=== PATIENT | female | born 1945 | race Caucasian/White ===

== ENCOUNTER → 2020-07-23 14:50 | Outpatient (BNVA) | payer MEDICARE, SELFPAY | PROVIDERS: PCP Nurse Practitioner Family; Referring Provider Nurse Practitioner Family; Visit Provider Internal Medicine Endocrinology, Diabetes & Metabolism | DX: N25.81 Secondary hyperparathyroidism of renal origin (principal); M85.80 Other specified disorders of bone density and structure, unspecified site; E78.5 Hyperlipidemia, unspecified; E55.9 Vitamin D deficiency, unspecified; Z79.899 Other long term (current) drug therapy | CPT/HCPCS: 99212; Q3014 ==

== ENCOUNTER → 2020-07-31 12:48 | Outpatient (BNVA) | payer MEDICARE, SELFPAY | PROVIDERS: PCP Nurse Practitioner Family; Referring Provider Nurse Practitioner Family; Visit Provider Dietitian, Registered | DX: Z76.89 Persons encountering health services in other specified circumstances (principal) ==

== ENCOUNTER → 2020-08-19 09:47 | Outpatient (BNVA) | payer MEDICARE, SELFPAY | PROVIDERS: PCP Nurse Practitioner Family; Visit Provider Internal Medicine Gastroenterology | DX: Z11.0 Encounter for screening for intestinal infectious diseases (principal) | CPT/HCPCS: 99211 ==

== ENCOUNTER 2020-08-19 10:47 | Outpatient (REF) | payer MEDICARE, SELFPAY ==
[2020-08-19 12:28] LABS: Alanine Aminotransferase 11 U/L (0-31); Albumin Level 4.2 g/dL (3.5-5.0); Alkaline Phosphatase 74 U/L (39-117); Anion Gap 14 (12-20); Aspartate Amino Transferase 27 U/L (5-31); Bilirubin Total 0.7 mg/dL (0.0-1.0); Blood Urea Nitrogen 21 mg/dL (9-16); Calcium 9.3 mg/dL (8.4-10.2); Carbon Dioxide 30 mmol/L (22-29); Chloride 99 mmol/L (96-108); Cholesterol 257 mg/dL; Estimated Glomerular Filt Rate 41; Glucose Fasting 90 mg/dL (60-99); HDL Cholesterol 47 mg/dL; LDL Cholesterol Calculated 182 mg/dl; Magnesium 2.1 mg/dL (1.6-2.6); Phosphorus 3.2 mg/dL (2.7-4.5); Potassium 3.7 mmol/l (3.3-5.1); Sodium 139 mmol/L (135-145); Total Protein 7.9 g/dL (6.5-8.0); Triglycerides 141 mg/dL
[2020-08-19 12:49] LABS: Vitamin D 25-OH Total 60.9 ng/mL (>30)
[2020-08-20 07:28] LABS: LDL Cholesterol Direct 179 mg/dL (<100)
[2020-08-21 12:12] LABS: Calcium (PTHI) 9.2 mg/dL (8.6-10.4); PTHI 114 pg/mL (14-64)
[2020-08-22 13:53] LABS: H Pylori Breath Test NOT DETECTED (NOT DETECTED)
[2020-08-23 00:22] LABS: VITAMIN D (1,25 OH) D3 42 pg/mL; Vit D (1,25-Dihydroxy) Total 42 pg/mL (18-72); Vitamin D (1,25 OH) D2 <8 pg/mL
[2020-08-23 15:13] LABS: Alkaline Phosphatase Bone 13.1 mcg/L (5.6-29.0)
== END 2020-08-19 10:48 | disposition home or self-care (01) ==
LOC: HO.LAB 10:47
PROVIDERS: PCP Nurse Practitioner Family; Visit Provider Internal Medicine Endocrinology, Diabetes & Metabolism
DX: E78.5 Hyperlipidemia, unspecified (principal)
CPT/HCPCS: 80053; 80061; 82306; 82652; 83013; 83721; 83735; 83970; 84075; 84100

== ENCOUNTER 2020-08-27 | Outpatient (REF) | payer MEDICARE, SELFPAY ==
[2020-08-28 14:56] LABS: Total Volume 24 Hour Urine 750 mL
[2020-08-28 15:05] LABS: Creatinine, 24Hr Urine 1.3 G/Day (1.0-2.0); Creatinine, mg/dL 170.94
[2020-08-29 17:08] LABS: Calcium, 24 Hr Urine 44 mg/24 h; Calcium/Creatinine Ratio 35 mg/g creat (30-275); Creatinine 24Hr Urine 1.24 g/24 h (0.50-2.15)
== END 2020-08-27 00:01 | disposition home or self-care (01) ==
LOC: HO.LNP
PROVIDERS: Visit Provider Internal Medicine Endocrinology, Diabetes & Metabolism
DX: N25.81 Secondary hyperparathyroidism of renal origin (principal)
CPT/HCPCS: 82340; 82570

== ENCOUNTER → 2020-09-30 11:57 | Outpatient (BNVA) | payer MEDICARE, SELFPAY | PROVIDERS: PCP Nurse Practitioner Family; Visit Provider Dietitian, Registered | DX: Z76.89 Persons encountering health services in other specified circumstances (principal) ==

== ENCOUNTER → 2020-11-11 12:23 | Outpatient (BNVA) | payer MEDICARE, SELFPAY | PROVIDERS: PCP Nurse Practitioner Family; Visit Provider Dietitian, Registered ==

== ENCOUNTER 2020-11-21 17:06 | Outpatient (REF) | payer MEDICARE, SELFPAY ==
--- NOTE | ~2020-11-21 | XR_ITS ---
EXAMINATION: XR SHOULDER, LEFT CLINICAL INFORMATION: Pain and stiffness COMPARISON: Previous x-ray July 2008 TECHNIQUE: AP external rotation, Grashey, scapular Y, and axillary views of the left shoulder. FINDINGS: Bone alignment is normal. No fracture or dislocation is seen. The glenohumeral joint is normal. There is arthritis at the acromioclavicular joint. Soft tissues are unremarkable. XR/XR shoulder LT min 2V IMPRESSION: Arthritis at the acromioclavicular joint.
== END 2020-11-21 17:07 | disposition home or self-care (01) ==
LOC: HO.XRAY 17:06
PROVIDERS: PCP Registered Nurse; Visit Provider Registered Nurse
DX: M25.512 Pain in left shoulder (principal); M25.612 Stiffness of left shoulder, not elsewhere classified; M79.622 Pain in left upper arm
CPT/HCPCS: 73030

== ENCOUNTER 2020-12-10 11:10 | Outpatient (REF) | payer MEDICARE, SELFPAY ==
--- NOTE | ~2020-12-10 | MM_ITS ---
EXAMINATION: MM SCREENING DIGITAL BREAST TOMOSYNTHESIS, BILATERAL CLINICAL INFORMATION: Screening. Asymptomatic. The lifetime risk of breast cancer based on the Tyrer-Cuzick Model is 2%. COMPARISON: Mammography: 03/16/2019, 03/04/2018, 02/23/2017; radiographs left shoulder 11/21/2020 TECHNIQUE: Digital breast tomosynthesis is performed in both the craniocaudal and mediolateral oblique views along with computer-aided detection (CAD). Synthesized 2D images are generated from the tomosynthesis. Additional right MLO view is provided. FINDINGS: The breasts are almost entirely fatty (ACR BI-RADS breast composition Category a). Background stromal markings are unremarkable. There is no developing density or interval mass or architectural abnormality. No abnormal calcifications. There are bilateral vascular calcifications again seen. The axilla and skin contours are unremarkable. Current study shows mildly prominent draining vein upper outer left breast when compared with prior studies. No abnormality soft tissues upper arm or axilla noted on recent radiographs left shoulder. Patient data sheet notes two doses COVID vaccine both from left side. MM/MM tomosynthesis screening BI IMPRESSION: 1. Breast parenchymal pattern similar to prior exams. 2. Solitary prominent draining vein upper outer left breast of doubtful significance. No axillary adenopathy. ASSESSMENT: BI-RADS 2: Benign RECOMMENDATION: Routine annual mammography screening. This patient's information was entered into a reminder system with a target due date for their next mammogram.
== END 2020-12-10 11:11 | disposition home or self-care (01) ==
LOC: HO.MAMMO 11:10
PROVIDERS: PCP Nurse Practitioner Family; Visit Provider Nurse Practitioner Family
DX: Z12.31 Encounter for screening mammogram for malignant neoplasm of breast (principal)
CPT/HCPCS: 77063; 77067

== ENCOUNTER 2021-01-20 13:54 | Outpatient (REF) | payer MEDICARE, SELFPAY ==
[2021-01-20 15:48] LABS: Alanine Aminotransferase 11 U/L (0-31); Albumin Level 4.1 g/dL (3.5-5.0); Alkaline Phosphatase 67 U/L (39-117); Anion Gap 11 (12-20); Aspartate Amino Transferase 24 U/L (5-31); Bilirubin Total 0.4 mg/dL (0.0-1.0); Blood Urea Nitrogen 26 mg/dL (9-16); Calcium 9.4 mg/dL (8.4-10.2); Carbon Dioxide 32 mmol/L (22-29); Chloride 102 mmol/L (96-108); Cholesterol 216 mg/dL; Estimated Glomerular Filt Rate 45; Glucose Fasting 99 mg/dL (60-99); HDL Cholesterol 43 mg/dL; LDL Cholesterol Calculated 131 mg/dl; Potassium 3.4 mmol/L (3.3-5.1); Sodium 142 mmol/L (135-145); Total Protein 7.6 g/dL (6.5-8.0); Triglycerides 212 mg/dL
[2021-01-20 16:10] LABS: Vitamin D 25-OH Total 53.9 ng/mL (>30)
[2021-01-21 08:02] LABS: LDL Cholesterol Direct 136 mg/dL (<100)
[2021-01-21 17:16] LABS: Calcium (PTHI) 9.6 mg/dL (8.6-10.4); PTHI 77 pg/mL (14-64)
[2021-01-23 11:12] LABS: Alkaline Phosphatase Bone 13.3 mcg/L (5.6-29.0)
== END 2021-01-20 13:55 | disposition home or self-care (01) ==
LOC: HO.LAB 13:54
PROVIDERS: PCP Registered Nurse; Visit Provider Internal Medicine Endocrinology, Diabetes & Metabolism
DX: N25.81 Secondary hyperparathyroidism of renal origin (principal); M85.80 Other specified disorders of bone density and structure, unspecified site; E78.5 Hyperlipidemia, unspecified; E55.9 Vitamin D deficiency, unspecified
CPT/HCPCS: 36415; 80053; 80061; 82306; 83721; 83970; 84075; 99212

== ENCOUNTER → 2021-06-05 12:36 | Outpatient (BNVA) | payer MEDICARE, SELFPAY | PROVIDERS: Visit Provider Internal Medicine | CPT/HCPCS: Q3014 ==

== ENCOUNTER 2021-06-09 08:49 | Outpatient (REF) | payer MEDICARE, SELFPAY ==
[2021-06-09 10:03] LABS: Alanine Aminotransferase 13 U/L (0-31); Albumin Level 4.1 g/dL (3.5-5.0); Alkaline Phosphatase 76 U/L (39-117); Anion Gap 10 (12-20); Aspartate Amino Transferase 24 U/L (5-31); Bilirubin Total 0.3 mg/dL (0.0-1.0); Blood Urea Nitrogen 21 mg/dL (9-16); Calcium 9.4 mg/dL (8.4-10.2); Carbon Dioxide 33 mmol/L (22-29); Chloride 101 mmol/L (96-108); Cholesterol 206 mg/dL; Estimated Glomerular Filt Rate 39; Glucose Random 92 mg/dL (60-115); HDL Cholesterol 39 mg/dL; LDL Cholesterol Calculated 131 mg/dl; Phosphorus 3.1 mg/dL (2.7-4.5); Potassium 3.9 mmol/L (3.3-5.1); Sodium 140 mmol/L (135-145); Total Protein 7.3 g/dL (6.5-8.0); Triglycerides 184 mg/dL
[2021-06-09 10:33] LABS: Free T4 (Free Thyroxine) 1.19 ng/dL (0.71-1.85); Thyroid Stimulating Hormone 1.15 uIU/mL (0.32-4.0); Vitamin D 25-OH Total 46.9 ng/mL (>30)
[2021-06-10 14:12] LABS: LDL Cholesterol Direct 129 mg/dL (<100)
[2021-06-11 13:01] LABS: PES - Abn Protein Band 1 0.6 g/dL (NONE DETECTED); Prot Elec - Alpha1 0.3 g/dL (0.2-0.3); Prot Elec - Alpha2 0.8 g/dL (0.5-0.9); Prot Elec - Beta 1 0.4 g/dL (0.4-0.6); Prot Elec - Beta 2 0.4 g/dL (0.2-0.5); Prot Elec - Gamma 1.5 g/dL (0.8-1.7); Prot Elec - Total Protein 7.4 g/dL (6.1-8.1)
[2021-06-12 11:52] LABS: Alkaline Phosphatase Bone 13.2 mcg/L (5.6-29.0)
[2021-06-16 12:36] LABS: Calcium (PTHI) 9.2 mg/dL (8.6-10.4); PTHI 117 pg/mL (14-64)
[2021-06-17 05:22] LABS: N-Telopeptide 26 (see note); NTXCreaRU 152 mg/dL (20-275)
== END 2021-06-09 08:50 | disposition home or self-care (01) ==
LOC: HO.LAB 08:49
PROVIDERS: Visit Provider Internal Medicine
DX: M85.80 Other specified disorders of bone density and structure, unspecified site (principal); E78.5 Hyperlipidemia, unspecified; E55.9 Vitamin D deficiency, unspecified
CPT/HCPCS: 36415; 80053; 80061; 82306; 82523; 83721; 83970; 84075; 84100; 84165; 84439; 84443

== ENCOUNTER 2021-06-11 12:56 | Outpatient (REF) | payer MEDICARE, SELFPAY ==
[2021-06-11 13:51] LABS: Creatinine, mg/dL 146.17
[2021-06-12 10:03] LABS: Creatinine, 24Hr Urine 1.2 G/Day (1.0-2.0); Total Volume 24 Hour Urine 850 mL
[2021-06-13 18:16] LABS: Calcium, 24 Hr Urine 16 mg/24 h; Calcium/Creatinine Ratio 14 mg/g creat (30-275); Creatinine 24Hr Urine 1.14 g/24 h (0.50-2.15)
== END 2021-06-11 12:57 | disposition home or self-care (01) ==
LOC: HO.LNP 12:56
PROVIDERS: Visit Provider Internal Medicine
DX: M85.80 Other specified disorders of bone density and structure, unspecified site (principal)
CPT/HCPCS: 82340; 82570

== ENCOUNTER → 2021-06-13 09:33 | Outpatient (BNVA) | payer MEDICARE, SELFPAY | PROVIDERS: Visit Provider Dietitian, Registered | DX: K90.0 Celiac disease (principal) | CPT/HCPCS: 97803 ==

== ENCOUNTER 2021-06-20 07:59 | Outpatient (REF) | payer MEDICARE, SELFPAY ==
[2021-06-20 08:16] LABS: MANUAL DIFF FLAG NO
[2021-06-20 08:30] LABS: Basophils Percent Auto 0.6 % (0-2); Eosinophils Absolute Auto 0.2 X10*3/uL (0.0-0.4); Hematocrit 35.7 % (37-47); Hemoglobin 11.4 g/dl (12.0-16.0); Imm Gran Abs Auto 0.01 X10*3/uL (0.00-0.03); Imm Gran Pct Auto 0.2 % (0.0-0.4); Lymphocytes Absolute Auto 1.7 X10*3/uL (1.2-4.9); Lymphocytes Percent Auto 32.6 % (20-40); Mean Corpuscular HGB Conc 31.9 g/dl (31.0-35.0); Mean Corpuscular Hemoglobin 29.5 pg (27.0-33.0); Mean Corpuscular Volume 92.5 fL (80-98); Mean Platelet Volume 11.3 fL (9.4-12.3); Monocytes Absolute Auto 0.4 X10*3/uL (0.1-1.2); Neutrophils Absolute Auto 2.9 X10*3/uL (2.0-8.3); Neutrophils Percent Auto 54.6 % (45-73); Platelet Count 197 X10*3/uL (160-400); Red Blood Count 3.86 X10*6/uL (4.20-5.50); Red Cell Distribution Width 12.4 % (11.0-16.0); White Blood Count 5.2 X10*3/uL (4.8-10.8)
[2021-06-20 08:32] LABS: Appearance Urine HAZY; Color Urine YELLOW; Glucose Urine UA NEG (NEG); Leukocyte Esterase Urine 2+ (NEG); Nitrite Urine NEG (NEG); PH 6.5 (5.0-8.0); Specific Gravity - Urine <= 1.005 (1.005-1.025); Urine Blood TRACE (NEG); Urine Ketones NEG (NEG); Urine Protein TRACE MG/DL (NEG-TRACE)
[2021-06-20 08:45] LABS: Squamous Epithelial Cell Urine 3+ /LPF
[2021-06-20 08:46] LABS: Bacteria Urine 1+ /LPF
[2021-06-20 08:55] LABS: Total Protein Urine Random 13 mg/dL (<12)
[2021-06-20 08:59] LABS: Anion Gap 8 (12-20); Blood Urea Nitrogen 14 mg/dL (9-16); Carbon Dioxide 35 mmol/L (22-29); Chloride 102 mmol/L (96-108); Estimated Glomerular Filt Rate 45; Iron 75 mcg/dL (30-160); Percent Iron Saturation 27 % (15-50); Potassium 4.2 mmol/L (3.3-5.1); Sodium 141 mmol/L (135-145); Total Iron Binding Capacity 277 mcg/dL (228-428); Unsaturated Iron Binding 202 ug/dL
[2021-06-23 13:27] LABS: Calcium (PTHI) 9.6 mg/dL (8.6-10.4); PTHI 80 pg/mL (14-64)
== END 2021-06-20 08:00 | disposition home or self-care (01) ==
LOC: HO.LAB 07:59
PROVIDERS: Visit Provider Internal Medicine Nephrology
DX: N28.1 Cyst of kidney, acquired (principal)
CPT/HCPCS: 36415; 80051; 81001; 82565; 83540; 83970; 84156; 84520; 85025

== ENCOUNTER → 2021-06-27 09:17 | Outpatient (BNV) | payer MEDICARE, SELFPAY | PROVIDERS: Referring Provider Internal Medicine; Visit Provider Internal Medicine Medical Oncology | DX: D47.2 Monoclonal gammopathy (principal) | CPT/HCPCS: 99203; 99212; 99213 ==

== ENCOUNTER → 2021-10-16 12:08 | Outpatient (BNVA) | payer MEDICARE, SELFPAY | PROVIDERS: Visit Provider Internal Medicine | DX: Z13.89 Encounter for screening for other disorder (principal) | CPT/HCPCS: Q3014 ==

== ENCOUNTER 2021-11-17 09:06 | Outpatient (REF) | payer MEDICARE, SELFPAY ==
[2021-11-17 10:58] LABS: Alanine Aminotransferase 10 U/L (0-31); Albumin Level 4.3 g/dL (3.5-5.0); Alkaline Phosphatase 91 U/L (39-117); Anion Gap 13 (12-20); Aspartate Amino Transferase 26 U/L (5-31); Bilirubin Total 0.5 mg/dL (0.0-1.0); Blood Urea Nitrogen 28 mg/dL (9-16); Carbon Dioxide 29 mmol/L (22-29); Chloride 103 mmol/L (96-108); Estimated Glomerular Filt Rate 29; Glucose Random 92 mg/dL (60-115); Phosphorus 3.5 mg/dL (2.7-4.5); Potassium 4.5 mmol/L (3.3-5.1); Sodium 140 mmol/L (135-145); Total Protein 7.9 g/dL (6.5-8.0)
[2021-11-17 11:02] LABS: Vitamin D 25-OH Total 52.8 ng/mL (>30)
[2021-11-18 13:57] LABS: Calcium (PTHI) 9.5 mg/dL (8.6-10.4); PTHI 95 pg/mL (14-64)
== END 2021-11-17 09:07 | disposition home or self-care (01) ==
LOC: HO.LAB 09:06
PROVIDERS: Visit Provider Internal Medicine
DX: M85.80 Other specified disorders of bone density and structure, unspecified site (principal); E55.9 Vitamin D deficiency, unspecified
CPT/HCPCS: 36415; 80053; 82306; 83970; 84100

== ENCOUNTER 2021-11-19 09:54 | Outpatient (REF) | payer MEDICARE, MEDICAID, SELFPAY ==
[2021-11-19 11:20] LABS: Anion Gap 10 (12-20); Blood Urea Nitrogen 21 mg/dL (9-16); Calcium 9.5 mg/dL (8.4-10.2); Carbon Dioxide 31 mmol/L (22-29); Chloride 101 mmol/L (96-108); Estimated Glomerular Filt Rate 41; Glucose Random 68 mg/dL (60-115); Sodium 138 mmol/L (135-145)
[2021-11-19 11:35] LABS: Creatinine, mg/dL 35.65
[2021-11-19 13:50] LABS: Creatinine, 24Hr Urine 0.8 G/Day (1.0-2.0); Total Volume 24 Hour Urine 2350 mL
[2021-11-21 18:07] LABS: Calcium, 24 Hr Urine 12 mg/24 h; Calcium/Creatinine Ratio 13 mg/g creat (30-275); Creatinine 24Hr Urine 0.89 g/24 h (0.50-2.15)
== END 2021-11-19 09:55 | disposition home or self-care (01) ==
LOC: HO.LAB 09:54
PROVIDERS: Visit Provider Internal Medicine
DX: M85.80 Other specified disorders of bone density and structure, unspecified site (principal)
CPT/HCPCS: 36415; 80048; 82340; 82570

== ENCOUNTER 2022-01-02 12:06 | Outpatient (REF) | payer MEDICARE, MEDICAID, SELFPAY ==
[2022-01-02 12:23] LABS: MANUAL DIFF FLAG NO
[2022-01-02 13:10] LABS: Basophils Percent Auto 0.3 % (0-2); Eosinophils Absolute Auto 0.2 X10*3/uL (0.0-0.4); Eosinophils Percent Auto 2.6 % (0-4); Hematocrit 32.6 % (37.0-47.0); Hemoglobin 10.1 g/dl (12.0-16.0); Imm Gran Abs Auto 0.02 X10*3/uL (0.00-0.03); Imm Gran Pct Auto 0.3 % (0.0-0.4); Lymphocytes Absolute Auto 1.6 X10*3/uL (1.2-4.9); Lymphocytes Percent Auto 27.6 % (20-40); Mean Corpuscular Hemoglobin 28.6 pg (27.0-33.0); Mean Corpuscular Volume 92.4 fL (80.0-98.0); Mean Platelet Volume 12.2 fL (9.4-12.3); Monocytes Absolute Auto 0.4 X10*3/uL (0.1-1.2); Monocytes Percent Auto 7.7 % (2-11); Neutrophils Absolute Auto 3.5 x10*3/uL (2.0-8.3); Neutrophils Percent Auto 61.5 % (45-73); Platelet Count 192 X10*3/uL (160-400); Red Blood Count 3.53 X10*6/uL (4.20-5.50); White Blood Count 5.7 X10*3/uL (4.8-10.8)
[2022-01-02 13:17] LABS: Appearance Urine HAZY; Color Urine YELLOW; Glucose Urine UA NEG (NEG); Leukocyte Esterase Urine TRACE (NEG); Nitrite Urine NEG (NEG); PH 7.5 (5.0-8.0); Specific Gravity - Urine 1.015 (1.005-1.025); Urine Blood TRACE (NEG); Urine Ketones 5 MG/DL (NEG); Urine Protein NEG (NEG-TRACE)
[2022-01-02 13:33] LABS: Creatinine Urine 284.95 mg/dL; Total Protein Urine Random 28 mg/dL (<12)
[2022-01-02 13:39] LABS: Bacteria Urine TRACE /LPF; Squamous Epithelial Cell Urine 4+ /LPF; WBC Urine 0-2 /HPF (0-4)
[2022-01-02 13:55] LABS: Anion Gap 16 (12-20); Blood Urea Nitrogen 17 mg/dL (9-16); Calcium 9.7 mg/dL (8.4-10.2); Carbon Dioxide 27 mmol/L (22-29); Chloride 99 mmol/L (96-108); Estimated Glomerular Filt Rate 45; Iron 52 mcg/dL (30-160); Sodium 138 mmol/L (135-145)
[2022-01-02 13:59] LABS: Vitamin D 25-OH Total 53.1 ng/mL (>30)
[2022-01-02 14:06] LABS: Percent Iron Saturation 19 % (15-50); Total Iron Binding Capacity 278 mcg/dL (228-428); Unsaturated Iron Binding 226 ug/dL
[2022-01-05 13:57] LABS: Calcium (PTHI) 9.6 mg/dL (8.6-10.4); PTHI 72 pg/mL (16-77)
== END 2022-01-02 12:07 | disposition home or self-care (01) ==
LOC: HO.LAB 12:06
PROVIDERS: PCP Registered Nurse Community Health; Visit Provider Internal Medicine Nephrology
DX: N18.32 Chronic kidney disease, stage 3b (principal)
CPT/HCPCS: 36415; 80051; 81001; 82306; 82310; 82565; 83540; 83970; 84156; 84520; 85025

== ENCOUNTER 2022-01-19 10:24 | Outpatient (REF) | payer OTHER, SELFPAY ==
--- NOTE | ~2022-01-19 | MM_ITS ---
EXAMINATION: MM SCREENING DIGITAL BREAST TOMOSYNTHESIS, BILATERAL CLINICAL INFORMATION: Screening. Asymptomatic. The lifetime risk of breast cancer based on the Tyrer-Cuzick Model is 2%. COMPARISON: Mammography: 12/10/2020, 03/16/2019, 03/04/2018 TECHNIQUE: Digital breast tomosynthesis is performed in both the craniocaudal and mediolateral oblique views along with computer-aided detection (CAD). Synthesized 2D images are generated from the tomosynthesis. FINDINGS: There are scattered areas of fibroglandular density (ACR BI-RADS breast composition Category b). Breast tissue composition borders on predominantly fatty. Background stromal markings are stable. There is no interval mass or architectural abnormality. Prominent draining vein noted prior exam upper outer quadrant left breast is not demonstrated on current study. There are scattered bilateral vascular calcifications again seen. Skin contours are smooth. MM/MM tomosynthesis screening BI IMPRESSION: No mammographic evidence of malignancy. ASSESSMENT: BI-RADS 1: Negative RECOMMENDATION: Routine annual mammography screening. This patient's information was entered into a reminder system with a target due date for their next mammogram.
== END 2022-01-19 10:25 | disposition home or self-care (01) ==
LOC: HO.MAMMO 10:24
PROVIDERS: Visit Provider Registered Nurse Community Health
DX: Z12.31 Encounter for screening mammogram for malignant neoplasm of breast (principal)
CPT/HCPCS: 77063; 77067

== ENCOUNTER 2022-03-20 08:13 | Outpatient (REF) | payer OTHER, SELFPAY ==
[2022-03-20 09:14] LABS: Cholesterol 219 mg/dL; HDL Cholesterol 45 mg/dL; LDL Cholesterol Calculated 150 mg/dl; Triglycerides 123 mg/dL
== END 2022-03-20 08:14 | disposition home or self-care (01) ==
LOC: HO.LAB 08:13
PROVIDERS: PCP Registered Nurse Community Health; Visit Provider Registered Nurse Community Health
DX: E78.5 Hyperlipidemia, unspecified (principal)
CPT/HCPCS: 36415; 80061

== ENCOUNTER 2022-05-04 13:10 | Outpatient (REF) | payer OTHER, SELFPAY ==
--- NOTE | ~2022-05-04 | US_ITS ---
EXAMINATION: US RETROPERITONEAL LIMITED (RENAL ONLY) CLINICAL INFORMATION: Renal cyst. COMPARISON: US retroperitoneal limited (renal only) 03/07/2020 and 05/23/2019. MR abdomen without contrast 10/27/2019. CT abdomen and pelvis with contrast 07/30/2019. TECHNIQUE: Real-time imaging of the kidneys. FINDINGS: RIGHT KIDNEY: 10.6 x 3.8 x 5.0 cm (SAG x AP x TRV). The kidney is normal in size, contour, and echogenicity. Renal cortical thickness is normal. No renal calculi or hydronephrosis. There is an anechoic cyst in the lower pole measuring 1.3 x 0.8 x 1.3 cm. There are prominent pyramids visualized. LEFT KIDNEY: 12.5 x 4.0 x 4.0 cm (SAG x AP x TRV). The kidney is normal in size, contour, and echogenicity. Renal cortical thickness is normal. No renal calculi or hydronephrosis. There is an anechoic cyst in the lower pole measuring 5.0 x 4.8 x 5.7 cm. The previously visualized mid pole cyst is not visualized at this time. US/US renal BI IMPRESSION: There are bilateral renal cysts. No echogenic stones or hydronephrosis seen.
== END 2022-05-04 13:11 | disposition home or self-care (01) ==
LOC: HO.US 13:10
PROVIDERS: Visit Provider Internal Medicine Nephrology
DX: N28.1 Cyst of kidney, acquired (principal)
CPT/HCPCS: 76775

== ENCOUNTER 2022-05-12 14:08 | Outpatient (REF) | payer OTHER, SELFPAY ==
--- NOTE | ~2022-05-12 | MM_ITS ---
EXAMINATION: BONE DENSITOMETRY CLINICAL INDICATION: Other specified disorders of bone density and structure. COMPARISON: Previous BD dated 03/25/2020 and baseline BD dated 01/24/2007, spine and left hip. This is the patient's baseline examination for the left forearm radius 33%. TECHNIQUE: Using a [employer] DXA System (software version: 13.1) manufactured by [employer] dual-energy x-ray absorptiometry was performed of the lumbar spine, left hip, and left forearm radius 33%. The images are of good technical quality. Summary results are attached. FINDINGS: AP SPINE L1-L4: Current: BMD 1.130 g/cm2, Z-score 0.7, T-score -0.4, normal, 1.2% decrease from previous, 7.1% increase from baseline (<5% change is not significant). Prior: BMD 1.144 g/cm2. Baseline: BMD 1.055 g/cm2. LEFT FEMUR, NECK: Current: BMD 0.883 g/cm2, Z-score 0.5, T-score -1.1, osteopenia. Prior: BMD 0.789 g/cm2. Baseline: BMD 0.935 g/cm2. LEFT FEMUR, TOTAL: Current: BMD 1.004 g/cm2, Z-score 1.4, T-score 0.0, normal, 5.6% increase from previous, 7.2% decrease from baseline (<5% change is not significant). Prior: BMD 0.951 g/cm2. Baseline: BMD 1.082 g/cm2. LEFT FOREARM RADIUS 33%: BMD 0.804 g/cm2, Z-score 1.6, T-score -0.8, normal. IDENTIFIED RISK FACTORS: Menopause, thiazide, hyperparathyroidism. HISTORY OF FRACTURE: None listed. MEDICATIONS: Calcium supplements or multivitamin, vitamin D. MM/XR DEXA appendicular skeleton IMPRESSION: 1. DIAGNOSIS: Osteopenia based on the lowest T-score value of -1.1 in the femoral neck applying World Health Organization criteria. 2. 10-YEAR FRACTURE RISK PREDICTION, FRAX: Major osteoporotic fracture (clinical spine, forearm, hip or shoulder) 5.9%. Hip fracture 1.0%. 3. Treatment Recommendations: NOF guidelines recommend consideration for treatment in postmenopausal women and men age 50 and older presenting with the following: -A hip or vertebral (clinical or morphometric) fracture. -T-score less than or equal to -2.5 at the femoral neck or spine after appropriate evaluation to exclude secondary causes. -Low bone mass at the hip or spine and a 10-year fracture probability by FRAX of greater than or equal to 3% for hip fracture or greater than or equal to 20% for major osteoporotic fracture based on the [place] adapted WHO algorithm. 4. Other Recommendations: All treatment decisions require clinical judgment and consideration of individual patient factors, including patient preferences, comorbidities, previous drug use, risk factors not captured in the FRAX model (e.g. frailty, falls, vitamin D deficiency, increased bone turnover, interval significant decline in bone density) and possible under or overestimation of fracture risk by FRAX. Additional medical evaluation for secondary cause of low bone mineral density may be appropriate. FUTURE SCAN RECOMMENDATION: People with diagnosed cases of osteoporosis or at high risk for fracture should have regular bone mineral density tests. For patients eligible for Medicare, routine testing is allowed once every 2 years. The testing frequency can be increased to one year for patients who have rapidly progressing disease, those who are receiving or discontinuing medical therapy to restore bone mass, or have additional risk factors.
== END 2022-05-12 14:09 | disposition home or self-care (01) ==
LOC: HO.MAMMO 14:08
PROVIDERS: Visit Provider Internal Medicine Endocrinology, Diabetes & Metabolism
DX: Z13.820 Encounter for screening for osteoporosis (principal); Z78.0 Asymptomatic menopausal state; M85.80 Other specified disorders of bone density and structure, unspecified site
CPT/HCPCS: 77081

== ENCOUNTER → 2022-06-10 11:17 | Outpatient (BNVA) | payer OTHER, SELFPAY | PROVIDERS: PCP Registered Nurse Community Health; Visit Provider Internal Medicine Endocrinology, Diabetes & Metabolism | DX: N25.81 Secondary hyperparathyroidism of renal origin (principal); M85.80 Other specified disorders of bone density and structure, unspecified site | CPT/HCPCS: 99212 ==

== ENCOUNTER 2022-06-25 08:13 | Outpatient (REF) | payer OTHER, SELFPAY ==
[2022-06-25 08:36] LABS: MANUAL DIFF FLAG NO
[2022-06-25 09:30] LABS: Basophils Absolute Auto 0.1 X10*3/uL (0.0-0.2); Eosinophils Absolute Auto 0.2 X10*3/uL (0.0-0.4); Eosinophils Percent Auto 3.4 % (0-4); Hematocrit 36.7 % (37.0-47.0); Hemoglobin 11.6 g/dl (12.0-16.0); Imm Gran Abs Auto 0.01 X10*3/uL (0.00-0.03); Imm Gran Pct Auto 0.2 % (0.0-0.4); Mean Corpuscular HGB Conc 31.6 g/dl (31.0-35.0); Mean Corpuscular Hemoglobin 28.8 pg (27.0-33.0); Mean Corpuscular Volume 91.1 fL (80.0-98.0); Mean Platelet Volume 12.2 fL (9.4-12.3); Monocytes Absolute Auto 0.5 X10*3/uL (0.1-1.2); Monocytes Percent Auto 8.2 % (2-11); Neutrophils Absolute Auto 3.2 x10*3/uL (2.0-8.3); Neutrophils Percent Auto 53.2 % (45-73); Platelet Count 227 X10*3/uL (160-400); Red Blood Count 4.03 X10*6/uL (4.20-5.50); Red Cell Distribution Width 12.7 % (11.0-16.0)
[2022-06-25 10:19] LABS: Anion Gap 16 (12-20); Blood Urea Nitrogen 20 mg/dL (9-16); Calcium 9.4 mg/dL (8.4-10.2); Carbon Dioxide 29 mmol/L (22-29); Chloride 100 mmol/L (96-108); Estimated Glomerular Filt Rate 44; Iron 87 mcg/dL (30-160); Percent Iron Saturation 26 % (15-50); Potassium 4.2 mmol/L (3.3-5.1); Sodium 141 mmol/L (135-145); Total Iron Binding Capacity 329 mcg/dL (228-428); Unsaturated Iron Binding 242 ug/dL
[2022-06-25 10:29] LABS: Alanine Aminotransferase 8 U/L (0-31); Albumin Level 4.3 g/dL (3.5-5.0); Alkaline Phosphatase 90 U/L (39-117); Anion Gap 16 (12-20); Aspartate Amino Transferase 22 U/L (5-31); Bilirubin Total 0.4 mg/dL (0.0-1.0); Blood Urea Nitrogen 20 mg/dL (9-16); Calcium 9.4 mg/dL (8.4-10.2); Carbon Dioxide 29 mmol/L (22-29); Chloride 100 mmol/L (96-108); Estimated Glomerular Filt Rate 43; Glucose Random 89 mg/dL (60-115); Potassium 4.3 mmol/L (3.3-5.1); Sodium 141 mmol/L (135-145); Total Protein 7.8 g/dL (6.5-8.0)
[2022-06-25 10:45] LABS: Creatinine Urine 171.24 mg/dL; Total Protein Urine Random 17 mg/dL (<12)
[2022-06-25 10:47] LABS: Vitamin D 25-OH Total 54.2 ng/mL (>30)
[2022-06-26 13:22] LABS: Calcium (PTHI) 9.3 mg/dL (8.6-10.4); PTHI 121 pg/mL (16-77)
[2022-06-29 13:47] LABS: IgA 197 mg/dL (70-320); IgG 1732 mg/dL (600-1540); IgM 83 mg/dL (50-300)
== END 2022-06-25 08:14 | disposition home or self-care (01) ==
LOC: HO.LAB 08:13
PROVIDERS: Internal Medicine Medical Oncology; PCP Registered Nurse Community Health; Visit Provider Internal Medicine Nephrology
DX: D47.2 Monoclonal gammopathy (principal); N28.1 Cyst of kidney, acquired; I10 Essential (primary) hypertension
CPT/HCPCS: 36415; 80051; 80053; 82306; 82310; 82565; 82784; 83540; 83970; 84156; 84520; 85025; 86334

== ENCOUNTER 2023-01-25 10:00 | Outpatient (REF) | payer OTHER, SELFPAY ==
--- NOTE | ~2023-01-25 | MM_ITS ---
EXAMINATION: MM SCREENING DIGITAL BREAST TOMOSYNTHESIS, BILATERAL CLINICAL INFORMATION: Screening. Asymptomatic. The lifetime risk of breast cancer based on the Tyrer-Cuzick Model is 2%. COMPARISON: Mammography: 01/19/2022, 12/10/2020, 04/08/2019 TECHNIQUE: Digital breast tomosynthesis is performed in both the craniocaudal and mediolateral oblique views along with computer-aided detection (CAD). Synthesized 2D images are generated from the tomosynthesis. FINDINGS: There are scattered areas of fibroglandular density (ACR BI-RADS breast composition Category b). There are no significant masses, abnormal calcifications, or other abnormalities. Breast tissue composition borders on predominantly fatty. There is no developing density or architectural abnormality or significant changes from prior studies. The axilla are unremarkable. MM/MM tomosynthesis screening BI IMPRESSION: No mammographic evidence of malignancy. ASSESSMENT: BI-RADS 1: Negative RECOMMENDATION: Routine annual mammography screening. This patient's information was entered into a reminder system with a target due date for their next mammogram.
== END 2023-01-25 10:01 | disposition home or self-care (01) ==
LOC: HO.MAMMO 10:00
PROVIDERS: PCP Registered Nurse; Visit Provider Registered Nurse Community Health
DX: Z12.31 Encounter for screening mammogram for malignant neoplasm of breast (principal)
CPT/HCPCS: 77063; 77067

== ENCOUNTER 2023-10-01 09:54 | Outpatient (REF) | payer OTHER, SELFPAY ==
[2023-10-01 10:13] LABS: MANUAL DIFF FLAG NO
[2023-10-01 10:37] LABS: Basophils Absolute Auto 0.1 X10*3/uL (0.0-0.2); Basophils Percent Auto 0.8 % (0-2); Eosinophils Absolute Auto 0.2 X10*3/uL (0.0-0.4); Eosinophils Percent Auto 3.7 % (0-4); Hematocrit 35.3 % (37.0-47.0); Hemoglobin 11.4 g/dl (12.0-16.0); Imm Gran Abs Auto 0.02 X10*3/uL (0.00-0.03); Imm Gran Pct Auto 0.3 % (0.0-0.4); Lymphocytes Absolute Auto 2.1 X10*3/uL (1.2-4.9); Lymphocytes Percent Auto 33.1 % (20-40); Mean Corpuscular HGB Conc 32.3 g/dl (31.0-35.0); Mean Corpuscular Hemoglobin 29.8 pg (27.0-33.0); Mean Corpuscular Volume 92.4 fL (80.0-98.0); Mean Platelet Volume 12.3 fL (9.4-12.3); Monocytes Absolute Auto 0.6 X10*3/uL (0.1-1.2); Monocytes Percent Auto 9.7 % (2-11); Neutrophils Absolute Auto 3.2 x10*3/uL (2.0-8.3); Neutrophils Percent Auto 52.4 % (45-73); Platelet Count 225 X10*3/uL (160-400); Red Blood Count 3.82 X10*6/uL (4.20-5.50); Red Cell Distribution Width 12.2 % (11.0-16.0); White Blood Count 6.2 X10*3/uL (4.8-10.8)
[2023-10-01 11:07] LABS: Anion Gap 12 (12-20); Blood Urea Nitrogen 24 mg/dL (9-16); Calcium 9.5 mg/dL (8.4-10.2); Carbon Dioxide 31 mmol/L (22-29); Chloride 103 mmol/L (96-108); Cholesterol 182 mg/dL (<200); Estimated Glomerular Filt Rate 51; HDL Cholesterol 36 mg/dL (>40); Iron 67 mcg/dL (30-160); LDL Cholesterol Calculated 111 mg/dL (<100); Percent Iron Saturation 26 % (15-50); Potassium 3.6 mmol/L (3.3-5.1); Sodium 142 mmol/L (135-145); Total Iron Binding Capacity 253 mcg/dL (228-428); Triglycerides 177 mg/dL (<150); Unsaturated Iron Binding 186 ug/dL
[2023-10-01 11:23] LABS: Appearance Urine Cloudy; Color Urine Yellow; Glucose Urine UA Negative (Negative); Leukocyte Esterase Urine Small (1+) (Negative); Nitrite Urine Negative (Negative); Specific Gravity - Urine 1.025 (1.005-1.025); UMIC TRIGGER UA YES; Urine Blood Negative (Negative); Urine Ketones Trace mg/dL (Negative); Urine Protein Negative (Neg-Trace)
[2023-10-01 11:30] LABS: Bacteria Urine None Seen (None Seen); Hyaline Casts Urine 0-2 /LPF (0-2); Squamous Epithelial Cell Urine >20 /HPF (0-2); WBC Urine 0-5 /HPF (0-5)
[2023-10-01 11:31] LABS: RBC Urine 0-2 /HPF (0-2)
[2023-10-01 12:40] LABS: Creatinine Urine 266.37 mg/dL; Protein/Creatinine Ratio, Ur 0.06 (<0.2); Total Protein Urine Random 15 mg/dL (<12)
== END 2023-10-01 09:55 | disposition home or self-care (01) ==
LOC: HO.LAB 09:54
PROVIDERS: PCP Student in an Organized Health Care Education/Training Program; Visit Provider Physician Assistant
DX: I12.9 Hypertensive chronic kidney disease with stage 1 through stage 4 chronic kidney disease, or unspecified chronic kidney disease (principal); N18.32 Chronic kidney disease, stage 3b; N28.1 Cyst of kidney, acquired
CPT/HCPCS: 36415; 80051; 80061; 81001; 82306; 82310; 82565; 82570; 83540; 84156; 84520; 85025

== ENCOUNTER 2024-02-22 10:29 | Outpatient (REF) | payer OTHER, SELFPAY | END 2024-02-22 10:30 | disposition home or self-care (01) | LOC: HO.MAMMO 10:29 | PROVIDERS: PCP Student in an Organized Health Care Education/Training Program; Visit Provider Student in an Organized Health Care Education/Training Program | DX: Z12.31 Encounter for screening mammogram for malignant neoplasm of breast (principal) | CPT/HCPCS: 77063; 77067 ==

== ENCOUNTER → 2024-02-22 11:00 | Outpatient (BNV) | payer OTHER, SELFPAY | PROVIDERS: PCP Student in an Organized Health Care Education/Training Program; Visit Provider Radiology Diagnostic Radiology | DX: Z12.31 Encounter for screening mammogram for malignant neoplasm of breast (principal) | CPT/HCPCS: 77063; 77067 ==

== ENCOUNTER 2024-05-11 09:31 | Outpatient (REF) | payer OTHER, SELFPAY ==
[2024-05-11 12:18] LABS: Estimated Average Glucose 105 mg/dL; Hematocrit 33.7 % (37.0-47.0); Hemoglobin 10.6 g/dl (12.0-16.0); Hemoglobin A1c % 5.3 % (<6.0); Mean Corpuscular HGB Conc 31.5 g/dl (31.0-35.0); Mean Corpuscular Hemoglobin 29.4 pg (27.0-33.0); Mean Corpuscular Volume 93.6 fL (80.0-98.0); Mean Platelet Volume 11.9 fL (9.4-12.3); Platelet Count 208 X10*3/uL (160-400); Red Cell Distribution Width 12.9 % (11.0-16.0); White Blood Count 4.5 X10*3/uL (4.8-10.8)
[2024-05-11 12:39] LABS: Alanine Aminotransferase 10 U/L (0-31); Alkaline Phosphatase 68 U/L (39-117); Anion Gap 10 (12-20); Aspartate Amino Transferase 27 U/L (5-31); Bilirubin Total 0.3 mg/dL (0.0-1.0); Blood Urea Nitrogen 20 mg/dL (9-16); Calcium 9.4 mg/dL (8.4-10.2); Carbon Dioxide 30 mmol/L (22-29); Chloride 105 mmol/L (96-108); Cholesterol 211 mg/dL (<200); Estimated Glomerular Filt Rate 45; Glucose Random 86 mg/dL (60-115); HDL Cholesterol 38 mg/dL (>40); LDL Cholesterol Calculated 141 mg/dL (<100); Potassium 3.4 mmol/L (3.3-5.1); Sodium 142 mmol/L (135-145); Total Protein 7.7 g/dL (6.5-8.0); Triglycerides 163 mg/dL (<150)
[2024-05-11 12:48] LABS: Vitamin D 25-OH Total 48.5 ng/mL (>30)
[2024-05-11 12:54] LABS: Syphilis Screen Nonreactive (Nonreactive)
[2024-05-11 12:55] LABS: HBS Num1 > 1000.00 mIU/mL (0-7.99); HBc Num1 3.31 S/CO (0.00-0.79); HBsAGNum1 0.23 S/CO (0.00-0.99); HIV AB/AG Nonreactive (Nonreactive); HIV Num 1 0.05 S/CO (0.00-0.99); Hepatitis B Surface Antigen Negative (Negative); ~HepC Num1 0.23 S/CO (0.00-0.79); ~Hepatitis B Surface Antibody REACTIVE (Nonreactive); ~Hepatitis C Antibody Nonreactive (Nonreactive)
[2024-05-11 13:01] LABS: Folate 6.9 ng/mL (> or = 4.0); Vitamin B12 1611 pg/mL (200-900)
[2024-05-11 14:38] LABS: HBc Num2 3.17 S/CO; HBc Num3 3.21 S/CO; Hepatitis B Core Antibody Reactive (Nonreactive)
[2024-05-11 16:21] LABS: Iron 69 mcg/dL (30-160); Percent Iron Saturation 29 % (15-50); Total Iron Binding Capacity 242 mcg/dL (228-428); Unsaturated Iron Binding 173 ug/dL
[2024-05-11 16:34] LABS: Ferritin 103 ng/mL (10-250)
== END 2024-05-11 09:32 | disposition home or self-care (01) ==
LOC: HO.HHCL 09:31
PROVIDERS: Visit Provider Student in an Organized Health Care Education/Training Program
DX: Z00.00 Encounter for general adult medical examination without abnormal findings (principal); D64.9 Anemia, unspecified; Z13.1 Encounter for screening for diabetes mellitus
CPT/HCPCS: 36415; 80053; 80061; 82306; 82607; 82728; 82746; 83036; 83540; 84443; 85027; 86704; 86706; 86780; 86803; 87340; 87389

== ENCOUNTER 2024-05-18 12:45 | Outpatient (REF) | payer OTHER, SELFPAY ==
--- NOTE | ~2024-05-18 | MM_ITS ---
EXAMINATION: BONE DENSITOMETRY CLINICAL INDICATION: Postmenopausal. Bony pain. COMPARISON: Previous BD dated 05/12/2022 and baseline BD dated 01/24/2007. TECHNIQUE: Using a [employer] DXA System (software version: 13.1) manufactured by [employer], dual-energy x-ray absorptiometry was performed of the lumbar spine and left hip. The images are of good technical quality. Summary results are attached. FINDINGS: LEFT FEMUR, NECK: Current: BMD 0.787 g/cm2, Z-score -0.1, T-score -1.8, osteopenia. Prior: BMD 0.883 g/cm2. Baseline: BMD 0.935 g/cm2. LEFT FEMUR, TOTAL: Current: BMD 0.945 g/cm2, Z-score 1.0, T-score -0.5, normal, 5.9% decrease from previous, 12.7% decrease from baseline (<5% change is not significant). Prior: BMD 1.004 g/cm2. Baseline: BMD 1.082 g/cm2. AP SPINE L1-L4: Current: BMD 1.149 g/cm2, Z-score 0.9, T-score -0.3, normal, 1.7% increase from previous, 8.9% increase from baseline (<5% change is not significant). Prior: BMD 1.130 g/cm2. Baseline: BMD 1.055 g/cm2. IDENTIFIED RISK FACTORS: Menopause. HISTORY OF FRACTURE: None listed. MEDICATIONS: Calcium, vitamin D. MM/XR DEXA axial skeleton IMPRESSION: 1. DIAGNOSIS: Osteopenia based on the lowest T-score value of -1.8 in the femoral neck applying World Health Organization criteria. 2. 10-YEAR FRACTURE RISK PREDICTION, FRAX: Major osteoporotic fracture (clinical spine, forearm, hip or shoulder) 7.9%. Hip fracture 2.0%. 3. Treatment Recommendations: NOF guidelines recommend consideration for treatment in postmenopausal women and men age 50 and older presenting with the following: -A hip or vertebral (clinical or morphometric) fracture. -T-score less than or equal to -2.5 at the femoral neck or spine after appropriate evaluation to exclude secondary causes. -Low bone mass at the hip or spine and a 10-year fracture probability by FRAX of greater than or equal to 3% for hip fracture or greater than or equal to 20% for major osteoporotic fracture based on the [place] adapted WHO algorithm. 4. Other Recommendations: All treatment decisions require clinical judgment and consideration of individual patient factors, including patient preferences, comorbidities, previous drug use, risk factors not captured in the FRAX model (e.g. frailty, falls, vitamin D deficiency, increased bone turnover, interval significant decline in bone density) and possible under or overestimation of fracture risk by FRAX. Additional medical evaluation for secondary cause of low bone mineral density may be appropriate. FUTURE SCAN RECOMMENDATION: People with diagnosed cases of osteoporosis or at high risk for fracture should have regular bone mineral density tests. For patients eligible for Medicare, routine testing is allowed once every 2 years. The testing frequency can be increased to one year for patients who have rapidly progressing disease, those who are receiving or discontinuing medical therapy to restore bone mass, or have additional risk factors. Electronically signed by: Ovidio Harris MD 05/23/2024 11:14 AM EDT
== END 2024-05-18 12:46 | disposition home or self-care (01) ==
LOC: HO.MAMMO 12:45
PROVIDERS: PCP Student in an Organized Health Care Education/Training Program; Visit Provider Student in an Organized Health Care Education/Training Program
DX: Z13.820 Encounter for screening for osteoporosis (principal); Z78.0 Asymptomatic menopausal state
CPT/HCPCS: 77080

== ENCOUNTER 2024-06-12 10:50 | Outpatient (REF) | payer OTHER, SELFPAY ==
--- NOTE | ~2024-06-12 | XR_ITS ---
EXAMINATION: XR HIP, LEFT CLINICAL INFORMATION: Left hip pain for 2 days, trochanteric bursitis COMPARISON: X-ray pelvis and bilateral hips on 08/23/2012 TECHNIQUE: Two views of the left hip. FINDINGS: BONES: Bony structures are intact. There is no focal bone destruction or periosteal reaction seen. JOINTS: Alignment of hip joint is normal. SOFT TISSUE: Soft tissue is normal. No radiopaque foreign body or abnormal air collection is seen. XR/XR hip LT min 2V IMPRESSION: Unchanged Normal x-ray of left hip. No fracture or dislocation or signs of avascular necrosis are seen. Electronically signed by: Luis Jaffe MD 06/12/2024 01:59 PM EDT
== END 2024-06-12 10:51 | disposition home or self-care (01) ==
LOC: HO.HHCX 10:50
PROVIDERS: Visit Provider Internal Medicine
DX: M70.62 Trochanteric bursitis, left hip (principal)
CPT/HCPCS: 73502

== ENCOUNTER 2024-06-12 11:19 | Outpatient (REF) | payer OTHER, SELFPAY ==
[2024-06-12 13:27] LABS: MANUAL DIFF FLAG NO
[2024-06-12 13:40] LABS: Basophils Absolute Auto 0.1 X10*3/uL (0.0-0.2); Basophils Percent Auto 0.8 % (0-2); Eosinophils Absolute Auto 0.2 X10*3/uL (0.0-0.4); Eosinophils Percent Auto 3.7 % (0-4); Hematocrit 34.6 % (37.0-47.0); Hemoglobin 11.3 g/dl (12.0-16.0); Imm Gran Abs Auto 0.01 X10*3/uL (0.00-0.03); Imm Gran Pct Auto 0.2 % (0.0-0.4); Lymphocytes Absolute Auto 1.9 X10*3/uL (1.2-4.9); Lymphocytes Percent Auto 30.4 % (20-40); Mean Corpuscular HGB Conc 32.7 g/dl (31.0-35.0); Mean Corpuscular Hemoglobin 30.5 pg (27.0-33.0); Mean Corpuscular Volume 93.3 fL (80.0-98.0); Mean Platelet Volume 12.4 fL (9.4-12.3); Monocytes Absolute Auto 0.7 X10*3/uL (0.1-1.2); Monocytes Percent Auto 11.5 % (2-11); Neutrophils Absolute Auto 3.3 x10*3/uL (2.0-8.3); Neutrophils Percent Auto 53.4 % (45-73); Platelet Count 200 X10*3/uL (160-400); Red Blood Count 3.71 X10*6/uL (4.20-5.50); Red Cell Distribution Width 12.8 % (11.0-16.0); White Blood Count 6.3 X10*3/uL (4.8-10.8)
[2024-06-12 13:48] LABS: Alanine Aminotransferase 11 U/L (0-31); Alkaline Phosphatase 72 U/L (39-117); Anion Gap 12 (12-20); Aspartate Amino Transferase 26 U/L (5-31); Bilirubin Total 0.5 mg/dL (0.0-1.0); Blood Urea Nitrogen 23 mg/dL (9-16); Calcium 9.5 mg/dL (8.4-10.2); Carbon Dioxide 30 mmol/L (22-29); Chloride 102 mmol/L (96-108); Estimated Glomerular Filt Rate 41; Glucose Random 83 mg/dL (60-115); Potassium 3.7 mmol/L (3.3-5.1); Sodium 140 mmol/L (135-145)
[2024-06-12 14:26] LABS: Erythrocyte Sedimentation Rate 88 MM/HR (0-20)
== END 2024-06-12 11:20 | disposition home or self-care (01) ==
LOC: HO.HHCL 11:19
PROVIDERS: Referring Provider Internal Medicine; Visit Provider Student in an Organized Health Care Education/Training Program
DX: M70.62 Trochanteric bursitis, left hip (principal); K76.0 Fatty (change of) liver, not elsewhere classified
CPT/HCPCS: 36415; 73502; 80053; 85025; 85652

== ENCOUNTER 2024-07-19 18:03 | Outpatient (REF) | payer OTHER, SELFPAY ==
[2024-07-19 18:19] LABS: Appearance Urine Cloudy; Color Urine Yellow; Glucose Urine UA Negative (Negative); Leukocyte Esterase Urine Moderate (2+) (Negative); Nitrite Urine Negative (Negative); PH 5.5 (5.0-9.0); Specific Gravity - Urine 1.025 (1.005-1.025); UMIC TRIGGER UA YES; Urine Blood Small (1+) (Negative); Urine Ketones Trace mg/dL (Negative); Urine Protein Trace mg/dL (Neg-Trace)
[2024-07-19 19:43] LABS: Bacteria Urine 1+ (None Seen); Hyaline Casts Urine 0-2 /LPF (0-2); RBC Urine 0-2 /HPF (0-2); Squamous Epithelial Cell Urine >20 /HPF (0-2)
== END 2024-07-19 18:04 | disposition home or self-care (01) ==
LOC: HO.HHCLNP 18:03
PROVIDERS: Visit Provider Student in an Organized Health Care Education/Training Program
DX: R31.29 Other microscopic hematuria (principal)
CPT/HCPCS: 81001

== ENCOUNTER 2024-07-27 08:59 | Outpatient (REF) | payer OTHER, SELFPAY ==
[2024-07-27 11:23] LABS: MANUAL DIFF FLAG NO
[2024-07-27 11:33] LABS: Basophils Absolute Auto 0.1 X10*3/uL (0.0-0.2); Eosinophils Absolute Auto 0.2 X10*3/uL (0.0-0.4); Eosinophils Percent Auto 4.7 % (0-4); Hematocrit 34.2 % (37.0-47.0); Imm Gran Abs Auto 0.01 X10*3/uL (0.00-0.03); Imm Gran Pct Auto 0.2 % (0.0-0.4); Lymphocytes Absolute Auto 1.6 X10*3/uL (1.2-4.9); Mean Corpuscular HGB Conc 32.2 g/dl (31.0-35.0); Mean Corpuscular Hemoglobin 29.6 pg (27.0-33.0); Mean Corpuscular Volume 92.2 fL (80.0-98.0); Mean Platelet Volume 12.7 fL (9.4-12.3); Monocytes Absolute Auto 0.4 X10*3/uL (0.1-1.2); Monocytes Percent Auto 8.6 % (2-11); Neutrophils Absolute Auto 2.7 x10*3/uL (2.0-8.3); Neutrophils Percent Auto 53.5 % (45-73); Platelet Count 196 X10*3/uL (160-400); Red Blood Count 3.71 X10*6/uL (4.20-5.50); Red Cell Distribution Width 12.1 % (11.0-16.0); White Blood Count 5.1 X10*3/uL (4.8-10.8)
[2024-07-27 11:48] LABS: Rheumatoid Factor 73.5 IU/mL (<15.0)
[2024-07-27 11:49] LABS: Alanine Aminotransferase 14 U/L (0-31); Albumin Level 3.9 g/dL (3.5-5.0); Alkaline Phosphatase 79 U/L (39-117); Anion Gap 14 (12-20); Aspartate Amino Transferase 37 U/L (5-31); Bilirubin Total 0.4 mg/dL (0.0-1.0); Blood Urea Nitrogen 22 mg/dL (9-16); Calcium 9.6 mg/dL (8.4-10.2); Carbon Dioxide 29 mmol/L (22-29); Chloride 104 mmol/L (96-108); Cholesterol 187 mg/dL (<200); Estimated Glomerular Filt Rate 49; Glucose Random 88 mg/dL (60-115); HDL Cholesterol 37 mg/dL (>40); LDL Cholesterol Calculated 118 mg/dL (<100); Potassium 4.4 mmol/L (3.3-5.1); Sodium 143 mmol/L (135-145); Total Protein 7.7 g/dL (6.5-8.0); Triglycerides 161 mg/dL (<150); Uric Acid 7.6 mg/dL (2.4-5.7)
[2024-07-27 12:08] LABS: Erythrocyte Sedimentation Rate 82 MM/HR (0-20)
[2024-07-27 17:20] LABS: CT PCR NOT DETECTED (Not Detect.); NG PCR NOT DETECTED (Not Detect.)
[2024-08-03 11:34] LABS: Anti Nuclear Antibody Screen POSITIVE (NEGATIVE); Anti Nuclear Antibody Titer > OR = 1:1280 titer
== END 2024-07-27 09:00 | disposition home or self-care (01) ==
LOC: HO.HHCL 08:59
PROVIDERS: Student in an Organized Health Care Education/Training Program; Visit Provider Internal Medicine
DX: Z00.00 Encounter for general adult medical examination without abnormal findings (principal); M70.62 Trochanteric bursitis, left hip; E78.5 Hyperlipidemia, unspecified
CPT/HCPCS: 36415; 80053; 80061; 84550; 85025; 85652; 86038; 86039; 86140; 86431; 87491; 87591

== ENCOUNTER 2025-03-01 09:50 | Outpatient (REF) | payer OTHER, SELFPAY ==
--- OUTSIDE RECORDS SUMMARY | 2025-03-01 10:57 | XMS_ITS ---
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 Name Role Phone [place] Unavailable [phone] Reason for Referral Not Available Allergies, adverse reactions, alerts Allergen Type Reaction Severity Status Onset Date Aspirin Allergy to substance (disorder) Stomach upset Unkn own Active N/A Ibuprofen Allergy to substance (disorder) Stomach upset Unkn own Active N/A Lisinopril Allergy to substance (disorder) cough Unknown Active N/A Tramadol Allergy to substance (disorder) palpitations Unkno wn Active N/A History of medication use Medication Class Instructions Start Date End Date calcium citrate 315 mg calcium-vitamin D3 6.25 mcg (250 unit) tablet TAKE 2 TABLETS BY MOUTH TWICE DAILY 2021-10-16 No Data Available Esomeprazole Magnesium 40 mg Cap delayed rel TAKE 1 CAPSULE BY MOUTH EVERY DAY NEEDED 2021-02-27 No Data Available Fluticasone Propionate 50 MCG/ACT Suspension USE 2 SPRAYS IN EACH NOSTRIL EVERY MORNING NEEDED 2021-07-14 No Data Available hydroCHLOROthiazide 25 mg Tab TAKE 1 TAB LET BY MOUTH EVERY DAY 2022-01-01 No Data Available Loratadine 10 mg Tab TAKE 1 TABLET BY MO UTH EVERY DAY NEEDED 2021-04-21 No Data Available LORazepam 0.5 mg Tab TAKE 1 TABLET BY MO UTH ONCE DAILY NEEDED 2021-11-18 No Data Available Mirtazapine 30 mg Tab TAKE 1 TABLET BY M OUTH AT BEDTIME 2021-11-18 No Data Available Vitamin D3 25 mcg (1,000 uni t) capsule TAKE 1 CAPSULE BY MOUTH ONCE DAILY 2022-02-06 No Data Available Benzonatate 100 mg Cap TAKE 1 CAPSULE BY MOUTH THREE TIMES DAILY NEEDED FOR COUGH 2022-03-10 2022-07-15 Cetirizine 10 mg Tab TAKE 1 TABLET BY MO UTH EVERY DAY 2022-03-10 No Data Available Atorvastatin Calcium 20 mg Tab take 1 ta blet orally once daily 2022-07-15 2024-12-27 Ezetimibe 10 mg Tab TAKE 1 TABLET BY ANA TH EVERY MORNING 2022-10-13 No Data Available Benzonatate 100 mg Cap TAKE 1 CAPSULE BY MOUTH EVERY 8 HOURS 2023-05-13 No Data Available B-12 1000 MCG Tab TAKE 1 TABLET BY ANA TH DAILY 2022-10-08 No Data Available Voltaren 1 % Gel 2 grams topically to affected area 4 times per day prn 2023-07-08 No Data Available Tylenol Extra Strength 500 m g Tab take 2 tablets by mouth every 8 hours for pain 2024-04-07 No Data Available Pravastatin Sodium 10 mg Tab TAKE 1 TABL ET BY MOUTH EVERY DAY 2024-07-19 No Data Available cyanocobalamin (vit B-12) 50 0 mcg tablet TAKE 1 TABLET BY MOUTH ONCE DAILY 2024-11-22 No Data Available Problem List Problem Status Onset Date Resolved Date Synopsis Celiac disease Active 2023-07-08 N/A knows to a void gluten foodsat risk of malnutrition d/t dietary restrictions. Refer to R.D. if needed MGUS (monoclonal gammopathy of unknown significance) Active 2023-07-08 N/A continu e to f/u with PCP and HEME/ONC monitor for s/s of MM, s/s of amyloidosis, and lymphoma Chronic kidney disease, stage 3b Active 2022-07-15 N/A r/t HTNContinue HCTZFollow with PCPavoid nephrotoxic medications Other problems related to medical facilities and other health care Active 2024-04-07 N/A HYPERTENSIO N CONTINGENCY PLANMember to call for the following symptoms: BP >180/100 / Chest pain / Headache/ HR >100 Planned intervention: Assess for signs of end organ damage (headache, vision changes, chest pain)/ Used Car Lot Attendant on proper BP monitoring technique and reassess/ Increase current medication dose:/ Add amlodipine 5mg daily/ Encourage low sodium diet/ Discuss breathing exercises/ Encourage medication adherence Morbid obesity Active 2023-07-08 N/A BMI 36.52 with co-morbidities HL, HTN, CKDAdvised to eat a healthy diet include emphasizing fruits, vegetables, whole grains, poultry, fish and nuts and limiting sugary foods and beverages. Eating this way may help increase fiber, which is also beneficial. A diet high in fiber can help lower cholesterol levels by as much as 10 percent. DASH diet. Increase exercise to 30-45 min q day. Decrease sugary drinks, stop soda intake. Limit ETOH intake. If you smoke, quit smoking Primary osteoarthritis involving multiple joints Active 2023-07-08 N/A pain w orse bilateral kneesambulates with cane MDD (major depressive disorder), recurrent episode, mild Active 2023-07-08 N/A mirtazapuneets mir ood support system at home with her daughterhas lots of grandchildren that visit hersshania burden during ; as her son during therapist, psychiatrist Hyperparathyroidism Active 2023-07-08 N/A follo wed by PCPmonitor for s/s Kidney stones, Excessive urination, Stomach (abdominal) pain, Tiring easily or weakness.Bone and joint pain.Frequent complaints of illness with no clear cause. Essential hypertension Active 2023-07-08 N/A hy drochlorothiazide Recommend DASH diet. Increase exercise to 30-45 min q day. Eat a healthy diet: try to eat whole foods, green leafy vegetables and whole grains. Decrease fast foods and processed foods. Decrease sugary drinks, stop soda intake. Limit ETOH intake. If you smoke, quit smoking. Decrease caffeine intake. Decrease stress by: meditating, deep breathing, laughing, going for walks. Monitor BP at home: keep a BP journal. AnxietySedative, hypnotic, or anxiolytic use, unspecified, uncomplicated Active 2022-07-15 N/A Loraz epam daily for greater than 5 yearsAbrupt cessation would cause withdrawal symptoms Encounters Encounters Type Facility Date of Service Diagnosis/Co mplaint Pain Assessment - NO pain present (1126F) [facility] ([place] Pain Assessment - NO pain present (1126F) [facility] [place] Pain Assessment - NO pain present (1126F) [facility] [place] Pain Assessment - NO pain present (1126F) [facility] [place] Pain Assessment - NO pain present (1126F) [facility] [place] Pain Assessment - NO pain present (1126F) [facility] [place] Pain Assessment - NO pain present (1126F) [facility] [place] Anxiety disorder, unspecifiedChronic kidney disease, stage 3b Pain Assessment - NO pain present (1126F) [facility] [place] Pain Assessment - NO pain present (1126F) [facility] [place] Estab. patient 30-39min; chronic exacerbation, 2 stable chronic or 1 acute illness add add modifier 95 for video, (do not use for phone, instead use [id number]) [facility] [place] Hypertensive chronic kidney disease w stg 1-4/unsp chr kdnyChronic kidney disease, stage 3bAnxiety disorder, unspecifiedSedative, hypnotic or anxiolytic dependence, uncomplicatedGastro-esophageal reflux disease without esophagitisHyperparathyroidism, unspecifiedMajor depressive disorder, recurrent, mildMonoclonal gammopathyCeliac diseasePolyosteoarthritis, unspecifiedUnsteadiness on feetMorbid (severe) obesity due to excess caloriesBody mass index (bmi) 36.0-36.9, adult Estab. patient 30-39min; chronic exacerbation, 2 stable chronic or 1 acute illness add add modifier 95 for video, (do not use for phone, instead use [id number]) [facility] [place] Estab. patient 30-39min; chronic exacerbation, 2 stable chronic or 1 acute illness add add modifier 95 for video, (do not use for phone, instead use [id number]) [facility] [place] Estab. patient 30-39min; chronic exacerbation, 2 stable chronic or 1 acute illness add add modifier 95 for video, (do not use for phone, instead use 58248-29) [facility] ([place] Estab. patient 30-39min; chronic exacerbation, 2 stable chronic or 1 acute illness add add modifier 95 for video, (do not use for phone, instead use [id number]) [facility] ([place] 07[place] Estab. patient 30-39min; chronic exacerbation, 2 stable chronic or 1 acute illness add add modifier 95 for video, (do not use for phone, instead use 65647-69) [facility] [place] Estab. patient 30-39min; chronic exacerbation, 2 stable chronic or 1 acute illness add add modifier 95 for video, (do not use for phone, instead use [id number]) [facility] ([place] Estab. patient 30-39min; chronic exacerbation, 2 stable chronic or 1 acute illness add add modifier 95 for video, (do not use for phone, instead use [id number]) [facility] ([place] Estab. patient 30-39min; chronic exacerbation, 2 stable chronic or 1 acute illness add add modifier 95 for video, (do not use for phone, instead use 11558-33) [facility] [place]23 Unlisted special service; to be used for medical record reviews and reporting CPTII codes (1111F, etc) [facility] ([place] 02/[place]/2024 Other specified health statu s Unlisted special service; to be used for medical record reviews and reporting CPTII codes (1111F, etc) [facility] ([place] Unlisted special service; to be used for medical record reviews and reporting CPTII codes (1111F, etc) [facility] ([place] Estab. patient 30-39min; chronic exacerbation, 2 stable chronic or 1 acute illness add add modifier 95 for video, (do not use for phone, instead use [id number]) [facility] [place] Anxiety disorder, unspecifiedSedative, hypnotic, or anxiolytic use, unspecified, uncomplicatedHypertensive chronic kidney disease w stg 1-4/unsp chr kdnyChronic kidney disease, stage 3bOther problems related to medical facilities and other health careHyperparathyroidism, unspecifiedMajor depressive disorder, recurrent, mildMonoclonal gammopathyCeliac diseasePrimary generalized (osteo)arthritisMorbid (severe) obesity due to excess calories Estab. patient 30-39min; chronic exacerbation, 2 stable chronic or 1 acute illness add add modifier 95 for video, (do not use for phone, instead use 16200-82) [facility] [place] Estab. patient 30-39min; chronic exacerbation, 2 stable chronic or 1 acute illness add add modifier 95 for video, (do not use for phone, instead use [id number]) [facility] [place] Estab. patient 30-39min; chronic exacerbation, 2 stable chronic or 1 acute illness add add modifier 95 for video, (do not use for phone, instead use 64539-38) [facility] [place] Estab. patient 30-39min; chronic exacerbation, 2 stable chronic or 1 acute illness add add modifier 95 for video, (do not use for phone, instead use 34135-80) [facility] [place] Estab. patient 30-39min; chronic exacerbation, 2 stable chronic or 1 acute illness add add modifier 95 for video, (do not use for phone, instead use 75308-22) [facility] [place] Estab. patient 30-39min; chronic exacerbation, 2 stable chronic or 1 acute illness add add modifier 95 for video, (do not use for phone, instead use 16256-42) [facility] [place] Estab. patient 30-39min; chronic exacerbation, 2 stable chronic or 1 acute illness add add modifier 95 for video, (do not use for phone, instead use 36200-50) [facility] ([place] 04[place] Estab. patient 20-29min; 1 stable chronic or 2 minor; add add modifier 95 for video, modifier 93 for phone [facility] [place]/2024 Anxiety disorder, unspecifiedSedative, hypnotic, or anxiolytic use, unspecified, uncomplicatedChronic kidney disease, stage 3bHypertensive chronic kidney disease w stg 1-4/unsp chr kdnyHyperparathyroidism, unspecifiedMajor depressive disorder, recurrent, mildMonoclonal gammopathyCeliac diseaseUnsteadiness on feetPrimary generalized (osteo)arthritisMorbid (severe) obesity due to excess caloriesBody mass index (bmi) 36.0-36.9, adultOther problems related to medical facilities and other health care Estab. patient 20-29min; 1 stable chronic or 2 minor; add add modifier 95 for video, modifier 93 for phone [facility] [place] Estab. patient 20-29min; 1 stable chronic or 2 minor; add add modifier 95 for video, modifier 93 for phone [facility] [place]/27/[place] Estab. patient 20-29min; 1 stable chronic or 2 minor; add add modifier 95 for video, modifier 93 for phone [facility] [place] Estab. patient 20-29min; 1 stable chronic or 2 minor; add add modifier 95 for video, modifier 93 for phone [facility] [place]/27/20[place] Estab. patient 20-29min; 1 stable chronic or 2 minor; add add modifier 95 for video, modifier 93 for phone [facility] [place]/27/20[place] Estab. patient 20-29min; 1 stable chronic or 2 minor; add add modifier 95 for video, modifier 93 for phone [facility] [place] Estab. patient 20-29min; 1 stable chronic or 2 minor; add add modifier 95 for video, modifier 93 for phone [facility] [place]/20[place] Estab. patient 20-29min; 1 stable chronic or 2 minor; add add modifier 95 for video, modifier 93 for phone [facility] [place]/2024 Vital Signs Date of Collection Vitals 2022-07-15 11:41:25 Height - 162.56 cmWe ight - 85.73 kgBody Mass Index (BMI) - 32.44 kg/m2BP Diastolic - 70.0 mm[Hg]BP Systolic - 120.0 mm[Hg] 2023-07-08 11:26:52 Height - 152.4 cmWei ght - 85.28 kgBody Mass Index (BMI) - 36.72 kg/m2BP Diastolic - 75.0 mm[Hg]BP Systolic - 123.0 mm[Hg]Pain Scale - 3.0 {score} 2024-04-07 08:44:27 Height - 152.4 cmWei ght - 85.28 kgBody Mass Index (BMI) - 36.72 kg/m2 2024-12-27 08:57:40 Weight - 84.82 kgBod y Mass Index (BMI) - 36.52 kg/m2BP Diastolic - 86.0 mm[Hg]BP Systolic - 125.0 mm[Hg] Social History Social History Social History Observation Description Effec tive Time Current Smoking Status Never smoker 2025-02-18 2 Sex Female History of Procedures Procedures Service Procedure code Service date Servicing provider Phone# Pain Assessment - NO pain present (1126F) 1126F 2022-07-15 No Data Available No Data A vailable Medication List Documented (1159F) 1159F 2022-07-15 No Data Available No Data Chio ilable Medication Review by prescribing provider or pharmacist documented (1160F) 1160F 2022-07-15 No Data Available No Data Chio ilable Functional Status Assessed (1170F) 1170F 2022-07-15 No Data Available No Data Avail able Advance Care Directive Advance care planning discussion documented in the medical record (1158F) 1158F 2022-07-15 No Data Available No Data Availa ble BMI obtained (3008F) 3008F 2022-07-15 No Data Availab le No Data Available New patient,40-59min; chronic exacerbation, 2 stable chronic or 1 acute illness add add modifier 95 for video (do not use for phone, instead use [id number]) 88029 2022-07-15 No Data Available No Data Availa ble SBP < 130 (3074F) 3074F 2022-07-15 No Data Available No Data Available DBP <80 (3078F) 3078F 2022-07-15 No Data Available No Data Available Estab. patient 30-39min; chronic exacerbation, 2 stable chronic or 1 acute illness add add modifier 95 for video, (do not use for phone, instead use [id number]) 11720 2023-07-08 No Data Available No Data Availa ble Medication List Documented (1159F) 1159F 2023-07-08 No Data Available No Data Chio ilable Medication Review by prescribing provider or pharmacist documented (1160F) 1160F 2023-07-08 No Data Available No Data Chio ilable Functional Status Assessed (1170F) 1170F 2023-07-08 No Data Available No Data Avail able Pain Assessment - Pain Documented on a Pain Scale (1125F) 1125F 2023-07-08 No Data Available No Data Chio ilable BMI obtained (3008F) 3008F 2023-07-08 No Data Availab le No Data Available DBP <80 (3078F) 3078F 2023-07-08 No Data Available No Data Available SBP < 130 (3074F) 3074F 2023-07-08 No Data Available No Data Available Advance care planning discussed and documented ? advance care plan or surrogate decision-maker was documented in the medical record. (1123F) 1123F 2023-07-08 No Data Available No Data Availa ble Unlisted special service; to be used for medical record reviews and reporting CPTII codes (1111F, etc) 27136 2024-02-11 No Data Available No Data Availa ble SBP < 130 (3074F) 3074F 2024-02-11 No Data Available No Data Available DBP <80 (3078F) 3078F 2024-02-11 No Data Available No Data Available Estab. patient 30-39min; chronic exacerbation, 2 stable chronic or 1 acute illness add add modifier 95 for video, (do not use for phone, instead use [id number]) 48600 2024-04-07 No Data Available No Data Availa ble Medication List Documented (1159F) 1159F 2024-04-07 No Data Available No Data Chio ilable Medication Review by prescribing provider or pharmacist documented (1160F) 1160F 2024-04-07 No Data Available No Data Chio ilable Functional Status Assessed (1170F) 1170F 2024-04-07 No Data Available No Data Avail able BMI obtained (3008F) 3008F 2024-04-07 No Data Availab le No Data Available Advance Care Directive Advance care planning discussion documented in the medical record (1158F) 1158F 2024-04-07 No Data Available No Data Availa ble Advance care planning discussed and documented ? advance care plan or surrogate decision-maker was documented in the medical record. (1123F) 1123F 2024-04-07 No Data Available No Data Availa ble Pain Assessment - Pain Documented on a Pain Scale (1125F) 1125F 2024-04-07 No Data Available No Data Chio ilable Estab. patient 20-29min; 1 stable chronic or 2 minor; add add modifier 95 for video, modifier 93 for phone 34620 2024-12-27 No Data Available No Data Availa ble Medication List Documented (1159F) 1159F 2024-12-27 No Data Available No Data Chio ilable Medication Review by prescribing provider or pharmacist documented (1160F) 1160F 2024-12-27 No Data Available No Data Chio ilable Functional Status Assessed (1170F) 1170F 2024-12-27 No Data Available No Data Avail able Advance Care Directive Advance care planning discussion documented in the medical record (1158F) 1158F 2024-12-27 No Data Available No Data Availa ble Advance care planning discussed and documented ? advance care plan or surrogate decision-maker was documented in the medical record. (1123F) 1123F 2024-12-27 No Data Available No Data Availa ble Pain Assessment - NO pain present (1126F) 1126F 2024-12-27 No Data Available No Data A vailable SBP < 130 (3074F) 3074F 2024-12-27 No Data Available No Data Available DBP 80-89 (3079F) 3079F 2024-12-27 No Data Available No Data Available Functional Status Functional Category Effective Dates Ambulates with cane. 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-07-08 Cognition Status: Oriented to Person, Pl roni and Time 2023-07-08 ADL: Bathing Needs Assistanc e , Dressing Needs Assistance , Eating Independent , Ambulation Needs Assistance , Transferring Needs Assistance and Toileting Independent 2023-07-08 IADL: needs assistance with all IADLs ex cept finances 2023-07-08 Falls in last 6 Months: no 2023-07-08 Social Supports - # of Inter actions with Friends/Family in a typical week: daily with daughter and son-in-law 2023-07-08 Mental Status Status Date Alert and oriented x3 2022-07-15 Assessments Date of Service Assessments 2022-07-15 11:41:25 AnxietyChronic kidne y disease, stage 3b 2023-07-08 11:26:52 AnxietyChronic kidne y disease, stage 3bGERD (gastroesophageal reflux disease)Essential hypertensionHyperparathyroidismMDD (major depressive disorder), recurrent episode, mildMGUS (monoclonal gammopathy of unknown significance)Celiac diseasePrimary osteoarthritis involving multiple jointsMorbid obesity 2024-04-07 08:44:27 AnxietySedative, hyp notic, or anxiolytic use, unspecified, uncomplicatedChronic kidney disease, stage 3bEssential hypertensionHyperparathyroidismMDD (major depressive disorder), recurrent episode, mildMGUS (monoclonal gammopathy of unknown significance)Celiac diseasePrimary osteoarthritis involving multiple jointsMorbid obesityOther problems related to medical facilities and other health care 2024-12-27 08:57:40 AnxietySedative, hyp notic, or anxiolytic use, unspecified, uncomplicatedChronic kidney disease, stage 3bEssential hypertensionHyperparathyroidismMDD (major depressive disorder), recurrent episode, mildMGUS (monoclonal gammopathy of unknown significance)Celiac diseasePrimary osteoarthritis involving multiple jointsMorbid obesityOther problems related to medical facilities and other health care Plan of Care Date of Service Plans 2022-07-15 11:41:25 Pain Assessment - NO pain documented (1126F)Medication Review by prescribing provider or pharmacist documented (1160F)Medication List Documented (1159F)Functional Status Assessed (1170F)Advance Care Directive Advance care planning discussion documented in the medical record (1158F)BMI obtained (3008F)SBP < 130 (3074F)DBP <80 (3078F)Televideo new patient,40-59min; chronic exacerbation, 2 stable chronic or 1 acute illness add modifier 95Continue to see PCP. [facility] or disease education needs that may arise.Lorazepam daily for greater than 5 yearsAbrupt cessation would cause withdrawal symptomsr/t HTNContinue HCTZFollow with PCP 2023-07-08 11:26:52 Medication Review by prescribing provider or pharmacist documented (1160F)Medication List Documented (1159F)Functional Status Assessed (1170F)Advance Care Directive Advance care planning discussion documented in the medical record (1158F)BMI obtained (3008F)SBP < 130 (3074F)DBP <80 (3078F)Televideo 30-39min; chronic exacerbation, 2 stable chronic or 1 acute illness add modifier 95Advance care planning discussed and documented ? advance care plan or surrogate decision-maker was documented in the medical record. (1123F)Continue to see PCP. Follow-up with [facility] as needed for any acute or disease education needs that may arise.Lorazepam daily for greater than 5 yearsAbrupt cessation would cause withdrawal symptomsr/t HTNContinue HCTZFollow with PCPavoid nephrotoxic medicationshydrochlorothiazide Recommend DASH diet. Increase exercise to 30-45 min q day. Eat a healthy diet: try to eat whole foods, green leafy vegetables and whole grains. Decrease fast foods and processed foods. Decrease sugary drinks, stop soda intake. Limit ETOH intake. If you smoke, quit smoking. Decrease caffeine intake. Decrease stress by: meditating, deep breathing, laughing, going for walks. Monitor BP at home: keep a BP journal. Record you BP's in the AM and after dinner; bring your log in next visit.followed by PCPmonitor for s/s Kidney stones, Excessive urination, Stomach (abdominal) pain, Tiring easily or weakness.Bone and joint pain.Frequent complaints of illness with no clear cause.juan good support system at home with her daughterhas lots of grandchildren that visit hersad burden during holiday; as her son during ntinue to f/u with PCP and HEME/ONC monitor for s/s of MM, s/s of amyloidosis, and lymphomaknows to avoid gluten foodsat risk of malnutrition d/t dietary restrictions. Refer to R.D. if neededpain worse bilateral kneesambulates with caneBMI 36.72 with co-morbidities HL, HTN, CKDAdvised to eat a healthy diet include emphasizing fruits, vegetables, whole grains, poultry, fish and nuts and limiting sugary foods and beverages. Eating this way may help increase fiber, which is also beneficial. A diet high in fiber can help lower cholesterol levels by as much as 10 percent. DASH diet. Increase exercise to 30-45 min q day. Decrease sugary drinks, stop soda intake. Limit ETOH intake. If you smoke, quit smoking 2024-02-11 09:09:07 Unlisted special ser vice; to be used for medical record reviews and reporting CPTII codes (1111F, etc)SBP < 130 (3074F)DBP <80 (3078F) 2024-04-07 08:44:27 Medication Review by prescribing provider or pharmacist documented (1160F)Medication List Documented (1159F)Functional Status Assessed (1170F)Advance Care Directive Advance care planning discussion documented in the medical record (1158F)BMI obtained (3008F)Televideo 30-39min; chronic exacerbation, 2 stable chronic or 1 acute illness add modifier 95Pain Assessment - Pain Documented (1125F)Advance care planning discussed and documented ? advance care plan or surrogate decision-maker was documented in the medical record. (1123F)Continue to see PCP. Follow-up with [facility] as needed for any acute or disease education needs that may arise.Lorazepam daily for greater than 5 yearsAbrupt cessation would cause withdrawal symptoms04/07/24 : Continue current treatment plan as directed. Has a f/u with PCP on 05/17/24.r/t HTNContinue HCTZFollow with PCPavoid nephrotoxic medicationshydrochlorothiazide Recommend DASH diet. Increase exercise to 30-45 min q day. Eat a healthy diet: try to eat whole foods, green leafy vegetables and whole grains. Decrease fast foods and processed foods. Decrease sugary drinks, stop soda intake. Limit ETOH intake. If you smoke, quit smoking. Decrease caffeine intake. Decrease stress by: meditating, deep breathing, laughing, going for walks. Monitor BP at home: keep a BP journal. Record you BP's in the AM and after dinner; bring your log in next visit.04/07/24 : Continue current treatment plan as directed. Has a f/u with PCP on 05/17/24.followed by PCPmonitor for s/s Kidney stones, Excessive urination, Stomach (abdominal) pain, Tiring easily or weakness.Bone and joint pain.Frequent complaints of illness with no clear cause.04/07/24 : Continue current treatment plan as directed. Has a f/u with PCP on 05/17/24.mirruthzasomhas good support system at home with her daughterhas lots of grandchildren that visit hersad burden during holiday; as her son during xmas04/07/24 : PHQ4- 5, denies S.I/H.I. Continue current treatment plan as directed. Has a f/u with PCP on 05/17/24.continue to f/u with PCP and HEME/ONC monitor for s/s of MM, s/s of amyloidosis, and lymphomaknows to avoid gluten foodsat risk of malnutrition d/t dietary restrictions. Refer to R.D. if neededpain worse bilateral kneesambulates with cane04/07/24 : On Tylenol PRN. Continue current treatment plan as directed. Has a f/u with PCP on 05/17/24.BMI 36.72 with co-morbidities HL, HTN, CKDAdvised to eat a healthy diet include emphasizing fruits, vegetables, whole grains, poultry, fish and nuts and limiting sugary foods and beverages. Eating this way may help increase fiber, which is also beneficial. A diet high in fiber can help lower cholesterol levels by as much as 10 percent. DASH diet. Increase exercise to 30-45 min q day. Decrease sugary drinks, stop soda intake. Limit ETOH intake. If you smoke, quit smoking04/07/24: BMI- 33.30. Encouraged healthy lifestyleHYPERTENSION CONTINGENCY PLANMember to call for the following symptoms: BP >180/100 / Chest pain / Headache/ HR >100 Planned intervention: Assess for signs of end organ damage (headache, vision changes, chest pain)/ Used Car Lot Attendant on proper BP monitoring technique and reassess/ Increase current medication dose:/ Add amlodipine 5mg daily/ Encourage low sodium diet/ Discuss breathing exercises/ Encourage medication adherence 2024-12-27 08:57:40 Functional Status As sessed (1170F)Advance Care Directive Advance care planning discussion documented in the medical record (1158F)Advance care planning discussed and documented ? advance care plan or surrogate decision-maker was documented in the medical record. (1123F)SBP < 130 (3074F)DBP 80-89 (3079F)Estab. patient 20-29min; 1 stable chronic or 2 minor; add add modifier 95 for video, modifier 93 for phoneMedication List Documented (1159F)Medication Review by prescribing provider or pharmacist documented (1160F)Pain Assessment - NO pain present (1126F)Continue to see PCP. Follow-up with [facility] as needed for any acute or disease education needs that may arise.Lorazepam daily for greater than 5 yearsAbrupt cessation would cause withdrawal symptomsr/t HTNContinue HCTZFollow with PCPavoid nephrotoxic medicationshydrochlorothiazide Recommend DASH diet. Increase exercise to 30-45 min q day. Eat a healthy diet: try to eat whole foods, green leafy vegetables and whole grains. Decrease fast foods and processed foods. Decrease sugary drinks, stop soda intake. Limit ETOH intake. If you smoke, quit smoking. Decrease caffeine intake. Decrease stress by: meditating, deep breathing, laughing, going for walks. Monitor BP at home: keep a BP journal.followed by PCPmonitor for s/s Kidney stones, Excessive urination, Stomach (abdominal) pain, Tiring easily or weakness.Bone and joint pain.Frequent complaints of illness with no clear cause.juan good support system at home with her daughterhas lots of grandchildren that visit hersad burden during ; as her son during ees therapist, psychiatristcontinue to f/u with PCP and HEME/ONC monitor for s/s of MM, s/s of amyloidosis, and lymphomaknows to avoid gluten foodsat risk of malnutrition d/t dietary restrictions. Refer to R.D. if neededpain worse bilateral kneesambulates with caneBMI 36.52 with co-morbidities HL, HTN, CKDAdvised to eat a healthy diet include emphasizing fruits, vegetables, whole grains, poultry, fish and nuts and limiting sugary foods and beverages. Eating this way may help increase fiber, which is also beneficial. A diet high in fiber can help lower cholesterol levels by as much as 10 percent. DASH diet. Increase exercise to 30-45 min q day. Decrease sugary drinks, stop soda intake. Limit ETOH intake. If you smoke, quit smokingHYPERTENSION CONTINGENCY PLANMember to call for the following symptoms: BP >180/100 / Chest pain / Headache/ HR >100 Planned intervention: Assess for signs of end organ damage (headache, vision changes, chest pain)/ Used Car Lot Attendant on proper BP monitoring technique and reassess/ Increase current medication dose:/ Add amlodipine 5mg daily/ Encourage low sodium diet/ Discuss breathing exercises/ Encourage medication adherence Goals Date Goal 2022-07-15 Remember to monitor your blood pressure regularly. 2022-07-15 Call me if you feel sick or ill, notice changes in behavior, or have any concerns 2022-07-15 Keep it up working o n diet. 2024-04-07 Continue taking medi cations as directed and keep all follow up appointments with established PCP and Specialist. Health Concerns Date Concern 2024-12-27 Visit completed lashell hester audio/video.Patient/Guardian agreed to visit via telehealth. Today, patient has chief complaint of: follow up care and comprehensive review.Reviewed Allergies, Medications, Active Medical conditions, past medical/surgical history, Social history. 2024-12-27 Most recent hospital stay(s) or ER visit(s) and precipitating factors: Denies 2024-12-27 Open HEDIS Measure mariano amaral: Reviewed 2024-12-27 Advance Care Plan Co nversationDate of Conversation: 01/12/2025Life Limiting Diagnosis: Diagnosis:Currently on Hospice SELECT:Code Status: YES CPR: Attempt ResuscitationGoals of Care: Curative: Attempt to sustain life by all medically effective meansNutrition goals: No decision made about nutrition today; not discussedDo you have a Durable Power of Flame Brazing Machine Operator for Healthcare, or Healthcare Proxy Or Guardianship? SELECTIf so, Who? Vic Gastelum you have a written Advance Directive? Has Advance DirectiveOther details of discussion:Today's plan: Advised patient to discuss wishes with [id number] : AD or surrogate was documented in the medical record.
== END 2025-03-01 09:51 | disposition home or self-care (01) ==
LOC: HO.MAMMO 09:50
PROVIDERS: PCP Student in an Organized Health Care Education/Training Program; Visit Provider Student in an Organized Health Care Education/Training Program
DX: Z12.31 Encounter for screening mammogram for malignant neoplasm of breast (principal)
CPT/HCPCS: 77063; 77067

== ENCOUNTER → 2025-03-01 10:30 | Outpatient (BNV) | payer OTHER, SELFPAY | PROVIDERS: PCP Student in an Organized Health Care Education/Training Program; Visit Provider Internal Medicine | DX: Z12.31 Encounter for screening mammogram for malignant neoplasm of breast (principal) | CPT/HCPCS: 77063; 77067 ==

== ENCOUNTER 2025-06-01 10:48 | Outpatient (REF) | payer OTHER, SELFPAY ==
--- NOTE | ~2025-06-01 | XR_ITS ---
EXAMINATION: XR CHEST CLINICAL INFORMATION: dry chronic cough COMPARISON: October 26, 2017 TECHNIQUE: PA and lateral views FINDINGS: No hyperinflation. No consolidation pleural effusion or pneumothorax. Cardiomediastinal silhouette size demonstrate a prominent thoracic aortic arch. Multilevel spondylosis with slight preservation of the intervertebral disc height at multiple contiguous levels of the thoracic spine. XR/XR chest 2V IMPRESSION: No acute airspace disease. Prominent thoracic aorta. Recommend CT angiogram aorta chest. Multilevel spondylosis suggesting DISH. Electronically signed by: Eligio Alcocer MD 06/01/2025 01:01 PM EDT
--- NOTE | ~2025-06-01 | XR_ITS ---
EXAMINATION: XR ANKLE, RIGHT CLINICAL INFORMATION: chronic right ankle pain COMPARISON: X-ray dated December 11, 2011 is not available on PACS. TECHNIQUE: AP, lateral, and mortise views of the right ankle. FINDINGS: Soft tissue swelling/edema pattern, bimalleolar. No subcutaneous emphysema. No acute cortical disruption or malalignment. Degenerative changes in the ankle and right foot. 5 mm plantar calcaneus spur. XR/XR ankle RT min 3V IMPRESSION: Bimalleolar edema pattern. No acute fracture or dislocation. Degenerative changes. Plantar calcaneal spur. Electronically signed by: Eligio Alcocer MD 06/01/2025 01:04 PM EDT
--- OUTSIDE RECORDS SUMMARY | 2025-06-01 09:45 | XMS_ITS | Encounter Summary ---
Author Organization [employer] Address [address] [facility] [address] [place] [address] Care Team Providers Care Revenue Integrity Analyst Name Role Phone Carmen Gong MD Primary Care Pro vider Encounter Details Date Type Department Care Team ([facility] st Contact Info) Description 06/01/2025 9:45 AM EDT Office Visit [facility] [address] [place] [address] Carmen Gong MD [address] [place] [address] Ankle pain, unspecified chronicity, unspecified laterality (Primary Dx); Chronic kidney disease, stage 3b (CMS/HCC) Social History Tobacco Use Types Packs/Day Years Used Date Smoking Tobacco: Never Passive Smoke Exposure: Never Smokeless Tobacco: Never Tobacco Cessation:Counseling Given: Not Answered Alcohol Use Standard Drinks/Week Comments Never 0 (1 standard drink = 0.6 oz pur e alcohol) Depression Answer Date Recorded Patient Health Questionnaire-9 Score 6 06/01/2025 Patient Health Questionnaire-9 Score 6 06/01/2025 Last PHQ-9: Questionnaire Data Not on file 0 06/01/2025 Housing Stability Answer Date Recorded What is your housing situation today? I have fernandobrain villanueva 05/17/[address] you li ve. Do you have problems with any of the following? None of the above 05/17/2024 Food Insecurity Answer Date Recorded Within the past 12 months, y ou worried that your food would run out before you got money to buy more: Never True 05/17/2024 Within the past 12 months,th e food you bought just didn't last and you didn't have enough money to get more: Never True Transportation Answer Date Recorded In the past 12 months, has l ack of transportation kept you from medical appts, meetings, work or from getting things needed for daily living? No 05/17/2024 Utilities Answer Date Recorded In the past 12 months, has t he electric, gas, oil or water company threatened to shut off services in your home? No 05/17/2024 Depression Answer Date Recorded Patient Health Questionnaire-2 Score 2 06/01/2025 Internet Access Answer Date Recorded Internet Access Q1 Yes 03/19/2025 Internet Access Q2 Not on file 03/19/2025 Comments No Sex and Gender Information Value Date Recorded Sex Assigned at Female 07/20/2022 10:17 AM EDT Legal Sex Female 10:17 AM EDT Gender Identity Female 07/20/2022 10:17 AM EDT Sexual Orientation Straight 03/02/2024 1: 43 PM EDT documented as of this encounter Last Filed Vital Signs Vital Sign Reading Time Taken Comments Blood Pressure 134/58 06/01/2025 9:31 AM EDT Pulse 75 06/01/2025 9:31 AM EDT Temperature 36.1 C (96.9 F) 06/01/2025 9:31 AM EDT Respiratory Rate 20 06/01/2025 9:31 AM EDT Oxygen Saturation 99% 06/01/2025 9:31 AM EDT Inhaled Oxygen Concentration - - Weight 83 kg (183 lb) 06/01/2025 9:31 AM EDT Height 152.4 cm (5') 06/01/2025 9:31 AM EDT Body Mass Index 35.74 06/01/2025 9:31 AM EDT documented in this encounter Functional Status * Over the past 2 weeks, how often have you been bothered by any of the following problems? Question Answer Date of Assessment Author Patient Health Questionnaire -2 Score 2 06/01/2025 9:40 AM EDT Temi Becker MA * Little interest or pleasure in doing things Answer Date of Assessment Author Several days 06/01/2025 9:40 AM EDT Claire Becker MA * Feeling down, depressed, or hopeless Answer Date of Assessment Author Several days 06/01/2025 9:40 AM EDT Claire Becker MA * Trouble falling or staying asleep, or sleeping too much Answer Date of Assessment Author More than half the days 06/01/2025 9:40 AM Temi Mckeon MA * Feeling tired or having little energy Answer Date of Assessment Author Not at all 06/01/2025 9:40 AM Claire Shen MA * Poor appetite or overeating Answer Date of Assessment Author More than half the days 06/01/2025 9:40 AM Temi Mckeon MA * Feeling bad about yourself - or that you are a failure or have let yourself or your family down Answer Date of Assessment Author Not at all 06/01/2025 9:40 AM Claire Shen MA * Trouble concentrating on things, such as reading the newspaper or watching television Answer Date of Assessment Author Not at all 06/01/2025 9:40 AM Claire Shen MA * Moving or speaking so slowly that other people could have noticed? Or the opposite - being so fidgety or restless that you have been moving around a lot more than usual. Answer Date of Assessment Author Not at all 06/01/2025 9:40 AM Claire Shen MA * Thoughts that you would be better off or hurting yourself in some way Answer Date of Assessment Author Not at all 06/01/2025 9:40 AM Claire Shen MA * Patient Health Questionnaire-9 Score Answer Date of Assessment Author 6 06/01/2025 9:40 AM Claire Shen MA * How difficult have these problems made it for you to do your work, take care of things at home, or get along with other people? Answer Date of Assessment Author Somewhat difficult 06/01/2025 9:40 AM Temi Shen MA * Over the last 2 weeks, how often have you been bothered by any of the following problems? Question Answer Date of Assessment Author Feeling nervous, anxious, or on edge 1 06/01/2025 9:40 AM Temi Shen MA Not being able to stop or co ntrol worrying 1 06/01/2025 9:40 AM EDT Temi Becker MA Worrying too much about diff erent things 0 06/01/2025 9:40 AM EDT Temi Becker MA Trouble relaxing 1 06/01/2025 9:40 AM EDT Temi Heart MA Being so restless that it is hard to sit still 0 06/01/2025 9:40 AM EDT Temi Becker MA Becoming easily annoyed or irritable 0 06/01/2025 9:40 AM EDT Temi Becker MA Feeling afraid as if somethi ng awful might happen 0 06/01/2025 9:40 AM EDT Temi Becker MA MARKO-7 Total Score 3 06/01/2025 9:40 AM EDT Temi Becker MA documented as of this encounter Plan of Treatment Scheduled Orders Name Type Priority Associated Diagnoses Orde r Schedule XR Ankle 3+ Views Right Imaging Routine Ankle pain, unspecified chronicity, unspecified laterality Expected: 06/01/2025, Expires: 06/01/2026 documented as of this encounter Visit Diagnoses Diagnosis Ankle pain, unspecified chronicity, unspecified laterality- Primary Chronic kidney disease, stage 3b (CMS/HCC) documented in this encounter Additional Health Concerns Assessment Noted Time PHQ-9 Depression Total Score: 6 06/01/20 25 9:40 AM EDT documented as of this encounter Care Teams Revenue Integrity Analyst Relationship Specialty Start Date End Date Carmen Gong MD [address] [place] [phone] PCP - General Internal Medicine 05/10/23 documented as of this encounter
--- OUTSIDE RECORDS SUMMARY | 2025-06-01 12:22 | XMS_ITS | Encounter Summary ---
Author Organization [facility], Address [address] [place] [address] Phone Care Team Providers Care Hat Brim Curler Name Role Phone Carmen Smith Primary Care Provid er Encounter Details Date Type Department Care Team (Late st Contact Info) Description 05/28/2025 Office Communication [facility], [address] [place] [address] Nelly Casas [place] [address] [place] [address] Social History Tobacco Use Types Packs/Day Years Used Date Smoking Tobacco: Former Cigarettes Smokeless Tobacco: Never Alcohol Use Standard Drinks/Week Comments Not Currently 0 (1 standard drink = 0.6 oz pure alcohol) Alcoholic Drinks/day: Occasional social drink Comments Unknown Sex and Gender Information Value Date Recorded Sex Assigned at Not on file Legal Sex Female 4:30 PM EST Gender Identity Not on file Sexual Orientation Not on file documented as of this encounter Miscellaneous Notes * Telephone Encounter - Anayeli Eller - 05/28/2025 3:25 PM EDT Patient booked for 06/07 at 4:30 pm. * Telephone Encounter - Nelly Casas MA - 05/28/2025 1:07 PM EDT She needs a renal us here in the office documented in this encounter Plan of Treatment Upcoming Encounters Date Type Department Care Team (Late st Contact Info) Description 06/07/2025 4:30 PM EDT Imaging Encounter [facility] [address] [place] [address] Albino Schmidt MD [address] [place] [address] [place] [address] 09/11/2025 10:30 AM EST Office Visit [facility] [address] [place] [address] Kamran Escobar MD [address] [place] [address] [place] [address] documented as of this encounter Visit Diagnoses Not on filedocumented in this encounter Care Teams Hat Brim Curler Relationship Specialty Start Date End Date Carmen Smith [address] [place] [phone] PCP - General 05/22/25 documented as of this encounter
--- OUTSIDE RECORDS SUMMARY | 2025-06-01 12:22 | XMS_ITS ---
Author Name Jeni Esquivel NP Address [address] [place] [address] Phone [phone] Organization [facility] Care Team Providers Care Bin Tripper Operator Name Role Phone Jeni Esquivel Unavailable [phone] Reason for Referral Not Available Allergies, adverse [...] mg Tab TAKE 1 TABLET BY M OUT AT BEDTIME 2021-11-18 No Data Available Vitamin [...] organ damage (headache, vision changes, chest pain)/ Wine Pasteurizer on proper BP monitoring technique and reassess/ [...] Pain Assessment - NO pain present (1126F) [facility] [place] Pain Assessment - NO pain present (1126F) [facility] [place] Pain Assessment - NO pain present (1126F) [facility] [place] Pain Assessment - NO pain present (1126F) [facility] [place] Pain Assessment - NO pain present (1126F) [facility] [place] Pain Assessment - NO pain present (1126F) [facility] Pain Assessment - NO pain present (1126F) [facility] Anxiety disorder, unspecifiedChronic kidney disease, stage 3b Pain Assessment - NO pain present (1126F) [facility] Pain Assessment - NO pain present (1126F) [facility] Estab. patient 30-39min; chronic exacerbation, 2 stable chronic or 1 acute illness add add modifier 95 for video, (do not use for phone, instead use 22139-35) [facility] Hypertensive chronic kidney disease w stg [...] (do not use for phone, instead use 78617-88) [facility] Estab. patient 30-39min; chronic exacerbation, 2 stable chronic or 1 acute illness add add modifier 95 for video, (do not use for phone, instead use 82162-45) [facility] Estab. patient 30-39min; chronic exacerbation, 2 stable chronic or 1 acute illness add add modifier 95 for video, (do not use for phone, instead use 80257-71) [facility] Estab. patient 30-39min; chronic exacerbation, 2 stable chronic or 1 acute illness add add modifier 95 for video, (do not use for phone, instead use 05816-53) [facility] Estab. patient 30-39min; chronic exacerbation, 2 stable chronic or 1 acute illness add add modifier 95 for video, (do not use for phone, instead use 71406-10) [facility] [place] Estab. patient 30-39min; chronic exacerbation, 2 stable chronic or 1 acute illness add add modifier 95 for video, (do not use for phone, instead use 13502-00) [facility] [place] Estab. patient 30-39min; chronic exacerbation, 2 stable chronic or 1 acute illness add add modifier 95 for video, (do not use for phone, instead use 95622-21) [facility] [place] Estab. patient 30-39min; chronic exacerbation, 2 stable chronic or 1 acute illness add add modifier 95 for video, (do not use for phone, instead use 46037-42) [facility] [place] Unlisted special service; to be used for medical record reviews and reporting CPTII codes (1111F, etc) [facility] [place] 02/[place]/2024 Other specified health statu s Unlisted special service; to be used for medical record reviews and reporting CPTII codes (1111F, etc) [facility] [place] Unlisted special service; to be used for medical record reviews and reporting CPTII codes (1111F, etc) [facility] [place] 02[place] Estab. patient 30-39min; chronic exacerbation, 2 stable chronic or 1 acute illness add add modifier 95 for video, (do not use for phone, instead use 25908-25) [facility] [place] Anxiety disorder, unspecifiedSedative, hypnotic, or anxiolytic [...] (do not use for phone, instead use 30055-43) [facility] Estab. patient 30-39min; chronic exacerbation, 2 stable chronic or 1 acute illness add add modifier 95 for video, (do not use for phone, instead use 77569-77) [facility] Estab. patient 30-39min; chronic exacerbation, 2 stable chronic or 1 acute illness add add modifier 95 for video, (do not use for phone, instead use 38895-27) [facility] [place] Estab. patient 30-39min; chronic exacerbation, 2 stable chronic or 1 acute illness add add modifier 95 for video, (do not use for phone, instead use 02468-57) [facility] Estab. patient 30-39min; chronic exacerbation, 2 stable chronic or 1 acute illness add add modifier 95 for video, (do not use for phone, instead use 91010-30) [facility] Estab. patient 30-39min; chronic exacerbation, 2 stable chronic or 1 acute illness add add modifier 95 for video, (do not use for phone, instead use 80633-47) [facility] Estab. patient 30-39min; chronic exacerbation, 2 stable chronic or 1 acute illness add add modifier 95 for video, (do not use for phone, instead use 96899-62) [facility] Estab. patient 20-29min; 1 stable chronic or 2 minor; add add modifier 95 for video, modifier 93 for phone [facility] [place] 12[place]/2024 Anxiety disorder, unspecifiedSedative, hypnotic, or anxiolytic [...] 95 for video, modifier 93 for phone [facility] [place] Estab. patient 20-29min; 1 stable chronic or 2 minor; add add modifier 95 for video, modifier 93 for phone [facility], [place] 12/27/[place] Estab. patient 20-29min; 1 stable chronic or 2 minor; add add modifier 95 for video, modifier 93 for phone [facility] [place] Estab. patient 20-29min; 1 stable chronic or 2 minor; add add modifier 95 for video, modifier 93 for phone [facility] [place] Estab. patient 20-29min; 1 stable chronic or 2 minor; add add modifier 95 for video, modifier 93 for phone [facility] [place] 12/27/20[place] Estab. patient 20-29min; 1 stable chronic or 2 minor; add add modifier 95 for video, modifier 93 for phone [facility] [place] Estab. patient 20-29min; 1 stable chronic or 2 minor; add add modifier 95 for video, modifier 93 for phone [facility] [place] 12/[place] Estab. patient 20-29min; 1 stable chronic or 2 minor; add add modifier 95 for video, modifier 93 for phone [facility] [place] 12/[place]/2024 Vital Signs Date of Collection Vitals [...] tive Time Current Smoking Status Never smoker 2025-05-21 2 Sex Female History of Procedures Procedures [...] (do not use for phone, instead use 29939-10) 64698 2022-07-15 No Data Available No Data Availa ble SBP < 130 (3074F) 3074F 2022-07-15 No Data Available No Data Available DBP <80 (3078F) 3078F 2022-07-15 No Data Available No Data Available Estab. patient 30-39min; chronic exacerbation, 2 stable chronic or 1 acute illness add add modifier 95 for video, (do not use for phone, instead use 57517-24) 12897 2023-07-08 No Data Available No Data Availa [...] Available Advance care planning discussed and documented advance care plan or surrogate decision-maker was documented in the medical record. (1123F) 1123F 2023-07-08 No Data Available No Data Availa ble Unlisted special service; to be used for medical record reviews and reporting CPTII codes (1111F, etc) 45258 2024-02-11 No Data Available No Data Availa ble SBP < 130 (3074F) 3074F 2024-02-11 No Data Available No Data Available DBP <80 (3078F) 3078F 2024-02-11 No Data Available No Data Available Estab. patient 30-39min; chronic exacerbation, 2 stable chronic or 1 acute illness add add modifier 95 for video, (do not use for phone, instead use 52845-02) 64512 2024-04-07 No Data Available No Data Availa [...] ble Advance care planning discussed and documented advance care plan or surrogate decision-maker was documented in the medical record. (1123F) 1123F 2024-04-07 No Data Available No Data Availa ble Pain Assessment - Pain Documented on a Pain Scale (1125F) 1125F 2024-04-07 No Data Available No Data Chio ilable Estab. patient 20-29min; 1 stable chronic or 2 minor; add add modifier 95 for video, modifier 93 for phone 74351 2024-12-27 No Data Available No Data Availa [...] ble Advance care planning discussed and documented advance care plan or surrogate decision-maker was [...] Category Effective Dates Ambulates with cane. 2023-07-08 NEEDLE MAKER coming in daily 2023-07-08 Cognition Status: Oriented [...] modifier 95Continue to see [facility]CP. [facility] [...] modifier 95Advance care planning discussed and documented advance care plan or surrogate decision-maker was [...] burden during ; as her son during inue to f/u with PCP and HEME/ONC monitor [...] Documented (1125F)Advance care planning discussed and documented advance care plan or surrogate decision-maker was [...] directed. Has a f/u with PCP on 05/17/24.juan good support system at home with her [...] organ damage (headache, vision changes, chest pain)/ Wine Pasteurizer on proper BP monitoring technique and reassess/ Increase current medication dose:/ Add amlodipine 5mg daily/ Encourage low sodium diet/ Discuss breathing exercises/ Encourage medication adherence 2024-12-27 08:57:40 Functional Status As sessed (1170F)Advance Care Directive Advance care planning discussion documented in the medical record (1158F)Advance care planning discussed and documented advance care plan or surrogate decision-maker was [...] during ; as her son during therapist, psychiatristcontinue to f/u with PCP and [...] organ damage (headache, vision changes, chest pain)/ Wine Pasteurizer on proper BP monitoring technique and reassess/ [...] precipitating factors: Denies 2024-12-27 Open HEDIS Measure r munir: Reviewed 2024-12-27 Advance Care Plan Co nversationDate of Conversation: 01/12/2025Life Limiting Diagnosis: Diagnosis:Currently on Hospice SELECT:Code Status: YES CPR: Attempt ResuscitationGoals of Care: Curative: Attempt to sustain life by all medically effective meansNutrition goals: No decision made about nutrition today; not discussedDo you have a Durable Power of Fare Register Repairer for Healthcare, or Healthcare Proxy Or Guardianship? SELECTIf so, Who? Vic Gastelum you have a written Advance Directive? Has Advance DirectiveOther details of discussion:Today's plan: Advised patient to discuss wishes with [id number] : AD or surrogate was documented in the medical record.
--- OUTSIDE RECORDS SUMMARY | 2025-06-01 12:23 | XMS_ITS | Encounter Summary ---
Author Organization [employer] Address [address] [facility] [address] [place] [address] Care Team Providers Care Suspect Artist Supervisor Name Role Phone Carmen Gong MD Primary Care Pro vider Encounter Details Date Type Department Care Team (Latest Contact Info) Description 06/01/2025 Travel Social History Tobacco Use Types Packs/Day Years Used Date Smoking Tobacco: Never Passive Smoke Exposure: Never Smokeless Tobacco: Never Alcohol Use Standard Drinks/Week Comments Never 0 [...] PM EDT documented as of this encounter Functional Status * Over the [...] than half the days 06/01/2025 9:40 AM EDT Temi Heart MA * Feeling tired or having little energy Answer Date of Assessment Author Not at all 06/01/2025 9:40 AM EDT Claire Becker MA * Poor appetite or overeating Answer Date of Assessment Author More than half the days 06/01/2025 9:40 AM EDT Temi Heart MA * Feeling bad about yourself - or that you are a failure or have let yourself or your family down Answer Date of Assessment Author Not at all 06/01/2025 9:40 AM Claire Shen MA * Trouble concentrating on things, such as reading the newspaper or watching television Answer Date of Assessment Author Not at all 06/01/2025 9:40 AM EDT Claire Becker MA * Moving or speaking so slowly [...] co ntrol worrying 1 06/01/2025 9:40 AM Temi Shen MA Worrying too much about diff erent things 0 06/01/2025 9:40 AM Temi Shen MA Trouble relaxing 1 06/01/2025 9:40 AM Temi Mckeon MA Being so restless that it is hard to sit still 0 06/01/2025 9:40 AM Temi Shen MA Becoming easily annoyed or irritable 0 06/01/2025 9:40 AM Temi Shen MA Feeling afraid as if somethi ng awful might happen 0 06/01/2025 9:40 AM Temi Shen MA MARKO-7 Total Score 3 06/01/2025 9:40 AM Temi Shen MA documented as of this encounter Plan of Treatment Not on file documented as of this encounter Visit Diagnoses Not on filedocumented in this encounter Additional Health Concerns Assessment Noted Time PHQ-9 Depression Total Score: 6 06/01/20 25 9:40 AM EDT documented as of this encounter Care Teams Suspect Artist Supervisor Relationship Specialty Start Date End Date Carmen Gong MD [address] [place] [id number] PCP - General Internal Medicine 05/10/23 documented as of this encounter
--- OUTSIDE RECORDS SUMMARY | 2025-06-01 12:23 | XMS_ITS | Encounter Summary ---
Author Organization [facility], Address [address] [place] [address] Phone Care Team Providers Care Horse Breeder Name Role Phone Carmen Smith Primary Care Provid er Encounter Details Date Type Department Care Team (Late Contact Info) Description 07/11/2024 Documentation Only [facility] [address] [place] [address] Emmanuelle Melendez [address] [place] [address] Social History Tobacco Use Types [...] on file documented as of this encounter Plan of Treatment Upcoming Encounters Date Type Department Care Team (Late Contact Info) Description 06/07/2025 4:30 PM EDT Imaging Encounter [facility] [address] [place] [address] Albino Schmidt MD [address] [place] [address] 09/11/2025 10:30 AM EST Office Visit [facility] [address] [place] [address] Kamran Escobar MD [address] [place] [address] documented as of this encounter Visit Diagnoses Not on filedocumented in this encounter Care Teams Horse Breeder Relationship Specialty Start Date End Date Carmen Smith [address] [place] [address] [phone] PCP - General 05/22/25 documented as of this encounter
--- OUTSIDE RECORDS SUMMARY | 2025-06-01 12:23 | XMS_ITS | Encounter Summary ---
Author Organization [facility] [place], Address [address] [place] [address] Phone Care Team Providers Care Box Chipper Name Role Phone Carmen Smith Primary Care Provid er Encounter Details Date Type Department Care Team (Late Contact Info) Description 06/24/2022 Documentation Only [facility] [address] [place] [address] Rl Swenson PA [address] [place] [address] [place] [address] Social History Tobacco Use Types Packs/Day Years [...] Upcoming Encounters Date Type Department Care Team ([facility] Contact Info) Description 06/07/2025 4:30 PM EDT Imaging Encounter [facility] [address] [place] [address] Albino Schmidt MD [address] [place] [address] [place] [address] 09/11/2025 10:30 AM EST Office Visit [facility] [address] [place] [address] Kamran Escobar MD [address] [place] [address] documented as of this encounter Visit Diagnoses Not on filedocumented in this encounter Care Teams Box Chipper Relationship Specialty Start Date End Date Carmen Smith [address] [place] [address] [phone] PCP - General 05/22/25 documented as of this encounter
--- OUTSIDE RECORDS SUMMARY | 2025-06-01 12:23 | XMS_ITS | Encounter Summary ---
Author Organization [facility] [place], Address [address] [place] [address] Phone Care Team Providers Care Lifestyle Director Name Role Phone Carmen Smith Primary Care Provid er Encounter Details Date Type Department Care Team (Late Contact Info) Description 10/06/2023 Documentation Only [facility] [address] Lenore LOPEZ [address] [place] [phone] Issa Mishra MD [address] [place] [address] [place] [address] Social History Tobacco Use Types Packs/Day Years [...] Encounter [facility] [address] [place] [address] Albino Schmidt MD [address] [place] [address] [place] [address] 09/11/2025 10:30 AM EST Office Visit [facility] [address] [place] [address] Kamran Escobar MD [address] [place] [address] documented as of this encounter Visit Diagnoses Not on filedocumented in this encounter Care Teams Lifestyle Director Relationship Specialty Start Date End Date Carmen Smith [address] [place] [address] [phone] PCP - General 05/22/25 documented as of this encounter
--- OUTSIDE RECORDS SUMMARY | 2025-06-01 12:23 | XMS_ITS | Encounter Summary ---
Author Organization [employer] Address [address] [facility] 7t [place] [address] Care Team Providers Care Medical Logistics Specialist Name Role Phone [place], [facility] Primary Care Provider [phone] Carmen Gong MD Primary Care Pro vider Reason for Visit * Reason Onset Date Comments Appointment Request 12/03/2022 Encounter Details Date Type Department Care Team ([facility] st Contact Info) Description 12/03/2022 Telephone [facility] MEDICINE [address] [place], [place] [phone] [facility], [facility] [address] [place] [address] Appointment Request Social History Tobacco Use Types Packs/Day Years Used Date Smoking Tobacco: Never Smokeless Tobacco: Never Depression Answer Date Recorded Patient Health Questionnaire-9 Score 0 10/13/2022 Depression Answer Date Recorded Patient Health Questionnaire-2 Score 0 10/13/2022 Comments Unknown Sex and Gender Information Value Date Recorded Sex Assigned at Female 07/20/2022 10:17 AM EDT Legal Sex Female 10:17 AM EDT Gender Identity Female 07/20/2022 10:17 AM EDT Sexual Orientation Straight 03/02/2024 1: 43 PM EDT documented as of this encounter Miscellaneous Notes * Telephone Encounter - Cecilia Nunez - 12/23/2022 9:09 AM EDT Tc from pt requesting a appt with PCP for TP, pt states has been waiting for a year to be seen. Pt is irate. Please contact at [phone] [place] * Telephone Encounter - Lino Carpio - 12/03/2022 1:07 PM EDT Tc from pt requesting a TP appt with her new provider. Pt is currently in a recall. Fabric Stretcher tried booking but no slots were available please contact pt at [phone] [place]itan Speaker documented in this encounter Plan of Treatment Not on file documented as of this encounter Visit Diagnoses Not on filedocumented in this encounter Additional Health Concerns Assessment Noted Time PHQ-9 Depression Total Score: 0 10/13/19 11:31 AM EST documented as of this encounter Care Teams Medical Logistics Specialist Relationship Specialty Start Date End Date Emely Mclean FNP [address] [place] [address] PCP - General Family Medicine 05/19/22 05/09/23 Carmen Gong MD [address] [place] [address] PCP - General Internal Medicine 05/10/23 documented as of this encounter
--- OUTSIDE RECORDS SUMMARY | 2025-06-01 12:23 | XMS_ITS | Encounter Summary ---
Author Organization [facility] [place], Address [address] [place] [address] Phone Care Team Providers Care Jalousie Installer Name Role Phone Carmen Smith Primary Care Provid er Encounter Details Date Type Department Care Team (Late Contact Info) Description 01/02/2022 Documentation Only [facility] [address] [place] [address] Issa Mishra MD [address] [place] [address] Social History Tobacco Use Types [...] Encounter [facility] [address] [place] [address] Albino Schmidt MD [address] [place] [address] [place] [address] 09/11/2025 10:30 AM EST Office Visit [facility] [address] [place] [phone] Kamran Escobar MD [address] [place] [address] documented as of this encounter Visit Diagnoses Not on filedocumented in this encounter Care Teams Jalousie Installer Relationship Specialty Start Date End Date Carmen Smith [address] [place] [address] [phone] PCP - General 05/22/25 documented as of this encounter
--- OUTSIDE RECORDS SUMMARY | 2025-06-01 12:23 | XMS_ITS | Encounter Summary ---
Author Organization [employer] Address [address] [facility] [address]t [place] [address] Care Team Providers Care Boilerhouse Mechanic Name Role Phone Carmen Gong MD Primary Care Pro vider Reason for Visit * Reason Comments Med Refill Encounter Details Date Type Department Care Team ([facility] st Contact Info) Description 05/10/2024 Refill [facility] [address] [place] [address] Ziggy Carson MD [address] [place] [address] Social History Tobacco Use Types Packs/Day Years Used Date Smoking Tobacco: Never Passive Smoke Exposure: Never Smokeless Tobacco: Never Alcohol Use Standard Drinks/Week Comments Never 0 (1 standard drink = 0.6 oz pur e alcohol) Depression Answer Date Recorded Patient Health Questionnaire-9 Score 0 10/13/2022 Housing Stability Answer Date Recorded What is your housing situation today? I have fernandobrain villanueva 07/07/[address] you li ve. Do you have problems with any of the following? None of the above 07/07/2023 Food Insecurity Answer Date Recorded Within the past 12 months, y ou worried that your food would run out before you got money to buy more: Never True 07/07/2023 Within the past 12 months,th e food you bought just didn't last and you didn't have enough money to get more: Never True Transportation Answer Date Recorded In the past 12 months, has l ack of transportation kept you from medical appts, meetings, work or from getting things needed for daily living? No 07/07/2023 Utilities Answer Date Recorded In the past 12 months, has t he electric, gas, oil or water company threatened to shut off services in your home? No 07/07/2023 Depression Answer Date Recorded Patient Health Questionnaire-2 Score 0 10/13/2022 Comments Unknown Sex and Gender Information Value Date Recorded Sex Assigned at Female 07/20/2022 10:17 AM EDT Legal Sex Female 10:17 AM EDT Gender Identity Female 07/20/2022 10:17 AM EDT Sexual Orientation Straight 03/02/2024 1: 43 PM EDT documented as of this encounter Plan of Treatment Not on file documented as of this encounter Visit Diagnoses Not on filedocumented in this encounter Additional Health Concerns Assessment Noted Time PHQ-9 Depression Total Score: 0 10/13/19 11:31 AM EST documented as of this encounter Care Teams Boilerhouse Mechanic Relationship Specialty Start Date End Date Carmen Gong MD [address] [place] [id number] PCP - General Internal Medicine 05/10/23 documented as of this encounter
--- OUTSIDE RECORDS SUMMARY | 2025-06-01 12:23 | XMS_ITS | Encounter Summary ---
Author Organization [facility] [place], Address [address] [place] [address] Phone Care Team Providers Care Glost Tile Shader Name Role Phone Carmen Smith Primary Care Provid er Encounter Details Date Type Department Care Team (Late Contact Info) Description 10/01/2023 Documentation Only [facility] [place] [address] Rl Swenson PA [address] [place] [address] Social History Tobacco Use Types [...] Encounter [facility] [address] [place] [address] Albino Schmidt MD [address] [place] [phone] 09/11/2025 10:30 AM EST Office Visit [facility] [address] [place] [address] Kamran Escobar MD [address] [place] [address] documented as of this encounter Visit Diagnoses Not on filedocumented in this encounter Care Teams Glost Tile Shader Relationship Specialty Start Date End Date Carmen Smith [address] [place] [address] [phone] PCP - General 05/22/25 documented as of this encounter
--- OUTSIDE RECORDS SUMMARY | 2025-06-01 12:23 | XMS_ITS | Clinical Summary ---
Author Organization [email or web address] Address [address] [facility] [address] [place] [address] Care Team Providers Care Carbon Lamp Cleaner Name Role Phone Carmen Gong MD Primary Care Pro vider Allergies Active Allergy Reactions Criticality Noted Date Comments Aspirin 01/26/2017 Ibuprofen 07/06/2013 Lisinopril 12/06/2012 Other reaction(s): Cough Nsaids 10/13/2022 Oxycodone-Acetaminophen 10/13/2022 Tramadol 12/06/2012 Medications hydrocortisone 2.5 % cream Apply topically every 12 (twelve) hours. Active sennosides (Senokot) 8.6 MG tablet Take 1 tablet by mouth. 019 Active simethicone (Mylicon,Gas-X) 125 MG capsule Take 1 capsule by mouth in the morning and 1 capsule at noon and 1 capsule in the evening and 1 capsule before bedtime. Active LORazepam (Ativan) 0.5 MG tablet Take 0.5 mg by mouth if needed each day. Active mirtazapine (Remeron) 30 MG tablet Take 30 mg by mouth at bedtime. Active lidocaine (Xylocaine) 5 % ointment Apply topically if needed in the morning, at noon, and at bedtime for mild pain or moderate pain. 30 g Active sodium chloride ([place] Nasal [place]) 0.65 % nasal spray Administer 1 spray into each nostril if needed for congestion. 30 mL 1 024 2024 Active pravastatin (Pravachol) 10 MG tablet Take 1 tablet (10 mg) by mouth Once per day. 30 tablet 2 024 2024 Active cetirizine (ZyrTEC) 5 MG tablet Take 1 tablet (5 mg) by mouth if needed each day for allergies. 90 tablet 3 025 Active cyanocobalamin (Vitamin B-12) 500 MCG tabletIndications :Steatosis of liver TAKE 1 TABLET BY MOUTH EVERY DAY 90 tablet 1 025 Active esomeprazole (NexIUM) [address] capsuleIndication s:Gastroesophagea l reflux disease, unspecified whether esophagitis present TAKE 1 CAPSULE BY MOUTH BEFORE BREAKFAST 90 capsule 025 Active ezetimibe (Zetia) 10 MG tabletIndications :Mixed hyperlipidemia TAKE 1 TABLET BY MOUTH EVERY DAY IN THE MORNING 90 tablet 025 Active cholecalciferol (D3-1000) 25 MCG (1000 UT) capsuleIndication s:Steatosis of liver TAKE 1 CAPSULE BY MOUTH EVERY DAY AT BEDTIME 90 capsule 025 Active Calcium Citrate-Vitamin D 315-5 MG-MCG tablet Take 2 tablets by mouth 2 times daily. 360 tablet 025 Active hydroCHLOROthiazi de (HYDRODiuril) 25 MG tablet Take 1 tablet (25 mg) by mouth Once per day. 90 tablet 025 Active Diclofenac Sodium 1 % gel Apply 1 Application topically if needed each day (ankle pain). 50 g 025 Active hydroCHLOROthiazi de (HYDRODiuril) 25 MG tablet Take 25 mg by mouth Once per day. 2024 Discontinued(R eorder (will not trigger notification to Pharmacy)) Active Problems Problem Noted Date Diagnosed Date Chronic kidney disease, stage 3b 06/01/2025 Dry cough 03/19/2025 Abnormal EKG 03/19/2025 Left hip pain 07/19/2024 Microscopic hematuria 06/12/2024 Assessment & Plan (06/12/2024 10:26 AM EDT): Ro renal stone (on the setting of acute exacerbation of LBP) Anxiety 05/17/2024 Leg cramps 03/02/2024 Hand pain 03/02/2024 GERD (gastroesophageal reflux disease) Health care maintenance 03/02/2024 MGUS (monoclonal gammopathy of unknown significa nce) 01/22/2023 Celiac disease 01/22/2023 Secondary hyperparathyroidism 08/22/2022 Stage 3a chronic kidney disease 08/22/2022 Steatosis of liver 11/19/2017 Kidney stone 10/25/2017 Essential hypertension 08/30/2015 Hyperlipidemia 08/30/2015 Obesity, morbid 08/30/2015 Osteopenia 08/30/2015 Resolved Problems Problem Noted Date Diagnosed Date Resolved Date Influenza 09/18/2023 03/02/2024 Assessment & Plan (09/18/2023 2:25 PM EST): Pt w respiratory symptoms, no alarming symptoms VS wnl 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 [address] [place] [address] Carmen Gong MD Ankle pain, unspecified chronicity, unspecified laterality (Primary Dx); Chronic kidney disease, stage 3b (CMS/HCC) 06/01/2025 Travel 05/18/[address] [facility] [address] [place] [address] Carmen Gong MD No Show 05/18/[address] [facility] [address] [place] [address] Carmen Gong MD Appointment Request 05/17/[address] [facility] [address] [place] [address] Carmen Gong MD chartprep 03/19/2025 1:00 PM EDT Office Visit [facility] [address] [place] [address] Carmen Gong MD Dry cough (Primary Dx); Obesity, morbid (CMS/HCC); Stage 3a chronic kidney disease (CMS/HCC); Dietary counseling; Exercise counseling; Abnormal EKG; Healthcare maintenance; Hematuria, unspecified type 03/19/2025 Travel 03/16/[address] [facility] [address] [place], [place] [phone] Carmen Gong MD chart prep 03/12/[address] [facility] [address] [place], [place] [phone] Carmen Gong MD Pre-visit Planning ([facility]OH unable to reach [facility]) 03/12/[address] [facility] [address] [place], [place] [phone] Carmen Hardy MD Essential hypertension 03/01/[address] [facility] [address] [place] [address] [phone] Carmen Gong MD from Last 3 Months Immunizations Immunization Administration Dates Next Due Influenza High-dose Quadriva lent Preservative Free 09/07/2023,08/24/2022,06/25/2021,06/17 Influenza injectable quadriv alent IIV4 with preservative 06/27/2019,06/17/2015 Influenza injectable quadriv alent preservative free 07/21/2017,09/28/2016 Influenza, High Dose Seasona l, Preservative Free 07/19/2024,07/21/2018 Influenza, IIV3, injectable 06/15/2014 Influenza, Split (incl. tong fied surface antigen) 07/06/2013,10/11/2012 Moderna Covid-19 Vaccine 12+ 10/16/2021,11/30/19 21,11/01/2020 Pfizer Covid-19 Vaccine 12+ 03/02/2024 Pneumococcal Conjugate PCV 13 08/30/2015 Pneumococcal Conjugate PCV 20 03/02/2024 Pneumococcal Polysaccharide PPSV23 05/15/2016, RSV Adjuvant 03/09/2024 RSV Bivalent 03/09/2024 TD (adult), 2 Lf tetanus tox oid, preservative free, adsorbed 08/10/2005 Tdap 05/17/2024,12/07/2012 Zoster, Recombinant 09/05/2019,06/27/2019 Zoster, live 09/05/2019,06/27/2019,08/30/2015 Family History Medical History Relation Name Comments Breast cancer Daughter maternal aunt uterine ca Other Relation Name Status Comments Daughter Other Sister Social History Tobacco Use Types Packs/Day Years [...] Orientation Straight 03/02/2024 1: 43 PM EDT Last Filed Vital Signs Vital Sign Reading [...] Mass Index 35.74 06/01/2025 9:31 AM EDT Plan of Treatment Health Maintenance Due Date Last Done Comments Hepatitis A Vaccines (1 of 2 - Risk 2-dose series) 01/19/1964 Hepatitis B Vaccines (1 of 3 - Risk 3-dose series) 2005 COVID-19 Vaccine ( season) 2025 03/02/2024, 10/16/2021, 11/29/2020, Additional history exists Influenza Vaccine (#1) 2025 , 09/07/2023, 08/24/2022, Additional history exists Alcohol/Substance Use Screening 03/19/2026 03/19/2025 SDOH Screening 03/19/2026 03/19/2025 Depression Screening 06/01/2026 06/01/2025, 06/01/20 25 Tobacco Screening 06/01/2026 06/01/2025 Lipid Panel 07/27/2029 07/27/2024, 04/21, 03/20/2022, Additional history exists DTaP/Tdap/Td Vaccines (3 - Td or Tdap) 05/17/2034 05/17/2024, 12/07/2012, 08/10/2005 Zoster Vaccines Completed 09/05/2019, 08/20, 06/27/2019, Additional history exists Pneumococcal Vaccine: 50+ Years Completed 03/02/2024, 05/15/2016, 08/30/2015, Additional history exists RSV Patients and Patients Aged 60 years or older Completed 03/09/2024, 03/09/2024 HIB Vaccines Aged Out No longer eligi ble based on patient's age to complete this topic HPV Vaccines Aged Out No longer eligi ble based on patient's age to complete this topic IPV Vaccines Aged Out No longer eligi ble based on patient's age to complete this topic Meningococcal B Vaccine Aged Out No l onger eligible based on patient's age to complete this topic Meningococcal Vaccine Aged Out No jared dunae eligible based on patient's age to complete this topic RSV under 20 months Aged Out No longe r eligible based on patient's age to complete this topic Rotavirus Vaccines Aged Out No longer eligible based on patient's age to complete this topic Procedures Procedure Name Priority Date/Time Associated Diagnosis Comments ECG 12-LEAD Routine 04/24/2025 8:16 PM EDT Abnormal EKG BI MAMMOGRAM SCREENING TOMOSYNTHESIS BILATERAL Routine 03/01/2025 9:55 AM EDT LIPID PANEL, STANDARD Routine 07/27/2024 9:06 AM EST Hyperlipidemia, unspecified hyperlipidemia type from Last 3 Months or Most Recently Relevant to Health Maintenance Results * ECG 12 lead (04/24/2025 8:16 PM EDT) Narrative Carmen Gong MD - 04/24/2025 8:16 PM EDT -EKG today for baseline 02/2025 HR 63, QTc 475, NSR ,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 [address] Mammography Report Signed Patient: Niesha Mead MR#: [id number] : 1945 Acct:[id number] Age/Sex: 80 / F ADM Date: 03/01/25 Loc: HO.MAMMO Attending Dr: Carmen Cadena MD Ordering Physician: Carmen Gong MD sults: 1Negative Date of Service: 03/01/25 Follow Up: 1 Year From Orig inal Mammogram Procedure(s): MM tomosynthesis screening BI Accession Number(s): [id number] cc: Carmen Gong MD EXAMINATION: MM SCREENING DIGITAL BREAST TOMOSYNTHESIS, BILATERAL CLINICAL INFORMATION: Screening. Asymptomatic. COMPARISON: Mammography: Comparison is made with available priors TECHNIQUE: Digital breast mammography with tomosynthesis is performed in both the craniocaudal and mediolateral oblique views along with computer-aided detection (CAD). FINDINGS: There are scattered areas of fibroglandular density (ACR BI-RADS breast composition Category b). There are no significant masses, abnormal calcifications, or other abnormalities. MM/MM tomosynthesis screening BI IMPRESSION: No mammographic evidence of malignancy. ASSESSMENT: BI-RADS BI-RADS 1 - Negative RECOMMENDATION: Routine annual mammography screening. 1 year F/U This examination should not preclude the clinical evaluation of a suspicious palpable abnormality. This patient's information was entered into a reminder system with a target due date for their next mammogram. Electronically signed by: Allegra Richard DO 03/09/2025 05:40 PM EDT Dictated By: Allegra Richard DO Signed By: <Electronically signed by Allegra Richard DO in OV> 03/09/25 1740 DD/ 0955 TD/TT: 03/01/25 1005 Green Marketing Analyst: Procedure Note Donotuseinterpreter, Image - 03/09/2025 [facility] [address] [place], [place] [phone] Mammography Report Signed Patient: Niesha MeadMR#: [id number] : 5Acct:[id number] Age/Sex: 80 / FADM Date: 03/01/25 Loc: MAMMO Attending Dr: Carmen Cadena MD Ordering Physician: Carmen Gong sults: 1Negative Date of Service: 03/01/25Follow Up: 1 Year From Orig inal Mammogram Procedure(s): MM tomosynthesis screening BI Accession Number(s): [id number] cc: Carmen Gong MD EXAMINATION: MM SCREENING DIGITAL BREAST TOMOSYNTHESIS, BILATERAL CLINICAL INFORMATION: Screening. Asymptomatic. COMPARISON: Mammography: Comparison is made with available priors TECHNIQUE: Digital breast mammography with tomosynthesis is performed in both the craniocaudal and mediolateral oblique views along with computer-aided detection (CAD). FINDINGS: There are scattered areas of fibroglandular density (ACR BI-RADS breast composition Category b). There are no significant masses, abnormal calcifications, or other abnormalities. MM/MM tomosynthesis screening BI IMPRESSION: No mammographic evidence of malignancy. ASSESSMENT: BI-RADS BI-RADS 1 - Negative RECOMMENDATION: Routine annual mammography screening. 1 year F/U This examination should not preclude the clinical evaluation of a suspicious palpable abnormality. This patient's information was entered into a reminder system with a target due date for their next mammogram. Electronically signed by: Allegra Richard DO 03/09/2025 05:40 PM EDT RP Dictated By: Allegra Richard DO Signed By: <Electronically signed by Allegra Richard DO in OV> 03/09/25 1740 DD/ 0955 TD/TT: 03/01/25 1005 Green Marketing Analyst: Carmen Cadena MD IMG BI PROCEDURES Final Result * (ABNORMAL) Lipid Panel, Standard (07/27/2024 9:06 AM EST) Triglycerides 161(H) <150 mg/dL [facility] Comment:Desirable Triglyceri de: less than 150 mg/dLBorderline High Triglyceride 150-199 mg/dLHigh Triglyceride: 200-499 mg/dLVery High Triglyceride: greater than or equal to 5OO mg/dL Cholesterol 187 <200 mg/dL [facility] Comment:Desirable Cholestero l: less than 200 mg/dLBorderline High Cholesterol: 200-239 mg/dLHigh Cholesterol: greater than 239 mg/dL LDL Cholesterol Calculated 118(H) <100 mg/dL [facility] Comment:Desirable LDL: less than 100 mg/dLNear Optimal/Above Optimal LDL: 110- 129 mg/dLBorderline High LDL: 130-159 mg/dLHigh LDL: 160-189 mg/dLVery High LDL: greater than or equal to 190 mg/dL HDL Cholesterol 37(L) >40 mg/dL [facility] Comment:Desirable HDL: great er than 40 mg/dL Note: This HDL assay may give artificially low results in patients with liver disease. Blood Venous blood specimen / Unknown 07/27/2024 9:06 AM EST 07/27/2024 11:30 AM EST Carmen Cadena MD LAB BLOOD ORDERAB LES Final Result Performing Organization Address City/State/[facility] Co de Phone Number [facility] [address] [place] [address] [phone] from Last 3 Months or Most Recently Relevant to Health Maintenance Insurance DUAL COMPLETE Care Teams Carbon Lamp Cleaner Relationship Specialty Start Date End Date Carmen Gong MD [address] [place] [phone] PCP - General Internal Medicine 05/10/23
--- OUTSIDE RECORDS SUMMARY | 2025-06-01 12:23 | XMS_ITS | Encounter Summary ---
Author Organization [facility] Address [address] [place] [address] Phone Care Team Providers Care Pediatrics Hospitalist Name Role Phone Carmen Smith Primary Care Provid er Encounter Details Date Type Department Care Team ([facility] Contact Info) Description 08/09/2023 Orders Only [facility] [address] [place] [address] Rl Swenson PA [address] [place] [address] [place] [address] Stage 3b chronic kidney disease (HCC); Hypertensive disorder; Acquired renal cystic disease Social History Tobacco Use Types Packs/Day Years [...] [facility] [address] [place] [address] Albino Schmidt MD [address] [place] [address] [place] [address] 09/11/2025 10:30 AM EST Office Visit [facility] [address] [phone] Kamran Escobar MD [address] [facility] [place] [address] documented as of this encounter Visit Diagnoses Diagnosis Stage 3b chronic kidney disease (HCC) Hypertensive disorder Acquired renal cystic disease documented in this encounter Care Teams Pediatrics Hospitalist Relationship Specialty Start Date End Date Carmen Smith [address] [place] [phone] PCP - General 05/22/25 documented as of this encounter
--- OUTSIDE RECORDS SUMMARY | 2025-06-01 12:23 | XMS_ITS | Encounter Summary ---
Author Organization [facility] [place], Address [address] [place] [address] Phone Care Team Providers Care Finishing Operator Name Role Phone Carmen Smith Primary Care Provid er Encounter Details Date Type Department Care Team (Late Contact Info) Description 08/07/2020 Orders Only [facility] [place] [address] [place] [address] Cricket Mcghee MD Renal stone; Acquired renal cystic disease Social History Tobacco Use Types Packs/Day Years Used Date Smoking Tobacco: Every Day Alcohol Use Standard Drinks/Week Comments Yes 0 (1 standard drink = 0.6 oz pure alcohol) Alcoholic Drinks/day: Occasional social drink Comments Unknown Sex and Gender Information Value Date Recorded Sex Assigned at Not on file Legal Sex Female 4:30 PM EST Gender Identity Not on file Sexual Orientation Not on file documented as of this encounter Plan of Treatment Upcoming Encounters Date Type Department Care Team ([facility] Contact Info) Description 06/07/2025 4:30 PM EDT Imaging Encounter [facility] [address] [place] [address] Albino Schmidt MD [address] [facility] [address] [place] [address] 09/11/2025 10:30 AM EST Office Visit [facility] [address] [place] [address] Kamran Escobar MD [address] [facility] [address] [place] [address] documented as of this encounter Visit Diagnoses Diagnosis Renal stone Acquired renal cystic disease documented in this encounter Care Teams Finishing Operator Relationship Specialty Start Date End Date Carmen Smith [address] [place] [phone] PCP - General 05/22/25 documented as of this encounter
--- OUTSIDE RECORDS SUMMARY | 2025-06-01 12:23 | XMS_ITS | Encounter Summary ---
Author Organization [facility] [place], Address [address] [place] [address] Phone Care Team Providers Care Psychic Reader Name Role Phone Carmen Smith Primary Care Provid er Encounter Details Date Type Department Care Team (Late Contact Info) Description 06/29/2022 Documentation Only [facility] [address] [place] [address] Rl Swenson PA [address] [place] [address] [place] [address] Social History Tobacco Use Types [...] Upcoming Encounters Date Type Department Care Team ([facility] Contact Info) Description 06/07/2025 4:30 PM EDT Imaging Encounter [facility] [address] [place] [address] Albino Schmidt MD [address] [place] [address] [place] [address] 09/11/2025 10:30 AM EST Office Visit [facility] [address] [place] [address] Kamran Escobar MD [address] [place] [address] documented as of this encounter Visit Diagnoses Not on filedocumented in this encounter Care Teams Psychic Reader Relationship Specialty Start Date End Date Carmen Smith [address] [place] [address] [phone] PCP - General 05/22/25 documented as of this encounter
--- OUTSIDE RECORDS SUMMARY | 2025-06-01 12:23 | XMS_ITS | Encounter Summary ---
Author Organization [facility] [place], Address [address] [place] [address] Phone Care Team Providers Care Pricing Consultant Name Role Phone Carmen Smith Primary Care Provid er Encounter Details Date Type Department Care Team (Late Contact Info) Description 07/11/2024 Documentation Only [facility] [address] [place] [address] Emmanuelle Melendez [address] [place] [address] Social History Tobacco Use Types [...] Encounter [facility] [address] [place] [address] Albino Schmidt MD [address] [place] [place] [address] 09/11/2025 10:30 AM EST Office Visit [facility] [address] [place] [address] Kamran Escobar MD [address] [place] [place] [address] documented as of this encounter Visit Diagnoses Not on filedocumented in this encounter Care Teams Pricing Consultant Relationship Specialty Start Date End Date Carmen Smith [address] [place] [address] [phone] PCP - General 05/22/25 documented as of this encounter
--- OUTSIDE RECORDS SUMMARY | 2025-06-01 12:23 | XMS_ITS | Encounter Summary ---
Author Organization [facility] [place], Address [address] [place] [address] Phone Care Team Providers Care Field Party Manager Name Role Phone Carmen Smith Primary Care Provid er Encounter Details Date Type Department Care Team (Late Contact Info) Description 06/26/2022 Documentation Only [facility] [address] [place] [address] Rl Swenson PA [address] [place] [address] [place] [address] Social History Tobacco Use Types [...] Upcoming Encounters Date Type Department Care Team ([facility] Contact Info) Description 06/07/2025 4:30 PM EDT Imaging Encounter [facility] [address] [place] [address] Albino Schmidt MD [address] [place] [address] [place] [address] 09/11/2025 10:30 AM EST Office Visit [facility] [address] [place] [address] Kamran Escobar MD [address] [place] [address] documented as of this encounter Visit Diagnoses Not on filedocumented in this encounter Care Teams Field Party Manager Relationship Specialty Start Date End Date Carmen Smith [address] [place] [address] [phone] PCP - General 05/22/25 documented as of this encounter
--- OUTSIDE RECORDS SUMMARY | 2025-06-01 12:23 | XMS_ITS | Encounter Summary ---
Author Organization [facility], Address [address] [place] [address] Phone Care Team Providers Care Engineer Technician Name Role Phone Carmen Smith Primary Care Provid er Encounter Details Date Type Department Care Team (Late Contact Info) Description 07/11/2024 Documentation Only [facility] [place] [address] Lenore LOPEZ [address] [place] [address] Emmanuelle Melendez [address] [place] [address] Social History Tobacco Use Types [...] Encounter [facility] [address] [place] [address] Albino Schmidt MD [address] [place] [address] 09/11/2025 10:30 AM EST Office Visit [facility] [address] [place] [address] Kamran Escobar MD [address] [place] [address] documented as of this encounter Visit Diagnoses Not on filedocumented in this encounter Care Teams Engineer Technician Relationship Specialty Start Date End Date Carmen Smith [address] [place] [address] [phone] PCP - General 05/22/25 documented as of this encounter
--- OUTSIDE RECORDS SUMMARY | 2025-06-01 12:23 | XMS_ITS | Encounter Summary ---
Author Organization [employer] Address [address] [facility] 7t [place] [address] Care Team Providers Care Talent Consultant Name Role Phone Carmen Gong MD Primary Care Pro vider Reason for Visit * Reason Comments Med Refill Encounter Details Date Type Department Care Team ([facility] st Contact Info) Description 06/14/[address] [facility] [address] [place] [address] Carmen Gong MD [address] [place] [address] Social History Tobacco Use Types Packs/Day Years Used Date Smoking Tobacco: Never Passive Smoke Exposure: Never Smokeless Tobacco: Never Alcohol Use Standard Drinks/Week Comments Never 0 (1 standard drink = 0.6 oz pur e alcohol) Depression Answer Date Recorded Patient Health Questionnaire-9 Score 0 05/17/2024 Patient Health Questionnaire-9 Score 0 05/17/2024 Last PHQ-9: Questionnaire Data Not on file 0 05/17/2024 Housing Stability Answer Date Recorded What is [...] Date Recorded Patient Health Questionnaire-2 Score 0 05/17/2024 Comments No Sex and Gender Information Value [...] Noted Time PHQ-9 Depression Total Score: 0 05/17/20 24 2:09 PM EDT documented as of this encounter Care Teams Talent Consultant Relationship Specialty Start Date End Date Carmen Gong MD [address] [place] [phone] PCP - General Internal Medicine 05/10/23 documented as of this encounter
--- OUTSIDE RECORDS SUMMARY | 2025-06-01 12:23 | XMS_ITS | Clinical Summary ---
Author Organization [facility], Address [address] [place] [address] Phone Care Team Providers Care Technology Strategist Name Role Phone aCrmen Smithela Primary Care Provid er Allergies Active Allergy Reactions Criticality Noted Date Comments Aspirin Other (see comments) 01/30/2021 Ibuprofen Other (see comments) 01/30/2021 Lisinopril Other (see comments) 01/30/2021 Nsaids 01/04/2023 Oxycodone-Acetaminophen 01/04/2023 Tramadol Other (see comments) 01/30/2021 Medications cyclobenzaprine (FLEXERIL) 5 MG tablet Take 1 tablet by mouth Active hydroCHLOROthia zide (HYDRODIURIL) 25 MG tablet Take 1 tablet by mouth 1 (one) time each day Active loratadine (CLARITIN) 10 MG tablet Take 1 tablet by mouth Active atorvastatin (LIPITOR) 20 MG tablet Take 20 mg by mouth 1 (one) time each day Active calcium carbonate-vitam in D (OSCAL-500) 500-200 MG-UNIT per tablet Take 1 tablet by mouth 1 (one) time each day Active esomeprazole (NexIUM) [address] capsule Take 40 mg by mouth 1 (one) time each day before breakfast Do not open capsule. Active senna (SENOKOT) 8.6 MG tablet Take 1 tablet by mouth 1 (one) time each day Active acetaminophen (TYLENOL) 325 MG tablet Take by mouth every 6 (six) hours if needed for mild pain Active cyanocobalamin (VITAMIN B-12) 1000 MCG tablet Take 1,000 mcg by mouth 1 (one) time each day Active Cholecalciferol (Vitamin D3) 25 MCG (1000 UT) capsule Take by mouth Active ezetimibe (ZETIA) 10 MG tablet Take 10 mg by mouth 3 Active mirtazapine (REMERON) 30 MG tablet Take 30 mg by mouth at bed time 3 Active Active Problems Problem Noted Date Diagnosed Date Stage 3a chronic kidney disease 01/05/2022 Renal stone 02/01/2020 Hypertensive disorder 02/01/2020 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 Resolved Problems Problem Noted Date Diagnosed Date Resolved Date Stage 3b chronic kidney disease 06/29/2022 05/22/2025 Hyperlipidemia 02/01/2020 06/22/2021 Encounters Date Type Department Care Team Description 05/28/2025 Office Communication [facility] [address] [place] [address] Nelly Casas [place] 05/25/2025 Orders Only [facility] [address] [place] [address] Nelly Casas [place] Acquired renal cystic disease (Primary Dx); Stage 3b chronic kidney disease (HCC); Hypertensive disorder 05/22/2025 1:30 PM EDT Office Visit [facility] [address] [place] [address] Kamran Escobar MD Stage 3a chronic kidney disease (HCC) (Primary Dx) from Last 3 Months Immunizations Immunization Administration Dates Next Due Influenza Split 07/06/2013,10/11/2012 Influenza Split High Dose Pr eservative Free IM 07/21/2018 Influenza, Quadrivalent, Preservative Free 07/21,09/28/2016 Influenza, Quadrivalent, With Preservative 06/27,06/17/2015 Influenza, Unspecified 09/07/2023 Moderna SARS-COV-2 10/16/2021,11/29/2020, 021 Pneumococcal Conjugate 13-Valent 08/30/2015 Pneumococcal Conjugate Pcv 20 03/02/2024 Pneumococcal Polysaccharide 05/15/2016, 9 RSV RECOMBINANT 03/09/2024 SARS-CoV-2, Unspecified 03/02/2024 Td 08/10/2005 Tdap 05/17/2024,12/07/2012 Zoster 09/05/2019,06/27/2019,08/30/2015 Family History Medical History Relation Comments Gout Father 2 Heart disease Father 2 Hypertension Father 2 Gout Mother 2 Heart disease Mother 2 Hypertension Mother 2 Relation Status Comments Father 1 Unknown Father 2 Mother 1 Unknown Mother 2 Social History Tobacco Use Types Packs/Day Years [...] on file Sexual Orientation Not on file Last Filed Vital Signs Vital Sign Reading Time Taken Comments Blood Pressure 118/52 07/12/2024 1:35 PM EDT Pulse - - Temperature - - Respiratory Rate - - Oxygen Saturation - - Inhaled Oxygen Concentration - - Weight 84.6 kg (186 lb 6.4 oz) 07/12/2024 1:35 P M EDT Height 162.6 cm (5' 4 ) 07/12/2024 1:35 PM EDT Body Mass Index 32 07/12/2024 1:35 PM EDT Plan of Treatment Upcoming Encounters Date Type Department Care Team (Late st Contact Info) Description 06/07/2025 4:30 PM EDT Imaging Encounter [facility] [address] [place] [phone] Albino Schmidt MD [address] [address] [place] [phone] 09/11/2025 10:30 AM EST Office Visit [facility] [address] [place] [phone] Kamran Escobar MD [address] [place] [phone] Health Maintenance Due Date Last Done Comments Hepatitis B Vaccine (1 of 3 - Risk 3-dose series) 2005 Influenza Vaccine (#1) 2025 , 09/07/2023, 06/27/2019, Additional history exists Pneumococcal Vaccine: 50+ Years Completed 03/02/2024, 05/15/2016, 08/30/2015, Additional history exists Pneumococcal Vaccine: Peds ( 0 to 5 Years) and At-Risk Patients (6 to 49 Years) Discontinued 03/02/2024, 05/15/2016, 08/30/2015, Additional history exists [place] [address] ([id number]) Medicaid [place] Care Teams Technology Strategist Relationship Specialty Start Date End Date Carmen Smith [address] [place] [address] [phone] PCP - General 05/22/25
--- OUTSIDE RECORDS SUMMARY | 2025-06-01 12:23 | XMS_ITS | Encounter Summary ---
Author Organization [facility] Address [address] [place] [address] Phone Care Team Providers Care Knifer Up Name Role Phone Carmen Smith Primary Care Provid er Encounter Details Date Type Department Care Team ([facility] Contact Info) Description 06/19/2024 Orders Only [facility] [address] [place] [address] Rl Swenson PA [address] [place] [address] [place] [address] Stage 3b chronic kidney disease [...] Encounter [facility] [address] [place] [address] Albino Schmidt MD [address] [place] [address] [place] [address] 09/11/2025 10:30 AM EST Office Visit [facility] [address] [place] [phone] Kamran Escobar MD [address] [facility] [place] [address] documented as of this encounter Visit Diagnoses Diagnosis Stage 3b chronic kidney disease (HCC) Hypertensive disorder Acquired renal cystic disease documented in this encounter Care Teams Knifer Up Relationship Specialty Start Date End Date Carmen Smith [address] [place] [phone] PCP - General 05/22/25 documented as of this encounter
== END 2025-06-01 10:49 | disposition home or self-care (01) ==
LOC: HO.HHCX 10:48
PROVIDERS: Visit Provider Student in an Organized Health Care Education/Training Program
DX: R05.8 Other specified cough (principal); M25.571 Pain in right ankle and joints of right foot
CPT/HCPCS: 71046; 73610

== ENCOUNTER → 2025-06-01 10:49 | Outpatient (BNV) | payer OTHER, SELFPAY | PROVIDERS: Visit Provider Radiology Diagnostic Radiology | DX: R05.3 Chronic cough (principal); M25.571 Pain in right ankle and joints of right foot | CPT/HCPCS: 71046; 73610 ==

== ENCOUNTER 2025-06-04 08:23 | Outpatient (REF) | payer OTHER, SELFPAY ==
--- OUTSIDE RECORDS SUMMARY | 2025-06-01 09:45 | XMS_ITS | Encounter Summary ---
Author Organization [employer] Address [address] [place] [address] Care Team Providers Care Switch Operators Supervisor Name Role Phone Carmen Gong MD Primary Care Pro vider Encounter Details Date Type Department Care Team (Late st Contact Info) Description 06/01/2025 9:45 AM EDT Office Visit [facility] [address] [place], [place] [phone] Carmen Gong MD [address] [place] [address] Ankle pain, unspecified chronicity, unspecified laterality (Primary Dx); Chronic kidney disease, stage 3b (CMS/HCC); Essential hypertension; Obesity, morbid (CMS/HCC); Stage 3a chronic kidney disease (CMS/HCC); Health care maintenance Social History Tobacco Use Types Packs/Day Years [...] is your housing situation today? I have fernando villanueva 05/17/[address] you [...] Assessment Author Several days 06/01/2025 9:40 AM Claire Shen MA * Trouble falling or staying asleep, or sleeping too much Answer Date of Assessment Author More than half the days 06/01/2025 9:40 AM CARIDADT Temi Heart MA * Feeling tired or having little energy Answer Date of Assessment Author Not at all 06/01/2025 9:40 AM Claire Shen MA * Poor appetite or overeating Answer Date of Assessment Author More than half the days 06/01/2025 9:40 AM CARIDADT Temi Heart MA * Feeling bad about yourself - [...] or on edge 1 06/01/2025 9:40 AM EDT Temi Becker MA Not being able to stop or [...] Becker MA documented as of this encounter Progress Notes * Carmen Cadena MD - 06/01/2025 9:45 AM EDT Subjective Patient ID: Niesha Mead is a 80 y.o. female who presents for Annual exam HPI FULL CODE Pt reports already completed and brought health care proxy form Walks w a cane ,has VNA e 3 mo and PCAx1 80 y o F with PMX of Obesity ,MGUS,HTN,HLD, CKD,nephrolithiasis ,obesity ,Celiac dx,smooth muscle ab +,Rheumatoid Arthritis ,GERD.Anxiety,Osteopenia Comes for annual exam apt Pt has not scheduled yet apt w Area Development Consultant for new dxed RA now w GI ,also pd to get done CXR andPFT-- gave info today of all apts Denies new complaints ------- Assessment and Plan: Health care maintenance -Annual exam done 05/2025 -Menopause 50 y of age -pap smear : normal per pt -not able to get records ---stopped screening -MM 02/2025 BI-RADS 1: Negative -can stop screening if pt desires -colonoscopy 4 y ago normal per pt -not able to get records --- FOBT 04/2024 Neg repeat in 1 y vs todo then cologuard ---referred already to GI,will f next apt , if not see will offer further screening but pt is already 80 y of age so may stop as well -DEXA scan 04/2024 Osteopenia based on the lowest T-score value of -1.8 in the femoral neck . Major osteoporotic fracture (clinical spine, forearm, hip or shoulder) 7.9%. Hip fracture 2.0% -vaccines s/p Covid 19 x3-including last booster 02/2024 , Tdap 04/2024 , Shingrix vaccine x2 . P20 02/2024 ,RSV vaccine 02/2024 ,Hep core ab +,Ag neg, ab immune , Flu vaccine 06/2024-advised for COVID 19 and Flu vaccine in 05/2025 ---- -04/2024 vit B 12 1.611--decrease to 500 mg daily from 1000 mg daily at last apt - check level orderalready -annual labs ordered already--pd to get labs done Obesity BMI 35<--- 36 -Advised pt to improve diet and exercise,discussed healthy life style -discussed orthodontist referral -refuse MGUS Anemia -06/2024 Hb 11 -05/2024 Hb 11.3<--10.6 -04/2024 folic acid 6.9 ,vit D wnl, Iron and ferritin wnl -04/2024 FOBT Neg No melenas nor BPR ,no hematuria no vaginal bleeding -f w gerentological physiotherapist seen last 01/2024 And to f in 1 y--# for pt to schedule f up. Possible associated w RA -Hem onc 04/2025 to continue to monitor her blood count and SIEP over time. If this continues to escalate or if she has any secondary complications related to myeloma, I will proceed with a bone marrow exam for further evaluation. F in 6 mo HLD -06/2024 LDL 118, total ch 187, HDL 37, trig 161 -04/2024 Trig 163, total ch 211, LDL 141, HDL 38 -ASCVD not able to Calc for age thinks atorvastatin caused elevated LFTS in the past per pt -on zetia -continue pravastatin 10 mg daily -will check chem and fasting lipids ordered already if > 100 will increase statin dose at next apt HTN -BP controlled Not on Gustavo inh for allergy hx -reported cough -wire bender hand 06/2024 Hypertensive retinopathy to f in 1 y -EKG for baseline 02/2025 HR 63, QTc 475, NSR ,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 ,RBBB -on HDCTZ 25 mg daily CKD -05/2024 Cr 1.25, GFR 41 -nephology -has f up apt 06/07/2025 GERD Celiac dx -on chronic esomeprazole 40 mg daily -denies f w GI for hx of celiac dx and chronic GERD -referred to GI to resume care-alma was not seen -has # ---gave info for GI today Hand pain /Rheumatoid Arthritis -06/2025 ANGELITA 1:1280,ESR 82, CRP 1.20, RF 73.5,Uric acid 7.6 Reports sometimes pain in DIP of both hands but denies swelling erythema nor increase skin temp -advised tylenol prn -hand exercises discussed -pt not gone to lead dental assistant --gave printed labs results from 07/2024 and last referral info of lead dental assistant -encouraged pt to call for apt -repeat uric acid level no obvious gout flare up -refrred for right ankle XR -diclofenac -wants to hold on court administrator for now Left Leg cramps Pt reports having episodes of left leg cramps ,denies cold extremities Has mod size varicose veins w trace bl pitting edema Improved w compression stockings Anxiety -Follows with psychiatrist -On remeron and lorazepam px by psychiatrist Osteopenia -DEXA scan 04/2024 Osteopenia based on the lowest T-score value of -1.8 in the femoral neck . Major osteoporotic fracture (clinical spine, forearm, hip or shoulder) 7.9%. Hip fracture 2.0% -continue taking ca/vit D 2 tab VID and to keep activity as daily walks and healthy life style -will repeat DEXA scan in 2 y in 04/2026 Left hip pain States ongoing pain in left hip pain but significantly improved since taking tylenol ,denies erythema ,swelling in hip, no trauma Hip exam is normal on exam , pain is located over superior iliac crest in left side w no deformity 05/2024 ESR 88 -Left hip XR 05/2024 Unchanged Normal x-ray of left hip. No fracture or dislocation or signs of avascular necrosis are seen. -refuse orthopedic referral for now ,takes tylenol twice a day that helps -referred to PT that helped w symptoms Chronic Dry cough Dry cough -gets help w benzonate Denies CP,SOB nor wheezing,denies asthma hx ,states smoked tobacco only for short period of time -PFT referred already -gave info today -CXR already -pd -gave info today -if neg workup will consider TTE at next apt -continue benzonatate PRN Microscopic Hematuria -06/2025 UA ,LE mod , RBC 6-10 ,epic cells >20 ,states smoked tobacco only for short period of time Denies any symptoms -repeat UA if conform blood will refer to urologist at next apt Abnormal EKG -EKG today for baseline 02/2025 HR 63, QTc 475, NSR ,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 ,RBBB Denies hx of AK, used to take ASA but stopped for GI pain w it ,states hx of gastric ulcer, no previous EKG to compare Asymptomatic -referred to school bus attendant --states has apt 06/13/2025 -hold on ASA w hx of gastric ulcer and pain w ASA -pt is symptomatic but discussed in length about alarms signs and symptoms Review of Systems Constitutional: Negative. Negative for chills, fatigue and fever. HENT: Negative. Eyes: Negative. Respiratory: Negative. Cardiovascular: Negative. Gastrointestinal: Negative. Genitourinary: Negative. Musculoskeletal: Negative. Chronic right ankle pain Neurological: Negative. Hematological: Negative. Psychiatric/Behavioral: Negative. Objective BP 134/58 (BP Location: Left arm, Patient Position: Sitting, BP Cuff Size: Large adult) Pulse 75 Temp 96.9 ??F (36.1 ??C) (Temporal) Resp 20 Ht 5' (1.524 m) Wt 183 lb (83 kg) SpO2 99% BMI 35.74 kg/m?? Physical Exam Vitals reviewed. Constitutional: Appearance: Normal appearance. She is obese. HENT: Head: Normocephalic and atraumatic. Right Ear: Tympanic membrane and ear canal normal. Left Ear: Tympanic membrane and ear canal normal. Mouth/Throat: Mouth: Mucous membranes are moist. Pharynx: Oropharynx is clear. Eyes: Extraocular Movements: Extraocular movements intact. Pupils: Pupils are equal, round, and reactive to light. Cardiovascular: Rate and Rhythm: Normal rate and regular rhythm. Heart sounds: Normal heart sounds. No murmur heard. Pulmonary: Effort: Pulmonary effort is normal. Breath sounds: Normal breath sounds. Abdominal: General: Abdomen is flat. Bowel sounds are normal. Palpations: Abdomen is soft. Musculoskeletal: General: Normal range of motion. Cervical back: Normal range of motion and neck supple. Comments: There is discomfort w movement of right ankle , no erythema no increase skin temp,mild swelling Skin: General: Skin is warm. Neurological: General: No focal deficit present. Mental Status: She is alert and oriented to person, place, and time. Mental status is at baseline. Psychiatric: Mood and Affect: Mood normal. Behavior: Behavior normal. Assessment/Plan Problem List Items Addressed This Visit Essential hypertension Relevant Medications hydroCHLOROthiazide (HYDRODiuril) 25 MG tablet Obesity, morbid (CMS/HCC) Stage 3a chronic kidney disease (CMS/HCC) Relevant Medications hydroCHLOROthiazide (HYDRODiuril) 25 MG tablet Health care maintenance Chronic kidney disease, stage 3b (CMS/HCC) Relevant Medications hydroCHLOROthiazide (HYDRODiuril) 25 MG tablet Other Visit Diagnoses Ankle pain, unspecified chronicity, unspecified laterality - Primary Relevant Medications Diclofenac Sodium 1 % gel Other Relevant Orders XR Ankle 3+ Views Right (Completed) documented in this encounter Plan of Treatment Not on file documented as of this encounter Procedures Procedure Name Priority Date/Time Associated Diagnosis Comments XR ANKLE 3+ VIEWS RIGHT Routine 06/01/2025 11:14 AM EDT Ankle pain, unspecified chronicity, unspecified laterality documented in this encounter Results * XR Ankle 3+ Views Right (06/01/2025 11:14 AM EDT) Anatomical Region Laterality Modality Lower Extremities, Ankle Right Radiogr aphic Imaging 06/01/2025 11:1 4 AM EDT Narrative 06/01/2025 1:07 PM EDT [address] [address] XRay Report Signed Patient: Niesha Mead MR#: [id number] : 1945 Acct:[id number] Age/Sex: 80 / F ADM Date: 06/01/25 [facility]: Carmen Cadena MD Ordering Physician: Carmen Gong MD Date of Service: 06/01/25 Procedure(s): XR ankle RT min 3V Accession Number(s): [id number] cc: Carmen Gong MD Reason for Exam: chronic right ankle pain EXAMINATION: XR ANKLE, RIGHT CLINICAL INFORMATION: chronic right ankle pain COMPARISON: X-ray dated December 11, 2011 is not available on PACS. TECHNIQUE: AP, lateral, and mortise views of the right ankle. FINDINGS: Soft tissue swelling/edema pattern, bimalleolar. No subcutaneous emphysema. No acute cortical disruption or malalignment. Degenerative changes in the ankle and right foot. 5 mm plantar calcaneus spur. XR/XR ankle RT min 3V IMPRESSION: Bimalleolar edema pattern. No acute fracture or dislocation. Degenerative changes. Plantar calcaneal spur. Electronically signed by: Eligio Alcocer MD 06/01/2025 01:04 PM EDT RP Dictated By: Eligio Khan MD Signed By: <Electronically signed by Eligio Donaldson MD in [place]> 06/01/25 1304 DD/ 1114 TD/TT: 06/01/25 1255 Sheet Ironworker: Procedure Note Donotuseinterpreter, Image - 06/01/[address] [address] XRay Report Signed Patient: Niesha MeadMR#: [id number] : 5Acct:[id number] Age/Sex: 80 / FADM Date: 06/01/25 Loc: HO.CX Attending Dr: Carmen Cadena MD Ordering Physician: Carmen Gong MD Date of Service: 06/01/25 Procedure(s): XR ankle RT min 3V Accession Number(s): [id number] cc: Carmen Gong MD Reason for Exam: chronic right ankle pain EXAMINATION: XR ANKLE, RIGHT CLINICAL INFORMATION: chronic right ankle pain COMPARISON: X-ray dated December 11, 2011 is not available on PACS. TECHNIQUE: AP, lateral, and mortise views of the right ankle. FINDINGS: Soft tissue swelling/edema pattern, bimalleolar. No subcutaneous emphysema. No acute cortical disruption or malalignment. Degenerative changes in the ankle and right foot. 5 mm plantar calcaneus spur. XR/XR ankle RT min 3V IMPRESSION: Bimalleolar edema pattern. No acute fracture or dislocation. Degenerative changes. Plantar calcaneal spur. Electronically signed by: Eligio Alcocer MD 06/01/2025 01:04 PM EDT RP Dictated By: Eligio Khan MD Signed By: <Electronically signed by Eligio Donaldson MDin OV> 06/01/25 1304 DD/ 1114 TD/TT: 06/01/25 1255 Sheet Ironworker: Carmen Cadena MD IMG XR PROCEDURES Final Result documented in this encounter Visit Diagnoses Diagnosis Ankle pain, unspecified chronicity, unspecified laterality- Primary Chronic kidney disease, stage 3b (CMS/HCC) Essential hypertension Unspecified essential hypertension Obesity, morbid (CMS/HCC) Morbid obesity Stage 3a chronic kidney disease (CMS/HCC) Health care maintenance documented in this encounter Additional Health Concerns Assessment Noted Time PHQ-9 Depression Total Score: 6 06/01/20 25 9:40 AM EDT documented as of this encounter Care Teams Switch Operators Supervisor Relationship Specialty Start Date End Date Carmen Gong MD [address] [place] [id number] PCP - General Internal Medicine 05/10/23 documented as of this encounter
--- OUTSIDE RECORDS SUMMARY | 2025-06-04 09:27 | XMS_ITS | Encounter Summary ---
Author Organization [employer] Address [address] [facility] 7t [place] [address] Care Team Providers Care Retail Sales Consultant Name Role Phone Carmen Gong MD [...] documented as of this encounter Care Teams Retail Sales Consultant Relationship Specialty Start Date End Date Carmen Gong MD [address] [place] [phone] PCP - General Internal Medicine 05/10/23 documented as of this encounter
--- OUTSIDE RECORDS SUMMARY | 2025-06-04 09:27 | XMS_ITS | Encounter Summary ---
Author Organization [employer] Address [address] [facility] 7t [place] [address] Care Team Providers Care Junior Mechanical Engineer Name Role Phone Carmen Gong MD Primary Care Pro vider Reason for Visit * Reason Comments Med Refill Encounter Details Date Type Department Care Team ([facility] st Contact Info) Description 06/14/2024 Refill [facility] & PEDS [address] [place] [address] Carmen Gong MD [address] [place] [address] Social History Tobacco Use Types Packs/Day Years [...] documented as of this encounter Care Teams Junior Mechanical Engineer Relationship Specialty Start Date End Date Carmen Gong MD [address] [place] [phone] PCP - General Internal Medicine 05/10/23 documented as of this encounter
--- OUTSIDE RECORDS SUMMARY | 2025-06-04 09:27 | XMS_ITS | Encounter Summary ---
Author Organization [facility] [place], Address [address] [place] [address] Phone Care Team Providers Care Delivery Truck Driver Heavy Name Role Phone Carmen Smith Primary Care Provid er Encounter Details Date Type Department Care Team (Late Contact Info) Description 01/02/2022 Documentation Only [facility] [address] [place] [address] Issa Mishra MD [address] [place] [address] Social History Tobacco Use Types [...] Encounter [facility] [address] [place] [place] [address] Albino Schmidt MD [address] [place] [address] [place] [address] 09/11/2025 10:30 AM EST Office Visit [facility] [address] [place] [place] [phone] Kamran Escobar MD [address] [place] [address] documented as of this encounter Visit Diagnoses Not on filedocumented in this encounter Care Teams Delivery Truck Driver Heavy Relationship Specialty Start Date End Date Carmen Smith [address] [place] [address] [phone] PCP - General 05/22/25 documented as of this encounter
--- OUTSIDE RECORDS SUMMARY | 2025-06-04 09:27 | XMS_ITS | Encounter Summary ---
Author Organization [facility] [place], Address [address] [place] [address] Phone Care Team Providers Care Marker Machine Attendant Name Role Phone Carmen Smith Primary Care Provid er Encounter Details Date Type Department Care Team (Late Contact Info) Description 06/29/2022 Documentation Only [facility] [address] [place] [address] Rl Swenson PA [address] [place] [address] [place] [address] Social History Tobacco Use Types [...] Upcoming Encounters Date Type Department Care Team ([facility] Contact Info) Description 06/07/2025 4:30 PM EDT Imaging Encounter [facility] [address] [place] [address] Albino Schmidt MD [address] [place] [address] [place] [address] 09/11/2025 10:30 AM EST Office Visit [facility] [address] [place] [address] Kamran Escobar MD [address] [place] [address] documented as of this encounter Visit Diagnoses Not on filedocumented in this encounter Care Teams Marker Machine Attendant Relationship Specialty Start Date End Date Carmen Smith [address] [place] [address] [phone] PCP - General 05/22/25 documented as of this encounter
--- OUTSIDE RECORDS SUMMARY | 2025-06-04 09:27 | XMS_ITS ---
Author Name Jeni Esquivel NP Address [address] [place] [address] Phone [phone] Organization [facility] Care Team Providers Care Blueprint Reader Name Role Phone Jeni Esquivel Unavailable [phone] Reason for Referral Not Available Allergies, adverse [...] organ damage (headache, vision changes, chest pain)/ Hot Patcher on proper BP monitoring technique and reassess/ [...] Pain Assessment - NO pain present (1126F) [facility] [place]20[place] Pain Assessment - NO pain present (1126F) [facility] [place] Pain Assessment - NO pain present (1126F) [facility] [place] Pain Assessment - NO pain present (1126F) [facility] [place] Pain Assessment - NO pain present (1126F) [facility] [place]20[place] Pain Assessment - NO pain present (1126F) [facility] [place] Pain Assessment - NO pain present (1126F) [facility] [place] Anxiety disorder, unspecifiedChronic kidney disease, stage 3b Pain Assessment - NO pain present (1126F) [facility] [place] Pain Assessment - NO pain present (1126F) [facility] [place] Estab. patient 30-39min; chronic exacerbation, 2 stable chronic or 1 acute illness add add modifier 95 for video, (do not use for phone, instead use 55870-43) [facility] [place] 07/08/2023 Hypertensive chronic kidney disease w stg [...] (do not use for phone, instead use 75110-00) [facility] [place] 07[place]20[place] Estab. patient 30-39min; chronic exacerbation, 2 stable chronic or 1 acute illness add add modifier 95 for video, (do not use for phone, instead use 34505-90) [facility] [place] 07[place]08/2023 Estab. patient 30-39min; chronic exacerbation, 2 stable chronic or 1 acute illness add add modifier 95 for video, (do not use for phone, instead use 81530-49) [facility] [place] 07/08/2023 Estab. patient 30-39min; chronic exacerbation, 2 stable chronic or 1 acute illness add add modifier 95 for video, (do not use for phone, instead use 08422-98) [facility] [place] 07/[place]/2023 Estab. patient 30-39min; chronic exacerbation, 2 stable chronic or 1 acute illness add add modifier 95 for video, (do not use for phone, instead use 62733-64) [facility] [place] 07/[place]23 Estab. patient 30-39min; chronic exacerbation, 2 stable chronic or 1 acute illness add add modifier 95 for video, (do not use for phone, instead use 04710-62) [facility] [place]2023 Estab. patient 30-39min; chronic exacerbation, 2 stable chronic or 1 acute illness add add modifier 95 for video, (do not use for phone, instead use 80107-87) [facility] [place] 07/08/2023 Estab. patient 30-39min; chronic exacerbation, 2 stable chronic or 1 acute illness add add modifier 95 for video, (do not use for phone, instead use 38715-48) [facility] [place] 07/[place]/2023 Unlisted special service; to be used for medical record reviews and reporting CPTII codes (1111F, etc) [facility] [place] 02/11/2024 Other specified health statu s Unlisted special service; to be used for medical record reviews and reporting CPTII codes (1111F, etc) [facility] [place] 02/11/2024 Unlisted special service; to be used for medical record reviews and reporting CPTII codes (1111F, etc) [facility] [place] 02/11/2024 Estab. patient 30-39min; chronic exacerbation, 2 stable chronic or 1 acute illness add add modifier 95 for video, (do not use for phone, instead use 09595-36) [facility] [place] 04/07/2024 Anxiety disorder, unspecifiedSedative, hypnotic, or anxiolytic [...] (do not use for phone, instead use 34656-32) [facility] [place] 04/07/20[place] Estab. patient 30-39min; chronic exacerbation, 2 stable chronic or 1 acute illness add add modifier 95 for video, (do not use for phone, instead use 11401-66) [facility] [place] 04/07/20[place] Estab. patient 30-39min; chronic exacerbation, 2 stable chronic or 1 acute illness add add modifier 95 for video, (do not use for phone, instead use 11960-67) [facility] [place] 04/07/2024 Estab. patient 30-39min; chronic exacerbation, 2 stable chronic or 1 acute illness add add modifier 95 for video, (do not use for phone, instead use 00127-70) [facility] [place] 04/07/2024 Estab. patient 30-39min; chronic exacerbation, 2 stable chronic or 1 acute illness add add modifier 95 for video, (do not use for phone, instead use 06627-34) [facility] [place] 04/07/20[place] Estab. patient 30-39min; chronic exacerbation, 2 stable chronic or 1 acute illness add add modifier 95 for video, (do not use for phone, instead use 58130-83) [facility] [place] 04/07/20[place] Estab. patient 30-39min; chronic exacerbation, 2 stable chronic or 1 acute illness add add modifier 95 for video, (do not use for phone, instead use 16086-01) [facility] [place] 04/07/20[place] Estab. patient 20-29min; 1 stable chronic or 2 minor; add add modifier 95 for video, modifier 93 for phone [facility] [place] 12/27/2024 Anxiety disorder, unspecifiedSedative, hypnotic, or anxiolytic [...] 95 for video, modifier 93 for phone [facility] [place] 12/27/20[place] Estab. patient 20-29min; 1 stable chronic or 2 minor; add add modifier 95 for video, modifier 93 for phone [facility] [place] 12/27/2024 Estab. patient 20-29min; 1 stable chronic or 2 minor; add add modifier 95 for video, modifier 93 for phone [facility] [place] 12/27/2024 Estab. patient 20-29min; 1 stable chronic or 2 minor; add add modifier 95 for video, modifier 93 for phone [facility] [place] 12/27/2024 Estab. patient 20-29min; 1 stable chronic or 2 minor; add add modifier 95 for video, modifier 93 for phone [facility] [place] 12/27/2024 Estab. patient 20-29min; 1 stable chronic or 2 minor; add add modifier 95 for video, modifier 93 for phone [facility] [place] 12/27/2024 Estab. patient 20-29min; 1 stable chronic or 2 minor; add add modifier 95 for video, modifier 93 for phone [facility] [place] 12/27/2024 Estab. patient 20-29min; 1 stable chronic or 2 minor; add add modifier 95 for video, modifier 93 for phone [facility] [place] 12/27/2024 Vital Signs Date of Collection Vitals [...] Time Current Smoking Status Never smoker 2025-05-21 5 Sex Female History of Procedures Procedures Service [...] (do not use for phone, instead use 31053-54) 99649 2022-07-15 No Data Available No Data Availa ble SBP < 130 (3074F) 3074F 2022-07-15 No Data Available No Data Available DBP <80 (3078F) 3078F 2022-07-15 No Data Available No Data Available Estab. patient 30-39min; chronic exacerbation, 2 stable chronic or 1 acute illness add add modifier 95 for video, (do not use for phone, instead use 22402-46) 25682 2023-07-08 No Data Available No Data Availa [...] reviews and reporting CPTII codes (1111F, etc) 41927 2024-02-11 No Data Available No Data Availa ble SBP < 130 (3074F) 3074F 2024-02-11 No Data Available No Data Available DBP <80 (3078F) 3078F 2024-02-11 No Data Available No Data Available Estab. patient 30-39min; chronic exacerbation, 2 stable chronic or 1 acute illness add add modifier 95 for video, (do not use for phone, instead use 91189-44) 82978 2024-04-07 No Data Available No Data Availa [...] 95 for video, modifier 93 for phone 34330 2024-12-27 No Data Available No Data Availa [...] Category Effective Dates Ambulates with cane. 2023-07-08 ICE CREAM DIPPER coming in daily 2023-07-08 Cognition Status: Oriented [...] modifier 95Continue to see PCP. [facility] [...] organ damage (headache, vision changes, chest pain)/ Hot Patcher on proper BP monitoring technique and reassess/ [...] organ damage (headache, vision changes, chest pain)/ Hot Patcher on proper BP monitoring technique and reassess/ [...] discussedDo you have a Durable Power of Certified Athletic Trainer for Healthcare, or Healthcare Proxy Or Guardianship? SELECTIf so, Who? Vic Gastelum you have a written Advance Directive? Has Advance DirectiveOther details of discussion:Today's plan: Advised patient to discuss wishes with [id number] : AD or surrogate was documented in the medical record.
--- OUTSIDE RECORDS SUMMARY | 2025-06-04 09:27 | XMS_ITS | Encounter Summary ---
Author Organization [employer] Address [address] [facility] 7t [place] [address] Care Team Providers Care Digital Media Buyer Name Role Phone Carmen Gong MD Primary Care Pro vider Encounter Details Date Type Department Care Team ([facility] st Contact Info) Description 06/01/2025 Results Follow-Up [facility] MEDICINE [address] [place] [address] Carmen Gong MD [address] [place] [address] XR Chest 2 Views Social History Tobacco Use Types Packs/Day Years [...] Assessment Author Several days 06/01/2025 9:40 AM CARIDADT Claire Becker MA * Trouble falling or [...] AM EDT Claire Becker MA * Trouble concentrating on things, such [...] MA Trouble relaxing 1 06/01/2025 9:40 AM CARIDADT Temi Heart MA Being so restless that [...] Becker MA documented as of this encounter Miscellaneous Notes * Result Encounter Note - Carmen Cadena MD - 06/01/2025 1:34 PM EDT -CXR 06/01/25 No acute airspace disease. Prominent thoracic aorta. Recommend CT angiogram aorta chest. Multilevel spondylosis suggesting DISH. -right ankle XR 06/01/25 Bimalleolar edema pattern. No acute fracture or dislocation. Degenerative changes. Plantar calcaneal spur. ----- I called pt and informed results -referred pt for CTA chest ,pt has CKD but GFR > 40 ,pd to repeat labs ordered already ,will need results prior image to monitor chem ,denies contrast allergies documented in this encounter Plan of Treatment Not on file documented as of this encounter Visit Diagnoses Not on filedocumented in this encounter Additional Health Concerns Assessment Noted Time PHQ-9 Depression Total Score: 6 06/01/20 25 9:40 AM EDT documented as of this encounter Care Teams Digital Media Buyer Relationship Specialty Start Date End Date Carmen Gong MD [address] [place] [phone] PCP - General Internal Medicine 05/10/23 documented as of this encounter
--- OUTSIDE RECORDS SUMMARY | 2025-06-04 09:27 | XMS_ITS | Encounter Summary ---
Author Organization [employer] Address [address] [facility] 7t [place] [address] Care Team Providers Care Bread Wrapper Name Role Phone [place], [facility] Primary Care Provider [phone] Carmen Gong MD Primary Care Pro vider Reason for Visit * Reason Onset Date Comments Appointment Request 12/03/2022 Encounter Details Date Type Department Care Team ([facility] st Contact Info) Description 12/03/2022 Telephone [facility] MEDICINE [address] [place], [place] [phone] [facility], [facility] [address] [place] [address] Appointment Request Social History Tobacco Use Types [...] seen. Pt is irate. Please contact at [phone] Turkmen * Telephone Encounter - Lino Carpio - 12/03/2022 1:07 PM EDT Tc from pt requesting a TP appt with her new provider. Pt is currently in a recall. Oxygen System Tester tried booking but no slots were available please contact pt at [phone] Turkmen Speaker documented in this encounter Plan of Treatment Not on file documented as of this encounter Visit Diagnoses Not on filedocumented in this encounter Additional Health Concerns Assessment Noted Time PHQ-9 Depression Total Score: 0 10/13/19 11:31 AM EST documented as of this encounter Care Teams Bread Wrapper Relationship Specialty Start Date End Date Emely Mclean FNP 230 [place] [address] PCP - General Family Medicine 05/19/22 05/09/23 Carmen Gong MD [address] [place] [address] PCP - General Internal Medicine 05/10/23 documented as of this encounter
--- OUTSIDE RECORDS SUMMARY | 2025-06-04 09:27 | XMS_ITS | Encounter Summary ---
Author Organization [employer] Address [address] [facility] 7t [place] [address] Care Team Providers Care Supervisor Gelatin Plant Name Role Phone Carmen Gong MD Primary Care Pro vider Reason for Visit * Reason Comments Med Refill Encounter Details Date Type Department Care Team ([facility] st Contact Info) Description 06/03/2025 Refill [facility] MEDICINE 230 [place], [place] [phone] Gricelda Lubin MD [address] [place], [place] [phone] Steatosis of liver Social History Tobacco Use Types Packs/Day Years [...] as of this encounter Visit Diagnoses Diagnosis Steatosis of liver Other chronic nonalcoholic liver disease documented in this encounter Additional Health Concerns Assessment Noted Time PHQ-9 Depression Total Score: 6 06/01/20 25 9:40 AM EDT documented as of this encounter Care Teams Supervisor Gelatin Plant Relationship Specialty Start Date End Date Carmen Gong MD [address] [place] [phone] PCP - General Internal Medicine 05/10/23 documented as of this encounter
--- OUTSIDE RECORDS SUMMARY | 2025-06-04 09:27 | XMS_ITS | Encounter Summary ---
Author Organization [facility] [place], Address [address] [place] [address] Phone Care Team Providers Care Sanitation Superintendent Name Role Phone Carmen Smith Primary Care Provid er Encounter Details Date Type Department Care Team (Late Contact Info) Description 06/24/2022 Documentation Only [facility] [address] [place] [address] Rl Swenson PA [address] [place] [address] [place] [address] Social History Tobacco Use Types [...] Upcoming Encounters Date Type Department Care Team ([facility] Contact Info) Description 06/07/2025 4:30 PM EDT Imaging Encounter [facility] [address] [place] [address] Albino Schmidt MD [address] [place] [address] [place] [address] 09/11/2025 10:30 AM EST Office Visit [facility] [address] [place] [address] Kamran Escobar MD [address] [place] [address] documented as of this encounter Visit Diagnoses Not on filedocumented in this encounter Care Teams Sanitation Superintendent Relationship Specialty Start Date End Date Carmen Smith [address] [place] [address] [phone] PCP - General 05/22/25 documented as of this encounter
--- OUTSIDE RECORDS SUMMARY | 2025-06-04 09:27 | XMS_ITS | Encounter Summary ---
Author Organization [facility] [place], Address [address] [place] [address] Phone Care Team Providers Care Rn Clinical Quality Name Role Phone Carmen Smith Primary Care Provid er Encounter Details Date Type Department Care Team (Late Contact Info) Description 08/07/2020 Orders Only [facility] [place] [address] [place] [address] Cricket Mcghee MD Renal stone; [...] Upcoming Encounters Date Type Department Care Team ([facility] Contact Info) Description 06/07/2025 4:30 PM EDT Imaging Encounter [facility] [address] [place] [address] Albino Schmidt MD [address] [facility] [place] [address] 09/11/2025 10:30 AM EST Office Visit [facility] [address] [facility] [place] [address] Kamran Escobar MD [address] [facility] [place] [address] documented as of this encounter Visit Diagnoses Diagnosis Renal stone Acquired renal cystic disease documented in this encounter Care Teams Rn Clinical Quality Relationship Specialty Start Date End Date Carmen Smith [address] [place] [phone] PCP - General 05/22/25 documented as of this encounter
--- OUTSIDE RECORDS SUMMARY | 2025-06-04 09:27 | XMS_ITS | Encounter Summary ---
Author Organization [facility] [place], Address [address] [place] [address] Phone Care Team Providers Care Radial Drill Press Operator For Plastic Name Role Phone Carmen Smith Primary Care Provid er Encounter Details Date Type Department Care Team (Late Contact Info) Description 06/26/2022 Documentation Only [facility] [address] [place] [address] Rl Swenson PA [address] [place] [address] [place] [address] Social History Tobacco Use Types [...] Encounter [facility] [address] [place] [address] Albino Schmidt MD [address] [place] [address] [place] [address] 09/11/2025 10:30 AM EST Office Visit [facility] [address] [place] [address] Kamran Escobar MD [address] [place] [address] documented as of this encounter Visit Diagnoses Not on filedocumented in this encounter Care Teams Radial Drill Press Operator For Plastic Relationship Specialty Start Date End Date Carmen Smith [address] [place] [address] [phone] PCP - General 05/22/25 documented as of this encounter
--- OUTSIDE RECORDS SUMMARY | 2025-06-04 09:28 | XMS_ITS | Encounter Summary ---
Author Organization [facility] [place], Address [address] [place] [address] Phone Care Team Providers Care Assistant Infant Toddler Teacher Name Role Phone Carmen Smith Primary Care Provid er Encounter Details Date Type Department Care Team (Late Contact Info) Description 07/11/2024 Documentation Only [facility] Ольга LOPEZ [address] [place] [address] Emmanuelle Melendez [address] [place] [address] Social History Tobacco Use Types [...] [facility] [address] [place] [address] Albino Schmidt MD [address] [facility] [place] [address] 09/11/2025 10:30 AM EST Office Visit [facility] [address] [place] [address] Kamran Escobar MD [address] [place] [address] documented as of this encounter Visit Diagnoses Not on filedocumented in this encounter Care Teams Assistant Infant Toddler Teacher Relationship Specialty Start Date End Date Carmen Smith [address] [place] [address] [phone] PCP - General 05/22/25 documented as of this encounter
--- OUTSIDE RECORDS SUMMARY | 2025-06-04 09:28 | XMS_ITS | Encounter Summary ---
Author Organization [employer] Address [address] [facility] 7 [place] [address] Care Team Providers Care Wind Turbine Performance Engineer Name Role Phone Carmen Gong MD Primary Care Pro vider Reason for Referral * Imaging (Routine) - Pending Review Specialty Diagnoses / Procedures Referred By Lori portillo Referred To Contact Radiology Diagnoses Enlarged thoracic aorta (CMS/HCC) Procedures CT ANGIOGRAM CHEST W CONTRAST Carmen Gong MD [address] [place] [address] Phone: tel: fax: [address] Phone: tel: fax: Referral ID Status Reason Start Date Expiration Date V isits Requested Visits Authorized [id number] Pending Review 06/01/2025 06/01/2026 1 1 Encounter Details Date Type Department Care Team (Late st Contact Info) Description 06/01/2025 Orders Only [facility] MEDICINE [address] [place], [place] [phone] Carmen Gong MD [address] [place], [place] [phone] Enlarged thoracic aorta (CMS/HCC) (Primary Dx) Social History Tobacco Use Types Packs/Day Years [...] Type Priority Associated Diagnoses Orde r Schedule CT ANGIOGRAM CHEST W CONTRAST Imaging Routine Enlarged thoracic aorta (CMS/HCC) Expected: 06/01/2025, Expires: 06/01/2026 documented as of this encounter Visit Diagnoses Diagnosis 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
--- OUTSIDE RECORDS SUMMARY | 2025-06-04 09:28 | XMS_ITS | Encounter Summary ---
Author Organization [facility] Address [address] [place] [address] Phone Care Team Providers Care Etl Tester Name Role Phone Carmen Smith Primary Care Provid er Encounter Details Date Type Department Care Team ([facility] Contact Info) Description 06/19/2024 Orders Only [facility] [address] [place] [address] Rl Swenson PA [address] [place] [address] [place] [address] Stage 3b chronic kidney disease [...] [facility] [address] [place] [address] Albino Schmidt MD [address] [place] [address] [place] [address] 09/11/2025 10:30 AM EST Office Visit [facility] [address] [facility] [place] [phone] Kamran Escobar MD [address] [facility] [place] [address] documented as of this encounter Visit Diagnoses Diagnosis Stage 3b chronic kidney disease (HCC) Hypertensive disorder Acquired renal cystic disease documented in this encounter Care Teams Etl Tester Relationship Specialty Start Date End Date Carmen Smith [address] [place] [phone] PCP - General 05/22/25 documented as of this encounter
--- OUTSIDE RECORDS SUMMARY | 2025-06-04 09:28 | XMS_ITS | Encounter Summary ---
Author Organization [employer] Address [address] [facility] 7t [place] [address] Care Team Providers Care Engraver Lettering Name Role Phone Carmen Gong MD Primary Care Pro vider Reason for Visit * Reason Comments Med Refill Encounter Details Date Type Department Care Team ([facility] st Contact Info) Description 05/10/2024 Refill [facility] [address] [place] [address] Ziggy Carson MD [address] [place] [address] Social History Tobacco Use Types Packs/Day Years [...] documented as of this encounter Care Teams Engraver Lettering Relationship Specialty Start Date End Date Carmen Gong MD [address] [place] [phone] PCP - General Internal Medicine 05/10/23 documented as of this encounter
--- OUTSIDE RECORDS SUMMARY | 2025-06-04 09:28 | XMS_ITS | Encounter Summary ---
Author Organization [facility] [place], Address [address] [place] [address] Phone Care Team Providers Care Performance Test Consultant Name Role Phone Carmen Smith Primary Care Provid er Encounter Details Date Type Department Care Team (Late Contact Info) Description 07/11/2024 Documentation Only [facility] Ольга LOPEZ [address] [place] [address] Emmanuelle Melendez [address] [place] [address] Social History Tobacco Use Types [...] Encounter [facility] [address] [place] [address] Albino Schmidt MD [address] [facility] [place] [address] 09/11/2025 10:30 AM EST Office Visit [facility] [address] [facility] [place] [address] Kamran Escobar MD [address] [place] [address] documented as of this encounter Visit Diagnoses Not on filedocumented in this encounter Care Teams Performance Test Consultant Relationship Specialty Start Date End Date Carmen Smith [address] [place] [address] [phone] PCP - General 05/22/25 documented as of this encounter
--- OUTSIDE RECORDS SUMMARY | 2025-06-04 09:28 | XMS_ITS | Clinical Summary ---
Author Organization [facility] [place], Address [address] [place] [address] Phone Care Team Providers Care Computer Programmer Name Role Phone Surinder Rodriguez Hallie Primary Care Provid er Allergies Active Allergy [...] Communication [facility] [address] [place] [address] Nelly Casas MA 05/25/2025 Orders Only [facility] [address] [place] [address] Nelly Casas MA Acquired renal cystic disease (Primary Dx); Stage 3b chronic kidney disease (HCC); Hypertensive disorder 05/22/2025 1:30 PM EDT Office Visit [facility] [address] [place] [address] Kamran Escobar MD Stage 3a chronic kidney [...] [facility] [address] [place] [phone] Albino Schmidt MD [address] [facility] [place] [phone] 09/11/2025 10:30 AM EST Office Visit [facility] [address] [facility] [place] [phone] Kamran Escobar MD [address] [facility] [place] [phone] Health Maintenance Due Date Last Done Comments Hepatitis B Vaccine (1 of 3 - Risk 3-dose series) 2005 Influenza Vaccine (#1) 2025 , 09/07/2023, 06/27/2019, Additional history exists Pneumococcal Vaccine: 50+ Years Completed 03/02/2024, 05/15/2016, 08/30/2015, Additional history exists Pneumococcal Vaccine: Peds ( 0 to 5 Years) and At-Risk Patients (6 to 49 Years) Discontinued 03/02/2024, 05/15/2016, 08/30/2015, Additional history exists [place] [address] [place] [address] ([id number]) Medicaid [place] Care Teams Computer Programmer Relationship Specialty Start Date End Date Carmen Smith [address] [place] [address] [phone] PCP - General 05/22/25
--- OUTSIDE RECORDS SUMMARY | 2025-06-04 09:28 | XMS_ITS | Encounter Summary ---
Author Organization [facility] Address [address] [place] [address] Phone Care Team Providers Care Logistics And Planning Manager Name Role Phone Carmen Smith Primary Care Provid er Encounter Details Date Type Department Care Team ([facility] Contact Info) Description 08/09/2023 Orders Only [facility] [address] [place] [address] Rl Swenson PA [address] [place] [address] [place] [address] Stage 3b chronic kidney disease [...] Encounter [facility] [address] [place] [address] Albino Schmidt MD [address] [place] [address] [place] [address] 09/11/2025 10:30 AM EST Office Visit [facility] [address] [place] [phone] Kamran Escobar MD [address] [facility] [place] [address] documented as of this encounter Visit Diagnoses Diagnosis Stage 3b chronic kidney disease (HCC) Hypertensive disorder Acquired renal cystic disease documented in this encounter Care Teams Logistics And Planning Manager Relationship Specialty Start Date End Date Carmen Smith [address] [place] [phone] PCP - General 05/22/25 documented as of this encounter
--- OUTSIDE RECORDS SUMMARY | 2025-06-04 09:28 | XMS_ITS | Clinical Summary ---
Author Organization [employer] Address [address] [facility] 7[address] [place] [address] Care Team Providers Care Nuclear Plant Equipment Operator Name Role Phone Carmen Gong MD Primary [...] moderate pain. 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 last 12/2022 Cr 1.3 GFR 44 -supportive tx advised -Tamiflu 30 mg BID by last GFR -alarm signs and symptoms advised Mixed anxiety depressive disorder 09/17/2023 023 03/02/2024 Epigastric pain 07/30/2017 03/02/2024 Allergic rhinitis 08/30/2015 03/02/2024 Indigestion 08/30/2015 03/02/2024 Primary osteoarthritis invol ving multiple joints 08/30/2015 03/02/2024 Encounters Date Type Department Care Team Description 06/03/2025 Refill [facility] [address] [place] [address] Gricelda Lubin MD Steatosis of liver 06/01/2025 9:45 AM EDT Office Visit [facility] [address] [place] [address] Carmen Gong MD Ankle pain, unspecified chronicity, unspecified laterality (Primary Dx); Chronic kidney disease, stage 3b (CMS/HCC); Essential hypertension; Obesity, morbid (CMS/HCC); Stage 3a chronic kidney disease (CMS/HCC); Health care maintenance 06/01/2025 Orders Only [facility] [address] [place], [place] [phone] Carmen Gong MD Enlarged thoracic aorta (CMS/HCC) (Primary Dx) 06/01/2025 Orders Only [facility] [address] [place] [address] Carmen Gong MD Enlarged thoracic aorta (CMS/HCC) (Primary Dx) 06/01/2025 Results Follow-Up [address] [address] Carmen Gong MD XR Chest 2 Views 06/01/2025 Travel 05/18/[address] [address] Carmen Gong MD No Show 05/18/[address] [phone] Carmen Gong MD Appointment Request 05/17/[address] [address] Carmen Gong MD chartprep 03/19/2025 1:00 PM EDT Office Visit [address] [address] Carmen Gong MD Dry cough (Primary Dx); Obesity, morbid (CMS/HCC); Stage 3a chronic kidney disease (CMS/HCC); Dietary counseling; Exercise counseling; Abnormal EKG; Healthcare maintenance; Hematuria, unspecified type 03/19/2025 Travel 03/16/[address] [address] Carmen Gnog MD chart prep 03/12/2025 Patient Outreach [facility] [address] [place], [place] [phone] Carmen Gong MD Pre-visit Planning ([facility] unable to reach M) 03/12/[address] [address] Carmen Hardy MD Essential hypertension from Last 3 Months Immunizations Immunization Administration Dates Next Due Influenza High-dose Quadriva lent Preservative Free 09/07/2023,08/24/2022,06/25/2021,06/17 Influenza injectable quadriv alent IIV4 with preservative 06/27/2019,06/17/2015 Influenza injectable quadriv alent preservative free 07/21/2017,09/28/2016 Influenza, High Dose Seasona l, Preservative Free 07/19/2024,07/21/2018 Influenza, IIV3, injectable 06/15/2014 Influenza, Split (incl. tong fied surface antigen) 07/06/2013,10/11/2012 Moderna Covid-19 Vaccine 12+ 10/16/2021,11/30/19,11/01/2020 Pfizer Covid-19 Vaccine 12+ 03/02/2024 Pneumococcal Conjugate [...] topic Meningococcal Vaccine Aged Out No jared duane eligible based on patient's age to complete this topic RSV under 20 months Aged Out No longe r eligible based on patient's age to complete this topic Rotavirus Vaccines Aged Out No longer eligible based on patient's age to complete this topic Procedures Procedure Name Priority Date/Time Associated Diagnosis Comments XR CHEST 2 VIEWS Routine 06/01/2025 12:5 0 PM EDT Dry cough XR ANKLE 3+ VIEWS RIGHT Routine 06/01/2025 11:14 AM EDT Ankle pain, unspecified chronicity, unspecified laterality ECG 12-LEAD Routine 04/24/2025 8:16 PM EDT Abnormal EKG LIPID PANEL, STANDARD Routine 07/27/2024 9:06 AM EST Hyperlipidemia, unspecified hyperlipidemia type from Last 3 Months or Most Recently Relevant to Health Maintenance Results * XR Chest 2 Views (06/01/2025 12:50 PM EDT) Anatomical Region Laterality Modality Chest Radiographic Jessy ging 06/01/2025 12:5 0 PM EDT Narrative 06/01/2025 1:04 PM EDT [address] [address] XRay Report Signed Patient: Niesha Mead MR#: [id number] : 1945 Acct:[id number] Age/Sex: 80 / F ADM Date: 06/01/25 Loc: HO.CX Attending Dr: Carmen Cadena MD Ordering Physician: Carmen Gong MD Date of Service: 06/01/25 Procedure(s): XR chest 2V Accession Number(s): [id number] cc: Carmen Gong MD Reason for Exam: dry chronic cough EXAMINATION: XR CHEST CLINICAL INFORMATION: dry chronic cough COMPARISON: October 26, 2017 TECHNIQUE: PA and lateral views FINDINGS: No hyperinflation. No consolidation pleural effusion or pneumothorax. Cardiomediastinal silhouette size demonstrate a prominent thoracic aortic arch. Multilevel spondylosis with slight preservation of the intervertebral disc height at multiple contiguous levels of the thoracic spine. XR/XR chest 2V IMPRESSION: No acute airspace disease. Prominent thoracic aorta. Recommend CT angiogram aorta chest. Multilevel spondylosis suggesting DISH. Electronically signed by: Eligio Alcocer MD 06/01/2025 01:01 PM EDT Dictated By: Eligio Khan MD Signed By: <Electronically signed by Eligio Donaldson MD in OV> 06/01/25 1301 DD/ 1250 TD/TT: 06/01/25 1255 Flight Operations Specialist: Procedure Note Donotuseinterpreter, Image - 06/01/[address] [address] XRay Report Signed Patient: Niesha MeadMR#: [id number] : 5Acct:[id number] Age/Sex: 80 / FADM Date: 06/01/25 Loc: VANESSA.CX Attending Dr: Carmen Cadena MD Ordering Physician: Carmen Gong MD Date of Service: 06/01/25 Procedure(s): XR chest 2V Accession Number(s): [id number] cc: Carmen Gong MD Reason for Exam: dry chronic cough EXAMINATION: XR CHEST CLINICAL INFORMATION: dry chronic cough COMPARISON: October 26, 2017 TECHNIQUE: PA and lateral views FINDINGS: No hyperinflation. No consolidation pleural effusion or pneumothorax. Cardiomediastinal silhouette size demonstrate a prominent thoracic aortic arch. Multilevel spondylosis with slight preservation of the intervertebral disc height at multiple contiguous levels of the thoracic spine. XR/XR chest 2V IMPRESSION: No acute airspace disease. Prominent thoracic aorta. Recommend CT angiogram aorta chest. Multilevel spondylosis suggesting DISH. Electronically signed by: Eligio Alcocer MD 06/01/2025 01:01 PM EDT Dictated By: Eligio Khan MD Signed By: <Electronically signed by Eligio Donaldson MDin OV> 06/01/25 1301 DD/ 1250 TD/TT: 06/01/25 1255 Flight Operations Specialist: Carmen Cadena MD IMG XR PROCEDURES Final Result * XR Ankle 3+ Views Right (06/01/2025 11:14 AM EDT) Anatomical Region Laterality Modality Lower Extremities, Ankle Right Radiogr aphic Imaging 06/01/2025 11:1 4 AM EDT Narrative 06/01/2025 1:07 PM EDT [address] [address] XRay Report Signed Patient: Niesha Mead MR#: [id number] : 1945 Acct:[id number] Age/Sex: 80 / F ADM Date: 06/01/25 Loc: HO.HHCX Attending Dr: Carmen Cadena MD Ordering Physician: Carmen Gong MD Date of Service: 06/01/25 Procedure(s): XR ankle RT min 3V Accession Number(s): [id number] cc: Carmen Gong MD Reason for Exam: [...] Eligio Alcocer MD 06/01/2025 01:04 PM EDT Dictated By: Eligio Khan MD Signed By: <Electronically signed by Eligio Dnoaldson MD in OV> 06/01/25 1304 DD/ 1114 TD/TT: 06/01/25 1255 Flight Operations Specialist: Procedure Note Donotuseinterpreter, Image - 06/01/2025 [place] [address] XRay Report Signed Patient: Niesha MeadMR#: [id number] : 5Acct:[id number] Age/Sex: 80 / FADM Date: 06/01/25 Loc: .HHCX Attending Dr: Carmen Cadena MD Ordering Physician: Carmen Gong MD Date of Service: 06/01/25 Procedure(s): XR ankle RT min 3V Accession Number(s): [id number] cc: Carmen Gong MD Reason for Exam: [...] 06/01/25 1304 DD/ 1114 TD/TT: 06/01/25 1255 Flight Operations Specialist: us Carmen Cadena MD IMG XR PROCEDURES Final Result * ECG 12 lead (04/24/2025 8:16 PM EDT) Narrative Carmen Gong MD - 04/24/2025 8:16 PM EDT -EKG today for baseline 02/2025 HR 63, QTc 475, NSR ,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 ,RBBB us Carmen Cadena MD ECG ORDERABLES F inal Result * (ABNORMAL) Lipid Panel, Standard (07/27/2024 9:06 AM EST) Triglycerides 161(H) <150 mg/dL [facility] Comment:Desirable Triglyceri de: less than 150 mg/dLBorderline High Triglyceride 150-199 mg/dLHigh Triglyceride: 200-499 mg/dLVery High Triglyceride: greater than or equal to 5OO mg/dL Cholesterol 187 <200 mg/dL [facility] Comment:Desirable Cholestero l: less than 200 mg/dLBorderline High Cholesterol: 200-239 mg/dLHigh Cholesterol: greater than 239 mg/dL LDL Cholesterol Calculated 118(H) <100 mg/dL [facility] Comment:Desirable LDL: less than 100 mg/dLNear Optimal/Above Optimal LDL: 110- 129 mg/dLBorderline High LDL: 130-159 mg/dLHigh LDL: 160-189 mg/dLVery High LDL: greater than or equal to 190 mg/dL HDL Cholesterol 37(L) >40 mg/dL [facility] Comment:Desirable HDL: great er than 40 mg/dL Note: This HDL assay may give artificially low results in patients with liver disease. Blood Venous blood specimen / Unknown 07/27/2024 9:06 AM EST 07/27/2024 11:30 AM EST Carmen Cadena MD LAB BLOOD ORDERAB LES Final Result Performing Organization Address City/State/[facility] Co de Phone Number [facility] [address] [place] [address] [phone] from Last 3 Months or Most Recently Relevant to Health Maintenance Insurance DUAL COMPLETE Care Teams Nuclear Plant Equipment Operator Relationship Specialty Start Date End Date Carmen Gong MD [address] [place] [address] PCP - General Internal Medicine 05/10/23
--- OUTSIDE RECORDS SUMMARY | 2025-06-04 09:28 | XMS_ITS | Encounter Summary ---
Author Organization [employer] Address [address] [facility] 7t [place] [address] Care Team Providers Care Events Administrative Assistant Name Role Phone Carmen Gong MD Primary Care Pro vider Encounter Details Date Type Department Care Team ([facility] st Contact Info) Description 06/01/2025 Orders Only [facility] [address] [place] [address] Carmen Gong MD [address] [place] [address] Enlarged thoracic aorta (CMS/HCC) (Primary Dx) Social [...] Author Not at all 06/01/2025 9:40 AM CARIDADT Claire Becker MA * Trouble concentrating on [...] Time PHQ-9 Depression Total Score: 6 06/01/20 9:40 AM EDT documented as of this encounter Care Teams Events Administrative Assistant Relationship Specialty Start Date End Date Carmen Gong MD [address] [place] [phone] PCP - General Internal Medicine 05/10/23 documented as of this encounter
--- OUTSIDE RECORDS SUMMARY | 2025-06-04 09:28 | XMS_ITS | Encounter Summary ---
Author Organization [facility], Address [address] [place] [address] Phone Care Team Providers Care Hydropulper Operator Name Role Phone Carmen Smith Primary Care Provid er Encounter Details Date Type Department Care Team (Late Contact Info) Description 10/01/2023 Documentation Only [facility] [place] [phone] Rl Swenson PA [address] [place] [address] Social History Tobacco Use Types [...] Encounter [facility] [address] [place] [address] Albino Schmidt MD [address] [place] [phone] 09/11/2025 10:30 AM EST Office Visit [facility] [address] [place] [address] Kamran Escobar MD [address] [place] [address] documented as of this encounter Visit Diagnoses Not on filedocumented in this encounter Care Teams Hydropulper Operator Relationship Specialty Start Date End Date Carmen Smith [address] [place] [phone] PCP - General 05/22/25 documented as of this encounter
--- OUTSIDE RECORDS SUMMARY | 2025-06-04 09:28 | XMS_ITS | Encounter Summary ---
Author Organization [facility], Address [address] [place] [address] Phone Care Team Providers Care Kst Operator Name Role Phone Carmen Smith Primary Care Provid er Encounter Details Date Type Department Care Team (Late Contact Info) Description 07/11/2024 Documentation Only [facility] [address] [place] [address] Emmanuelle Melendez [address] [place] [address] Social History Tobacco Use [...] Encounter [facility] [address] [place] [address] Albino Schmidt MD [address] [address] [place] [address] 09/11/2025 10:30 AM EST Office Visit [facility] [address] [place] [address] Kamran Escobar MD [address] [place] [address] documented as of this encounter Visit Diagnoses Not on filedocumented in this encounter Care Teams Kst Operator Relationship Specialty Start Date End Date Carmen Smith [address] [place] [phone] PCP - General 05/22/25 documented as of this encounter
--- OUTSIDE RECORDS SUMMARY | 2025-06-04 09:28 | XMS_ITS | Encounter Summary ---
Author Organization [facility], Address [address] [place] [address] Phone Care Team Providers Care Rn Rehabilitation Name Role Phone Carmen Smith Primary Care Provid er Encounter Details Date Type Department Care Team (Late Contact Info) Description 10/06/2023 Documentation Only [facility] [address] Lenore LOPEZ [address] [place] [phone] Issa Mishra MD [address] [place] [address] [place] [address] Social History Tobacco Use Types [...] Encounter [facility] [address] [place] [address] Albino Schmidt MD [address] [place] [address] [place] [address] 09/11/2025 10:30 AM EST Office Visit [facility] [address] [address] Kamran Escobar MD [address] [facility] [place] [address] documented as of this encounter Visit Diagnoses Not on filedocumented in this encounter Care Teams Rn Rehabilitation Relationship Specialty Start Date End Date Carmen Smith [address] [place] [address] [phone] PCP - General 05/22/25 documented as of this encounter
[2025-06-04 11:18] LABS: Hematocrit 33.1 % (37.0-47.0); Hemoglobin 10.7 g/dl (12.0-16.0); Mean Corpuscular HGB Conc 32.3 g/dl (31.0-35.0); Mean Corpuscular Hemoglobin 29.4 pg (27.0-33.0); Mean Corpuscular Volume 90.9 fL (80.0-98.0); NRBC Abs Auto 0.000 X10*3/uL (0.0-0.012); NRBC Pct Auto 0.0 /100WBC (0.0-0.2); Platelet Count 194 X10*3/uL (160-400); Red Blood Count 3.64 X10*6/uL (4.20-5.50); White Blood Count 5.0 X10*3/uL (4.8-10.8)
[2025-06-04 11:36] LABS: Appearance Urine Clear; Glucose Urine UA Negative (Negative); PH 7.0 (5.0-9.0); Specific Gravity - Urine 1.020 (1.005-1.025); UMIC TRIGGER UA YES
[2025-06-04 11:43] LABS: Hemoglobin A1C 114.3064 umol/L; Total Hemoglobin (HGBA1C) 3141.4906 umol/L
[2025-06-04 12:01] LABS: Alanine Aminotransferase 16 U/L (0-31); Albumin Level 4.2 g/dL (3.5-5.0); Alkaline Phosphatase 75 U/L (39-117); Anion Gap 10 (12-20); Aspartate Amino Transferase 34 U/L (5-31); Blood Urea Nitrogen 21 mg/dL (9-16); Calcium 9.4 mg/dL (8.4-10.2); Carbon Dioxide 31 mmol/L (22-29); Chloride 103 mmol/L (96-108); Cholesterol 227 mg/dL (<200); Estimated Glomerular Filt Rate 40; HDL Cholesterol 39 mg/dL (>40); Potassium 3.8 mmol/L (3.3-5.1); Sodium 140 mmol/L (135-145); Total Protein 7.6 g/dL (6.5-8.0); Triglycerides 173 mg/dL (<150); Uric Acid 8.2 mg/dL (2.4-5.7)
[2025-06-04 12:15] LABS: Microalbum/Creatinine Ratio Ur 5.5 ug/mg cr (<30)
[2025-06-04 12:40] LABS: Folate 16.1 ng/mL (> or = 4.0); Vitamin B12 1876 pg/mL (200-900)
== END 2025-06-04 08:24 | disposition home or self-care (01) ==
LOC: HO.HHCL 08:23
PROVIDERS: PCP Student in an Organized Health Care Education/Training Program; Visit Provider Student in an Organized Health Care Education/Training Program
DX: Z00.00 Encounter for general adult medical examination without abnormal findings (principal); R74.01 Elevation of levels of liver transaminase levels; E78.5 Hyperlipidemia, unspecified; R31.9 Hematuria, unspecified; Z13.1 Encounter for screening for diabetes mellitus
CPT/HCPCS: 36415; 80053; 80061; 81001; 82043; 82306; 82570; 82607; 82746; 83036; 84443; 84550; 85027

== ENCOUNTER 2025-06-13 13:16 | Outpatient (AMB) | payer OTHER, SELFPAY ==
--- NOTE | 2025-06-13 13:31 | A.OFFVIS_ITS ---
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 EKG Finish Rolls Operator Services: Finish Rolls Operator Offered & Declined Allergies aspirin (Aspirin) Allergy (Severe, Verified 05/15/25 10:35) STOMACH IRRITATION, ulcer NSAIDS (Non-Steroidal Anti-Inflamma (NSAIDS (NON-STEROIDAL ANTI-INFLAMMA) Allergy (Severe, Verified 05/15/25 10:35) STOMACH ULCER oxycodone (From PERCOCET) Allergy (Intermediate, Verified 05/15/25 10:35) PALPITATIONS ibuprofen Allergy (Unknown, Verified 05/15/25 10:35) Unknown lisinopril Allergy (Unknown, Verified 05/15/25 10:35) Unknown tramadol Allergy (Unknown, Verified 05/15/25 10:35) Unknown Motrin Allergy (Unknown, Uncoded 05/15/25 10:35) Unknown Medication List - Last Reconciled 06/13/25 by Rafal Carter MD alprazolam (Xanax) 0.5 mg PO BEDTIME PRN cholecalciferol (vitamin D3) 25 mcg PO DAILY 90 days clonazepam 0.5 mg PO DAILY cyanocobalamin (vitamin B-12) 1,000 mcg PO DAILY esomeprazole magnesium 40 mg PO DAILY PRN ezetimibe (Zetia) 10 mg PO DAILY 90 days fluticasone propionate 50 mcg/actuation 2 sprays intranasal QAM PRN hydrochlorothiazide 25 mg PO DAILY loratadine 10 mg PO DAILY lorazepam 0.5 mg PO DAILY PRN mirtazapine 30 mg PO DAILY simethicone 125 mg PO Q6H PRN HPI Comments Details: The patient is an 80-year-old female presenting with an abnormal electrocardiogram. She denies any history of chest pain, chest pressure, or myocardial infarction. She reports no difficulty in performing daily activities such as walking or climbing stairs, although she is unsure if she experiences fatigue. The patient has no history of hypertension and reports that her previous medical evaluations were normal. The current visit was prompted by an abnormal finding on an electrocardiogram, which led to the recommendation for further cardiac evaluation. [facility] Medical History (Updated 06/13/25 @ 13:52 by Rafal Carter MD) Osteopenia Abnormal SPEP Vitamin D deficiency Dyslipidemia Osteopenia Secondary hyperparathyroidism Surgical History H/O right knee surgery Hx of section Hx of cholecystectomy Family History Father No problems noted. Mother CVD (cardiovascular disease) CVA (cerebral vascular accident) Social History Household Members: Children Housing: Apartment Are you a primary daycare teacher to a significant other at home: No Do you presently have visiting nurse or other home services: No Alcohol intake: never Patient Tobacco Use Status: Never used Tobacco service: No Current occupational status: retired Review of Systems Const Denies weakness ENT Denies dizziness Card Denies chest pain, Denies chest pain with activity, Denies syncope, Denies rapid heart rate, Denies pedal edema, Denies edema, Denies leg edema, Denies lightheadedness, Denies palpitations, Denies dyspnea, Denies dyspnea on exertion and Denies orthopnea Resp Denies cough, Denies dyspnea and Denies dyspnea on exertion GI Denies hematochezia and Denies change in stool character Musc Denies abnormal gait, Denies muscle cramps, Denies muscle weakness, Denies numbness, Denies radiating pain into limb and Denies tingling Neuro Denies abnormal gait, Denies dizziness, Denies syncope, Denies numbness, Denies tingling and Denies weakness Endo Denies palpitations Physical Exam Vital Signs: Last Vital Signs Pulse 59 06/13/25 13:32 BP 130/68 06/13/25 13:32 BMI result Body Mass Index 33.5 Const General: comfortable and no acute distress Orientation/consciousness: patient oriented x3 HEENT Other: Unremarkable Head: Yes normal to inspection Neck Neck: Yes normal visual inspection Chest Chest palpation & inspection: normal inspection of the chest Resp Auscultation: clear to auscultation bilaterally Cardio Palpation: normal PMI Heart sounds: S1 normal heart sound present, S2 normal heart sound present, no gallops, no murmurs and no rubs GI Palpation (GI): Soft to palpation Back/Spine/Pelvis Other: unremarkable Skin General skin exam: no rashes or lesions noted Neuro General: patient oriented x3 Extrem General: Yes normal to inspection Psych Mental Status: mental status grossly normal Office Procedures EKG Details: EKG with underlying sinus bradycardia at 59/Min; left anterior fascicular block; right bundle-branch block-bifascicular [place] [address]-[id number], Complete Assessment & Plan Assessment & Plan (1) Bifascicular block: Code(s): I45.2 - Bifascicular block Category: Medical Plan Based on the abnormal EKG above, we will screen her for coronary disease and cardiomyopathy. To obtain echocardiogram and stress test. Based on the findings, we will plan further care. Discussion Notes I discussed with the patient the abnormal findings on her electrocardiogram and the need for further evaluation to rule out cardiac blockages. We agreed on performing a heart ultrasound and a stress test. I reassured her that while the findings are not normal, they are not immediately serious, and we will proceed with caution. Patient was informed and verbally consented to the use of an ambient scribe for clinic note documentation during this visit. Orders: Orders CA echo transthoracic complete Today I45.2 - Bifascicular block CA stress test Today I45.2 - Bifascicular block, R07.2 - Precordial pain NM cardiolite stress test Today I45.2 - Bifascicular block, R07.2 - Precordial pain Patient Instructions: - Follow up for scheduled heart ultrasound and stress test. - Report any new symptoms such as chest pain or shortness of breath immediately. - Maintain regular physical activity as tolerated. Coding Level of Care Code New Pt Level 4 (89069) Complex EM visit Add On G2211 Diagnoses Bifascicular block I45.2 CPT Codes EKG - CPT: 45090-[id number], Complete ([id number])
[2025-06-13 13:32] VITALS: BP 130/68; PULSE 59; BMI 33.5
--- OUTSIDE RECORDS SUMMARY | 2025-06-13 15:39 | XMS_ITS ---
Author Name Jeni Esquivel NP Address [address] [place] [address] Phone [phone] Organization [facility] Care Team Providers Care Workforce Advisor Name Role Phone Jeni Esquivel Unavailable [phone] Reason for Referral Not Available Allergies, adverse [...] organ damage (headache, vision changes, chest pain)/ Code Official on proper BP monitoring technique and reassess/ [...] Pain Assessment - NO pain present (1126F) [facility] [place] Pain Assessment - NO pain present (1126F) [facility] [place] Pain Assessment - NO pain present (1126F) [facility] [place] Pain Assessment - NO pain present (1126F) [facility] [place] Pain Assessment - NO pain present (1126F) [facility] [place] Pain Assessment - NO pain present (1126F) [facility] [place] Pain Assessment - NO pain present (1126F) [facility] [place] Anxiety disorder, unspecifiedChronic kidney disease, stage 3b Pain Assessment - NO pain present (1126F) [facility] [place] Pain Assessment - NO pain present (1126F) [facility] [place] Estab. patient 30-39min; chronic exacerbation, 2 stable chronic or 1 acute illness add add modifier 95 for video, (do not use for phone, instead use 32038-78) [facility] [place] Hypertensive chronic kidney disease [...] (do not use for phone, instead use 45300-15) [facility] [place] Estab. patient 30-39min; chronic exacerbation, 2 stable chronic or 1 acute illness add add modifier 95 for video, (do not use for phone, instead use 71671-34) [facility] [place] Estab. patient 30-39min; chronic exacerbation, 2 stable chronic or 1 acute illness add add modifier 95 for video, (do not use for phone, instead use 90979-83) [facility] [place] Estab. patient 30-39min; chronic exacerbation, 2 stable chronic or 1 acute illness add add modifier 95 for video, (do not use for phone, instead use 63822-96) [facility] [place] Estab. patient 30-39min; chronic exacerbation, 2 stable chronic or 1 acute illness add add modifier 95 for video, (do not use for phone, instead use 62066-32) [facility] [place] Estab. patient 30-39min; chronic exacerbation, 2 stable chronic or 1 acute illness add add modifier 95 for video, (do not use for phone, instead use 73424-92) [facility] [place] Estab. patient 30-39min; chronic exacerbation, 2 stable chronic or 1 acute illness add add modifier 95 for video, (do not use for phone, instead use 96393-11) [facility] [place] Estab. patient 30-39min; chronic exacerbation, 2 stable chronic or 1 acute illness add add modifier 95 for video, (do not use for phone, instead use 05936-61) [facility] [place] Unlisted special service; to be used for medical record reviews and reporting CPTII codes (1111F, etc) [facility] [place]/2024 Other specified health statu s Unlisted special service; to be used for medical record reviews and reporting CPTII codes (1111F, etc) [facility] [place] Unlisted special service; to be used for medical record reviews and reporting CPTII codes (1111F, etc) [facility] [place] Estab. patient 30-39min; chronic exacerbation, 2 stable chronic or 1 acute illness add add modifier 95 for video, (do not use for phone, instead use 72312-37) [facility] [place] Anxiety disorder, unspecifiedSedative, hypnotic, [...] (do not use for phone, instead use 21790-38) [facility] [place] Estab. patient 30-39min; chronic exacerbation, 2 stable chronic or 1 acute illness add add modifier 95 for video, (do not use for phone, instead use 92667-32) [facility] [place] Estab. patient 30-39min; chronic exacerbation, 2 stable chronic or 1 acute illness add add modifier 95 for video, (do not use for phone, instead use 57428-63) [facility] [place] Estab. patient 30-39min; chronic exacerbation, 2 stable chronic or 1 acute illness add add modifier 95 for video, (do not use for phone, instead use 37848-55) [facility] [place] Estab. patient 30-39min; chronic exacerbation, 2 stable chronic or 1 acute illness add add modifier 95 for video, (do not use for phone, instead use 55273-80) [facility] [place] Estab. patient 30-39min; chronic exacerbation, 2 stable chronic or 1 acute illness add add modifier 95 for video, (do not use for phone, instead use 46086-43) [facility] [place] Estab. patient 30-39min; chronic exacerbation, 2 stable chronic or 1 acute illness add add modifier 95 for video, (do not use for phone, instead use 92941-82) [facility] [place] Estab. patient 20-29min; 1 stable chronic or 2 minor; add add modifier 95 for video, modifier 93 for phone [facility] [place] Anxiety disorder, unspecifiedSedative, hypnotic, [...] 95 for video, modifier 93 for phone [facility] [place] Estab. patient 20-29min; 1 stable chronic or 2 minor; add add modifier 95 for video, modifier 93 for phone [facility] [place] Estab. patient 20-29min; 1 stable chronic or 2 minor; add add modifier 95 for video, modifier 93 for phone [facility] [place] Estab. patient 20-29min; 1 stable chronic or 2 minor; add add modifier 95 for video, modifier 93 for phone [facility] [place] Estab. patient 20-29min; 1 stable chronic or 2 minor; add add modifier 95 for video, modifier 93 for phone [facility] [place] Estab. patient 20-29min; 1 stable chronic or 2 minor; add add modifier 95 for video, modifier 93 for phone [facility] [place] Estab. patient 20-29min; 1 stable chronic or 2 minor; add add modifier 95 for video, modifier 93 for phone [facility] [place] Estab. patient 20-29min; 1 stable chronic or 2 minor; add add modifier 95 for video, modifier 93 for phone [facility] [place] 12/[place]/2024 Vital Signs Date of [...] tive Time Current Smoking Status Never smoker 2025-05-22 4 Sex Female History of Procedures Procedures Service [...] (do not use for phone, instead use 24253-66) 92748 2022-07-15 No Data Available No Data Availa ble SBP < 130 (3074F) 3074F 2022-07-15 No Data Available No Data Available DBP <80 (3078F) 3078F 2022-07-15 No Data Available No Data Available Estab. patient 30-39min; chronic exacerbation, 2 stable chronic or 1 acute illness add add modifier 95 for video, (do not use for phone, instead use 92312-88) 70282 2023-07-08 No Data Available No Data Availa ble Medication List Documented (1159F) 1159F 2023-07-08 No Data Available No Data Chio ilable Medication Review by prescribing provider or pharmacist documented (1160F) 1160F 2023-07-08 No Data Available No Data Choi ilable Functional Status Assessed (1170F) 1170F 2023-07-08 [...] reviews and reporting CPTII codes (1111F, etc) 12652 2024-02-11 No Data Available No Data Availa ble SBP < 130 (3074F) 3074F 2024-02-11 No Data Available No Data Available DBP <80 (3078F) 3078F 2024-02-11 No Data Available No Data Available Estab. patient 30-39min; chronic exacerbation, 2 stable chronic or 1 acute illness add add modifier 95 for video, (do not use for phone, instead use 42631-63) 89649 2024-04-07 No Data Available No Data Availa [...] 95 for video, modifier 93 for phone 15549 2024-12-27 No Data Available No Data Availa [...] Category Effective Dates Ambulates with cane. 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 [facility] or disease [...] organ damage (headache, vision changes, chest pain)/ Code Official on proper BP monitoring technique and reassess/ [...] organ damage (headache, vision changes, chest pain)/ Code Official on proper BP monitoring technique and reassess/ [...] discussedDo you have a Durable Power of Atg Architect for Healthcare, or Healthcare Proxy Or Guardianship? SELECTIf so, Who? Vic Gastelum you have a written Advance Directive? Has Advance DirectiveOther details of discussion:Today's plan: Advised patient to discuss wishes with [id number] : AD or surrogate was documented in the medical record.
--- OUTSIDE RECORDS SUMMARY | 2025-06-13 15:39 | XMS_ITS | Encounter Summary ---
Author Organization [employer] Address [address] [facility] [place] [address] Care Team Providers Care Hand Twister Name Role Phone Carmen Gong MD Primary Care Pro vider Davis Simms Unavailable Reason for Visit * Reason Comments Med Refill Encounter Details Date Type Department Care Team ([facility] st Contact Info) Description 06/03/2025 Refill [facility] [address] [place], [place] [phone] Gricelda Lubin MD [address] [place], [place] [phone] Steatosis of liver Social History Tobacco Use [...] encounter Miscellaneous Notes * Telephone Encounter - Carmen Cadena MD - 06/04/2025 1:34 PM EDT New frequency sent documented in this encounter Plan of Treatment Not on file documented as of this encounter Visit Diagnoses Diagnosis Steatosis of liver Other chronic nonalcoholic liver disease documented in this encounter Additional Health Concerns Assessment Noted Time PHQ-9 Depression Total Score: 6 06/01/20 25 9:40 AM EDT documented as of this encounter Care Teams Hand Twister Relationship Specialty Start Date End Date Carmen Gong MD [address] [place] [address] PCP - General Internal Medicine 05/10/23 Davis Simms [facility] [place], [place] [address] 06/05/25 documented as of this encounter
--- OUTSIDE RECORDS SUMMARY | 2025-06-13 15:40 | XMS_ITS | Encounter Summary ---
Author Organization [facility], Address [address] [facility] [address] [place] [address] Phone Care Team Providers Care Correctional Program Specialist Name Role Phone Carmen Smith Primary Care Provid er Encounter Details Date Type Department Care Team ([facility] Contact Info) Description 06/26/2022 Documentation Only [facility] [address] [place] [address] Rl Swenson PA [address] [place] [address] Social History Tobacco Use Types [...] Department Care Team (Late Contact Info) Description 09/11/2025 10:30 AM EST Office Visit [facility] [address] [place] [address] Kamran Escobar MD [address] [place] [address] documented as of this encounter Visit Diagnoses Not on filedocumented in this encounter Care Teams Correctional Program Specialist Relationship Specialty Start Date End Date Carmen Smith [address] [place] [id number] PCP - General 05/22/25 documented as of this encounter
--- OUTSIDE RECORDS SUMMARY | 2025-06-13 15:40 | XMS_ITS | Encounter Summary ---
Author Organization [employer] Address [address] [facility] [address] [place] [address] Care Team Providers Care Decontaminator Name Role Phone Carmen Gong MD Primary Care Pro vider Davis Simms Unavailable Encounter Details Date Type Department Care Team (Late st Contact Info) Description 06/01/2025 Results Follow-Up [facility] MED[facility]INE [address] [place] [address] Carmen Gong MD [address] [place] [address] XR Chest 2 Views Social History Tobacco [...] 9:40 AM CARIDADT Claire Becker [place] * Feeling down, depressed, [...] 9:40 AM CARIDADT Claire Becker [place] * Poor appetite or [...] documented as of this encounter Care Teams Decontaminator Relationship Specialty Start Date End Date Carmen Gong MD [address] [place] [address] PCP - General Internal Medicine 05/10/23 Davis Simms [facility] [place], [place] [address] 06/05/25 documented as of this encounter
--- OUTSIDE RECORDS SUMMARY | 2025-06-13 15:40 | XMS_ITS | Encounter Summary ---
Author Organization [facility], Address [address] [facility] [address] [place] [address] Phone Care Team Providers Care Surgical Corsetier Name Role Phone Carmen Smith Primary Care Provid er Encounter Details Date Type Department Care Team ([facility] Contact Info) Description 07/11/2024 Documentation Only [facility] [address] Lenore LOPEZ [address] [place] [phone] Emmanuelle Melendez [address] [place] [address] Social History Tobacco Use Types [...] Visit [facility] [address] [place] [address] Kamran Escobar MD [address] [place] [address] documented as of this encounter Visit Diagnoses Not on filedocumented in this encounter Care Teams Surgical Corsetier Relationship Specialty Start Date End Date Carmen Smith [address] [place] [id number] PCP - General 05/22/25 documented as of this encounter
--- OUTSIDE RECORDS SUMMARY | 2025-06-13 15:40 | XMS_ITS | Clinical Summary ---
Author Organization [employer] Address [address] [facility] 7t [place] [address] Care Team Providers Care Scorer Helper Name Role Phone Carmen Gong MD Primary Care Pro vider Davis Simms Unavailable Allergies Active Allergy Reactions Criticality Noted Date Comments Aspirin 01/26/2017 Ibuprofen 07/06/2013 Lisinopril 12/06/2012 Other reaction(s): Cough Nsaids 10/13/2022 Oxycodone-Acetaminophen 10/13/2022 Tramadol 12/06/2012 Medications hydrocortisone 2.5 % cream Apply topically every 12 (twelve) hours. Active sennosides (Senokot) 8.6 MG tablet Take 1 tablet by mouth. Active simethicone (Mylicon,Gas-X) 125 MG capsule Take [...] moderate pain. 30 g Active sodium chloride ([place] Nasal [place]) 0.65 % nasal spray Administer 1 spray into each nostril if needed for congestion. 30 mL 1 024 2024 Active cetirizine (ZyrTEC) 5 MG tablet Take 1 tablet (5 mg) by mouth if needed each day for allergies. 90 tablet 3 025 Active esomeprazole (NexIUM) [address] [...] day (ankle pain). 50 g 025 Active cyanocobalamin (Vitamin B-12) 500 MCG tabletIndications :Steatosis of liver Take 1 tablet (500 mcg) by mouth 3 (three) times a week. 40 tablet 1 025 2025 Active pravastatin (Pravachol) 20 MG tablet Take 1 tablet (20 mg) by mouth Once per day. 30 tablet 2 025 2025 Active pravastatin (Pravachol) 10 MG tablet Take 1 tablet (10 mg) by mouth Once per day. 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 strip feeder and last 12/2022 Cr 1.3 GFR 44 -supportive tx advised -Tamiflu 30 mg BID by last GFR -alarm signs and symptoms advised Mixed anxiety depressive disorder 09/17/202309/17/ 023 03/02/2024 Epigastric pain 07/30/2017 03/02/2024 Allergic rhinitis 08/30/2015 03/02/2024 Indigestion 08/30/2015 03/02/2024 Primary osteoarthritis invol ving multiple joints 08/30/2015 03/02/2024 Encounters Date Type Department Care Team Description 06/04/2025 Orders Only [facility] [address] [place] [address] Carmen Gong MD Steatosis of liver 06/04/2025 Results Follow-Up [facility] [address] [place] [address] Carmen Gong MD Lipid Panel, Standard 06/03/2025 Refill [facility] [address] [facility] [place] [address] Gricelda Lubin MD Steatosis of liver 06/01/2025 9:45 AM EDT Office Visit [facility] [address] [place] [address] Carmen Gong MD Ankle pain, unspecified chronicity, unspecified laterality (Primary Dx); Chronic kidney disease, stage 3b (CMS/HCC); Essential hypertension; Obesity, morbid (CMS/HCC); Stage 3a chronic kidney disease (CMS/HCC); Health care maintenance 06/01/2025 Orders Only [facility] [address] [place] [address] Carmen Gong MD Enlarged thoracic aorta (CMS/HCC) (Primary Dx) 06/01/2025 Orders Only [facility] [address] [place] [address] Carmen Gong MD Enlarged thoracic aorta (CMS/HCC) (Primary Dx) 06/01/2025 Results Follow-Up [facility] [address] [facility] [place] [address] Carmen Gong MD XR Chest 2 Views 06/01/2025 Travel 05/18/2025 Telephone [facility] [place] [address] Carmen Gong MD No Show 05/18/2025 [address] [place] [address] Carmen Gong MD Appointment Request 05/17/2025 Telephone [facility] [facility] [place] [address] Carmen Gong MD chartprep 03/19/2025 1:00 PM EDT Office Visit [facility] [place] [address] Carmen Gong MD Dry cough (Primary Dx); Obesity, morbid (CMS/HCC); Stage 3a chronic kidney disease (CMS/HCC); Dietary counseling; Exercise counseling; Abnormal EKG; Healthcare maintenance; Hematuria, unspecified type 03/19/2025 Travel 03/16/[address] [address] Carmen Gong MD chart prep from Last 3 Months Immunizations Immunization Administration [...] 03/19/2026 03/19/2025 Depression Screening 06/01/2026 06/01/2025, 06/01/20 Tobacco Screening 06/01/2026 06/01/2025 Lipid Panel 06/04/2030 06/04/2025, 03/2024, 05/11/2024, Additional history exists DTaP/Tdap/Td Vaccines (3 - [...] Procedure Name Priority Date/Time Associated Diagnosis Comments URINALYSIS, COMPLETE Routine 06/04/2025 9:03 AM EDT Hematuria, unspecified type URIC ACID Routine 06/04/2025 9:03 AM EDT Healthcare maintenance VITAMIN D,25-OH,TOTAL,IA Routine 06/04/2025 9:03 AM EDT Healthcare maintenance VITAMIN B12/FOLATE, SERUM PANEL Routine 06/04/2025 9:03 AM EDT Healthcare maintenance TSH W/REFLEX TO FT4 Routine 06/04/2025 9 :03 AM EDT Healthcare maintenance HEMOGLOBIN A1C Routine 06/04/2025 9:03 AM EDT Healthcare maintenance COMPREHENSIVE METABOLIC PANEL Routine 06/04/2025 9:03 AM EDT Healthcare maintenance CBC Routine 06/04/2025 9:03 AM EDT Healthcare maintenance ALBUMIN, RANDOM URINE W/CREATININE Routine 06/04/2025 9:03 AM EDT Healthcare maintenance LIPID PANEL, STANDARD Routine 06/04/2025 9:03 AM EDT Transaminitis Hyperlipidemia, unspecified hyperlipidemia type XR CHEST 2 VIEWS Routine 06/01/2025 12:5 0 PM EDT Dry cough XR ANKLE 3+ VIEWS RIGHT Routine 06/01/2025 11:14 AM EDT Ankle pain, unspecified chronicity, unspecified laterality ECG 12-LEAD Routine 04/24/2025 8:16 PM EDT Abnormal EKG from Last 3 Months Results * Vitamin D, 25-Hydroxy, Total, Immunoassay (06/04/2025 9:03 AM EDT) [facility] Signature Vitamin D 25-OH Total 49.3 >30 ng/mL [facility] Comment: Health Based Reference Values*< 20 ng/mL Rinnlnybz06-94 ng/mL Insufficient> 30 ng/mL Sufficient*Laura CALLES. N Engl J Med. 2007;357:266-280There is no well-established upper level of normal vitamin Dlevels. Some laboratories use 50 ng/mL as an upper limit ofnormal. However, toxicity is patient-dependent and may occurat any level. Careful correlation with the patient'spresentation is necessary and, if there is concern forvitamin D toxicity, treatment should be consideredirrespective of the serum level.Care must be taken in interpreting Vitamin D results fromdifferent laboratories and methodologies. Published datademonstrated that results from patients undergoinghemodialysis may show a negative bias when tested withvarious automated 25-OH vitamin D assays when compared toLC-MS/MS.When testing samples from patients whose predominant form ofVitamin D is Vitamin D2, such as patients receiving VitaminD2 supplementation, results that are subtherapeutic shouldbe confirmed with another method such as LC-MS/MS. Blood Venous blood specimen / Unknown 06/04/2025 9:03 AM EDT 06/04/2025 11:11 AM EDT us Carmen Cadena MD LAB BLOOD ORDERAB LES Final Result [facility] [address] [place] [phone] * (ABNORMAL) Vitamin B12 (Cobalamin) and Folate Panel, Serum (06/04/2025 9:03 AM EDT) [facility] Vitamin B12 1,876(H) 200 - 900 pg/mL [facility] Comment:NORMAL 200-900 PG/ML INDETERMINATE 160-199 PG/ML DEFICIENT < 160 PG/ML Folate 16.1 > or = 4.0 ng/mL [facility] Comment:Reference Values:> o r = 4.0 ng/mL< 4.0 ng/mL suggests folate deficiency Methotrexate, aminopterin and folinic acid(leucovorin) are chemotherapeutic agents whose molecularstructures are similar to folate; therefore, the Architectfolate assay cannot be used for patients using these drugs. Blood 06/04/2025 9:03 AM EDT 06/04/2025 11:04 AM EDT us Carmen Cadena MD LAB BLOOD ORDERAB LES Final Result Performing Organization Address [facility]/ZIP Co de Phone Number [facility] [address] [place] [phone] * TSH with Reflex to Free T4 (06/04/2025 9:03 AM EDT) TSH reflex Free T4 1.27 0.32 - 4.0 uIU/mL [facility] Blood 06/04/2025 9:03 AM EDT 06/04/2025 11:11 AM EDT us Carmen Cadena MD LAB BLOOD ORDERAB LES Final Result Performing Organization Address [facility] Co de Phone Number [facility] [address] [place] [phone] * Albumin, Random Urine W/Creatinine (06/04/2025 9:03 AM EDT) Creatinine, Urine 254.22 mg/dL [facility] Microalbumin Urine 14.0 mg/L [facility] Microalbum Creatinine Ratio Ur 5.5 <30 ug/mg cr [facility] Comment:Albumin/Creatinine R atio Reference Ranges: Normal: < 30 ug/mg creatinine Microalbuminuria: 30 - 300 ug/mg creatinineClinical Albuminuria: > 300 ug/mg creatinine Urine (Urine, Random) 06/04/2025 9:03 AM EDT 06/04/2025 11:20 AM EDT us Carmen Cadena MD LAB URINE ORDERAB LES Final Result Performing Organization Address [facility] Co de Phone Number [facility] [address] [place] [phone] * (ABNORMAL) Urinalysis Complete (06/04/2025 9:03 AM EDT) Color Urine Yellow [facility] Appearance Urine Clear [facility] PH 7.0 5.0 - 9.0 [facility] Glucose Urine UA Negative Negative mg/dL [facility] Urine Blood Negative Negative [facility] Specific [place] - Urine 1.020 1.005 - 1.025 [facility] Urine Protein Trace Neg-Trace mg/dL [facility] Urine Ketones Trace Negative mg/dL [facility] Nitrite Urine Negative Negative [facility] Leukocyte Esterase Urine Large (3+)(A) Negative [facility] RBC Urine 0-2 0 - 2 /HPF [facility] Urine WBC 0-5 0 - 5 /HPF [facility] Urine Squamous Epithelial Cell 6-10 0 - 2 /HPF [facility] Urine Bacteria Trace None Seen [facility] Hyaline Casts, Urine 0-2 0 - 2 /LPF [facility] Urine (Urine, Random) 06/04/2025 9:03 AM EDT 06/04/2025 11:20 AM EDT us Carmen Cadena MD LAB URINE ORDERAB LES Final Result [facility] [address] [place] [phone] * (ABNORMAL) CBC (06/04/2025 9:03 AM EDT) White Blood Count 5.0 4.8 - 10.8 X10*3/uL [facility] Red Blood Count 3.64(L) 4.20 - 5.50 X10*6/uL [facility] Hemoglobin 10.7(L) 12.0 - 16.0 g/dl [facility] Hematocrit 33.1(L) 37.0 - 47.0 % [facility] Mean Corpuscular Volume 90.9 80.0 - 98.0 fL [facility] Mean Corpuscular Hemoglobin 29.4 27.0 - 33.0 pg [facility] Mean Corpuscular HGB Conc 32.3 31.0 - 35.0 g/dl [facility] Red Cell Distribution Width 13.2 11.0 - 16.0 % [facility] Platelet Count 194 160 - 400 X10*3/uL [facility] Mean Platelet Volume 12.2 9.4 - 12.3 fL [facility] NRBC Pct Auto 0.0 0.0 - 0.2 /100WBC [facility] NRBC Abs Auto 0.000 0.0 - 0.012 X10*3/uL [facility] Blood Venous blood specimen / Unknown 06/04/2025 9:03 AM EDT 06/04/2025 11:11 AM EDT us Carmen Cadena MD LAB BLOOD ORDERAB LES Final Result Performing Organization Address City/[facility]/ZIP Co de Phone Number [facility] [address] [place] [phone] * (ABNORMAL) Uric acid (06/04/2025 9:03 AM EDT) Uric Acid 8.2(H) 2.4 - 5.7 mg/dL [facility] Blood Venous blood specimen / Unknown 06/04/2025 9:03 AM EDT 06/04/2025 11:11 AM EDT us Carmen Cadena MD LAB BLOOD ORDERAB LES Final Result Performing Organization Address City/[facility]/ZIP Co de Phone Number [facility] [address] [place] [phone] * Hemoglobin A1c (06/04/2025 9:03 AM EDT) Hemoglobin A1c 5.5 <6.0 % [facility] Comment:Hemoglobin A1C Refer ence Range Adults: 4.8 - 6.0 % Non diabetic: < 6.0 % Goal: < 7.0 %Additional Action Suggested: > 8.0 %Note: Hemoglobin A1c results are invalid for patients with abnormal amounts of HbF. Blood transfusions may impact the HbA1c concentration in the patient sample. Estimated Average Glucose 111 mg/dL [facility] Comment:eAG = Estimated ave rage glucose which is %A1C expressed asaverage glucose, using the formula of the M0T-SciyoraFamnnlp Glucose study (ADAG), Diabetes Care, Vol.31,#8,Apr. 2007 Blood Venous blood specimen / Unknown 06/04/2025 9:03 AM EDT 06/04/2025 11:11 AM EDT us Carmen Cadena MD LAB BLOOD ORDERAB LES Final Result [facility] [address], [place] [phone] * (ABNORMAL) Lipid Panel, Standard (06/04/2025 9:03 AM EDT) Triglycerides 173(H) <150 mg/dL [facility] Comment:Desirable Triglyceri de: less than 150 mg/dLBorderline High Triglyceride 150-199 mg/dLHigh Triglyceride: 200-499 mg/dLVery High Triglyceride: greater than or equal to 5OO mg/dL Cholesterol 227(H) <200 mg/dL [facility] Comment:Desirable Cholestero l: less than 200 mg/dLBorderline High Cholesterol: 200-239 mg/dLHigh Cholesterol: greater than 239 mg/dL LDL Cholesterol Calculated 154(H) <100 mg/dL [facility] Comment:Desirable LDL: less than 100 mg/dLNear Optimal/Above Optimal LDL: 110- 129 mg/dLBorderline High LDL: 130-159 mg/dLHigh LDL: 160-189 mg/dLVery High LDL: greater than or equal to 190 mg/dL HDL Cholesterol 39(L) >40 mg/dL [facility] Comment:Desirable HDL: great er than 40 mg/dL Note: This HDL assay may give artificially low results in patients with liver disease. Blood Venous blood specimen / Unknown 06/04/2025 9:03 AM EDT 06/04/2025 11:11 AM EDT us Carmen Cadena MD LAB BLOOD ORDERAB LES Final Result [facility] [address] [place], [place] [phone] * (ABNORMAL) Comprehensive Metabolic Panel (06/04/2025 9:03 AM EDT) Sodium 140 135 - 145 mmol/L [facility] Potassium 3.8 3.3 - 5.1 mmol/L [facility] Chloride 103 96 - 108 mmol/L [facility] Carbon Dioxide 31(H) 22 - 29 mmol/L [facility] Anion Gap 10(L) 12 - 20 [facility] Urea Nitrogen (BUN) 21(H) 9 - 16 mg/dL [facility] Creatinine, Serum 1.29 0.5 - 1.4 mg/dL [facility] Estimated Glomerular Filt Rate 40 [facility] Comment:Chronic Kidney Disea se: Estimated GFR < 60 mL/min/1.36w2Pmzyzd Kidney Disease: Estimated GFR < 15 mL/min/1.73m2 Glucose 86 60 - 115 mg/dL [facility] Calcium 9.4 8.4 - 10.2 mg/dL [facility] Bilirubin, Total 0.4 0.0 - 1.0 mg/dL [facility] Aspartate Amino Transferase 34(H) 5 - 31 U/L [facility] Alanine Aminotransferase 16 0 - 31 U/L [facility] Total Protein 7.6 6.5 - 8.0 g/dL [facility] Albumin Level 4.2 3.5 - 5.0 g/dL [facility] Alkaline Phosphatase 75 39 - 117 U/L [facility] Blood Venous blood specimen / Unknown 06/04/2025 9:03 AM EDT 06/04/2025 11:11 AM EDT us Carmen Cadena MD LAB BLOOD ORDERAB LES Final Result [facility] [address] [place] [phone] * XR Chest 2 Views (06/01/2025 12:50 PM EDT) Anatomical Region Laterality Modality Chest Radiographic Jessy ging 06/01/2025 12:5 0 PM EDT Narrative 06/01/2025 1:04 PM EDT [address] [address] XRay Report Signed Patient: Niesha Mead MR#: [id number] : 1945 Acct:[id number] Age/Sex: 80 / F ADM Date: 06/01/25 [facility] Dr: Carmen Cadena MD Ordering Physician: Carmen Gong MD Date of Service: 06/01/25 Procedure(s): XR chest 2V Accession Number(s): [id number] cc: Carmen Gong MD Reason for Exam: [...] 06/01/25 1301 DD/ 1250 TD/TT: 06/01/25 1255 Management Psychologist: Procedure Note Donotuseinterpreter, Image - 06/01/[address] [address] XRay Report Signed Patient: Niesha MeadMR#: [id number] : 5Acct:[id number] Age/Sex: 80 / FADM Date: 06/01/25 Loc: [facility] Attending Dr: Carmen Cadena MD Ordering Physician: Carmen Gong MD Date of Service: 06/01/25 Procedure(s): XR chest 2V Accession Number(s): [id number] cc: Carmen Gong MD Reason for Exam: [...] 06/01/25 1301 DD/ 1250 TD/TT: 06/01/25 1255 Management Psychologist: us Carmen Cadena MD IMG XR PROCEDURES Final Result * XR Ankle 3+ Views Right (06/01/2025 11:14 AM EDT) Anatomical Region Laterality Modality Lower Extremities, Ankle Right Radiogr aphic Imaging 06/01/2025 11:1 4 AM EDT Narrative 06/01/2025 1:07 PM EDT [address] [address] XRay Report Signed Patient: Niesha Mead MR#: [id number] : 1945 Acct:[id number] Age/Sex: 80 / F ADM Date: 06/01/25 Loc: [facility] Attending Dr: Carmen Cadena MD Ordering Physician: Carmen Gong MD Date of Service: 06/01/25 Procedure(s): XR ankle RT min 3V Accession Number(s): [id number] cc: Carmen Gong MD Reason for Exam: [...] 06/01/25 1304 DD/ 1114 TD/TT: 06/01/25 1255 Management Psychologist: Procedure Note Donotuseinterpreter, Image - 06/01/[address] [address] XRay Report Signed Patient: Niesha MeadMR#: [id number] : 5Acct:[id number] Age/Sex: 80 / FADM Date: 06/01/25 [facility]: Carmen Cadena MD Ordering Physician: Carmen Gong MD Date of Service: 06/01/25 Procedure(s): XR ankle RT min 3V Accession Number(s): [id number] cc: Carmen Gong MD Reason for Exam: [...] 06/01/25 1304 DD/ 1114 TD/TT: 06/01/25 1255 Management Psychologist: us Carmen Cadena MD IMG XR PROCEDURES Final Result * ECG 12 lead (04/24/2025 8:16 PM EDT) Narrative Carmen Gong MD - 04/24/2025 8:16 PM EDT -EKG today for baseline 02/2025 HR 63, QTc 475, NSR ,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
--- OUTSIDE RECORDS SUMMARY | 2025-06-13 15:40 | XMS_ITS | Clinical Summary ---
Author Organization [facility], Address [address] [place] [address] Phone Care Team Providers Care Soda Drier Feeder Name Role Phone Carmen Smithela Primary Care Provid er Allergies Active [...] Encounters Date Type Department Care Team Description 06/07/2025 4:30 PM EDT Imaging Encounter [facility] [address] [place] [address] Albino Schmidt MD Renal stone (Primary Dx) 05/28/2025 Office Communication [facility] [address] [place] [address] Nelly Casas [place] 05/25/2025 Orders Only [facility] [address] [place] [place] [address] Nelly Casas [place] Acquired renal cystic disease (Primary Dx); Stage 3b chronic kidney disease (HCC); Hypertensive disorder 05/22/2025 1:30 PM EDT Office Visit [facility] [address] [place] [address] Kamran Escobar MD Stage 3a chronic kidney [...] Care Team (Late st Contact Info) Description 09/11/2025 10:30 AM EST Office Visit [facility], [address] [place] [address] Kamran Escobar MD [address] [facility] [place] [address] Health Maintenance Due Date Last Done Comments Hepatitis B Vaccine (1 of 3 - Risk 3-dose series) 2005 Influenza Vaccine (#1) 2025 , 09/07/2023, 06/27/2019, Additional history exists Pneumococcal Vaccine: 50+ Years Completed 03/02/2024, 05/15/2016, 08/30/2015, Additional history exists Pneumococcal Vaccine: Peds ( 0 to 5 Years) and At-Risk Patients (6 to 49 Years) Discontinued 03/02/2024, 05/15/2016, 08/30/2015, Additional history exists Insurance [facility] ([id number]) Medicaid [place] Care Teams Soda Drier Feeder Relationship Specialty Start Date End Date Carmen Smith [address] [place] [phone] PCP - General 05/22/25
--- OUTSIDE RECORDS SUMMARY | 2025-06-13 15:40 | XMS_ITS | Encounter Summary ---
Author Organization [employer] Address [address] [facility] 7t [place] [address] Care Team Providers Care Linux Unix Administrator Name Role Phone Carmen Gong MD Primary Care Pro vider Davis Simms Unavailable Reason for Visit * Reason Comments Med Refill Encounter Details Date Type Department Care Team ([facility] Contact Info) Description 05/10/2024 Refill [facility] [address] [place] [address] Ziggy Carson MD [address] [place] [address] Social History Tobacco Use Types Packs/Day Years Used Date Smoking Tobacco: Never Passive Smoke Exposure: Never Smokeless Tobacco: Never Alcohol Use Standard Drinks/Week Comments Never 0 (1 standard drink = 0.6 oz pur e alcohol) Depression Answer Date Recorded Patient Health Questionnaire-9 Score 0 10/13/2022 Housing Stability Answer Date Recorded What is your housing situation today? I have fernando villanueva 07/07/[address] you [...] documented as of this encounter Care Teams Linux Unix Administrator Relationship Specialty Start Date End Date Carmen Gong MD [address] [place] [address] PCP - General Internal Medicine 05/10/23 Davis Simms [facility] [place], [place] [address] 06/05/25 documented as of this encounter
--- OUTSIDE RECORDS SUMMARY | 2025-06-13 15:40 | XMS_ITS | Encounter Summary ---
Author Organization [facility], Address [address] [facility] [address] [place] [address] Phone Care Team Providers Care Chemical Dependency Therapist Name Role Phone Carmen Smith Primary Care Provid er Encounter Details Date Type Department Care Team ([facility] Contact Info) Description 06/19/2024 Orders Only [facility] [address] [place] [address] Rl Swenson PA [address] [place] [place] [address] [place] [address] Stage 3b chronic kidney disease [...] Visit [facility] [address] [place] [address] Kamran Escobar MD [address] [place] [address] [place] [address] documented as of this encounter Visit Diagnoses Diagnosis Stage 3b chronic kidney disease (HCC) Hypertensive disorder Acquired renal cystic disease documented in this encounter Care Teams Chemical Dependency Therapist Relationship Specialty Start Date End Date Carmen Smith [address] [place] [phone] PCP - General 05/22/25 documented as of this encounter
--- OUTSIDE RECORDS SUMMARY | 2025-06-13 15:40 | XMS_ITS | Encounter Summary ---
Author Organization [facility] [place], Address [address] [facility] [address] [place] [address] Phone Care Team Providers Care Property And Equipment Clerk Name Role Phone Carmen Smith Primary Care Provid er Encounter Details Date Type Department Care Team ([facility] Contact Info) Description 07/11/2024 Documentation Only [facility] [place] [address] Lenore LOPEZ [address] [place] [phone] Emmanuelle Melendez [address] [place] [address] Social History Tobacco Use Types [...] Visit [facility] [address] [facility] [place] [address] Kamran Escobar MD [address] [facility] [place] [address] documented as of this encounter Visit Diagnoses Not on filedocumented in this encounter Care Teams Property And Equipment Clerk Relationship Specialty Start Date End Date Carmen Smith [address] [place] [phone] PCP - General 05/22/25 documented as of this encounter
--- OUTSIDE RECORDS SUMMARY | 2025-06-13 15:40 | XMS_ITS | Encounter Summary ---
Author Organization [employer] Address [address] [facility] 7t [place] [address] Care Team Providers Care Retail Marketing Executive Name Role Phone Carmen Gong MD Primary Care Pro vider Davis Simms Unavailable Reason for Visit * Reason Comments Med Refill Encounter Details Date Type Department Care Team ([facility] st Contact Info) Description 06/14/2024 Refill [facility] [address] [place] [address] Carmen Gong MD [address] [place] [address] Social History Tobacco Use Types Packs/Day Years [...] your housing situation today? I have fernando sing 05/17/[address] you li [...] as of this encounter Care Teams Retail Marketing Executive Relationship Specialty Start Date End Date Carmen Gong MD [address] [place] [address] PCP - General Internal Medicine 05/10/23 Davis Simms [address] [place] [address] 06/05/25 documented as of this encounter
--- OUTSIDE RECORDS SUMMARY | 2025-06-13 15:40 | XMS_ITS | Encounter Summary ---
Author Organization [facility] [place], Address [address] [place] [address] Phone Care Team Providers Care Medical Technologist Generalist Name Role Phone Carmen Smith Primary Care Provid er Encounter Details Date Type Department Care Team ([facility] Contact Info) Description 10/06/2023 Documentation Only [facility] [address] Lenore LOPEZ [address] [place] [phone] Issa Mishra MD [address] [facility] [place] [address] Social History Tobacco Use Types [...] Visit [facility] [address] [facility] [place] [address] Kamran Escobar MD [address] [place] [address] [place] [address] documented as of this encounter Visit Diagnoses Not on filedocumented in this encounter Care Teams Medical Technologist Generalist Relationship Specialty Start Date End Date Carmen Smith [address] [place] [address] PCP - General 05/22/25 documented as of this encounter
--- OUTSIDE RECORDS SUMMARY | 2025-06-13 15:40 | XMS_ITS | Encounter Summary ---
Author Organization [facility] [place], Address [address] [place] [address] Phone Care Team Providers Care Shoe Designer Name Role Phone Carmen Smith Primary Care Provid er Encounter Details Date Type Department Care Team (Late Contact Info) Description 10/01/2023 Documentation Only [facility] [place] [address] Lenore LOPEZ [address] [place] [address] Rl Swenson PA [address] [facility] [place] [place] [address] Social History Tobacco Use Types [...] [facility] [address] [facility] [place] [address] Kamran Escobar MD [address] [facility] [place] [address] documented as of this encounter Visit Diagnoses Not on filedocumented in this encounter Care Teams Shoe Designer Relationship Specialty Start Date End Date Carmen Smith [address] [place] [address] PCP - General 05/22/25 documented as of this encounter
--- OUTSIDE RECORDS SUMMARY | 2025-06-13 15:40 | XMS_ITS | Encounter Summary ---
Author Organization [facility] Address [address] [facility] [address] [place] [address] Phone Care Team Providers Care Bisque Finisher Name Role Phone Carmen Smith Primary Care Provid er Encounter Details Date Type Department Care Team ([facility] Contact Info) Description 01/02/2022 Documentation Only [facility] [address] [place] [address] Issa Mishra MD [address] [facility] [place] [address] Social History Tobacco Use Types [...] Visit [facility] [address] [place] [address] Kamran Escobar MD [address] [facility] [place] [address] documented as of this encounter Visit Diagnoses Not on filedocumented in this encounter Care Teams Bisque Finisher Relationship Specialty Start Date End Date Carmen Smith [address] [place] [address] PCP - General 05/22/25 documented as of this encounter
--- OUTSIDE RECORDS SUMMARY | 2025-06-13 15:40 | XMS_ITS | Encounter Summary ---
Author Organization [employer] Address [address] [facility] 7t [place] [address] Care Team Providers Care Summer Internship Name Role Phone [place] [facility] Primary Care Provider [phone] Carmen Gong MD Primary Care Pro vider Davis Simms Unavailable Reason for Visit * Reason Onset Date Comments Appointment Request 12/03/2022 Encounter Details Date Type Department Care Team (Late st Contact Info) Description 12/03/2022 Telephone [facility] [address] [place], [place] [phone] [place], [facility] [address] [place], [place] [phone] Appointment Request Social History Tobacco Use Types [...] Miscellaneous Notes * Telephone Encounter - Cecilia Enrique - 12/23/2022 9:09 AM EDT Tc from pt requesting a appt with PCP for TP, pt states has been waiting for a year to be seen. Pt is irate. Please contact at [phone] Hebrew * Telephone Encounter - Lino Carpio - 12/03/2022 1:07 PM EDT Tc from pt requesting a TP appt with her new provider. Pt is currently in a recall. Press Brake Operator tried booking but no slots were available please contact pt at [phone] Hebrew Speaker documented in this encounter Plan of Treatment Not on file documented as of this encounter Visit Diagnoses Not on filedocumented in this encounter Additional Health Concerns Assessment Noted Time PHQ-9 Depression Total Score: 0 10/13/19 11:31 AM EST documented as of this encounter Care Teams Summer Internship Relationship Specialty Start Date End Date Emely Mclean FNP [address] [place] [address] PCP - General Family Medicine 05/19/22 05/09/23 Carmen Gong MD [address] [place] [address] PCP - General Internal Medicine 05/10/23 Davis Simms [address] [place] [address] 06/05/25 documented as of this encounter
--- OUTSIDE RECORDS SUMMARY | 2025-06-13 15:40 | XMS_ITS | Encounter Summary ---
Author Organization [facility] [place], Address PO [facility] [address] [place] [address] Phone Care Team Providers Care Chemical Weigher Name Role Phone Carmen Smith Primary Care Provid er Encounter Details Date Type Department Care Team ([facility] Contact Info) Description 06/29/2022 Documentation Only [facility] [address] [facility] [place] [address] Rl Swenson PA [address] [facility] [place] [address] Social History Tobacco Use Types [...] Visit [facility] [address] [facility] [address] [place] [address] Kamran Escobar MD [address] [facility] [place] [address] documented as of this encounter Visit Diagnoses Not on filedocumented in this encounter Care Teams Chemical Weigher Relationship Specialty Start Date End Date Carmen Smith [address] [place] [address] PCP - General 05/22/25 documented as of this encounter
--- OUTSIDE RECORDS SUMMARY | 2025-06-13 15:40 | XMS_ITS | Encounter Summary ---
Author Organization [facility] [place], Address PO [facility] [address] [place] [address] Phone Care Team Providers Care Director Systems Name Role Phone Carmen Smith Primary Care Provid er Encounter Details Date Type Department Care Team ([facility] Contact Info) Description 08/09/2023 Orders Only [facility] [address] [place] [address] Rl Swenson PA [address] [place] [address] [place] [address] Stage 3b chronic kidney disease [...] Visit [facility] [address] [place] [address] Kamran Escobar MD [address] [place] [address] [place] [address] documented as of this encounter Visit Diagnoses Diagnosis Stage 3b chronic kidney disease (HCC) Hypertensive disorder Acquired renal cystic disease documented in this encounter Care Teams Director Systems Relationship Specialty Start Date End Date Carmen Smith [address] [place] [address] PCP - General 05/22/25 documented as of this encounter
--- OUTSIDE RECORDS SUMMARY | 2025-06-13 15:40 | XMS_ITS | Encounter Summary ---
Author Organization [facility] [place], Address PO [facility] [address] [place] [address] Phone Care Team Providers Care Animal Control Officer Name Role Phone Carmen Smith Primary Care Provid er Encounter Details Date Type Department Care Team ([facility] Contact Info) Description 06/24/2022 Documentation Only [facility] [address] [facility] [place] [address] Rl Swenson PA [address] [facility] [place] [address] Social History Tobacco Use Types [...] Visit [facility] [address] [facility] [place] [address] Kamran Escobar MD [address] [facility] [place] [address] documented as of this encounter Visit Diagnoses Not on filedocumented in this encounter Care Teams Animal Control Officer Relationship Specialty Start Date End Date Carmen Smith [address] [place] [address] PCP - General 05/22/25 documented as of this encounter
--- OUTSIDE RECORDS SUMMARY | 2025-06-13 15:40 | XMS_ITS | Encounter Summary ---
Author Organization [facility] [place], Address PO [facility] [address] [place] [address] Phone Care Team Providers Care Credit Card Clerk Name Role Phone Carmen Smith Primary Care Provid er Encounter Details Date Type Department Care Team ([facility] Contact Info) Description 07/11/2024 Documentation Only [facility] [address] Lenore LOPEZ [address] [place] [phone] Emmanuelle Melendez [address] [place] [address] Social History Tobacco Use Types [...] Visit [facility] [address] [facility] [place] [address] Kamran Escobar MD [address] [facility] [place] [address] documented as of this encounter Visit Diagnoses Not on filedocumented in this encounter Care Teams Credit Card Clerk Relationship Specialty Start Date End Date Carmen Smith [address] [place] [address] PCP - General 05/22/25 documented as of this encounter
--- OUTSIDE RECORDS SUMMARY | 2025-06-13 15:40 | XMS_ITS | Encounter Summary ---
Author Organization [facility] [place], Address PO [facility] [address] [place] [address] Phone Care Team Providers Care Project Archivist Name Role Phone Carmen Smith Primary Care Provid er Encounter Details Date Type Department Care Team ([facility] Contact Info) Description 08/07/2020 Orders Only [facility] [place] [address] [place] [phone] Cricket Mcghee MD Renal stone; Acquired renal [...] Upcoming Encounters Date Type Department Care Team ([facility] Contact Info) Description 09/11/2025 10:30 AM EST Office Visit [facility] [place], [address] [facility] [phone] Kamran Escobar MD [address] [facility] [place] [address] documented as of this encounter Visit Diagnoses Diagnosis Renal stone Acquired renal cystic disease documented in this encounter Care Teams Project Archivist Relationship Specialty Start Date End Date Carmen Smith [address] [place] [phone] PCP - General 05/22/25 documented as of this encounter
== END 2025-06-13 13:52 | disposition home or self-care (01) ==
LOC: HO.HCS 13:17
PROVIDERS: PCP Student in an Organized Health Care Education/Training Program; Visit Provider Internal Medicine
DX: I45.2 Bifascicular block (principal)
CPT/HCPCS: 93010; 99204; G2211

== ENCOUNTER → 2025-06-13 13:16 | Outpatient (BNVA) | payer OTHER, SELFPAY | PROVIDERS: PCP Student in an Organized Health Care Education/Training Program; Visit Provider Internal Medicine | DX: I45.2 Bifascicular block (principal) | CPT/HCPCS: 93005; 99202 ==

== ENCOUNTER 2025-06-15 11:31 | Outpatient (REF) | payer OTHER, SELFPAY ==
--- NOTE | ~2025-06-15 | XR_ITS ---
EXAMINATION: XR HIP, LEFT CLINICAL INFORMATION: L hip pain COMPARISON: None available. TECHNIQUE: Two views of the left hip. FINDINGS: No fracture. Alignment is anatomic. Hip joint space is maintained. Soft tissues are unremarkable. XR/XR hip LT min 2V IMPRESSION: Normal left hip. Electronically signed by: Mj Fajardo MD 06/15/2025 12:04 PM EDT
--- OUTSIDE RECORDS SUMMARY | 2025-06-15 11:00 | XMS_ITS | Encounter Summary ---
Author Organization [employer] Address [address] [facility] 7t [place] [address] Care Team Providers Care Spray Painting Machine Operator Name Role Phone Carmen Gong MD Primary Care Pro vider Davis Simms Unavailable Reason for Visit * Reason Comments Hip Pain Encounter Details Date Type Department Care Team ([facility] st Contact Info) Description 06/15/2025 11:00 AM EDT Office Visit [facility] [address] [address] Acute hip pain, left (Primary Dx) Social History Tobacco Use Types [...] Sign Reading Time Taken Comments Blood Pressure 133/71 06/15/2025 10:46 AM EDT Pulse 61 06/15/2025 10:46 AM EDT Temperature 36.4 C (97.6 F) 06/15/2025 10:46 AM EDT Respiratory Rate 18 06/15/2025 10:46 AM EDT Oxygen Saturation 97% 06/15/2025 10:46 AM EDT Inhaled Oxygen Concentration - - Weight 83.3 kg (183 lb 9.6 oz) 06/15/2025 10:46 AM EDT Height - - Body Mass Index 35.86 06/01/2025 9:31 AM EDT documented in this encounter Plan of Treatment Not on file documented as of this encounter Procedures Procedure Name Priority Date/Time Associated Diagnosis Comments XR HIP 2 OR 3 VIEWS LEFT Routine 06/15/2025 11:50 AM EDT Acute hip pain, left documented in this encounter Results * XR Hip 2 or 3 Views Left (06/15/2025 11:50 AM EDT) Anatomical Region Laterality Modality Lower Extremities, Hip Left Radiograp hic Imaging 06/15/2025 11:5 0 AM EDT Narrative 06/15/2025 12:15 PM EDT [address] [address] XRay Report Signed Patient: Niesha Mead MR#: [id number] : 1945 Acct:[id number] Age/Sex: 80 / F ADM Date: 06/15/25 Loc: HO.HHCX Attending Dr: Alejandrina Bolanos DO Ordering Physician: Alejandrina Bolanos DO Date of Service: 06/15/25 Procedure(s): XR hip LT min 2V Accession Number(s): [id number] cc: Alejandrina Bolanos DO Reason for Exam: L hip pain EXAMINATION: XR HIP, LEFT CLINICAL INFORMATION: L hip pain COMPARISON: None available. TECHNIQUE: Two views of the left hip. FINDINGS: No fracture. Alignment is anatomic. Hip joint space is maintained. Soft tissues are unremarkable. XR/XR hip LT min 2V IMPRESSION: Normal left hip. Electronically signed by: Mj Fajardo MD 06/15/2025 12:04 PM EDT Dictated By: Mj Fajardo MD Signed By: <Electronically signed by Mj Fajardo MD in OV> 06/15/25 1204 DD/ 1150 TD/TT: 06/15/25 1152 Agency Operator: Procedure Note Donotuseinterpreter, Image - 06/15/[address] [address] XRay Report Signed Patient: Neisha MeadMR#: [id number] : 5Acct:[id number] Age/Sex: 80 / FADM Date: 06/15/25 Loc: HO.HHCX Attending Dr: Alejandrina Bolanos DO Ordering Physician: Alejandrina Bolanos DO Date of Service: 06/15/25 Procedure(s): XR hip LT min 2V Accession Number(s): [id number] cc: Alejandrina Bolanos DO Reason for Exam: L hip pain EXAMINATION: XR HIP, LEFT CLINICAL INFORMATION: L hip pain COMPARISON: None available. TECHNIQUE: Two views of the left hip. FINDINGS: No fracture. Alignment is anatomic. Hip joint space is maintained. Soft tissues are unremarkable. XR/XR hip LT min 2V IMPRESSION: Normal left hip. Electronically signed by: Mj Fajardo MD 06/15/2025 12:04 PM EDT RP Dictated By: Mj Fajardo MD Signed By: <Electronically signed by Mj Fajardo MD in OV> 06/15/25 1204 DD/ 1150 TD/TT: 06/15/25 1152 Agency Operator: Alejandrina Bolanos DO IMG XR PROCEDURES Final Resu lt documented in this encounter Visit Diagnoses Diagnosis Acute hip pain, left- Primary documented in this encounter Additional Health Concerns Assessment Noted Time PHQ-9 Depression Total Score: 6 06/01/20 25 9:40 AM EDT documented as of this encounter Care Teams Spray Painting Machine Operator Relationship Specialty Start Date End Date Carmen Gong MD [address] [place] [address] PCP - General Internal Medicine 05/10/23 Davis Simms [address] [place], [place] [address] 06/05/25 documented as of this encounter
--- OUTSIDE RECORDS SUMMARY | 2025-06-15 13:26 | XMS_ITS ---
Author Name Jeni Esquivel NP Address [address] [place] [address] Phone [phone] Organization [facility] Care Team Providers Care Structural Drafter Name Role Phone Jeni Esquivel Unavailable [phone] Reason for Referral Not Available Allergies, adverse [...] organ damage (headache, vision changes, chest pain)/ Salesperson [employer]ish[employer] on proper BP monitoring technique and reassess/ [...] Pain Assessment - NO pain present (1126F) [facility] [place] Pain Assessment - NO pain present (1126F) [facility] [place] Pain Assessment - NO pain present (1126F) [facility] [place] Pain Assessment - NO pain present (1126F) [facility] [place] Pain Assessment - NO pain present (1126F) [facility] [place] Pain Assessment - NO pain present (1126F) [facility] [place] Pain Assessment - NO pain present (1126F) [facility] [place] Anxiety disorder, unspecifiedChronic kidney disease, stage 3b Pain Assessment - NO pain present (1126F) [facility] [place] Pain Assessment - NO pain present (1126F) [facility] [place] Estab. patient 30-39min; chronic exacerbation, 2 stable chronic or 1 acute illness add add modifier 95 for video, (do not use for phone, instead use 05881-45) [facility] [place] Hypertensive chronic kidney disease w stg [...] (do not use for phone, instead use 58657-95) [facility] [place] Estab. patient 30-39min; chronic exacerbation, 2 stable chronic or 1 acute illness add add modifier 95 for video, (do not use for phone, instead use 29907-21) [facility] [place] Estab. patient 30-39min; chronic exacerbation, 2 stable chronic or 1 acute illness add add modifier 95 for video, (do not use for phone, instead use 53132-83) [facility] [place] Estab. patient 30-39min; chronic exacerbation, 2 stable chronic or 1 acute illness add add modifier 95 for video, (do not use for phone, instead use 83657-16) [facility] [place] Estab. patient 30-39min; chronic exacerbation, 2 stable chronic or 1 acute illness add add modifier 95 for video, (do not use for phone, instead use 45729-42) [facility] [place] Estab. patient 30-39min; chronic exacerbation, 2 stable chronic or 1 acute illness add add modifier 95 for video, (do not use for phone, instead use 71063-43) [facility] [place] Estab. patient 30-39min; chronic exacerbation, 2 stable chronic or 1 acute illness add add modifier 95 for video, (do not use for phone, instead use 65631-15) [facility] [place] Estab. patient 30-39min; chronic exacerbation, 2 stable chronic or 1 acute illness add add modifier 95 for video, (do not use for phone, instead use 31058-83) [facility] [place] Unlisted special service; to be used for medical record reviews and reporting CPTII codes (1111F, etc) [facility] [place]/2024 Other specified health statu s Unlisted special service; to be used for medical record reviews and reporting CPTII codes (1111F, etc) [facility] [place] Unlisted special service; to be used for medical record reviews and reporting CPTII codes (1111F, etc) [facility] [place] Estab. patient 30-39min; chronic exacerbation, 2 stable chronic or 1 acute illness add add modifier 95 for video, (do not use for phone, instead use 51815-08) [facility] [place] Anxiety disorder, unspecifiedSedative, hypnotic, or anxiolytic [...] (do not use for phone, instead use 69557-12) [facility] [place] Estab. patient 30-39min; chronic exacerbation, 2 stable chronic or 1 acute illness add add modifier 95 for video, (do not use for phone, instead use 96447-79) [facility] [place] Estab. patient 30-39min; chronic exacerbation, 2 stable chronic or 1 acute illness add add modifier 95 for video, (do not use for phone, instead use 58357-86) [facility] [place] Estab. patient 30-39min; chronic exacerbation, 2 stable chronic or 1 acute illness add add modifier 95 for video, (do not use for phone, instead use 14168-61) [facility] [place] Estab. patient 30-39min; chronic exacerbation, 2 stable chronic or 1 acute illness add add modifier 95 for video, (do not use for phone, instead use 04625-01) [facility] [place] Estab. patient 30-39min; chronic exacerbation, 2 stable chronic or 1 acute illness add add modifier 95 for video, (do not use for phone, instead use 70745-59) [facility] [place] Estab. patient 30-39min; chronic exacerbation, 2 stable chronic or 1 acute illness add add modifier 95 for video, (do not use for phone, instead use 76623-25) [facility] [place] Estab. patient 20-29min; 1 stable chronic or 2 minor; add add modifier 95 for video, modifier [address] [facility] [place] Anxiety disorder, unspecifiedSedative, hypnotic, or anxiolytic [...] 95 for video, modifier 93 for phone [facility] [place] Estab. patient 20-29min; 1 stable chronic or 2 minor; add add modifier 95 for video, modifier 93 for phone [facility] [place] Estab. patient 20-29min; 1 stable chronic or 2 minor; add add modifier 95 for video, modifier [address] [facility] [place] Estab. patient 20-29min; 1 stable chronic or 2 minor; add add modifier 95 for video, modifier 93 for phone [facility] [place] Estab. patient 20-29min; 1 stable chronic or 2 minor; add add modifier 95 for video, modifier 93 for phone [facility] [place] Estab. patient 20-29min; 1 stable chronic or 2 minor; add add modifier 95 for video, modifier [address] [facility] [place] Estab. patient 20-29min; 1 stable chronic or 2 minor; add add modifier 95 for video, modifier [address] [facility] [place] Estab. patient 20-29min; 1 stable chronic or 2 minor; add add modifier 95 for video, modifier [address] [facility] [place] Vital Signs Date of Collection Vitals [...] Time Current Smoking Status Never smoker 2025-05-22 6 Sex Female History of Procedures Procedures Service [...] (do not use for phone, instead use 98460-76) 52624 2022-07-15 No Data Available No Data Availa ble SBP < 130 (3074F) 3074F 2022-07-15 No Data Available No Data Available DBP <80 (3078F) 3078F 2022-07-15 No Data Available No Data Available Estab. patient 30-39min; chronic exacerbation, 2 stable chronic or 1 acute illness add add modifier 95 for video, (do not use for phone, instead use 81488-95) 19135 2023-07-08 No Data Available No Data Availa [...] reviews and reporting CPTII codes (1111F, etc) 72765 2024-02-11 No Data Available No Data Availa ble SBP < 130 (3074F) 3074F 2024-02-11 No Data Available No Data Available DBP <80 (3078F) 3078F 2024-02-11 No Data Available No Data Available Estab. patient 30-39min; chronic exacerbation, 2 stable chronic or 1 acute illness add add modifier 95 for video, (do not use for phone, instead use 32846-22) 58626 2024-04-07 No Data Available No Data Availa [...] 95 for video, modifier 93 for phone 59378 2024-12-27 No Data Available No Data Availa [...] Category Effective Dates Ambulates with cane. 2023-07-08 ELECTRIC POWER SUPERINTENDENT coming in daily 2023-07-08 Cognition Status: Oriented [...] modifier 95Continue to see PCP. [facility] acute or [...] organ damage (headache, vision changes, chest pain)/ Salesperson [employer] on proper BP monitoring technique and reassess/ [...] organ damage (headache, vision changes, chest pain)/ Salesperson [employer] on proper BP monitoring technique and reassess/ [...] discussedDo you have a Durable Power of Manager Engine for Healthcare, or Healthcare Proxy Or Guardianship? SELECTIf so, Who? Vic Gastelum you have a written Advance Directive? Has Advance DirectiveOther details of discussion:Today's plan: Advised patient to discuss wishes with [id number] : AD or surrogate was documented in the medical record.
--- OUTSIDE RECORDS SUMMARY | 2025-06-15 13:27 | XMS_ITS | Encounter Summary ---
Author Organization [facility] [place], Address PO [facility] [address] [place] [address] Phone Care Team Providers Care Tone Cabinet Assembler Name Role Phone Carmen Smith Primary Care Provid er Encounter Details Date Type Department Care Team ([facility] Contact Info) Description 06/19/2024 Orders Only [facility] [address] [place] [address] Rl Swenson PA [address] [place] [address] [place] [address] Stage 3b chronic kidney disease [...] Visit [facility] [address] [place] [address] Kamran Escobar MD [address] [place] [address] 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
--- OUTSIDE RECORDS SUMMARY | 2025-06-15 13:27 | XMS_ITS | Encounter Summary ---
Author Organization [facility] [place], Address [address] [place] [address] Phone Care Team Providers Care Database Security Expert Name Role Phone Carmen Smith Primary Care Provid er Encounter Details Date Type Department Care Team ([facility] Contact Info) Description 10/06/2023 Documentation Only [facility] [address] Lenore LOPEZ [address] [place] [phone] Issa Mishra MD [address] [facility] [place] [address] Social History Tobacco Use Types [...] Visit [facility] [address] [place] [address] Kamran Escobar MD [address] [place] [address] [place] [address] documented as of this encounter Visit Diagnoses Not on filedocumented in this encounter Care Teams Database Security Expert Relationship Specialty Start Date End Date Carmen Smith [address] [place] [address] PCP - General 05/22/25 documented as of this encounter
--- OUTSIDE RECORDS SUMMARY | 2025-06-15 13:27 | XMS_ITS | Encounter Summary ---
Author Organization [facility] [place], Address PO [facility] [address] [place] [address] Phone Care Team Providers Care Scrap Drop Operator Name Role Phone Carmen Smith Primary Care Provid er Encounter Details Date Type Department Care Team ([facility] Contact Info) Description 07/11/2024 Documentation Only [facility] [address] Lenore LOPEZ [address] [place] [phone] Emmanuelle Melendez [address] [place] [address] Social History Tobacco Use Types [...] Visit [facility] [address] [facility] [place] [address] Kamran Escobar MD [address] [facility] [place] [address] documented as of this encounter Visit Diagnoses Not on filedocumented in this encounter Care Teams Scrap Drop Operator Relationship Specialty Start Date End Date Carmen Smith [address] [place] [address] PCP - General 05/22/25 documented as of this encounter
--- OUTSIDE RECORDS SUMMARY | 2025-06-15 13:27 | XMS_ITS | Encounter Summary ---
Author Organization [employer] Address [address] [facility] 7t [place] [address] Care Team Providers Care Processing Inspector Name Role Phone Carmen Gong MD Primary Care Pro vider Davis Simms Unavailable Encounter Details Date Type Department Care Team (Latest Contact Info) Description 06/15/2025 Travel Social History Tobacco Use Types Packs/Day [...] documented as of this encounter Care Teams Processing Inspector Relationship Specialty Start Date End Date Carmen Gong MD [address] [place] [address] PCP - General Internal Medicine 05/10/23 Davis Simms [facility] [place], [place] [address] 06/05/25 documented as of this encounter
--- OUTSIDE RECORDS SUMMARY | 2025-06-15 13:27 | XMS_ITS | Clinical Summary ---
Author Organization [facility] [place], Address [address] [place] [address] Phone Care Team Providers Care Grocery Store Associate Name Role Phone Carmen Smithela Primary Care [...] Encounter [facility] [address] [place] [address] Albino Schmidt MD Renal stone (Primary Dx) 05/28/2025 Office Communication [facility] [address] [place] [address] Nelly Casas MA 05/25/2025 Orders Only [facility] [address] [place] [address] Nlely Casas MA Acquired renal cystic disease (Primary Dx); Stage 3b chronic kidney disease (HCC); Hypertensive disorder 05/22/2025 1:30 PM EDT Office Visit [facility] [address] [place] [address] Kamran Escobar MD Stage 3a chronic kidney [...] Visit [facility] [place], [address] [facility] [place] [place] [address] Kamran Escobar MD [address] [facility] [place] [address] Health Maintenance Due Date Last Done Comments Hepatitis B Vaccine (1 of 3 - Risk 3-dose series) 2005 Influenza Vaccine (#1) 2025 , 09/07/2023, 06/27/2019, Additional history exists Pneumococcal Vaccine: 50+ Years Completed 03/02/2024, 05/15/2016, 08/30/2015, Additional history exists Pneumococcal Vaccine: Peds ( 0 to 5 Years) and At-Risk Patients (6 to 49 Years) Discontinued 03/02/2024, 05/15/2016, 08/30/2015, Additional history exists Insurance [facility] ([id number]) Medicaid [place] Care Teams Grocery Store Associate Relationship Specialty Start Date End Date Carmen Smith [address] [place] [address] PCP - General 05/22/25
--- OUTSIDE RECORDS SUMMARY | 2025-06-15 13:27 | XMS_ITS | Encounter Summary ---
Author Organization [facility] Address [address] [facility] [address] [place] [address] Phone Care Team Providers Care Eyeglass Frame Truer Name Role Phone Carmen Smith Primary Care Provid er Encounter Details Date Type Department Care Team ([facility] Contact Info) Description 01/02/2022 Documentation Only [facility] [address] [place] [address] Issa Mishra MD [address] [facility] [place] [address] Social History Tobacco Use Types [...] Visit [facility] [address] [place] [address] Kamran Escobar MD [address] [facility] [place] [address] documented as of this encounter Visit Diagnoses Not on filedocumented in this encounter Care Teams Eyeglass Frame Truer Relationship Specialty Start Date End Date Carmen Smith [address] [place] [address] PCP - General 05/22/25 documented as of this encounter
--- OUTSIDE RECORDS SUMMARY | 2025-06-15 13:27 | XMS_ITS | Encounter Summary ---
Author Organization [facility] [place], Address [address] [facility] [address] [place] [address] Phone Care Team Providers Care Human Resources Operations Director Name Role Phone Carmen Smith Primary Care Provid er Encounter Details Date Type Department Care Team ([facility] Contact Info) Description 06/24/2022 Documentation Only [facility] [address] [facility] [place] [address] Rl Swenson PA [address] [facility] [place] [address] Social History Tobacco Use Types [...] Visit [facility] [address] [facility] [place] [address] Kamran Escobar MD [address] [facility] [place] [address] documented as of this encounter Visit Diagnoses Not on filedocumented in this encounter Care Teams Human Resources Operations Director Relationship Specialty Start Date End Date Carmen Smith [address] [place] [address] PCP - General 05/22/25 documented as of this encounter
--- OUTSIDE RECORDS SUMMARY | 2025-06-15 13:27 | XMS_ITS | Encounter Summary ---
Author Organization [employer] Address [address] [facility] 7t [place] [address] Care Team Providers Care Site Lead Name Role Phone Carmen Gong MD Primary Care Pro vider Davis Simms Unavailable Reason for Visit * Reason Comments Med Refill Encounter Details Date Type Department Care Team ([facility] Contact Info) Description 05/10/2024 Refill [facility] [address] [place] [address] Ziggy Carson MD [address] [place] [address] Social History Tobacco Use Types Packs/Day Years [...] documented as of this encounter Care Teams Site Lead Relationship Specialty Start Date End Date Carmen Gong MD [address] [place] [address] PCP - General Internal Medicine 05/10/23 Davis Simms [facility] [place], [place] [address] 06/05/25 documented as of this encounter
--- OUTSIDE RECORDS SUMMARY | 2025-06-15 13:27 | XMS_ITS | Encounter Summary ---
Author Organization [employer] Address [address] [facility] [address] [place] [address] Care Team Providers Care Opal Miner Name Role Phone Carmen Gong MD Primary Care Pro vider Davis Simms Unavailable Reason for Visit * Reason Comments Med Refill Encounter Details Date Type Department Care Team ([facility] st Contact Info) Description 06/14/2024 Refill [facility] [address] [place] [address] Carmen Gong MD [address] [place] [address] Social History Tobacco Use Types Packs/Day Years [...] documented as of this encounter Care Teams Opal Miner Relationship Specialty Start Date End Date Carmen Gong MD [address] [place] [address] PCP - General Internal Medicine 05/10/23 Davis Simms [address] [place] [address] 06/05/25 documented as of this encounter
--- OUTSIDE RECORDS SUMMARY | 2025-06-15 13:27 | XMS_ITS | Encounter Summary ---
Author Organization [facility] [place], Address [address] [facility] [address] [place] [address] Phone Care Team Providers Care Psychiatric Technician Assistant Name Role Phone Carmen Smith Primary Care Provid er Encounter Details Date Type Department Care Team ([facility] Contact Info) Description 06/26/2022 Documentation Only [facility] [address] [facility] [place] [address] Rl Swenson PA [address] [facility] [place] [address] Social History Tobacco Use Types [...] [facility] [address] [facility] [place] [address] Kamran Escobar MD [address] [facility] [place] [address] documented as of this encounter Visit Diagnoses Not on filedocumented in this encounter Care Teams Psychiatric Technician Assistant Relationship Specialty Start Date End Date Carmen Smith [address] [place] [address] PCP - General 05/22/25 documented as of this encounter
--- OUTSIDE RECORDS SUMMARY | 2025-06-15 13:27 | XMS_ITS | Clinical Summary ---
Author Organization [employer] Address [address] [facility] [address] [place] [address] Care Team Providers Care Ground Instructor Advanced Name Role Phone Carmen Gong MD Primary Care Pro vider Davis Simms Unavailable Allergies Active Allergy Reactions Criticality Noted Date Comments Aspirin 01/26/2017 Other Reaction(s): Stomach upset Ibuprofen 07/06/2013 Other Reaction(s): Stomach upset Lisinopril Cough 12/06/2012 Other reaction(s): Cough Nsaids 10/13/2022 Oxycodone-Acetaminophen 10/13/2022 Tramadol Palpitations Low 12/06/2012 Medications hydrocortisone 2.5 % cream Apply topically every 12 (twelve) hours. 021 Active sennosides (Senokot) 8.6 MG tablet Take 1 tablet by mouth. 019 Active simethicone (Mylicon,Gas-X) 125 MG capsule Take 1 capsule by mouth in the morning and 1 capsule at noon and 1 capsule in the evening and 1 capsule before bedtime. 020 Active LORazepam (Ativan) 0.5 MG tablet Take 0.5 mg by mouth if needed each day. Active mirtazapine (Remeron) 30 MG tablet Take 30 mg by mouth at bedtime. Active lidocaine (Xylocaine) 5 % ointment Apply topically if needed in the morning, at noon, and at bedtime for mild pain or moderate pain. 30 g 024 Active cetirizine (ZyrTEC) 5 MG tablet Take 1 tablet (5 mg) by mouth if needed each day for allergies. 90 tablet 3 03/05/2 025 Active esomeprazole (NexIUM) [address] capsuleIndication s:Gastroesophagea l reflux disease, unspecified whether esophagitis present TAKE 1 CAPSULE BY MOUTH BEFORE BREAKFAST 90 capsule Active ezetimibe (Zetia) 10 MG tabletIndications :Mixed hyperlipidemia TAKE 1 TABLET BY MOUTH EVERY DAY IN THE MORNING 90 tablet Active cholecalciferol (D3-1000) 25 MCG (1000 UT) capsuleIndication s:Steatosis of liver TAKE 1 CAPSULE BY MOUTH EVERY DAY AT BEDTIME 90 capsule 025 Active Calcium Citrate-Vitamin D 315-5 MG-MCG tablet Take 2 tablets by mouth 2 times daily. 360 tablet Active hydroCHLOROthiazi de (HYDRODiuril) 25 MG tablet Take 1 tablet (25 mg) by mouth Once per day. 90 tablet Active cyanocobalamin (Vitamin B-12) 500 MCG tabletIndications :Steatosis of liver Take 1 tablet (500 mcg) by mouth 3 (three) times a week. 40 tablet 1 025 2025 Active pravastatin (Pravachol) 20 MG tablet Take 1 tablet (20 mg) by mouth Once per day. 30 tablet 2 025 2025 Active acetaminophen (Tylenol 8 Hour) 650 MG ER tablet Take 1 tablet (650 mg) by mouth every 8 (eight) hours if needed for mild pain. Do not crush, chew, or split. 40 tablet 1 025 2024 Active predniSONE (Deltasone) 20 MG tablet Take 1 tablet (20 mg) by mouth 2 times daily for 3 days. 6 tablet 025 2024 Active Diclofenac Sodium 1 % gel Apply 1 Application topically if needed in the morning, at noon, in the evening, and at bedtime (pain). 150 g 3 Active tiZANidine (Zanaflex) 2 MG tablet Take 1 tablet (2 mg) by mouth if needed in the morning and at bedtime for muscle spasms for up to 15 days. 30 tablet 025 2024 Active sodium chloride (Mer[place]ether Nasal [place]) 0.65 % nasal spray Administer 1 spray into each nostril if needed for congestion. 30 mL 1 024 2024 pravastatin (Pravachol) 10 MG tablet Take 1 [...] eorder (will not trigger notification to Pharmacy)) Diclofenac Sodium 1 % gel Apply 1 Application topically if needed each day (ankle pain). 50 g 025 2024 Discontinued(R eorder (will not trigger [...] symptoms VS wnl I called today her neurosurgical nurse practitioner and last 12/2022 Cr 1.3 GFR 44 -supportive tx advised -Tamiflu 30 mg BID by last GFR -alarm signs and symptoms advised Mixed anxiety depressive disorder 09/17/2023 023 03/02/2024 Epigastric pain 07/30/2017 03/02/2024 Allergic rhinitis 08/30/2015 03/02/2024 Indigestion 08/30/2015 03/02/2024 Primary osteoarthritis invol ving multiple joints 08/30/2015 03/02/2024 Encounters Date Type Department Care Team Description 06/15/2025 11:00 AM EDT Office Visit [facility] [address] [place] [phone] Acute hip pain, left (Primary Dx) 06/15/2025 Travel 06/04/2025 Orders Only [facility] [address] [place] [address] Carmen Gong MD Steatosis of liver 06/04/2025 Results Follow-Up [address] [address] Carmen Gong MD Lipid Panel, Standard 06/03/[address] [address] Gricelda Lubin MD Steatosis of liver 06/01/2025 9:45 AM EDT Office Visit [address] [address] Carmen Gong MD Ankle pain, unspecified chronicity, unspecified laterality (Primary Dx); Chronic kidney disease, stage 3b (CMS/HCC); Essential hypertension; Obesity, morbid (CMS/HCC); Stage 3a chronic kidney disease (CMS/HCC); Health care maintenance 06/01/2025 Orders Only [facility] [address] [place] [address] Carmen Gong MD Enlarged thoracic aorta (CMS/HCC) (Primary Dx) 06/01/2025 Orders Only [address] [address] Carmen Gong MD Enlarged thoracic aorta (CMS/HCC) (Primary Dx) 06/01/2025 Results Follow-Up [facility] [address] [facility] [place] [address] Carmen Gong MD XR Chest 2 Views 06/01/2025 Travel 05/18/2025 Telephone [facility] [address] [facility] [place] [address] Carmen Gong MD No Show 05/18/2025 Telephone [facility] [address] [place] [address] Carmen Gong MD Appointment Request 05/17/2025 Telephone [facility] [address] [place], [place] [phone] Carmen Gong MD chartprep 03/19/2025 1:00 PM EDT Office Visit [facility] [address] [facility] [place] [address] Carmen Gong MD Dry cough (Primary Dx); Obesity, morbid (CMS/HCC); Stage 3a chronic kidney disease (CMS/HCC); Dietary counseling; Exercise counseling; Abnormal EKG; Healthcare maintenance; Hematuria, unspecified type 03/19/2025 Travel 03/16/2025 Telephone [facility] [address] [facility] [place], [place] [phone] Carmen Gong MD chart prep from Last [...] 9.6 oz) 06/15/2025 10:46 AM EDT Height 152.4 cm (5') 06/01/2025 9:31 AM EDT Body Mass Index 35.86 06/01/2025 9:31 AM EDT Plan of Treatment [...] 25 Tobacco Screening 06/01/2026 06/01/2025 Lipid Panel 06/04/2030 06/04/2025, 11/0 03/2024, 05/11/2024, Additional history exists DTaP/Tdap/Td Vaccines [...] 11:50 AM EDT Acute hip pain, left URINALYSIS, COMPLETE Routine 06/04/2025 9:03 AM EDT [...] EKG from Last 3 Months Results * XR Hip 2 or 3 Views Left (06/15/2025 11:50 AM EDT) Anatomical Region Laterality Modality Lower Extremities, Hip Left Radiograp hic Imaging 06/15/2025 11:5 0 AM EDT Narrative 06/15/2025 12:15 PM EDT [address] [address] XRay Report Signed Patient: Niesha Mead MR#: [id number] : 1945 Acct:[id number] Age/Sex: 80 / F ADM Date: 06/15/25 Loc: HO.HHCX Attending Dr: Alejandrina Bolanos DO Ordering Physician: Alejandrina Bolanos DO Date of Service: 06/15/25 Procedure(s): XR hip LT min 2V Accession Number(s): [id number] cc: Alejandrina Bolanos DO Reason for Exam: [...] OV> 06/15/25 1204 DD/ 1150 TD/TT: 06/15/25 115 Enamel Sprayer: Procedure Note Donotisaurainterpreter, Image - 06/15/[address] [address] XRay Report Signed Patient: Niesha MeadMR#: [id number] : 5Acct:[id number] Age/Sex: 80 / FADM Date: 06/15/25 Loc: .HHCX Attending Dr: Alejandrina Bolanos DO Ordering Physician: Alejandrina Bolanos DO Date of Service: 06/15/25 Procedure(s): XR hip LT min 2V Accession Number(s): [id number] cc: Alejandrina Bolanos DO Reason for Exam: [...] OV> 06/15/25 1204 DD/ 1150 TD/TT: 06/15/25 115 Enamel Sprayer: Alejandrina Bolanos DO IMG XR PROCEDURES Final Resu lt * Vitamin D, 25-Hydroxy, Total, Immunoassay (06/04/2025 9:03 AM EDT) Vitamin D 25-OH Total 49.3 >30 ng/mL [facility] Comment: Health Based Reference Values*< 20 ng/mL Vevarfepq13-09 ng/mL Insufficient> 30 ng/mL Sufficient*Laura CALLES. N [...] MD LAB BLOOD ORDERAB LES Final Result [facility] [address] [place] [phone] [phone] * (ABNORMAL) Vitamin B12 (Cobalamin) and Folate Panel, Serum (06/04/2025 9:03 AM EDT) Pathologist [facility] Vitamin B12 1,876(H) 200 - 900 pg/mL [facility] Comment:NORMAL 200-900 PG/ML INDETERMINATE 160-199 PG/ML DEFICIENT < 160 PG/ML Folate 16.1 > or = 4.0 ng/mL [facility] Comment:Reference Values:> o r = 4.0 ng/mL< 4.0 ng/mL suggests folate deficiency Methotrexate, aminopterin and folinic acid(leucovorin) are chemotherapeutic agents whose molecularstructures are similar to folate; therefore, the Architectfolate assay cannot be used for patients using these drugs. Blood 06/04/2025 9:03 AM EDT 06/04/2025 11:04 AM EDT us Carmen Cadena MD LAB BLOOD ORDERAB LES Final Result Performing Organization Address City/[facility]/ZIP Co de Phone Number [facility] [address] [place] [phone] * TSH with Reflex to Free T4 (06/04/2025 9:03 AM EDT) TSH reflex Free T4 1.27 0.32 - 4.0 uIU/mL [facility] Blood 06/04/2025 9:03 AM EDT 06/04/2025 11:11 AM EDT us Carmen Cadena MD LAB BLOOD ORDERAB LES Final Result Performing Organization Address [facility] Co de Phone Number [facility] [address] [place] [phone] * Albumin, Random Urine W/Creatinine (06/04/2025 9:03 AM EDT) Creatinine, Urine 254.22 mg/dL [facility] Microalbumin Urine 14.0 mg/L [facility] Microalbum Creatinine Ratio Ur 5.5 <30 ug/mg cr [facility] Comment:Albumin/Creatinine R atio Reference Ranges: Normal: < 30 ug/mg creatinine Microalbuminuria: 30 - 300 ug/mg creatinineClinical Albuminuria: > 300 ug/mg creatinine Urine (Urine, Random) 06/04/2025 9:03 AM EDT 06/04/2025 11:20 AM EDT Carmen Cadena MD LAB URINE ORDERAB LES Final Result Performing Organization Address [facility] Co de Phone Number [facility] [address] [place] [address] [place] [phone] * (ABNORMAL) Urinalysis Complete (06/04/2025 9:03 AM EDT) Color Urine Yellow [facility] Appearance Urine Clear [facility] PH 7.0 5.0 - 9.0 [facility] Glucose Urine UA Negative Negative mg/dL [facility] Urine Blood Negative Negative [facility] Specific [place] - Urine 1.020 1.005 - 1.025 [facility] Urine Protein Trace Neg-Trace mg/dL [facility] Urine Ketones Trace Negative mg/dL [facility] Nitrite Urine Negative Negative [facility] Leukocyte Esterase Urine Large (3+)(A) Negative [facility] RBC Urine 0-2 0 - 2 /HPF [facility] Urine WBC 0-5 0 - 5 /HPF [facility] Urine Squamous Epithelial Cell 6-10 0 - 2 /HPF [facility] Urine Bacteria Trace None Seen [facility] Hyaline Casts, Urine 0-2 0 - 2 /LPF [facility] Urine (Urine, Random) 06/04/2025 9:03 AM EDT 06/04/2025 11:20 AM EDT us Carmen Cadena MD LAB URINE ORDERAB LES Final Result [facility] [address] [place] [phone] * (ABNORMAL) CBC (06/04/2025 9:03 AM EDT) White Blood Count 5.0 4.8 - 10.8 X10*3/uL [facility] Red Blood Count 3.64(L) 4.20 - 5.50 X10*6/uL [facility] Hemoglobin 10.7(L) 12.0 - 16.0 g/dl [facility] Hematocrit 33.1(L) 37.0 - 47.0 % [facility] Mean Corpuscular Volume 90.9 80.0 - 98.0 fL [facility] Mean Corpuscular Hemoglobin 29.4 27.0 - 33.0 pg [facility] Mean Corpuscular HGB Conc 32.3 31.0 - 35.0 g/dl [facility] Red Cell Distribution Width 13.2 11.0 - 16.0 % [facility] Platelet Count 194 160 - 400 X10*3/uL [facility] Mean Platelet Volume 12.2 9.4 - 12.3 fL [facility] NRBC Pct Auto 0.0 0.0 - 0.2 /100WBC [facility] NRBC Abs Auto 0.000 0.0 - 0.012 X10*3/uL [facility] Blood Venous blood specimen / Unknown 06/04/2025 9:03 AM EDT 06/04/2025 11:11 AM EDT us Carmen Cadena MD LAB BLOOD ORDERAB LES Final Result Performing Organization Address City/[facility]/ZIP Co de Phone Number [facility] [address] [place] [phone] * (ABNORMAL) Uric acid (06/04/2025 9:03 AM EDT) Uric Acid 8.2(H) 2.4 - 5.7 mg/dL [facility] Blood Venous blood specimen / Unknown 06/04/2025 9:03 AM EDT 06/04/2025 11:11 AM EDT us Carmen Cadena MD LAB BLOOD ORDERAB LES Final Result Performing Organization Address City/[facility]/ZIP Co de Phone Number [facility] [address] [place] [phone] * Hemoglobin A1c (06/04/2025 9:03 AM EDT) Hemoglobin A1c 5.5 <6.0 % [facility] Comment:Hemoglobin A1C Refer ence Range Adults: 4.8 - 6.0 % Non diabetic: < 6.0 % Goal: < 7.0 %Additional Action Suggested: > 8.0 %Note: Hemoglobin A1c results are invalid for patients with abnormal amounts of HbF. Blood transfusions may impact the HbA1c concentration in the patient sample. Estimated Average Glucose 111 mg/dL [facility] Comment:eAG = Estimated ave rage glucose which is %A1C expressed asaverage glucose, using the formula of the K5U-EsebegbYryuqjz Glucose study (ADAG), Diabetes Care, Vol.31,#8,Apr. 2007 Blood Venous blood specimen / Unknown 06/04/2025 9:03 AM EDT 06/04/2025 11:11 AM EDT us Carmen Cadena MD LAB BLOOD ORDERAB LES Final Result [facility] [address] [place] [phone] * (ABNORMAL) Lipid Panel, Standard (06/04/2025 9:03 AM EDT) Triglycerides 173(H) <150 mg/dL [facility] Comment:Desirable Triglyceri de: less than 150 mg/dLBorderline High Triglyceride 150-199 mg/dLHigh Triglyceride: 200-499 mg/dLVery High Triglyceride: greater than or equal to 5OO mg/dL Cholesterol 227(H) <200 mg/dL [facility] Comment:Desirable Cholestero l: less than 200 mg/dLBorderline High Cholesterol: 200-239 mg/dLHigh Cholesterol: greater than 239 mg/dL LDL Cholesterol Calculated 154(H) <100 mg/dL [facility] Comment:Desirable LDL: less than 100 mg/dLNear Optimal/Above Optimal LDL: 110- 129 mg/dLBorderline High LDL: 130-159 mg/dLHigh LDL: 160-189 mg/dLVery High LDL: greater than or equal to 190 mg/dL HDL Cholesterol 39(L) >40 mg/dL [facility] Comment:Desirable HDL: great er than 40 mg/dL Note: This HDL assay may give artificially low results in patients with liver disease. Blood Venous blood specimen / Unknown 06/04/2025 9:03 AM EDT 06/04/2025 11:11 AM EDT us Carmen Cadena MD LAB BLOOD ORDERAB LES Final Result [facility] [address] [place] [phone] * (ABNORMAL) Comprehensive Metabolic Panel (06/04/2025 9:03 AM EDT) Sodium 140 135 - 145 mmol/L [facility] Potassium 3.8 3.3 - 5.1 mmol/L [facility] Chloride 103 96 - 108 mmol/L [facility] Carbon Dioxide 31(H) 22 - 29 mmol/L [facility] Anion Gap 10(L) 12 - 20 [facility] Urea Nitrogen (BUN) 21(H) 9 - 16 mg/dL [facility] Creatinine, Serum 1.29 0.5 - 1.4 mg/dL [facility] Estimated Glomerular Filt Rate 40 [facility] Comment:Chronic Kidney Disea se: Estimated GFR < 60 mL/min/1.00o8Vhpdqe Kidney Disease: Estimated GFR < 15 mL/min/1.73m2 Glucose 86 60 - 115 mg/dL [facility] Calcium 9.4 8.4 - 10.2 mg/dL [facility] Bilirubin, Total 0.4 0.0 - 1.0 mg/dL [facility] Aspartate Amino Transferase 34(H) 5 - 31 U/L [facility] Alanine Aminotransferase 16 0 - 31 U/L [facility] Total Protein 7.6 6.5 - 8.0 g/dL [facility] Albumin Level 4.2 3.5 - 5.0 g/dL [facility] Alkaline Phosphatase 75 39 - 117 U/L [facility] Blood Venous blood specimen / Unknown 06/04/2025 9:03 AM EDT 06/04/2025 11:11 AM EDT us Carmen Cadena MD LAB BLOOD ORDERAB LES Final Result [facility] [address] [place] [address] [phone] * XR Chest 2 Views (06/01/2025 12:50 PM EDT) Anatomical Region Laterality Modality Chest Radiographic Jessy ging 06/01/2025 12:5 0 PM EDT Narrative 06/01/2025 1:04 PM EDT [address] [address] XRay Report Signed Patient: Niesha Mead MR#: [id number] : 1945 Acct:[id number] Age/Sex: 80 / F ADM Date: 06/01/25 [facility]: Carmen Cadena MD Ordering Physician: Carmen Gong MD Date of Service: 06/01/25 Procedure(s): XR chest 2V Accession Number(s): [id number] cc: Carmen Gong MD Reason for Exam: [...] Eligio Alcocer MD 06/01/2025 01:01 PM EDT RP Dictated By: Eligio Khan MD Signed By: <Electronically signed by Eligio Donaldson MD in OV> 06/01/25 1301 DD/ 1250 TD/TT: 06/01/25 1255 Enamel Sprayer: Procedure Note Donotuseinterpreter, Image - 06/01/[address] [address] XRay Report Signed Patient: Niesha MeadMR#: [id number] : 5Acct:[id number] Age/Sex: 80 / FADM Date: 06/01/25 Loc: HO.HHCX Attending Dr: Carmen Cadena MD Ordering Physician: Carmen Gong MD Date of Service: 06/01/25 Procedure(s): XR chest 2V Accession Number(s): [id number] cc: Carmen Gong MD Reason for Exam: [...] 06/01/25 1301 DD/ 1250 TD/TT: 06/01/25 1255 Enamel Sprayer: us Carmen Cadena MD IMG XR PROCEDURES Final Result * XR Ankle 3+ Views Right (06/01/2025 11:14 AM EDT) Anatomical Region Laterality Modality Lower Extremities, Ankle Right Radiogr aphic Imaging 06/01/2025 11:1 4 AM EDT Narrative 06/01/2025 1:07 PM EDT [address] [place] [address] XRay Report Signed Patient: Niesha Mead MR#: [id number] : 1945 Acct:[id number] Age/Sex: 80 / F ADM Date: 06/01/25 Loc: HO.CX Attending Dr: Carmen Cadena MD Ordering Physician: Carmen Gong MD Date of Service: 06/01/25 Procedure(s): XR ankle RT min 3V Accession Number(s): [id number] cc: Carmen Gong MD Reason for Exam: [...] Khan MD Signed By: <Electronically signed by Eilgio Donaldson MD in OV> 06/01/25 1304 DD/ 1114 TD/TT: 06/01/25 1255 Enamel Sprayer: Procedure Note Donotuseinterpreter, Image - 06/01/2025 [facility] [address] [place], [place] XRay Report Signed Patient: Niesha MeadMR#: [id number] : 5Acct:[id number] Age/Sex: 80 / FADM Date: 06/01/25 Loc: HO.HHCX Attending Dr: Carmen Cadena MD Ordering Physician: Carmen Gong MD Date of Service: 06/01/25 Procedure(s): XR ankle RT min 3V Accession Number(s): [id number] cc: Carmen Gong MD Reason for Exam: [...] 06/01/25 1304 DD/ 1114 TD/TT: 06/01/25 1255 Enamel Sprayer: us Carmen Cadena MD IMG XR PROCEDURES Final Result * ECG 12 lead (04/24/2025 8:16 PM EDT) Narrative Carmen Gong MD - 04/24/2025 8:16 PM EDT -EKG today for baseline 02/2025 HR 63, QTc 475, NSR ,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
--- OUTSIDE RECORDS SUMMARY | 2025-06-15 13:27 | XMS_ITS | Encounter Summary ---
Author Organization [facility], Address [address] [facility] [address] [place] [address] Phone Care Team Providers Care Hand Scraper Name Role Phone Carmen Smith Primary Care Provid er Encounter Details Date Type Department Care Team ([facility] Contact Info) Description 07/11/2024 Documentation Only [facility] [address] [address] Lenore LOPEZ [address] [place] [phone] Emmanuelle Melendez [address] [place] [phone] Social History Tobacco Use Types [...] Visit [facility] [address] [place] [address] Kamran Escobar MD [address] [place] [address] documented as of this encounter Visit Diagnoses Not on filedocumented in this encounter Care Teams Hand Scraper Relationship Specialty Start Date End Date Carmen Smith [address] [place] [phone] PCP - General 05/22/25 documented as of this encounter
--- OUTSIDE RECORDS SUMMARY | 2025-06-15 13:27 | XMS_ITS | Encounter Summary ---
Author Organization [facility] [place], Address [address] [place] [address] Phone Care Team Providers Care Electromechanical Technologist Name Role Phone Carmen Smith Primary Care Provid er Encounter Details Date Type Department Care Team (Late Contact Info) Description 10/01/2023 Documentation Only [facility] [address] [address] Lenore [address]OPE[address] [place] [phone] Rl Swenson PA [address] [address] Social History Tobacco Use Types [...] Visit [facility] [address] [place] [address] Kamran Escobar MD [address] [place] [address] documented as of this encounter Visit Diagnoses Not on filedocumented in this encounter Care Teams Electromechanical Technologist Relationship Specialty Start Date End Date Carmen Smith [address] [place] [phone] PCP - General 05/22/25 documented as of this encounter
--- OUTSIDE RECORDS SUMMARY | 2025-06-15 13:27 | XMS_ITS | Encounter Summary ---
Author Organization [facility], Address [address] [facility] [address] [place] [address] Phone Care Team Providers Care Professor Of Nursing Name Role Phone Carmen Smith Primary Care Provid er Encounter Details Date Type Department Care Team ([facility] Contact Info) Description 08/07/2020 Orders Only [facility] [address] [place] [phone] Cricket Mcghee MD Renal stone; Acquired renal [...] Upcoming Encounters Date Type Department Care Team ([facility] Contact Info) Description 09/11/2025 10:30 AM EST Office Visit [facility], [address] [place] [place] [phone] Kamran Escobar MD [address] [facility] [place] [address] documented as of this encounter Visit Diagnoses Diagnosis Renal stone Acquired renal cystic disease documented in this encounter Care Teams Professor Of Nursing Relationship Specialty Start Date End Date Carmen Smith [address] [place] [phone] PCP - General 05/22/25 documented as of this encounter
--- OUTSIDE RECORDS SUMMARY | 2025-06-15 13:27 | XMS_ITS | Encounter Summary ---
Author Organization [facility] [place], Address PO [facility] [address] [place] [address] Phone Care Team Providers Care Delivery Rn Name Role Phone Carmen Smith Primary Care Provid er Encounter Details Date Type Department Care Team ([facility] Contact Info) Description 06/29/2022 Documentation Only [facility] [address] [place] [address] Rl Swenson PA [address] [place] [address] Social History Tobacco Use Types [...] Visit [facility] [address] [place] [address] Kamran Escobar MD [address] [place] [address] documented as of this encounter Visit Diagnoses Not on filedocumented in this encounter Care Teams Delivery Rn Relationship Specialty Start Date End Date Carmen Smith [address] [place] [address] PCP - General 05/22/25 documented as of this encounter
--- OUTSIDE RECORDS SUMMARY | 2025-06-15 13:27 | XMS_ITS | Encounter Summary ---
Author Organization [employer] Address 75 [facility] 7t [place] [address] Care Team Providers Care Tax Agent Name Role Phone Carmen Gong MD Primary Care Pro vider Davis Simms Unavailable Reason for Visit * Reason Comments Med Refill Encounter Details Date Type Department Care Team ([facility] st Contact Info) Description 06/03/2025 Refill [facility] [address] [place], [place] [phone] Gricelda Lubin MD 230 [place], [place] [phone] Steatosis of liver Social History Tobacco Use [...] documented as of this encounter Care Teams Tax Agent Relationship Specialty Start Date End Date Carmen Gong MD 230 [place] [address] PCP - General Internal Medicine 05/10/23 Davis Simms [facility] [place], [place] [address] 06/05/25 documented as of this encounter
--- OUTSIDE RECORDS SUMMARY | 2025-06-15 13:27 | XMS_ITS | Encounter Summary ---
Author Organization [facility] [place], Address PO [facility] [address] [place] [address] Phone Care Team Providers Care Automatic Furnace Operator Name Role Phone Carmen Smith Primary Care Provid er Encounter Details Date Type Department Care Team ([facility] Contact Info) Description 08/09/2023 Orders Only [facility] [address] [place] [address] Rl Swenson PA [address] [place] [address] [place] [address] Stage 3b chronic kidney disease [...] Visit [facility] [address] [place] [address] Kamran Escobar MD [address] [place] [address] [place] [address] documented as of this encounter Visit Diagnoses Diagnosis Stage 3b chronic kidney disease (HCC) Hypertensive disorder Acquired renal cystic disease documented in this encounter Care Teams Automatic Furnace Operator Relationship Specialty Start Date End Date Carmen Smith [address] [place] [address] PCP - General 05/22/25 documented as of this encounter
--- OUTSIDE RECORDS SUMMARY | 2025-06-15 13:27 | XMS_ITS | Encounter Summary ---
Author Organization [employer] Address 75 [facility] 7t [place] [address] Care Team Providers Care Registered Client Associate Name Role Phone [place] [facility] Primary Care Provider [phone] Carmen Gong MD Primary Care Pro vider Davis Simms Unavailable Reason for Visit * Reason Onset Date Comments Appointment Request 12/03/2022 Encounter Details Date Type Department Care Team (Late st Contact Info) Description 12/03/2022 Telephone [facility] 230 [place], [place] [phone] [facility], [facility] 230 [place], [place] [phone] Appointment Request Social History Tobacco Use Types [...] seen. Pt is irate. Please contact at [phone] Syriac * Telephone Encounter - Lino Carpio - 12/03/2022 1:07 PM EDT Tc from pt requesting a TP appt with her new provider. Pt is currently in a recall. Finisher Polisher tried booking but no slots were available please contact pt at [phone] Syriac Speaker documented in this encounter Plan of Treatment Not on file documented as of this encounter Visit Diagnoses Not on filedocumented in this encounter Additional Health Concerns Assessment Noted Time PHQ-9 Depression Total Score: 0 10/13/19 11:31 AM EST documented as of this encounter Care Teams Registered Client Associate Relationship Specialty Start Date End Date Emely Mclean FNP 230 [place] [address] PCP - General Family Medicine 05/19/22 05/09/23 Carmen Gong MD 230 [place] [address] PCP - General Internal Medicine 05/10/23 Davis Simms [address] [place] [address] 06/05/25 documented as of this encounter
--- OUTSIDE RECORDS SUMMARY | 2025-06-15 13:27 | XMS_ITS | Encounter Summary ---
Author Organization [facility] [place], Address PO [facility] [address] [place] [address] Phone Care Team Providers Care Jet Dyeing Machine Operator Name Role Phone Carmen Smith Primary Care Provid er Encounter Details Date Type Department Care Team ([facility] Contact Info) Description 07/11/2024 Documentation Only [facility] [address] Lenore LOPEZ [address] [place] [address] Emmanuelle Melendez [address] [place] [address] Social History Tobacco Use Types [...] Visit [facility] [address] [place] [address] Kamran Escobar MD [address] [facility] [place] [address] documented as of this encounter Visit Diagnoses Not on filedocumented in this encounter Care Teams Jet Dyeing Machine Operator Relationship Specialty Start Date End Date Carmen Smith [address] [place] [address] PCP - General 05/22/25 documented as of this encounter
--- OUTSIDE RECORDS SUMMARY | 2025-06-15 13:27 | XMS_ITS | Encounter Summary ---
Author Organization [employer] Address [address] [facility] 7t [place] [address] Care Team Providers Care Brake Repairer Railroad Name Role Phone Carmen Gong MD Primary Care Pro vider Davis Simms Unavailable Encounter Details Date Type Department Care Team (Late st Contact Info) Description 06/01/2025 Results Follow-Up [facility] [address] [place] [address] Carmen Gong MD 230 [place] [address] XR Chest 2 Views Social History Tobacco [...] documented as of this encounter Care Teams Brake Repairer Railroad Relationship Specialty Start Date End Date Carmen Gong MD 230 [place] [address] PCP - General Internal Medicine 05/10/23 Davis Simms [facility]7 [place], [place] [address] 06/05/25 documented as of this encounter
== END 2025-06-15 11:32 | disposition home or self-care (01) ==
LOC: HO.HHCX 11:31
PROVIDERS: Visit Provider Family Medicine
DX: M25.552 Pain in left hip (principal)
CPT/HCPCS: 73502

== ENCOUNTER → 2025-06-15 11:32 | Outpatient (BNV) | payer OTHER, SELFPAY | PROVIDERS: Visit Provider Radiology Diagnostic Radiology | DX: M25.552 Pain in left hip (principal) | CPT/HCPCS: 73502 ==

== ENCOUNTER 2025-06-26 12:27 | Outpatient (REF) | payer OTHER, SELFPAY ==
--- NOTE | 2025-06-26 | PFT_ITS ---
Flows: FEV1: 95 % of predicted at 1.71 L FVC: 76 % of predicted at 1.78 L FEV1/FVC: 96 % Bronchodilator response: Present in small to medium airways only Volumes: Total lung capacity: 76 % of predicted at 3.43 L Residual volume: 80 % of predicted at 1.65 L Slow vital capacity: 74 % of predicted at 1.78 L Expiratory reserve volume: 34 % of predicted at 0.20 L Diffusion capacity: Mildly decreased, corrects to normal after adjustment for alveolar ventilation. Impression: Mild restrictive ventilatory defect with bronchodilator response present in small to medium airways only. Decreased expiratory reserve volume suggests extrathoracic restriction likely secondary to abdominal obesity. Combination of restrictive ventilatory defect with decreased diffusion capacity suggests underlying pulmonary parenchymal disease. Clinical correlation is advised. ASHIS[facility]
[2025-06-26 13:24] VITALS: PULSE 69; O2SAT 99
--- OUTSIDE RECORDS SUMMARY | 2025-06-26 15:19 | XMS_ITS ---
Author Name Jeni Esquivel NP Address [address] [place] [address] Phone [phone] Organization [facility] Care Team Providers Care Dental Patient Coordinator Name Role Phone Jeni Esquivel Unavailable [phone] Reason for Referral Not Available Allergies, adverse [...] organ damage (headache, vision changes, chest pain)/ Chart Collector on proper BP monitoring technique and reassess/ [...] Pain Assessment - NO pain present (1126F) [facility] [place]20[place] Pain Assessment - NO pain present (1126F) [facility] [place] Pain Assessment - NO pain present (1126F) [facility] [place] Pain Assessment - NO pain present (1126F) [facility] [place] Pain Assessment - NO pain present (1126F) [facility] [place] Pain Assessment - NO pain present (1126F) [facility] [place] Pain Assessment - NO pain present (1126F) [facility] [place] Anxiety disorder, unspecifiedChronic kidney disease, stage 3b Pain Assessment - NO pain present (1126F) [facility] [place] Pain Assessment - NO pain present (1126F) [facility] [place] Estab. patient 30-39min; chronic exacerbation, 2 stable chronic or 1 acute illness add add modifier 95 for video, (do not use for phone, instead use 49020-53) [facility] [place] 07[place]08[place]2023 Hypertensive chronic kidney disease w stg [...] (do not use for phone, instead use 96082-40) [facility] [place] Estab. patient 30-39min; chronic exacerbation, 2 stable chronic or 1 acute illness add add modifier 95 for video, (do not use for phone, instead use 83219-29) [facility] [place] 07[place]2023 Estab. patient 30-39min; chronic exacerbation, 2 stable chronic or 1 acute illness add add modifier 95 for video, (do not use for phone, instead use 51713-37) [facility] [place] 07[place]2023 Estab. patient 30-39min; chronic exacerbation, 2 stable chronic or 1 acute illness add add modifier 95 for video, (do not use for phone, instead use 23806-90) [facility] [place] 07/08/2023 Estab. patient 30-39min; chronic exacerbation, 2 stable chronic or 1 acute illness add add modifier 95 for video, (do not use for phone, instead use 76437-80) [facility] [place] 07/08/2023 Estab. patient 30-39min; chronic exacerbation, 2 stable chronic or 1 acute illness add add modifier 95 for video, (do not use for phone, instead use 43176-66) [facility] [place] 07[place]2023 Estab. patient 30-39min; chronic exacerbation, 2 stable chronic or 1 acute illness add add modifier 95 for video, (do not use for phone, instead use 99022-97) [facility] [place] 07/08/2023 Estab. patient 30-39min; chronic exacerbation, 2 stable chronic or 1 acute illness add add modifier 95 for video, (do not use for phone, instead use 94384-30) [facility] [place] 07/08/2023 Unlisted special service; to be used for medical record reviews and reporting CPTII codes (1111F, etc) [facility] [place] 02/11/2024 Other specified health statu s Unlisted special service; to be used for medical record reviews and reporting CPTII codes (1111F, etc) [facility] [place] 02/11/2024 Unlisted special service; to be used for medical record reviews and reporting CPTII codes (1111F, etc) [facility] [place] 02/11/2024 Estab. patient 30-39min; chronic exacerbation, 2 stable chronic or 1 acute illness add add modifier 95 for video, (do not use for phone, instead use 16963-37) [facility] [place] 04/07/2024 Anxiety disorder, unspecifiedSedative, hypnotic, or anxiolytic [...] (do not use for phone, instead use 87868-13) [facility] [place] 04[place]07/20[place] Estab. patient 30-39min; chronic exacerbation, 2 stable chronic or 1 acute illness add add modifier 95 for video, (do not use for phone, instead use 69598-27) [facility] [place] 04/07/2024 Estab. patient 30-39min; chronic exacerbation, 2 stable chronic or 1 acute illness add add modifier 95 for video, (do not use for phone, instead use 46831-72) [facility] [place] 04/07/2024 Estab. patient 30-39min; chronic exacerbation, 2 stable chronic or 1 acute illness add add modifier 95 for video, (do not use for phone, instead use 36327-93) [facility] [place] 04/07/2024 Estab. patient 30-39min; chronic exacerbation, 2 stable chronic or 1 acute illness add add modifier 95 for video, (do not use for phone, instead use 49095-12) [facility] [place] 04/07/20[place] Estab. patient 30-39min; chronic exacerbation, 2 stable chronic or 1 acute illness add add modifier 95 for video, (do not use for phone, instead use 48215-36) [facility] [place] 04/07/2024 Estab. patient 30-39min; chronic exacerbation, 2 stable chronic or 1 acute illness add add modifier 95 for video, (do not use for phone, instead use 11759-65) [facility] [place] 04/07/2024 Estab. patient 20-29min; 1 stable chronic or 2 minor; add add modifier 95 for video, modifier 93 for phone [facility] [place] 12/27/2024 Anxiety disorder, unspecifiedSedative, hypnotic, or anxiolytic [...] 95 for video, modifier 93 for phone [facility], [place] 12/27/2024 Estab. patient 20-29min; 1 stable chronic or 2 minor; add add modifier 95 for video, modifier 93 for phone [facility], [place] 12/27/2024 Estab. patient 20-29min; 1 stable chronic or 2 minor; add add modifier 95 for video, modifier 93 for phone [facility] [place] 12/27/2024 Estab. patient 20-29min; 1 stable chronic or 2 minor; add add modifier 95 for video, modifier 93 for phone [facility], [place] 12/27/2024 Estab. patient 20-29min; 1 stable chronic or 2 minor; add add modifier 95 for video, modifier 93 for phone [facility], [place] 12/27/2024 Estab. patient 20-29min; 1 stable chronic or 2 minor; add add modifier 95 for video, modifier 93 for phone [facility] [place] 12/27/2024 Estab. patient 20-29min; 1 stable chronic or 2 minor; add add modifier 95 for video, modifier 93 for phone [facility] [place] 12/27/2024 Estab. patient 20-29min; 1 stable chronic or 2 minor; add add modifier 95 for video, modifier 93 for phone [facility] [place] 12/27/2024 Vital Signs Date of Collection Vitals [...] tive Time Current Smoking Status Never smoker 7 Sex Female History of Procedures Procedures Service [...] (do not use for phone, instead use 24372-13) 13794 2022-07-15 No Data Available No Data Availa ble SBP < 130 (3074F) 3074F 2022-07-15 No Data Available No Data Available DBP <80 (3078F) 3078F 2022-07-15 No Data Available No Data Available Estab. patient 30-39min; chronic exacerbation, 2 stable chronic or 1 acute illness add add modifier 95 for video, (do not use for phone, instead use 31450-92) 54684 2023-07-08 No Data Available No Data Availa [...] reviews and reporting CPTII codes (1111F, etc) 18792 2024-02-11 No Data Available No Data Availa ble SBP < 130 (3074F) 3074F 2024-02-11 No Data Available No Data Available DBP <80 (3078F) 3078F 2024-02-11 No Data Available No Data Available Estab. patient 30-39min; chronic exacerbation, 2 stable chronic or 1 acute illness add add modifier 95 for video, (do not use for phone, instead use 33734-29) 50928 2024-04-07 No Data Available No Data Availa [...] 95 for video, modifier 93 for phone 98465 2024-12-27 No Data Available No Data Availa [...] Category Effective Dates Ambulates with cane. 2023-07-08 BOAT WRAPPER coming in daily 2023-07-08 Cognition Status: Oriented [...] modifier 95Continue to see PCP. [facility] or [...] organ damage (headache, vision changes, chest pain)/ Chart Collector on proper BP monitoring technique and reassess/ [...] organ damage (headache, vision changes, chest pain)/ Chart Collector on proper BP monitoring technique and reassess/ [...] discussedDo you have a Durable Power of Computer Systems Software Engineer for Healthcare, or Healthcare Proxy Or Guardianship? SELECTIf so, Who? Vic Gastelum you have a written Advance Directive? Has Advance DirectiveOther details of discussion:Today's plan: Advised patient to discuss wishes with [id number] : AD or surrogate was documented in the medical record.
--- OUTSIDE RECORDS SUMMARY | 2025-06-26 15:20 | XMS_ITS | Encounter Summary ---
Author Organization [employer] Address 75 [facility] 7t [place] [address] Care Team Providers Care Maintenance Supervisor Mechanical Name Role Phone Carmen Gong MD Primary Care Pro vider Davis Simms Unavailable Encounter Details Date Type Department Care Team (Late st Contact Info) Description 06/01/2025 Results Follow-Up [facility] 230 [place] [address] Carmen Gong MD [address] [place] [address] XR Chest 2 Views Social History Tobacco [...] documented as of this encounter Care Teams Maintenance Supervisor Mechanical Relationship Specialty Start Date End Date Carmen Gong MD [address] [place] [address] PCP - General Internal Medicine 05/10/23 Davis Simms [facility]7 [place], [place] [address] 06/05/25 documented as of this encounter
--- OUTSIDE RECORDS SUMMARY | 2025-06-26 15:20 | XMS_ITS | Encounter Summary ---
Author Organization [email or web address] Address 75 [facility] 7t [place] [address] Care Team Providers Care Supervisor Statement Clerks Name Role Phone Carmen Gong MD Primary Care Pro vider Davis Simms Unavailable Reason for Visit * Reason Comments Med Refill Encounter Details Date Type Department Care Team ([facility] st Contact Info) Description 06/03/2025 Refill [facility] 230 [place], [place] [phone] Gricelda Lubin MD 230 [place], [place] [phone] Steatosis of liver Social History Tobacco Use [...] as of this encounter Care Teams Supervisor Statement Clerks Relationship Specialty Start Date End Date Carmen Gong MD 230 [place] [address] PCP - General Internal Medicine 05/10/23 Davis Simms [facility]7 [place], [place] [address] 06/05/25 documented as of this encounter
--- OUTSIDE RECORDS SUMMARY | 2025-06-26 15:20 | XMS_ITS | Encounter Summary ---
Author Organization [employer] Address 75 [facility] 7t [place] [address] Care Team Providers Care Motor And Generator Brush Maker Name Role Phone [facility] Primary Care Provider [phone] Carmen Gong MD Primary Care Pro vider Davis Simms Unavailable Reason for Visit * Reason Onset Date Comments Appointment Request 12/03/2022 Encounter Details Date Type Department Care Team (Late st Contact Info) Description 12/03/2022 Telephone [facility] 230 [place], [place] [phone] [place], [facility] [address] [place], [place] [phone] Appointment Request Social History Tobacco Use Types [...] seen. Pt is irate. Please contact at [phone] Palestinian * Telephone Encounter - Lino Carpio - 12/03/2022 1:07 PM EDT Tc from pt requesting a TP appt with her new provider. Pt is currently in a recall. Professor Of Medicine tried booking but no slots were available please contact pt at [phone] Palestinian Speaker documented in this encounter Plan of Treatment Not on file documented as of this encounter Visit Diagnoses Not on filedocumented in this encounter Additional Health Concerns Assessment Noted Time PHQ-9 Depression Total Score: 0 10/13/19 11:31 AM EST documented as of this encounter Care Teams Motor And Generator Brush Maker Relationship Specialty Start Date End Date Emely Mclean FNP [address] [place] [address] PCP - General Family Medicine 05/19/22 05/09/23 Carmen Gong MD 230 [place] [address] PCP - General Internal Medicine 05/10/23 Davis Simms [address] [place] [address] 06/05/25 documented as of this encounter
--- OUTSIDE RECORDS SUMMARY | 2025-06-26 15:20 | XMS_ITS | Clinical Summary ---
Author Organization [employer] Address [address] [facility] 7[address] [place] [address] Care Team Providers Care Airplane Patrol Pilot Name Role Phone Carmen Gong MD Primary [...] Once per day. 90 tablet 025 Active cyanocobalamin (Vitamin B-12) 500 MCG tabletIndications :Steatosis of liver Take 1 tablet (500 mcg) by mouth 3 (three) times a week. 40 tablet 1 025 2025 Active acetaminophen (Tylenol 8 Hour) 650 MG ER tablet Take 1 tablet (650 mg) by mouth every 8 (eight) hours if needed for mild pain. Do not crush, chew, or split. 40 tablet 1 025 2024 Active Diclofenac Sodium 1 % gel Apply 1 Application topically if needed in the morning, at noon, in the evening, and at bedtime (pain). 150 g 3 Active tiZANidine (Zanaflex) 2 MG tablet Take 1 tablet (2 mg) by mouth if needed in the morning and at bedtime for muscle spasms for up to 15 days. 30 tablet 025 2024 Active pravastatin (Pravachol) 20 MG tablet TAKE 1 TABLET BY MOUTH EVERY DAY 90 tablet Active sodium chloride ([employer] Nasal Tama) 0.65 % nasal spray Administer 1 spray [...] eorder (will not trigger notification to Pharmacy)) pravastatin (Pravachol) 20 MG tablet Take 1 tablet (20 mg) by mouth Once per day. 30 tablet 2 025 2024 Discontinued predniSONE (Deltasone) 20 MG tablet Take 1 tablet (20 mg) by mouth 2 times daily for 3 days. 6 tablet 025 2024 Active Problems Problem Noted Date Diagnosed Date Chronic kidney disease, stage 3b (CMS/HCC) 06/01 Dry cough 03/19/2025 Abnormal EKG 03/19/2025 Left [...] hyperparathyroidism 08/22/2022 Stage 3a chronic kidney disease (CMS/HCC) 2021 Steatosis of liver 11/19/2017 Kidney stone 10/25/2017 Essential hypertension 08/30/2015 Hyperlipidemia 08/30/2015 Obesity, morbid 08/30/2015 Osteopenia 08/30/2015 Resolved Problems Problem Noted Date Diagnosed Date Resolved Date Influenza 09/18/2023 03/02/2024 Assessment & Plan (09/18/2023 2:25 PM EST): Pt w respiratory symptoms, no alarming symptoms VS wnl I called today her machine heel builder and last 12/2022 Cr 1.3 GFR 44 -supportive tx advised -Tamiflu 30 mg BID by last GFR -alarm signs and symptoms advised Mixed anxiety depressive disorder 09/17/2023 023 03/02/2024 Epigastric pain 07/30/2017 03/02/2024 Allergic rhinitis 08/30/2015 03/02/2024 Indigestion 08/30/2015 03/02/2024 Primary osteoarthritis invol ving multiple joints 08/30/2015 03/02/2024 Encounters Date Type Department Care Team Description 06/18/2025 Refill [facility] [address] [place] [address] Carmen Gong MD 06/15/2025 11:00 AM EDT Office Visit [facility] [address] [place] [phone] Alejandrina Bolanos DO Acute hip pain, left (Primary Dx) 06/15/2025 Travel 06/04/2025 Orders Only [facility] [address] [place] [address] Carmen Gong MD Steatosis of liver 06/04/2025 Results Follow-Up [facility] [address] [place] [phone] Carmen Gong MD Lipid Panel, Standard 06/03/2025 Refill [facility] [address] [place] [address] Gricelda Lubin MD Steatosis of liver 06/01/2025 9:45 AM EDT Office Visit [facility] [address] [place] [address] Carmen Gong MD Ankle pain, unspecified chronicity, unspecified laterality (Primary Dx); Chronic kidney disease, stage 3b (CMS/HCC); Essential hypertension; Obesity, morbid (CMS/HCC); Stage 3a chronic kidney disease (CMS/HCC); Health care maintenance 06/01/2025 Orders Only [facility] [address] [place] [address] Carmen Gong MD Enlarged thoracic aorta (CMS/HCC) (Primary Dx) 06/01/2025 Orders Only [facility] [address] [place] [address] Carmen Gong MD Enlarged thoracic aorta (CMS/HCC) (Primary Dx) 06/01/2025 Results Follow-Up [facility] [address] [place], [place] [address] Carmen Gong MD XR Chest 2 Views 06/01/2025 Travel 05/18/2025 Telephone [place] [address] Carmen Gong MD No Show 05/18/2025 Telephone [facility] [address] [place] [address] Carmen Gong MD Appointment Request 05/17/2025 Telephone [place] [address] Carmen Gong MD chartprep from Last 3 Months Immunizations Immunization Administration [...] EDT Narrative 06/15/2025 12:15 PM EDT [address] [address] XRay Report Signed Patient: Niesha Mead MR#: [id number] : 1945 Acct:[id number] Age/Sex: 80 / F ADM Date: 06/15/25 Loc: HO.HHCX Attending Dr: Alejandrina Bolanos DO Ordering Physician: Alejandrina Bolanos DO Date of Service: 06/15/25 Procedure(s): XR hip LT min 2V Accession Number(s): [id number] cc: Alejandrina Bolanos DO Reason for Exam: [...] 06/15/25 1204 DD/ 1150 TD/TT: 06/15/25 115 Group Fitness Manager: Procedure Note Roxi, Image - 06/15/2025 [facility] [address] [place] [address] XRay Report Signed Patient: Niesha MeadMR#: [id number] : 5Acct:[id number] Age/Sex: 80 / FADM Date: 06/15/25 Loc: HO.HHCX Attending Dr: Alejandrina Bolanos DO Ordering Physician: Alejandrina Bolanos DO Date of Service: 06/15/25 Procedure(s): XR hip LT min 2V Accession Number(s): [id number] cc: Alejandrina Bolanos DO Reason for Exam: [...] 06/15/25 1204 DD/ 1150 TD/TT: 06/15/25 115 Group Fitness Manager: Alejandrina Bolanos DO IMG XR PROCEDURES Final Resu lt * Vitamin D, 25-Hydroxy, Total, Immunoassay (06/04/2025 9:03 AM EDT) Vitamin D 25-OH Total 49.3 >30 ng/mL [facility] Comment: Health Based Reference Values*< 20 ng/mL Arjmkuqpp30-20 ng/mL Insufficient> 30 ng/mL Sufficient*Laura CALLES. N [...] MD LAB BLOOD ORDERAB LES Final Result [facility] [address] [place] [address] [phone] * (ABNORMAL) Vitamin B12 (Cobalamin) and Folate Panel, Serum (06/04/2025 9:03 AM EDT) Vitamin B12 1,876(H) 200 - 900 pg/mL [facility] Comment:NORMAL 200-900 PG/ML INDETERMINATE 160-199 PG/ML DEFICIENT < 160 PG/ML Folate 16.1 > or = 4.0 ng/mL [facility] Comment:Reference Values:> o r = 4.0 ng/mL< 4.0 ng/mL suggests folate deficiency Methotrexate, aminopterin and folinic acid(leucovorin) are chemotherapeutic agents whose molecularstructures are similar to folate; therefore, the Architectfolate assay cannot be used for patients using these drugs. Blood 06/04/2025 9:03 AM EDT 06/04/2025 11:04 AM EDT us Carmen Cadena MD LAB BLOOD ORDERAB LES Final Result Performing Organization Address [facility]/ZIP Co de Phone Number [facility] [address] [place] [phone] * TSH with Reflex to Free T4 (06/04/2025 9:03 AM EDT) TSH reflex Free T4 1.27 0.32 - 4.0 uIU/mL [facility] Blood 06/04/2025 9:03 AM EDT 06/04/2025 11:11 AM EDT us Carmen Cadena MD LAB BLOOD ORDERAB LES Final Result Performing Organization Address [facility] Phone Number [facility] [address] [place] [phone] * Albumin, Random Urine W/Creatinine (06/04/2025 9:03 AM EDT) [facility] Creatinine, Urine 254.22 mg/dL [facility] Microalbumin Urine 14.0 mg/L [facility] Microalbum Creatinine Ratio Ur 5.5 <30 ug/mg cr [facility] Comment:Albumin/Creatinine R atio Reference Ranges: Normal: < 30 ug/mg creatinine Microalbuminuria: 30 - 300 ug/mg creatinineClinical Albuminuria: > 300 ug/mg creatinine Urine (Urine, Random) 06/04/2025 9:03 AM EDT 06/04/2025 11:20 AM EDT us Carmen Caedna MD LAB URINE ORDERAB LES Final Result Performing Organization Address [facility] Co de Phone Number [facility] [address] [place] [phone] * (ABNORMAL) Urinalysis Complete (06/04/2025 9:03 AM EDT) Color Urine Yellow [facility] Appearance Urine Clear [facility] PH 7.0 5.0 - 9.0 [facility] Glucose Urine UA Negative Negative mg/dL [facility] Urine Blood Negative Negative [facility] Specific [place] - Urine 1.020 1.005 - 1.025 [facility] Urine Protein Trace Neg-Trace mg/dL [facility] Urine Ketones Trace Negative mg/dL [facility] Nitrite Urine Negative Negative [facility] Leukocyte Esterase Urine Large (3+)(A) Negative [facility] RBC Urine 0-2 0 - 2 /HPF [facility] Urine WBC 0-5 0 - 5 /HPF [facility] Urine Squamous Epithelial Cell 6-10 0 - 2 /HPF [facility] Urine Bacteria Trace None Seen [facility] Hyaline Casts, Urine 0-2 0 - 2 /LPF [facility] Urine (Urine, Random) 06/04/2025 9:03 AM EDT 06/04/2025 11:20 AM EDT us Carmen Cadena MD LAB URINE ORDERAB LES Final Result [facility] [address] [place] [phone] * (ABNORMAL) CBC (06/04/2025 9:03 AM EDT) White Blood Count 5.0 4.8 - 10.8 X10*3/uL [facility] Red Blood Count 3.64(L) 4.20 - 5.50 X10*6/uL [facility] Hemoglobin 10.7(L) 12.0 - 16.0 g/dl [facility] Hematocrit 33.1(L) 37.0 - 47.0 % [facility] Mean Corpuscular Volume 90.9 80.0 - 98.0 fL [facility] Mean Corpuscular Hemoglobin 29.4 27.0 - 33.0 pg [facility] Mean Corpuscular HGB Conc 32.3 31.0 - 35.0 g/dl [facility] Red Cell Distribution Width 13.2 11.0 - 16.0 % [facility] Platelet Count 194 160 - 400 X10*3/uL [facility] Mean Platelet Volume 12.2 9.4 - 12.3 fL [facility] NRBC Pct Auto 0.0 0.0 - 0.2 /100WBC [facility] NRBC Abs Auto 0.000 0.0 - 0.012 X10*3/uL [facility] Blood Venous blood specimen / Unknown 06/04/2025 9:03 AM EDT 06/04/2025 11:11 AM EDT us Carmen Cadena MD LAB BLOOD ORDERAB LES Final Result Performing Organization Address City/[facility]/ZIP Co de Phone Number [facility] [address] [place] [phone] * (ABNORMAL) Uric acid (06/04/2025 9:03 AM EDT) Uric Acid 8.2(H) 2.4 - 5.7 mg/dL [facility] Blood Venous blood specimen / Unknown 06/04/2025 9:03 AM EDT 06/04/2025 11:11 AM EDT us Carmen Cadena MD LAB BLOOD ORDERAB LES Final Result [facility] [address] [place] [phone] * Hemoglobin A1c (06/04/2025 9:03 AM EDT) Hemoglobin A1c 5.5 <6.0 % [facility] Comment:Hemoglobin A1C Refer ence Range Adults: 4.8 - 6.0 % Non diabetic: < 6.0 % Goal: < 7.0 %Additional Action Suggested: > 8.0 %Note: Hemoglobin A1c results are invalid for patients with abnormal amounts of HbF. Blood transfusions may impact the HbA1c concentration in the patient sample. Estimated Average Glucose 111 mg/dL [facility] Comment:eAG = Estimated ave rage glucose which is %A1C expressed asaverage glucose, using the formula of the Q3C-XptrahzUwmkdya Glucose study (ADAG), Diabetes Care, Vol.31,#8,Apr. 2007 Blood Venous blood specimen / Unknown 06/04/2025 9:03 AM EDT 06/04/2025 11:11 AM EDT us Carmen Cadena MD LAB BLOOD ORDERAB LES Final Result [facility] [address] [place] [phone] * (ABNORMAL) Lipid Panel, Standard (06/04/2025 9:03 AM EDT) Triglycerides 173(H) <150 mg/dL [facility] Comment:Desirable Triglyceri de: less than 150 mg/dLBorderline High Triglyceride 150-199 mg/dLHigh Triglyceride: 200-499 mg/dLVery High Triglyceride: greater than or equal to 5OO mg/dL Cholesterol 227(H) <200 mg/dL [facility] Comment:Desirable Cholestero l: less than 200 mg/dLBorderline High Cholesterol: 200-239 mg/dLHigh Cholesterol: greater than 239 mg/dL LDL Cholesterol Calculated 154(H) <100 mg/dL [facility] Comment:Desirable LDL: less than 100 mg/dLNear Optimal/Above Optimal LDL: 110- 129 mg/dLBorderline High LDL: 130-159 mg/dLHigh LDL: 160-189 mg/dLVery High LDL: greater than or equal to 190 mg/dL HDL Cholesterol 39(L) >40 mg/dL [facility] Comment:Desirable HDL: great er than 40 mg/dL Note: This HDL assay may give artificially low results in patients with liver disease. Blood Venous blood specimen / Unknown 06/04/2025 9:03 AM EDT 06/04/2025 11:11 AM EDT us Carmen Cadena MD LAB BLOOD ORDERAB LES Final Result [facility] [address] [place] [phone] * (ABNORMAL) Comprehensive Metabolic Panel (06/04/2025 9:03 AM EDT) Sodium 140 135 - 145 mmol/L [facility] Potassium 3.8 3.3 - 5.1 mmol/L [facility] Chloride 103 96 - 108 mmol/L [facility] Carbon Dioxide 31(H) 22 - 29 mmol/L [facility] Anion Gap 10(L) 12 - 20 [facility] Urea Nitrogen (BUN) 21(H) 9 - 16 mg/dL [facility] Creatinine, Serum 1.29 0.5 - 1.4 mg/dL [facility] Estimated Glomerular Filt Rate 40 [facility] Comment:Chronic Kidney Disea se: Estimated GFR < 60 mL/min/1.04f2Qqhjmy Kidney Disease: Estimated GFR < 15 mL/min/1.73m2 Glucose 86 60 - 115 mg/dL [facility] Calcium 9.4 8.4 - 10.2 mg/dL [facility] Bilirubin, Total 0.4 0.0 - 1.0 mg/dL [facility] Aspartate Amino Transferase 34(H) 5 - 31 U/L [facility] Alanine Aminotransferase 16 0 - 31 U/L [facility] Total Protein 7.6 6.5 - 8.0 g/dL [facility] Albumin Level 4.2 3.5 - 5.0 g/dL [facility] Alkaline Phosphatase 75 39 - 117 U/L [facility] Blood Venous blood specimen / Unknown 06/04/2025 9:03 AM EDT 06/04/2025 11:11 AM EDT us Carmen Cadena MD LAB BLOOD ORDERAB LES Final Result [facility] [address] [place] [phone] * XR Chest 2 Views (06/01/2025 12:50 PM EDT) Anatomical Region Laterality Modality Chest Radiographic Jessy ging 06/01/2025 12:5 0 PM EDT Narrative 06/01/2025 1:04 PM EDT [address] [address] XRay Report Signed Patient: Niesha Mead MR#: [id number] : 1945 Acct:[id number] Age/Sex: 80 / F ADM Date: 06/01/25 Loc: HO.HHCX Attending Dr: Carmen Cadena MD Ordering Physician: Carmen Gong MD Date of Service: 06/01/25 Procedure(s): XR chest 2V Accession Number(s): [id number] cc: Carmen Gong MD Reason for Exam: [...] 06/01/25 1301 DD/ 1250 TD/TT: 06/01/25 1255 Group Fitness Manager: Procedure Note Donotuseinterpreter, Image - 06/01/[address] [place] [address] [address] XRay Report Signed Patient: Niesha MeadMR#: [id number] : 5Acct:[id number] Age/Sex: 80 / FADM Date: 06/01/25 Loc: HO.HHCX Attending Dr: Carmen Cadena MD Ordering Physician: Carmen Gong MD Date of Service: 06/01/25 Procedure(s): XR chest 2V Accession Number(s): [id number] cc: Carmen Gong MD Reason for Exam: [...] MD 06/01/2025 01:01 PM EDT Dictated By: Eligoi Khan MD Signed By: <Electronically signed by Eligio Donaldson MDin OV> 06/01/25 1301 DD/ 1250 TD/TT: 06/01/25 1255 Group Fitness Manager: us Carmen Cadena MD IMG XR PROCEDURES Final Result * XR Ankle 3+ Views Right (06/01/2025 11:14 AM EDT) Anatomical Region Laterality Modality Lower Extremities, Ankle Right Radiogr aphic Imaging 06/01/2025 11:1 4 AM EDT Narrative 06/01/2025 1:07 PM EDT [address] [address] XRay Report Signed Patient: Niesha Mead MR#: [id number] : 1945 Acct:[id number] Age/Sex: 80 / F ADM Date: 06/01/25 [facility]: Carmen Cadena MD Ordering Physician: Carmen Gong MD Date of Service: 06/01/25 Procedure(s): XR ankle RT min 3V Accession Number(s): [id number] cc: Carmen Gong MD Reason for Exam: [...] 06/01/25 1304 DD/ 1114 TD/TT: 06/01/25 1255 Group Fitness Manager: Procedure Note Donotuseinterpreter, Image - 06/01/[address] [address] XRay Report Signed Patient: Niesha MeadMR#: [id number] : 5Acct:[id number] Age/Sex: 80 / FADM Date: 06/01/25 [facility] Att[facility]: Carmen Cadena MD Ordering Physician: Carmen Gong MD Date of Service: 06/01/25 Procedure(s): XR ankle RT min 3V Accession Number(s): [id number] cc: Carmen Gong MD Reason for Exam: [...] 06/01/25 1304 DD/ 1114 TD/TT: 06/01/25 1255 Group Fitness Manager: us Carmen Cadena MD IMG XR PROCEDURES Final Result * ECG 12 lead (04/24/2025 8:16 PM EDT) Narrative Carmen Gong MD - 04/24/2025 8:16 PM EDT -EKG today for baseline 02/2025 HR 63, QTc 475, NSR ,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 ,RBBB us Carmen Cadena MD ECG ORDERABLES F inal Result from Last 3 Months Insurance DUAL COMPLETE Care Teams Airplane Patrol Pilot Relationship Specialty Start Date End Date Carmen Gong MD [address] [place] [address] PCP - General Internal Medicine 05/10/23 Davis Simms [facility] [place], [place] [address] 06/05/25
--- OUTSIDE RECORDS SUMMARY | 2025-06-26 15:20 | XMS_ITS | Encounter Summary ---
Author Organization [employer] Address [address] [facility] 7t [place] [address] Care Team Providers Care Business Process Architect Name Role Phone Carmen Gong MD Primary Care Pro vider Davis Simms Unavailable Reason for Visit * Reason Comments Med Refill Encounter Details Date Type Department Care Team ([facility] Contact Info) Description 05/10/2024 Refill [facility] [address] [place] [address] Ziggy Carson MD [address] [place] [address] Social History Tobacco Use Types Packs/Day Years [...] documented as of this encounter Care Teams Business Process Architect Relationship Specialty Start Date End Date Carmen Gong MD [address] [place] [address] PCP - General Internal Medicine 05/10/23 Davis Simms [facility] [place], [place] [address] 06/05/25 documented as of this encounter
--- OUTSIDE RECORDS SUMMARY | 2025-06-26 15:20 | XMS_ITS | Encounter Summary ---
Author Organization [employer] Address [address] [facility] [address] [place] [address] Care Team Providers Care Parking Meter Servicer Name Role Phone Carmen Gong MD Primary Care Pro vider Davis Simms Unavailable Reason for Visit * Reason Comments Med Refill Encounter Details Date Type Department Care Team ([facility] st Contact Info) Description 06/14/2024 Refill [facility] [address] [place] [address] Carmen Gong MD [address] [place] [address] Social History Tobacco Use Types Packs/Day Years [...] documented as of this encounter Care Teams Parking Meter Servicer Relationship Specialty Start Date End Date Carmen Gong MD [address] [place] [address] PCP - General Internal Medicine 05/10/23 Davis Simms [address] [place] [address] 06/05/25 documented as of this encounter
== END 2025-06-26 12:28 | disposition home or self-care (01) ==
LOC: HO.RESP 12:27
PROVIDERS: PCP Student in an Organized Health Care Education/Training Program; Visit Provider Student in an Organized Health Care Education/Training Program
DX: R05.8 Other specified cough (principal); Z87.891 Personal history of nicotine dependence
CPT/HCPCS: 94010; 94640; 94727; 94729

== ENCOUNTER → 2025-06-26 12:44 | Outpatient (BNV) | payer OTHER, SELFPAY | PROVIDERS: PCP Student in an Organized Health Care Education/Training Program; Visit Provider Internal Medicine Pulmonary Disease | DX: J98.4 Other disorders of lung (principal) | CPT/HCPCS: 94060; 94727; 94729 ==

== ENCOUNTER → 2025-07-17 09:27 | Outpatient (REF) | payer OTHER, SELFPAY ==
--- NOTE | 2025-07-17 09:30 | CA_ITS ---
Transthoracic Echocardiogram Patient (Last, First, Middle): Niesha Mead, Gender: Female Date of : 1945 Age: 80 Procedure Date: 07/17/2025 Procedure Type: Transthoracic Echocardiogram Location: OP Height: 160. cm Weight: 84.82 kg BSA: 1.88 m2 Heart Rate: 62 bpm BP: 140 / 75 mmHg Sales Support Engineer: RODRIGO Referring MD: Rafal Carter MD Symptoms: I45.2 - Bifascicular block Study Quality: Fair ECG Rhythm: Sinus Conclusions: - The left ventricular systolic function is normal. The calculated ejection fraction is 57% by biplane method. - No obvious valvular pathology seen on this study. Findings Left Ventricle Normal left ventricular cavity size. The left ventricular systolic function is normal. The calculated ejection fraction is 57% by biplane method. There is no evidence of regional wall motion abnormalities. Diastolic function is normal for age. There is mild septal asymmetric hypertrophy. Right Ventricle Normal right ventricular cavity size. There is mildly decreased right ventricular systolic function. Atria Both atria are normal in size. Aortic Valve There is a normal trileaflet aortic valve. There is no aortic valve stenosis. There is no aortic valve regurgitation. Mitral Valve The mitral valve appears normal. There is trace mitral valve regurgitation. There is no mitral valve stenosis. Pulmonic Valve The pulmonic valve is likely normal. Tricuspid Valve Normal tricuspid valve structure. There is trace tricuspid valve regurgitation. There is no evidence of pulmonary hypertension. Great Vessels The asc aorta and aortic arch are normal in size. Venous The inferior vena cava is normal in size and collapses greater than 50% with inspiration. Pericardium/Pleural There is no evidence of pericardial effusion. Prior Study Comparison No prior study available for comparison. Recommendations, Care & Conclusions No obvious valvular pathology seen on this study. Measurements 2D Linear Measurements IVSd: 1.25 0.6-0.9/0.6-1.0 cm LVIDd: 4.71 3.9-5.3/4.2-5.9 cm LVIDd Index: 2.51 2.4-3.2/2.2-3.1 cm/m2 LVIDs: 3.26 2.0-3.6 cm LVPWd: 1.01 0.7-1.1 cm LA Diam: 3.20 2.7-3.8/3.0-4.0 cm LAIDs Index: 1.70 1.5-2.3 cm/m2 LV Mass: 243.49 67-162/88-224 g LV Mass Index: 129.51 43-95/49-115 g/m2 LVOT Diam: 2.20 3.0+(-)1.3 cm 2D Systolic Function EF 4C: 57.70 >55% EF 2C: 54.80 >55% EF BiP: 56.50 >55% Mitral Valve MV Pk E: 0.50 MV PK A: 0.72 MV Decel Time: 288.00 E/A: 0.70 E'Lateral: 5.17 E'Medial: 4.64 E/E' Med: 10.70 E/E' Lat: 9.60 PHT: 84.00 MVA PHT: 2.62 Decel [place]: 1.73 Aortic Valve AoV Pk Luca: 1.33 AoV Mn Luca: 0.94 AoV VTI: 0.30 AoV Pk Grad: 7.00 Aov Mn Grad: 4.00 AVINASH Cont.VTI: 2.49 LVOT LVOT Pk Luca: 0.84 LVOT Mn Luca: 0.60 LVOT VTI: 0.20 LVOT Pk Grad: 3.00 LVOT Mn Grad: 2.00 LVOT Diam: 2.20 LVOT Area: 3.80 Diastolic Function MV Pk E: 0.50 MV Pk A: 0.72 E/A: 0.70 E'Medial: 4.64 E/E' Med: 10.70 E' Laterial: 5.17 E/E' Lat: 9.60 Right Ventricle TAPSE (mm): 17.50 TVS' Luca: 9.55 Tricuspid Valve TR Pk Luca: 1.92 TR Pk Grad: 15.00 RA Press: 3.00 RVSP: 18.00 Great Vessels Aorta Sinus of Valsalva: 3.50 2.0-3.5 cm Ao Asc: 3.30 2.1-3.4 cm Ao Arch: 2.80 Pulmonary Veins Pulm Vein S/D 1.10 Pulmonary Valve PV Pk Luca: 0.77 Peak PV Grad: 2.00 Updated in Other Vendor System with Status of Final Rafal Carter MD electronically signed on 07/18/2025 5:10:38 PM with status of Final
--- OUTSIDE RECORDS SUMMARY | 2025-07-17 10:45 | XMS_ITS | Encounter Summary ---
Author Organization [employer] Address [address] [facility] [address] [place] [address] Care Team Providers Care Baker Operator Automatic Name Role Phone Carmen Gong MD Primary Care Pro vider Davis Simms Unavailable Reason for Visit * Reason Comments Med Refill Encounter Details Date Type Department Care Team ([facility] st Contact Info) Description 06/14/[address] [facility] [address] [place] [address] Carmen Gong MD [address] [place] [address] Social History Tobacco Use Types Packs/Day Years [...] documented as of this encounter Care Teams Baker Operator Automatic Relationship Specialty Start Date End Date Carmen Gong MD [address] [place] [address] PCP - General Internal Medicine 05/10/23 Davis Simms [address] [place] [phone] 06/05/25 documented as of this encounter
--- OUTSIDE RECORDS SUMMARY | 2025-07-17 10:45 | XMS_ITS | Encounter Summary ---
Author Organization [facility] Address [address] [facility] [address] [place] [address] Phone Care Team Providers Care Survey Methodologist Name Role Phone Carmen Smith Primary Care Provid er Encounter Details Date Type Department Care Team ([facility] Contact Info) Description 01/02/2022 Documentation Only [facility] [address] [place] [address] Issa Mishra MD [address] [facility] [place] [address] Social History Tobacco Use Types [...] [facility] [address] [place] [address] Kamran Escobar MD [address] [facility] [place] [address] documented as of this encounter Visit Diagnoses Not on filedocumented in this encounter Care Teams Survey Methodologist Relationship Specialty Start Date End Date Carmen Smith [address] [place] [address] PCP - General 05/22/25 documented as of this encounter
--- OUTSIDE RECORDS SUMMARY | 2025-07-17 10:45 | XMS_ITS | Encounter Summary ---
Author Organization [facility] [place], Address PO [facility] [address] [place] [address] Phone Care Team Providers Care Gripper Attacher Name Role Phone Carmen Smith Primary Care Provid er Encounter Details Date Type Department Care Team ([facility] Contact Info) Description 06/26/2022 Documentation Only [facility] [address] [place] [address] Rl Swenson PA [address] [place] [address] Social History Tobacco Use Types [...] Visit [facility] [address] [place] [address] Kamran Escobar MD [address] [facility] [place] [address] documented as of this encounter Visit Diagnoses Not on filedocumented in this encounter Care Teams Gripper Attacher Relationship Specialty Start Date End Date Carmen Smith [address] [place] [address] PCP - General 05/22/25 documented as of this encounter
--- OUTSIDE RECORDS SUMMARY | 2025-07-17 10:45 | XMS_ITS | Encounter Summary ---
Author Organization [facility] [place], Address PO [facility] [address] [place] [address] Phone Care Team Providers Care Damper Maker Name Role Phone Carmen Smith Primary Care Provid er Encounter Details Date Type Department Care Team ([facility] Contact Info) Description 07/11/2024 Documentation Only [facility] [address] Lenore LOPEZ [address] [place] [phone] Emmanuelle Melendez [address] [place] [address] Social History Tobacco Use Types [...] Visit [facility] [address] [facility] [address] [place] [address] Kamran Escobar MD [address] [facility] [place] [address] documented as of this encounter Visit Diagnoses Not on filedocumented in this encounter Care Teams Damper Maker Relationship Specialty Start Date End Date Carmen Smith [address] [place] [phone] PCP - General 05/22/25 documented as of this encounter
--- OUTSIDE RECORDS SUMMARY | 2025-07-17 10:45 | XMS_ITS | Encounter Summary ---
Author Organization [employer] Address [address] [facility] 7t [place] [address] Care Team Providers Care Air Crew Member Name Role Phone Cl[facility]on [facility] Primary Care Provider [phone] Carmen Gong MD Primary Care Pro vider Davis Simms Unavailable Reason for Visit * Reason Onset Date Comments Appointment Request 12/03/2022 Encounter Details Date Type Department Care Team (Late st Contact Info) Description 12/03/2022 Telephone [facility] [address] [place], [place] [phone] Clarkson [place], [facility] [address] [place], [place] [phone] Appointment Request Social History Tobacco Use Types [...] seen. Pt is irate. Please contact at [phone] Central African * Telephone Encounter - Lino Carpio - 12/03/2022 1:07 PM EDT Tc from pt requesting a TP appt with her new provider. Pt is currently in a recall. Pasta Maker tried booking but no slots were available please contact pt at [phone] Central African Speaker documented in this encounter Plan of Treatment Not on file documented as of this encounter Visit Diagnoses Not on filedocumented in this encounter Additional Health Concerns Assessment Noted Time PHQ-9 Depression Total Score: 0 10/13/19 11:31 AM EST documented as of this encounter Care Teams Air Crew Member Relationship Specialty Start Date End Date Emely Mclean FNP [address] [place] [address] PCP - General Family Medicine 05/19/22 05/09/23 Carmen Gong MD [address] [place] [address] PCP - General Internal Medicine 05/10/23 Davis Simms [address] [place] [address] 06/05/25 documented as of this encounter
--- OUTSIDE RECORDS SUMMARY | 2025-07-17 10:45 | XMS_ITS | Encounter Summary ---
Author Organization [facility] [place], Address PO [facility] [address] [place] [address] Phone Care Team Providers Care Final Inspector And Tester Name Role Phone Carmen Smith Primary Care Provid er Encounter Details Date Type Department Care Team ([facility] Contact Info) Description 06/29/2022 Documentation Only [facility] [address] [place] [address] Rl Swenson PA [address] [place] [address] Social History Tobacco Use Types [...] Of [facility] [address] [place] [address] Kamran Escobar MD [address] [facility] [place] [address] documented as of this encounter Visit Diagnoses Not on filedocumented in this encounter Care Teams Final Inspector And Tester Relationship Specialty Start Date End Date Carmen Smith [address] [place] [address] PCP - General 05/22/25 documented as of this encounter
--- OUTSIDE RECORDS SUMMARY | 2025-07-17 10:45 | XMS_ITS | Encounter Summary ---
Author Organization [facility] [place], Address [address] [facility] [address] [place] [address] Phone Care Team Providers Care Senior Product Designer Name Role Phone Carmen Smith Primary Care Provid er Encounter Details Date Type Department Care Team ([facility] Contact Info) Description 08/07/2020 Orders Only [facility] [place] [address] [place] [phone] Cricket Mcghee MD Renal stone; Acquired renal [...] Upcoming Encounters Date Type Department Care Team ([facility] Contact Info) Description 09/11/2025 10:30 AM EST Office Visit [facility] [place], [address] [place] [phone] Kamran Escobar MD [address] [place] [address] documented as of this encounter Visit Diagnoses Diagnosis Renal stone Acquired renal cystic disease documented in this encounter Care Teams Senior Product Designer Relationship Specialty Start Date End Date Carmen Smith [address] [place] [phone] PCP - General 05/22/25 documented as of this encounter
--- OUTSIDE RECORDS SUMMARY | 2025-07-17 10:45 | XMS_ITS | Encounter Summary ---
Author Organization [facility] [place], Address [address] [facility] [address] [place] [address] Phone Care Team Providers Care Auxiliary Plant Operator Name Role Phone Carmen Smith Primary Care Provid er Encounter Details Date Type Department Care Team ([facility] Contact Info) Description 06/24/2022 Documentation Only [facility] [address] [facility] [place] [address] Rl Swenson PA [address] [facility] [place] [address] Social History Tobacco Use Types [...] Visit [facility] [address] [facility] [place] [address] Kamran Escobar MD [address] [facility] [place] [address] documented as of this encounter Visit Diagnoses Not on filedocumented in this encounter Care Teams Auxiliary Plant Operator Relationship Specialty Start Date End Date Carmen Smith [address] [place] [address] PCP - General 05/22/25 documented as of this encounter
--- OUTSIDE RECORDS SUMMARY | 2025-07-17 10:45 | XMS_ITS | Encounter Summary ---
Author Organization [employer] Address [address] [facility] 7[address] [place] [address] Care Team Providers Care Automotive Airconditioning Mechanic Name Role Phone Carmen Gong MD Primary Care Pro vider Davis Simms Unavailable Reason for Visit * Reason Comments Med Refill Encounter Details Date Type Department Care Team ([facility] st Contact Info) Description 06/03/2025 Refill [facility] [address] [place], [place] [phone] Gricelda Lubin MD [address] [place], [place] [phone] Steatosis of liver Social History Tobacco Use [...] documented as of this encounter Care Teams Automotive Airconditioning Mechanic Relationship Specialty Start Date End Date Carmen Gong MD [address] [place] [address] PCP - General Internal Medicine 05/10/23 Davis Simms [facility] [place], [place] [address] 06/05/25 documented as of this encounter
--- OUTSIDE RECORDS SUMMARY | 2025-07-17 10:45 | XMS_ITS | Encounter Summary ---
Author Organization [employer] Address [address] [facility] [address] [place] [address] Care Team Providers Care Artificial Flower Maker Name Role Phone Carmen Gong MD Primary Care Pro vider Davis Simms Unavailable Reason for Visit * Reason Comments Med Refill Encounter Details Date Type Department Care Team ([facility] Contact Info) Description 05/10/2024 Refill [facility] [address] [place] [address] Ziggy Carson MD [address] [place] [address] Social History Tobacco Use Types Packs/Day Years [...] documented as of this encounter Care Teams Artificial Flower Maker Relationship Specialty Start Date End Date Carmen Gong MD [address] [place] [address] PCP - General Internal Medicine 05/10/23 Davis Simms [facility] [place], [place] [address] 06/05/25 documented as of this encounter
--- OUTSIDE RECORDS SUMMARY | 2025-07-17 10:45 | XMS_ITS | Encounter Summary ---
Author Organization [employer] Address [address] [facility] [address] [place] [address] Care Team Providers Care Pharmacy Billing Adjudicator Name Role Phone Carmen Gong MD Primary Care Pro vider Davis Simms Unavailable Encounter Details Date Type Department Care Team (Late st Contact Info) Description 06/01/2025 Results Follow-Up [facility] [address] [place] [address] Carmen Gong MD [address] [place] [address] XR Chest 2 Views Social History Tobacco [...] documented as of this encounter Care Teams Pharmacy Billing Adjudicator Relationship Specialty Start Date End Date Carmen Gong MD [address] [place] [address] PCP - General Internal Medicine 05/10/23 Davis Simms [facility]7 [place], [place] [address] 06/05/25 documented as of this encounter
--- OUTSIDE RECORDS SUMMARY | 2025-07-17 10:46 | XMS_ITS | Clinical Summary ---
Author Organization [employer] Address [address] [place] [address] Care Team Providers Care Log Chain Worker Name Role Phone Carmen Gong MD Primary [...] week. 40 tablet 1 025 2025 Active Diclofenac Sodium 1 % gel Apply 1 Application topically if needed in the morning, at noon, in the evening, and at bedtime (pain). 150 g 3 Active tiZANidine (Zanaflex) 2 MG tablet Take 1 tablet (2 mg) by mouth if needed in the morning and at bedtime for muscle spasms for up to 15 days. 30 tablet Active pravastatin (Pravachol) 20 MG tablet TAKE 1 TABLET BY MOUTH EVERY DAY 90 tablet Active pravastatin (Pravachol) 20 MG tablet Take 1 tablet (20 mg) by mouth Once per day. 30 tablet 2 025 2024 Discontinued acetaminophen (Tylenol 8 Hour) 650 MG ER tablet Take 1 tablet (650 mg) by mouth every 8 (eight) hours if needed for mild pain. Do not crush, chew, or split. 40 tablet 1 025 2024 predniSONE (Deltasone) 20 MG tablet Take 1 [...] hyperparathyroidism 08/22/2022 Stage 3a chronic kidney disease ([facility]/HCC) 2021 Steatosis of liver 11/19/2017 Kidney stone 10/25/2017 Essential hypertension 08/30/2015 Hyperlipidemia 08/30/2015 Obesity, morbid 08/30/2015 Osteopenia 08/30/2015 Resolved Problems Problem Noted Date Diagnosed Date Resolved Date Influenza 09/18/2023 03/02/2024 Assessment & Plan (09/18/2023 2:25 PM EST): Pt w respiratory symptoms, no alarming symptoms VS wnl I called today her backend python developer and last 12/2022 Cr 1.3 GFR 44 -supportive tx advised -Tamiflu 30 mg BID by last GFR -alarm signs and symptoms advised Mixed anxiety depressive disorder 09/17/2023 023 03/02/2024 Epigastric pain 07/30/2017 03/02/2024 Allergic rhinitis 08/30/2015 03/02/2024 Indigestion 08/30/2015 03/02/2024 Primary osteoarthritis invol ving multiple joints 08/30/2015 03/02/2024 Encounters Date Type Department Care Team Description 06/28/2025 Telephone [facility] [address] [place] [address] Carmen Gong MD Results 06/28/2025 Orders Only [facility] [address] [place] [address] Carmen Gong MD Dry cough (Primary Dx); Rheumatoid arthritis with positive rheumatoid factor, involving unspecified site (CMS/HCC) (HCC) 06/18/2025 Refill [facility] [address] [place] [address] Carmen Gong MD 06/15/2025 11:00 AM EDT Office Visit [facility] [address] [place] [address] Alejandrina Bolanos DO Acute hip pain, left (Primary Dx) 06/15/2025 Travel 06/04/2025 Orders Only [facility] [address] [place] [address] Carmne Gong MD Steatosis of liver 06/04/2025 Results Follow-Up [facility] [address] [place] [address] Carmen Gong MD Lipid Panel, Standard 06/03/2025 Refill [facility] [address] [place] [address] Gricelda Lubin MD Steatosis of liver 06/01/2025 9:45 AM EDT Office Visit [facility] [address] [place] [address] Carmen Gong MD Ankle pain, unspecified chronicity, unspecified laterality (Primary Dx); Chronic kidney disease, stage 3b (CMS/HCC); Essential hypertension; Obesity, morbid (CMS/HCC); Stage 3a chronic kidney disease (CMS/HCC); Health care maintenance 06/01/2025 Orders Only [facility] [address] [place] [address] Carmen Gong MD Enlarged thoracic aorta (CMS/HCC) (Primary Dx) 06/01/2025 Orders Only [facility] [address] [place] [address] Carmen Gong MD Enlarged thoracic aorta ([facility]/HCC) (Primary Dx) 06/01/2025 Results Follow-Up [facility] [address] [place] [address] Carmen Gong MD XR Chest 2 Views 06/01/2025 Travel 05/18/2025 Telephone [facility] [address] [place] [address] Carmen Gong MD No Show 05/18/2025 Telephone [facility] [address] [place] [address] Carmen Gong MD Appointment Request 05/17/2025 Telephone [facility] [address] [place], [place] [phone] Carmen Gong MD chartprep from Last 3 [...] AM EDT Narrative 06/15/2025 12:15 PM EDT [address] XRay Report Signed Patient: Niesha Mead MR#: [id number] : 1945 Acct:[id number] Age/Sex: 80 / F ADM Date: 06/15/25 Loc: HANH Attending Dr: Alejandrina Bolanos DO Ordering Physician: Alejandrina Bolanos DO Date of Service: 06/15/25 Procedure(s): XR hip LT min 2V Accession Number(s): [id number] cc: Alejandrina Bolanos DO Reason for Exam: [...] 06/15/25 1204 DD/ 1150 TD/TT: 06/15/25 1152 Lumber Driver: Procedure Note Donotuseinterpreter, Image - 06/15/[address] [address] XRay Report Signed Patient: Niesha MeadMR#: [id number] : 5Acct:[id number] Age/Sex: 80 / FADM Date: 06/15/25 Loc: LILLYCJb Attending Dr: Alejandrina Bolanos DO Ordering Physician: Alejandrina Bolanos DO Date of Service: 06/15/25 Procedure(s): XR hip LT min 2V Accession Number(s): [id number] cc: Alejandrina Bolanos DO Reason for Exam: [...] 06/15/25 1204 DD/ 1150 TD/TT: 06/15/25 1152 Lumber Driver: Alejandrina Bolanos DO IMG XR PROCEDURES Final Resu lt * Vitamin D, 25-Hydroxy, Total, Immunoassay (06/04/2025 9:03 AM EDT) Vitamin D 25-OH Total 49.3 >30 ng/mL [facility] Comment: Health Based Reference Values*< 20 ng/mL [id number] ng/mL Insufficient> 30 ng/mL Sufficient*Laura CALLES. N [...] ORDERAB LES Final Result Performing Organization Address City/[facility]/ZIP Co de Phone Number [facility] [address] [place] [phone] * (ABNORMAL) Vitamin B12 (Cobalamin) and Folate Panel, Serum (06/04/2025 9:03 AM EDT) Vitamin B12 1,876(H) 200 - 900 pg/mL [facility] Comment:NORMAL 200-900 PG/ML INDETERMINATE 160-199 PG/ML DEFICIENT < 160 PG/ML Folate 16.1 > or = 4.0 ng/mL [facility] Comment:Reference Values:> o r = 4.0 ng/mL< 4.0 ng/mL suggests folate deficiency Methotrexate, aminopterin and folinic acid(leucovorin) are chemotherapeutic agents whose molecularstructures are similar to folate; therefore, the Architectfolate assay cannot be used for patients using these drugs. Blood 06/04/2025 9:03 AM EDT 06/04/2025 11:04 AM EDT us Carmen Cadena MD LAB BLOOD ORDERAB LES Final Result Performing Organization Address [facility] Co de Phone Number [facility] [address] [place] [phone] * TSH with Reflex to Free T4 (06/04/2025 9:03 AM EDT) TSH reflex Free T4 1.27 0.32 - 4.0 uIU/mL [facility] Blood 06/04/2025 9:03 AM EDT 06/04/2025 11:11 AM EDT us Carmen Cadena MD LAB BLOOD ORDERAB LES Final Result Performing Organization Address [facility] Co de Phone Number [facility] [address] [place] [phone] * Albumin, Random Urine W/Creatinine (06/04/2025 9:03 AM EDT) Creatinine, Urine 254.22 mg/dL [facility] Microalbumin Urine 14.0 mg/L [facility] Microalbum Creatinine Ratio Ur 5.5 <30 ug/mg cr [facility] Comment:Albumin/Creatinine R atio Reference Ranges: Normal: < 30 ug/mg creatinine Microalbuminuria: 30 - 300 ug/mg creatinineClinical Albuminuria: > 300 ug/mg creatinine Urine (Urine, Random) 06/04/2025 9:03 AM EDT 06/04/2025 11:20 AM EDT us Carmen Cadena MD LAB URINE ORDERAB LES Final Result Performing Organization Address [facility] Co de Phone Number [facility] [address] [place] [phone] * (ABNORMAL) Urinalysis Complete (06/04/2025 9:03 AM EDT) Color Urine Yellow [facility] Appearance Urine Clear [facility] PH 7.0 5.0 - 9.0 [facility] Glucose Urine UA Negative Negative mg/dL [facility] Urine Blood Negative Negative [facility] Specific Z[place] - Urine 1.020 1.005 - 1.025 [facility] Urine Protein Trace Neg-Trace mg/dL [facility] Urine Ketones Trace Negative mg/dL [facility] Nitrite Urine Negative Negative [facility] Leukocyte Esterase Urine Large (3+)(A) Negative [facility] RBC Urine 0-2 0 - 2 /HPF [facility] Urine WBC 0-5 0 - 5 /HPF [facility] Urine Squamous Epithelial Cell 6-10 0 - 2 /HPF [facility] Urine Bacteria Trace None Seen [facility] Hyaline Casts, Urine 0-2 0 - 2 /LPF [facility] Urine (Urine, Random) 06/04/2025 9:03 AM EDT 06/04/2025 11:20 AM EDT us Carmen Cadena MD LAB URINE ORDERAB LES Final Result [facility] [address] [place] [phone] * (ABNORMAL) CBC (06/04/2025 9:03 AM EDT) White Blood Count 5.0 4.8 - 10.8 X10*3/uL [facility] Red Blood Count 3.64(L) 4.20 - 5.50 X10*6/uL [facility] Hemoglobin 10.7(L) 12.0 - 16.0 g/dl [facility] Hematocrit 33.1(L) 37.0 - 47.0 % [facility] Mean Corpuscular Volume 90.9 80.0 - 98.0 fL [facility] Mean Corpuscular Hemoglobin 29.4 27.0 - 33.0 pg [facility] Mean Corpuscular HGB Conc 32.3 31.0 - 35.0 g/dl [facility] Red Cell Distribution Width 13.2 11.0 - 16.0 % [facility] Platelet Count 194 160 - 400 X10*3/uL [facility] Mean Platelet Volume 12.2 9.4 - 12.3 fL [facility] NRBC Pct Auto 0.0 0.0 - 0.2 /100WBC [facility] NRBC Abs Auto 0.000 0.0 - 0.012 X10*3/uL [facility] Blood Venous blood specimen / Unknown 06/04/2025 9:03 AM EDT 06/04/2025 11:11 AM EDT Carmen Cadena MD LAB BLOOD ORDERAB LES Final Result Performing Organization Address [facility]/ZIP Co de Phone Number [facility] [address] [place] [phone] * (ABNORMAL) Uric acid (06/04/2025 9:03 AM EDT) Uric Acid 8.2(H) 2.4 - 5.7 mg/dL [facility] Blood Venous blood specimen / Unknown 06/04/2025 9:03 AM EDT 06/04/2025 11:11 AM EDT Carmen Cadena MD LAB BLOOD ORDERAB LES Final Result Performing Organization Address [facility] Co de Phone Number [facility] [address] [place] [phone] * Hemoglobin A1c (06/04/2025 9:03 AM EDT) Hemoglobin A1c 5.5 <6.0 % [facility] Comment:Hemoglobin A1C Refer ence Range Adults: 4.8 - 6.0 % Non diabetic: < 6.0 % Goal: < 7.0 %Additional Action Suggested: > 8.0 %Note: Hemoglobin A1c results are invalid for patients with abnormal amounts of HbF. Blood transfusions may impact the HbA1c concentration in the patient sample. Estimated Average Glucose 111 mg/dL [facility] Comment:eAG = Estimated ave rage glucose which is %A1C expressed asaverage glucose, using the formula of the D5J-ThrrbdbBoincso Glucose study (ADAG), Diabetes Care, Vol.31,#8,Apr. 2007 Blood Venous blood specimen / Unknown 06/04/2025 9:03 AM EDT 06/04/2025 11:11 AM EDT Carmen Cadena MD LAB BLOOD ORDERAB LES Final Result [facility] [address] [place] [phone] * (ABNORMAL) Lipid Panel, Standard (06/04/2025 9:03 AM EDT) Triglycerides 173(H) <150 mg/dL [facility] Comment:Desirable Triglyceri de: less than 150 mg/dLBorderline High Triglyceride 150-199 mg/dLHigh Triglyceride: 200-499 mg/dLVery High Triglyceride: greater than or equal to 5OO mg/dL Cholesterol 227(H) <200 mg/dL [facility] Comment:Desirable Cholestero l: less than 200 mg/dLBorderline High Cholesterol: 200-239 mg/dLHigh Cholesterol: greater than 239 mg/dL LDL Cholesterol Calculated 154(H) <100 mg/dL [facility] Comment:Desirable LDL: less than 100 mg/dLNear Optimal/Above Optimal LDL: 110- 129 mg/dLBorderline High LDL: 130-159 mg/dLHigh LDL: 160-189 mg/dLVery High LDL: greater than or equal to 190 mg/dL HDL Cholesterol 39(L) >40 mg/dL [facility] Comment:Desirable HDL: great er than 40 mg/dL Note: This HDL assay may give artificially low results in patients with liver disease. Blood Venous blood specimen / Unknown 06/04/2025 9:03 AM EDT 06/04/2025 11:11 AM EDT us Carmen Cadena MD LAB BLOOD ORDERAB LES Final Result [facility] [address] [place] [phone] * (ABNORMAL) Comprehensive Metabolic Panel (06/04/2025 9:03 AM EDT) Sodium 140 135 - 145 mmol/L [facility] Potassium 3.8 3.3 - 5.1 mmol/L [facility] Chloride 103 96 - 108 mmol/L [facility] Carbon Dioxide 31(H) 22 - 29 mmol/L [facility] Anion Gap 10(L) 12 - 20 [facility] Urea Nitrogen (BUN) 21(H) 9 - 16 mg/dL [facility] Creatinine, Serum 1.29 0.5 - 1.4 mg/dL [facility] Estimated Glomerular Filt Rate 40 [facility] Comment:Chronic Kidney Disea se: Estimated GFR < 60 mL/min/[id number] Kidney Disease: Estimated GFR < 15 mL/min/1.73m2 Glucose 86 60 - 115 mg/dL [facility] Calcium 9.4 8.4 - 10.2 mg/dL [facility] Bilirubin, Total 0.4 0.0 - 1.0 mg/dL [facility] Aspartate Amino Transferase 34(H) 5 - 31 U/L [facility] Alanine Aminotransferase 16 0 - 31 U/L [facility] Total Protein 7.6 6.5 - 8.0 g/dL [facility] Albumin Level 4.2 3.5 - 5.0 g/dL [facility] Alkaline Phosphatase 75 39 - 117 U/L [facility] Blood Venous blood specimen / Unknown 06/04/2025 9:03 AM EDT 06/04/2025 11:11 AM EDT us Carmen Cadena MD LAB BLOOD ORDERAB LES Final Result Performing Organization Address City/State/[facility] Co de Phone Number [facility] [address] [place] [phone] * XR Chest 2 Views (06/01/2025 12:50 PM EDT) Anatomical Region Laterality Modality Chest Radiographic Jessy ging 06/01/2025 12:5 0 PM EDT Narrative 06/01/2025 1:04 PM EDT [facility] [address] [place] [address] XRay Report Signed Patient: Niesha Mead MR#: [id number] : 1945 Acct:[id number] Age/Sex: 80 / F ADM Date: 06/01/25 Loc: ZORANX Attending Dr: Carmen Cadena MD Ordering Physician: Carmen Gong MD Date of Service: 06/01/25 Procedure(s): XR chest 2V Accession Number(s): [id number] cc: Carmen Gong MD Reason for Exam: [...] 06/01/25 1301 DD/ 1250 TD/TT: 06/01/25 1255 Lumber Driver: Procedure Note Donotuseinterpreter, Image - 06/01/2025 [place] [address] XRay Report Signed Patient: Niesha Mead#: [id number] : 5Acct:[id number] Age/Sex: 80 / FADM Date: 06/01/25 Loc: ZORANX Attending Dr: Carmen Cadena MD Ordering Physician: Carmen Gong MD Date of Service: 06/01/25 Procedure(s): XR chest 2V Accession Number(s): [id number] cc: Carmen Gong MD Reason for Exam: [...] 06/01/25 1301 DD/ 1250 TD/TT: 06/01/25 1255 Lumber Driver: us Carmen Cadena MD IMG XR PROCEDURES Final Result * XR Ankle 3+ Views Right (06/01/2025 11:14 AM EDT) Anatomical Region Laterality Modality Lower Extremities, Ankle Right Radiogr aphic Imaging 06/01/2025 11:1 4 AM EDT Narrative 06/01/2025 1:07 [place] [address] XRay Report Signed Patient: Niesha Mead MR#: [id number] : 1945 Acct:[id number] Age/Sex: 80 / F ADM Date: 06/01/25 Loc: HO.HHCX Attending Dr: Carmen Cadena MD Ordering Physician: Carmen Gong MD Date of Service: 06/01/25 Procedure(s): XR ankle RT min 3V Accession Number(s): [id number] cc: Carmen Gong MD Reason for Exam: [...] 06/01/25 1304 DD/ 1114 TD/TT: 06/01/25 1255 Lumber Driver: Procedure Note Donotuseinterpreter, Image - 06/01/2025 [place] [address] XRay Report Signed Patient: Niesha MeadMR#: [id number] : 5Acct:[id number] Age/Sex: 80 / FADM Date: 06/01/25 Loc: HO.HHCX Attending Dr: Carmen Cadena MD Ordering Physician: Carmen Gong MD Date of Service: 06/01/25 Procedure(s): XR ankle RT min 3V Accession Number(s): [id number] cc: Carmen Gong MD Reason for Exam: [...] 06/01/25 1304 DD/ 1114 TD/TT: 06/01/25 1255 Lumber Driver: us Carmen Cadena MD IMG XR PROCEDURES Final Result * ECG 12 lead (04/24/2025 8:16 PM EDT) Narrative Carmen Gong MD - 04/24/2025 8:16 PM EDT -EKG today for baseline 02/2025 HR 63, QTc 475, NSR ,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
--- OUTSIDE RECORDS SUMMARY | 2025-07-17 10:46 | XMS_ITS | Encounter Summary ---
Author Organization [facility] [place], Address PO [facility] [address] [place] [address] Phone Care Team Providers Care Geospatial Technologist Name Role Phone Carmen Smith Primary Care Provid er Encounter Details Date Type Department Care Team ([facility] Contact Info) Description 07/11/2024 Documentation Only [facility] [place] [address] Lenore LOPEZ [address] [place] [phone] Emmanuelle Melendez [address] [place] [address] Social History Tobacco Use [...] Services Of [facility] [address] [place] [address] Kamran Escobar MD [address] [place] [address] documented as of this encounter Visit Diagnoses Not on filedocumented in this encounter Care Teams Geospatial Technologist Relationship Specialty Start Date End Date Carmen Smith [address] [place] [phone] PCP - General 05/22/25 documented as of this encounter
--- OUTSIDE RECORDS SUMMARY | 2025-07-17 10:46 | XMS_ITS | Encounter Summary ---
Author Organization [facility] [place], Address [address] [place] [address] Phone Care Team Providers Care Database Developer Name Role Phone Carmen Smith Primary Care Provid er Encounter Details Date Type Department Care Team (Late Contact Info) Description 10/01/2023 Documentation Only [facility] [place] [address] Lenore LOPEZ [address] [place] [address] Rl Swenson PA [address] [place] [address] Social History Tobacco Use Types [...] Visit [facility] [address] [place] [address] Kamran Escobar MD [address] [facility] [address] [place] [address] documented as of this encounter Visit Diagnoses Not on filedocumented in this encounter Care Teams Database Developer Relationship Specialty Start Date End Date Carmen Smith [address] [place] [phone] PCP - General 05/22/25 documented as of this encounter
--- OUTSIDE RECORDS SUMMARY | 2025-07-17 10:46 | XMS_ITS | Encounter Summary ---
Author Organization [facility] [place], Address [address] [facility] [address] [place] [address] Phone Care Team Providers Care Credit Specialist Name Role Phone Carmen Smith Primary Care Provid er Encounter Details Date Type Department Care Team ([facility] Contact Info) Description 06/19/2024 Orders Only [facility] [address] [place] [address] Rl Swenson PA [address] [place] [address] [place] [address] Stage 3b chronic kidney disease [...] [facility] [address] [place] [address] Kamran Escobar MD [address] [place] [address] 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
--- OUTSIDE RECORDS SUMMARY | 2025-07-17 10:46 | XMS_ITS | Encounter Summary ---
Author Organization [facility] [place], Address [address] [facility] [address] [place] [address] Phone Care Team Providers Care Securities Adviser Name Role Phone Carmen Smith Primary Care Provid er Encounter Details Date Type Department Care Team ([facility] Contact Info) Description 08/09/2023 Orders Only [facility] [address] [place] [address] Rl Swenson PA [address] [place] [address] [place] [address] Stage 3b chronic kidney disease [...] Visit [facility] [address] [place] [address] Kamran Escobar MD [address] [place] [address] 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
--- OUTSIDE RECORDS SUMMARY | 2025-07-17 10:46 | XMS_ITS | Clinical Summary ---
Author Organization [facility] [place], Address [address] [place] [address] Phone Care Team Providers Care Wire Stitcher Machine Name Role Phone Carmen Smithela Primary Care [...] [facility] [address] [place] [address] Albino Schmidt MD Renal stone (Primary Dx) 05/28/2025 Office Communication [facility] [address] [place] [address] Nelly Casas [place] 05/25/2025 Orders Only [facility] [address] [place] [address] Nelly Casas [place] Acquired renal cystic disease (Primary Dx); Stage 3b chronic kidney disease (HCC); Hypertensive disorder 05/22/2025 1:30 PM EDT Office Visit [facility] [address] [place] [address] Kamran Escobar MD Stage 3a chronic kidney [...] Visit [facility] [place], [address] [place] [address] Kamran Escobar MD [address] [place] [address] Health Maintenance Due Date Last Done Comments Hepatitis B Vaccine (1 of 3 - Risk 3-dose series) 2005 Influenza Vaccine (#1) 2025 , 09/07/2023, 06/27/2019, Additional history exists Pneumococcal Vaccine: 50+ Years Completed 03/02/2024, 05/15/2016, 08/30/2015, Additional history exists Pneumococcal Vaccine: Peds ( 0 to 5 Years) and At-Risk Patients (6 to 49 Years) Discontinued 03/02/2024, 05/15/2016, 08/30/2015, Additional history exists Insurance [facility] ([id number]) Medicaid [place] Care Teams Wire Stitcher Machine Relationship Specialty Start Date End Date Carmen Smith [address] [place] [phone] PCP - General 05/22/25
--- OUTSIDE RECORDS SUMMARY | 2025-07-17 10:46 | XMS_ITS | Encounter Summary ---
Author Organization [facility] [place], Address [address] [place] [address] Phone Care Team Providers Care Quarry Manager Name Role Phone Carmen Smith Primary Care Provid er Encounter Details Date Type Department Care Team ([facility] Contact Info) Description 10/06/2023 Documentation Only [facility] [address] [place] Lenore LOPEZ [address] [place] [phone] Issa Mishra MD [address] [facility] [place] [address] Social History Tobacco Use Types [...] Visit [facility] [address] [facility] [place] [address] Kamran Escobar MD [address] [place] [address] [place] [address] documented as of this encounter Visit Diagnoses Not on filedocumented in this encounter Care Teams Quarry Manager Relationship Specialty Start Date End Date Carmen Smith [address] [place] [phone] PCP - General 05/22/25 documented as of this encounter
--- OUTSIDE RECORDS SUMMARY | 2025-07-17 10:46 | XMS_ITS | Encounter Summary ---
Author Organization [facility] [place], Address PO [facility] [address] [place] [address] Phone Care Team Providers Care Natural Gas Technician Name Role Phone Carmen Smith Primary Care Provid er Encounter Details Date Type Department Care Team ([facility] Contact Info) Description 07/11/2024 Documentation Only [facility] [address] Lenore LOPEZ [address] [place] [phone] Emmanuelle Melendez [address] [place] [address] Social History Tobacco Use Types [...] Visit [facility] [address] [facility] [place] [address] Kamran Escobar MD [address] [facility] [place] [address] documented as of this encounter Visit Diagnoses Not on filedocumented in this encounter Care Teams Natural Gas Technician Relationship Specialty Start Date End Date Carmen Smith [address] [place] [address] PCP - General 05/22/25 documented as of this encounter
== END ==
LOC: HO.CARD 09:27
PROVIDERS: PCP Student in an Organized Health Care Education/Training Program; Visit Provider Internal Medicine
DX: I45.2 Bifascicular block (principal)
CPT/HCPCS: 93306

== ENCOUNTER → 2025-07-17 09:30 | Outpatient (BNV) | payer OTHER, SELFPAY | PROVIDERS: PCP Student in an Organized Health Care Education/Training Program; Visit Provider Internal Medicine | DX: I42.2 Other hypertrophic cardiomyopathy (principal); I45.2 Bifascicular block | CPT/HCPCS: 93306 ==

== ENCOUNTER 2025-07-20 13:07 | Outpatient (REF) | payer OTHER, SELFPAY ==
--- NOTE | ~2025-07-20 | CT_ITS ---
EXAMINATION: CT ANGIOGRAM CHEST CLINICAL INFORMATION: Disorders Of The Arteries, prominent aortic contour on chest x-ray COMPARISON: Chest x-ray from 06/01/2025 TECHNIQUE: Multiple axial images were obtained through the chest after the administration of 70 mL of Omnipaque 350 intravenous contrast. Extensive vascular post-processing including two-dimensional and three-dimensional reformatted images were created and reviewed on an independent workstation. This CT examination was performed using dose optimization techniques as appropriate, variously including the following: *Automated exposure control *Adjustment of mA and/or kV according to patient size (this includes techniques or standardized protocols for targeted exams where dose is matched to indication/reason for exam; i.e. extremities or head) *Use of iterative reconstruction technique FINDINGS: LUNGS: The lungs are clear with no evidence of inflammation or nodules. MEDIASTINUM: There is no aneurysm or dissection of the thoracic aorta. It is mildly tortuous. There is mild multifocal calcifications in the arch. The arch demonstrates a normal three-vessel branching pattern. PLEURA: There is no pleural effusion. No pleural mass or thickening. AXILLA: No lymphadenopathy. UPPER ABDOMEN: The gallbladder surgically absent and there is associated mild intrahepatic bile duct dilation.. There are clips in the gallbladder fossa. Bilateral simple renal cysts are present. There is renal cortical thinning. OSSEOUS STRUCTURES: Unremarkable. CT/CT angio chest aorta IMPRESSION: No thoracic aortic abnormality. There is bilateral renal cortical thinning. Fleischner guidelines were followed. Electronically signed by: Juan Kent MD 07/20/2025 02:02 PM EDT
[2025-07-20] MEDS: iohexoL 350 MG/ML 100 ML INFUS..BTL IV (13:46)
--- OUTSIDE RECORDS SUMMARY | 2025-07-20 14:13 | XMS_ITS ---
Author Name Papo RICHARDS, MRS. Moore Address [address] [place] [address] Phone [phone] Organization [facility] Care Team Providers Care Steam Finisher Name Role Phone Teresa Barros Unavailable [phone] Reason for Referral Not Available Allergies, adverse [...] organ damage (headache, vision changes, chest pain)/ Jumpbasting Armhole Baster on proper BP monitoring technique and reassess/ [...] disorder), recurrent episode, mild Active 2023-07-08 N/A mirtazapinehas g ood support system at home with her [...] Assessment - NO pain present (1126F) [facility] [place] Pain Assessment - NO pain present (1126F) [facility] [place] Pain Assessment - NO pain present (1126F) [facility] [place] Pain Assessment - NO pain present (1126F) [facility] [place] Pain Assessment - NO pain present (1126F) [facility] [place] Pain Assessment - NO pain present (1126F) [facility] [place] Pain Assessment - NO pain present (1126F) [facility] [place] Anxiety disorder, unspecifiedChronic kidney disease, stage 3b Pain Assessment - NO pain present (1126F) [facility] [place] Pain Assessment - NO pain present (1126F) [facility] [place] Estab. patient 30-39min; chronic exacerbation, 2 stable chronic or 1 acute illness add add modifier 95 for video, (do not use for phone, instead use 26248-43) [facility] [place]2023 Hypertensive chronic kidney disease w [...] (do not use for phone, instead use 21582-66) [facility] [place] Estab. patient 30-39min; chronic exacerbation, 2 stable chronic or 1 acute illness add add modifier 95 for video, (do not use for phone, instead use 37632-41) [facility] [place] Estab. patient 30-39min; chronic exacerbation, 2 stable chronic or 1 acute illness add add modifier 95 for video, (do not use for phone, instead use 20114-12) [facility] [place] Estab. patient 30-39min; chronic exacerbation, 2 stable chronic or 1 acute illness add add modifier 95 for video, (do not use for phone, instead use 26650-05) [facility] [place] Estab. patient 30-39min; chronic exacerbation, 2 stable chronic or 1 acute illness add add modifier 95 for video, (do not use for phone, instead use 59398-27) [facility] [place] Estab. patient 30-39min; chronic exacerbation, 2 stable chronic or 1 acute illness add add modifier 95 for video, (do not use for phone, instead use 68301-45) [facility] [place] Estab. patient 30-39min; chronic exacerbation, 2 stable chronic or 1 acute illness add add modifier 95 for video, (do not use for phone, instead use 92333-74) [facility] [place] 07[place]2023 Estab. patient 30-39min; chronic exacerbation, 2 stable chronic or 1 acute illness add add modifier 95 for video, (do not use for phone, instead use 50935-69) [facility] [place] 07/[place]/2023 Unlisted special service; to be used for medical record reviews and reporting CPTII codes (1111F, etc) [facility] [place] 02/11/2024 Other specified health statu s Unlisted special service; to be used for medical record reviews and reporting CPTII codes (1111F, etc) [facility] [place] 02/[place]/2024 Unlisted special service; to be used for medical record reviews and reporting CPTII codes (1111F, etc) [facility] [place] 02[place] Estab. patient 30-39min; chronic exacerbation, 2 stable chronic or 1 acute illness add add modifier 95 for video, (do not use for phone, instead use 71319-72) [facility] [place] 04/07/2024 Anxiety disorder, unspecifiedSedative, hypnotic, or anxiolytic [...] (do not use for phone, instead use 57161-79) [facility] [place] 04[place] Estab. patient 30-39min; chronic exacerbation, 2 stable chronic or 1 acute illness add add modifier 95 for video, (do not use for phone, instead use 42944-31) [facility] [place] 04[place]07/20[place] Estab. patient 30-39min; chronic exacerbation, 2 stable chronic or 1 acute illness add add modifier 95 for video, (do not use for phone, instead use 86279-28) [facility] [place] 04[place]07/20[place] Estab. patient 30-39min; chronic exacerbation, 2 stable chronic or 1 acute illness add add modifier 95 for video, (do not use for phone, instead use 01417-50) [facility] [place] 04/07/20[place] Estab. patient 30-39min; chronic exacerbation, 2 stable chronic or 1 acute illness add add modifier 95 for video, (do not use for phone, instead use 04585-86) [facility] [place] 04/07/20[place] Estab. patient 30-39min; chronic exacerbation, 2 stable chronic or 1 acute illness add add modifier 95 for video, (do not use for phone, instead use 28017-30) [facility] [place] 04/07/20[place] Estab. patient 30-39min; chronic exacerbation, 2 stable chronic or 1 acute illness add add modifier 95 for video, (do not use for phone, instead use 90745-88) [facility] [place] Estab. patient 20-29min; 1 stable chronic or 2 minor; add add modifier 95 for video, modifier [address] [facility] [place] 12/27/2024 Anxiety disorder, unspecifiedSedative, hypnotic, or anxiolytic [...] 95 for video, modifier 93 for phone [facility] [place] Estab. patient 20-29min; 1 stable chronic or 2 minor; add add modifier 95 for video, modifier 93 for phone [facility] [place] 12/27/20[place] Estab. patient 20-29min; 1 stable chronic or 2 minor; add add modifier 95 for video, modifier 93 for phone [facility] [place] 12/27/2024 Estab. patient 20-29min; 1 stable chronic or 2 minor; add add modifier 95 for video, modifier 93 for phone [facility] [place] 12/27/2024 Estab. patient 20-29min; 1 stable chronic or 2 minor; add add modifier 95 for video, modifier 93 for phone [facility] [place] 12/27/2024 Estab. patient 20-29min; 1 stable chronic or 2 minor; add add modifier 95 for video, modifier 93 for phone [facility] [place] 12/27/2024 Estab. patient 20-29min; 1 stable chronic or 2 minor; add add modifier 95 for video, modifier 93 for phone [facility] [place] 12/27/2024 Estab. patient 20-29min; 1 stable chronic or 2 minor; add add modifier 95 for video, modifier 93 for phone [facility] [place] 12/27/2024 Vital Signs Date of Collection Vitals [...] tive Time Current Smoking Status Never smoker 2025-06-22 1 Sex Female History of Procedures Procedures Service [...] (do not use for phone, instead use 17693-91) 03937 2022-07-15 No Data Available No Data Availa ble SBP < 130 (3074F) 3074F 2022-07-15 No Data Available No Data Available DBP <80 (3078F) 3078F 2022-07-15 No Data Available No Data Available Estab. patient 30-39min; chronic exacerbation, 2 stable chronic or 1 acute illness add add modifier 95 for video, (do not use for phone, instead use 81547-19) 36984 2023-07-08 No Data Available No Data Availa [...] reviews and reporting CPTII codes (1111F, etc) 18346 2024-02-11 No Data Available No Data Availa ble SBP < 130 (3074F) 3074F 2024-02-11 No Data Available No Data Available DBP <80 (3078F) 3078F 2024-02-11 No Data Available No Data Available Estab. patient 30-39min; chronic exacerbation, 2 stable chronic or 1 acute illness add add modifier 95 for video, (do not use for phone, instead use 04949-33) 41671 2024-04-07 No Data Available No Data Availa [...] 95 for video, modifier 93 for phone 28059 2024-12-27 No Data Available No Data Availa [...] Category Effective Dates Ambulates with cane. 2023-07-08 HUMANITIES DEPARTMENT CHAIR coming in daily 2023-07-08 Cognition Status: Oriented [...] modifier 95Continue to see PCP. Follow-up with [facility] as [...] of grandchildren that visit hersad burden during xmas holiday; as her son during xmas04/07/24 : [...] organ damage (headache, vision changes, chest pain)/ Jumpbasting Armhole Baster on proper BP monitoring technique and reassess/ [...] organ damage (headache, vision changes, chest pain)/ Jumpbasting Armhole Baster on proper BP monitoring technique and reassess/ [...] Health Concerns Date Concern 2024-12-27 Visit completed usin g audio/video.Patient/Guardian agreed to visit via telehealth. Today, [...] discussedDo you have a Durable Power of Regulatory Affairs Intern for Healthcare, or Healthcare Proxy Or Guardianship? SELECTIf so, Who? Vic Gastelum you have a written Advance Directive? Has Advance DirectiveOther details of discussion:Today's plan: Advised patient to discuss wishes with [id number] : AD or surrogate was documented in the medical record.
--- OUTSIDE RECORDS SUMMARY | 2025-07-20 14:14 | XMS_ITS | Encounter Summary ---
Author Organization [facility] [place], Address PO [facility] [address] [place] [address] Phone Care Team Providers Care Delivery Analyst Name Role Phone Carmen Smith Primary Care Provid er Encounter Details Date Type Department Care Team ([facility] Contact Info) Description 08/07/2020 Orders Only [facility] [place] [address] [place] [phone] Cricket Mcghee MD Renal stone; Acquired renal [...] Upcoming Encounters Date Type Department Care Team ([facility] Contact Info) Description 09/11/2025 10:30 AM EST Office Visit [facility] [place], [address] [facility] [place] [phone] Kamran Escobar MD [address] [facility] 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
--- OUTSIDE RECORDS SUMMARY | 2025-07-20 14:14 | XMS_ITS | Encounter Summary ---
Author Organization [facility] [place], Address PO [facility] [address] [place] [address] Phone Care Team Providers Care Bush Hog Operator Name Role Phone Carmen Smith Primary Care Provid er Encounter Details Date Type Department Care Team ([facility] Contact Info) Description 06/19/2024 Orders Only [facility] [address] [place] [address] Rl Swenson PA [address] [place] [address] [place] [address] Stage 3b chronic kidney disease [...] Visit [facility] [address] [place] [address] Kamran Escobar MD [address] [place] [address] 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
--- OUTSIDE RECORDS SUMMARY | 2025-07-20 14:14 | XMS_ITS | Clinical Summary ---
Author Organization [facility] [place], Address [address] [place] [address] Phone Care Team Providers Care Flight Test Mechanic Name Role Phone Carmen Smithela Primary Care [...] Encounter [facility] [address] [place] [address] Albino Schmidt MD Renal stone (Primary Dx) 05/25/2025 Orders Only [facility] [address] [place] [address] Nelly Casas [place] Acquired renal cystic disease (Primary Dx); Stage 3b chronic kidney disease (HCC); Hypertensive disorder 05/22/2025 1:30 PM EDT Office Visit [facility] [address] [place] [address] Kamran Escobar MD Stage 3a chronic kidney [...] Visit [facility] [address] [place] [phone] Karman Escobar MD [address] [place] [address] [place] [phone] Health Maintenance Due Date Last Done Comments Hepatitis B Vaccine (1 of 3 - Risk 3-dose series) 2005 Influenza Vaccine (#1) 2025 , 09/07/2023, 06/27/2019, Additional history exists Pneumococcal Vaccine: 50+ Years Completed 03/02/2024, 05/15/2016, 08/30/2015, Additional history exists Pneumococcal Vaccine: Peds ( 0 to 5 Years) and At-Risk Patients (6 to 49 Years) Discontinued 03/02/2024, 05/15/2016, 08/30/2015, Additional history exists Insurance [facility] ([id number]) Medicaid [place] Care Teams Flight Test Mechanic Relationship Specialty Start Date End Date Carmen Smith [address] [place] [address] [phone] PCP - General 05/22/25
--- OUTSIDE RECORDS SUMMARY | 2025-07-20 14:14 | XMS_ITS | Encounter Summary ---
Author Organization [facility] [place], Address PO [facility] [address] [place] [address] Phone Care Team Providers Care Director Of Solutions Architecture Name Role Phone Carmen Smith Primary Care Provid er Encounter Details Date Type Department Care Team ([facility] Contact Info) Description 07/11/2024 Documentation Only [facility] [place] [address] Lenore LOPEZ [address] [place] [phone] Emmanuelle Melendez [address] [place] [address] Social History Tobacco Use Types [...] Services Of [facility] [address] [facility] [place] [address] Kamran Escobar MD [address] [facility] [address] documented as of this encounter Visit Diagnoses Not on filedocumented in this encounter Care Teams Director Of Solutions Architecture Relationship Specialty Start Date End Date Carmen Smith [address] [place] [phone] PCP - General 05/22/25 documented as of this encounter
--- OUTSIDE RECORDS SUMMARY | 2025-07-20 14:14 | XMS_ITS | Encounter Summary ---
Author Organization [facility] [place], Address PO [facility] [address] [place] [address] Phone Care Team Providers Care Enrober Name Role Phone Carmen Smith Primary Care Provid er Encounter Details Date Type Department Care Team ([facility] Contact Info) Description 07/11/2024 Documentation Only [facility] [place] [address] Lenore LOPEZ [address] [place] [phone] Emmanuelle Melendez [address] [place] [address] Social History Tobacco Use Types [...] Visit [facility] [address] [facility] [place] [address] Kamran Escobar MD [address] [facility] [place] [address] documented as of this encounter Visit Diagnoses Not on filedocumented in this encounter Care Teams Enrober Relationship Specialty Start Date End Date Carmen Smith [address] [place] [phone] PCP - General 05/22/25 documented as of this encounter
--- OUTSIDE RECORDS SUMMARY | 2025-07-20 14:14 | XMS_ITS | Encounter Summary ---
Author Organization [facility] [place], Address [address] [place] [address] Phone Care Team Providers Care Corporate Investigator Name Role Phone Carmen Smith Primary Care Provid er Encounter Details Date Type Department Care Team ([facility] Contact Info) Description 10/06/2023 Documentation Only [facility] [place] [address] Lenore LOPEZ [address] [place] [phone] Issa Mishra MD [address] [facility] [place] [address] Social History Tobacco Use Types [...] [facility] [address] [facility] [place] [address] Kamran Escobar MD [address] [place] [address] [place] [address] documented as of this encounter Visit Diagnoses Not on filedocumented in this encounter Care Teams Corporate Investigator Relationship Specialty Start Date End Date Carmen Smith [address] [place] [phone] PCP - General 05/22/25 documented as of this encounter
--- OUTSIDE RECORDS SUMMARY | 2025-07-20 14:14 | XMS_ITS | Encounter Summary ---
Author Organization [facility] [place], Address PO [facility] [address] [place] [address] Phone Care Team Providers Care Safety Companion Name Role Phone Carmen Smith Primary Care Provid er Encounter Details Date Type Department Care Team ([facility] Contact Info) Description 06/29/2022 Documentation Only [facility] [address] [facility] [place] [address] Rl Swenson PA [address] [facility] [address] [place] [address] Social History Tobacco Use Types [...] Visit [facility] [address] [facility] [place] [address] Kamran Escobar MD [address] [facility] [place] [address] documented as of this encounter Visit Diagnoses Not on filedocumented in this encounter Care Teams Safety Companion Relationship Specialty Start Date End Date Carmen Smith [address] [place] [phone] PCP - General 05/22/25 documented as of this encounter
--- OUTSIDE RECORDS SUMMARY | 2025-07-20 14:14 | XMS_ITS | Encounter Summary ---
Author Organization [facility] Address PO [facility] [address] [place] [address] Phone Care Team Providers Care Yarn Wrapper Name Role Phone Carmen Smith Primary Care Provid er Encounter Details Date Type Department Care Team ([facility] Contact Info) Description 01/02/2022 Documentation Only [facility] [address] [place] [place] [address] Issa Mishra MD [address] [facility] [place] [address] Social History Tobacco Use [...] Visit [facility] [address] [place] [place] [address] Kamran Escobar MD [address] [facility] [place] [address] documented as of this encounter Visit Diagnoses Not on filedocumented in this encounter Care Teams Yarn Wrapper Relationship Specialty Start Date End Date Carmen Smith [address] [place] [phone] PCP - General 05/22/25 documented as of this encounter
--- OUTSIDE RECORDS SUMMARY | 2025-07-20 14:14 | XMS_ITS | Encounter Summary ---
Author Organization [facility] [place], Address PO [facility] [address] [place] [address] Phone Care Team Providers Care Customer Care Manager Name Role Phone Carmen Smith Primary Care Provid er Encounter Details Date Type Department Care Team ([facility] Contact Info) Description 07/11/2024 Documentation Only [facility] [place] [address] Lenore LOPEZ [address] [place] [phone] Emmanuelle Melendez [address] [place] [address] Social History Tobacco Use Types [...] Visit [facility] [address] [facility] [place] [address] Kamran Escobar MD [address] [facility] [place] [address] documented as of this encounter Visit Diagnoses Not on filedocumented in this encounter Care Teams Customer Care Manager Relationship Specialty Start Date End Date Carmen Smith [address] [place] [phone] PCP - General 05/22/25 documented as of this encounter
--- OUTSIDE RECORDS SUMMARY | 2025-07-20 14:14 | XMS_ITS | Encounter Summary ---
Author Organization [facility] Address PO [facility] [address] [place] [address] Phone Care Team Providers Care Ict Sales Representative Name Role Phone Carmen Smith Primary Care Provid er Encounter Details Date Type Department Care Team ([facility] [address] [facility] Contact Info) Description 06/26/2022 Documentation Only [facility] [address] [facility] [place] [address] Rl Swenson PA [address] [facility] [place] [address] Social History Tobacco Use Types [...] Visit [facility] [address] [facility] [place] [place] [address] Kamran Escobar MD [address] [facility] [place] [address] documented as of this encounter Visit Diagnoses Not on filedocumented in this encounter Care Teams Ict Sales Representative Relationship Specialty Start Date End Date Carmen Smith [address] [place] [phone] PCP - General 05/22/25 documented as of this encounter
--- OUTSIDE RECORDS SUMMARY | 2025-07-20 14:14 | XMS_ITS | Clinical Summary ---
Author Organization [employer] Address [address] [facility] [address] [place] [address] Care Team Providers Care Hand Leather Trimmer Name Role Phone Carmen Gong MD Primary Care Pro vider Davis Simms Unavailable Allergies Active Allergy Reactions Criticality Noted Date Comments Aspirin 01/26/2017 Other Reaction(s): Stomach upset Ibuprofen 07/06/2013 Other Reaction(s): Stomach upset Lisinopril Cough 12/06/2012 Other reaction(s): Cough Nsaids 10/13/2022 Oxycodone-Acetaminophen 10/13/2022 Tramadol Palpitations Low 12/06/2012 Medications hydrocortisone 2.5 % cream Apply topically every 12 (twelve) hours. 11/13/19 21 Active sennosides (Senokot) 8.6 MG tablet Take 1 tablet by mouth. 06/23/20 19 Active simethicone (Mylicon,Gas-X) 125 MG capsule Take 1 capsule by mouth in the morning and 1 capsule at noon and 1 capsule in the evening and 1 capsule before bedtime. 05/07/20 20 Active LORazepam (Ativan) 0.5 MG tablet Take 0.5 mg by mouth if needed each day. Active mirtazapine (Remeron) 30 MG tablet Take 30 mg by mouth at bedtime. Active lidocaine (Xylocaine) 5 % ointment Apply topically if needed in the morning, at noon, and at bedtime for mild pain or moderate pain. 30 g 06/12/20 24 Active cetirizine (ZyrTEC) 5 MG tablet Take 1 tablet (5 mg) by mouth if needed each day for allergies. 90 tablet 3 11/23/19 25 Active esomeprazole (NexIUM) [address] capsuleIndications :Gastroesophageal reflux disease, unspecified whether esophagitis present TAKE 1 CAPSULE BY MOUTH BEFORE BREAKFAST 90 capsule 02/06/20 25 Active ezetimibe (Zetia) 10 MG tabletIndications: Mixed hyperlipidemia TAKE 1 TABLET BY MOUTH EVERY DAY IN THE MORNING 90 tablet 02/06/20 25 Active cholecalciferol (D3-1000) 25 MCG (1000 UT) capsuleIndications :Steatosis of liver TAKE 1 CAPSULE BY MOUTH EVERY DAY AT BEDTIME 90 capsule 02/14/20 25 Active Calcium Citrate-Vitamin D 315-5 MG-MCG tablet Take 2 tablets by mouth 2 times daily. 360 tablet 03/19/20 25 Active hydroCHLOROthiazid e (HYDRODiuril) 25 MG tablet Take 1 tablet (25 mg) by mouth Once per day. 90 tablet 06/01/20 25 Active cyanocobalamin (Vitamin B-12) 500 MCG tabletIndications: Steatosis of liver Take 1 tablet (500 mcg) by mouth 3 (three) times a week. 40 tablet 1 06/04/20 25 026 Active Diclofenac Sodium 1 % gel Apply 1 Application topically if needed in the morning, at noon, in the evening, and at bedtime (pain). 150 g 3 06/15/20 25 Active tiZANidine (Zanaflex) 2 MG tablet Take 1 tablet (2 mg) by mouth if needed in the morning and at bedtime for muscle spasms for up to 15 days. 30 tablet 06/15/20 25 Active pravastatin (Pravachol) 20 MG tablet TAKE 1 TABLET BY MOUTH EVERY DAY 90 tablet 06/19/20 25 Active acetaminophen (Tylenol 8 Hour) 650 MG ER tablet Take 1 tablet (650 mg) by mouth every 8 (eight) hours if needed for mild pain. Do not crush, chew, or split. 40 tablet 1 06/15/20 25 025 Active Problems Problem Noted Date Diagnosed Date [...] hyperparathyroidism 08/22/2022 Stage 3a chronic kidney disease ([facility]) 2021 Steatosis of liver 11/19/2017 Kidney stone 10/25/2017 Essential hypertension 08/30/2015 Hyperlipidemia 08/30/2015 Obesity, morbid 08/30/2015 Osteopenia 08/30/2015 Resolved Problems Problem Noted Date Diagnosed Date Resolved Date Influenza 09/18/2023 03/02/2024 Assessment & Plan (09/18/2023 2:25 PM EST): Pt w respiratory symptoms, no alarming symptoms VS wnl I called today her roll tester and last 12/2022 Cr 1.3 GFR 44 -supportive tx advised -Tamiflu 30 mg BID by last GFR -alarm signs and symptoms advised Mixed anxiety depressive disorder 09/17/2023 023 03/02/2024 Epigastric pain 07/30/2017 03/02/2024 Allergic rhinitis 08/30/2015 03/02/2024 Indigestion 08/30/2015 03/02/2024 Primary osteoarthritis invol ving multiple joints 08/30/2015 03/02/2024 Encounters Date Type Department Care Team Description 06/28/2025 Telephone [facility] [address] [place] [address] Carmen Gong MD Results 06/28/2025 Orders Only [facility] [address] [place] [address] Carmen Gong MD Dry cough (Primary Dx); Rheumatoid arthritis with positive rheumatoid factor, involving unspecified site ([facility]) ([facility]) 06/18/2025 Refill [facility] [address] [place] [address] Carmen Gong MD 06/15/2025 11:00 AM EDT Office Visit [facility] [address] [place] [address] Alejandrina Bolanos DO Acute hip pain, left (Primary Dx) 06/15/2025 Travel 06/04/2025 Orders Only [facility] [address] [facility] [place] [address] Carmen Gong MD Steatosis of liver 06/04/2025 Results Follow-Up [address] [address] Carmen Gong MD Lipid Panel, Standard 06/03/[address] [address] Gricelda Lubin MD Steatosis of liver 06/01/2025 9:45 AM EDT Office Visit [address] [place] [address] Carmen Gong MD Ankle pain, unspecified chronicity, unspecified laterality (Primary Dx); Chronic kidney disease, stage 3b (CMS/HCC); Essential hypertension; Obesity, morbid (CMS/HCC); Stage 3a chronic kidney disease (CMS/HCC); Health care maintenance 06/01/2025 Orders Only [facility] [place] [address] Carmen Gong MD Enlarged thoracic aorta (CMS/HCC) (Primary Dx) 06/01/2025 Orders Only [address] [address] Carmen Gong MD Enlarged thoracic aorta (CMS/HCC) (Primary Dx) 06/01/2025 Results Follow-Up [facility] [place] [address] Carmen Gong MD XR Chest 2 Views 06/01/2025 Travel 05/18/[address] [address] Carmen Gong MD No Show 05/18/[address] [address] Carmen Gong MD Appointment Request 05/17/2025 Telephone [place] [address] [place] [address] Carmen Gong MD chartprep from Last 3 [...] Screening 06/01/2026 06/01/2025 Lipid Panel 06/04/2030 06/04/2025, 1103/2024, 05/11/2024, Additional history exists DTaP/Tdap/Td Vaccines (3 [...] Procedure Name Priority Date/Time Associated Diagnosis Comments CTA CHEST W AND WO CONTRAST Routine 07/20/2025 1:22 PM EDT XR HIP 2 OR 3 VIEWS LEFT [...] EKG from Last 3 Months Results * CTA Chest w/ and w/o Contrast (07/20/2025 1:22 PM EDT) Anatomical Region Laterality Modality Body, Chest Computed Tomogra phy 07/20/2025 1:22 PM EDT Narrative 07/20/2025 2:05 PM EDT [address] [address] [address] Scan Report Signed Patient: Niesha Mead MR#: [id number] : 1945 Acct:[id number] Age/Sex: 80 / F ADM Date: 07/20/25 Loc: HO.CT Attending Dr: Carmen Cadena MD Ordering Physician: Carmen Gong MD Date of Service: 07/20/25 Procedure(s): CT angio chest aorta Accession Number(s): [id number] cc: Carmen Gong MD Report Number: [id number]: Total DLP = 218.00 mGy-cm Reason for Exam: DISORDERS OF THE ARTERIES EXAMINATION: CT ANGIOGRAM CHEST CLINICAL INFORMATION: Disorders Of The Arteries, prominent aortic contour on chest x-ray COMPARISON: Chest x-ray from 06/01/2025 TECHNIQUE: Multiple axial images were obtained through the chest after the administration of 70 mL of Omnipaque 350 intravenous contrast. Extensive vascular post-processing including two-dimensional and three-dimensional reformatted images were created and reviewed on an independent workstation. This CT examination was performed using dose optimization techniques as appropriate, variously including the following: *Automated exposure control *Adjustment of mA and/or kV according to patient size (this includes techniques or standardized protocols for targeted exams where dose is matched to indication/reason for exam; i.e. extremities or head) *Use of iterative reconstruction technique FINDINGS: LUNGS: The lungs are clear with no evidence of inflammation or nodules. MEDIASTINUM: There is no aneurysm or dissection of the thoracic aorta. It is mildly tortuous. There is mild multifocal calcifications in the arch. The arch demonstrates a normal three-vessel branching pattern. PLEURA: There is no pleural effusion. No pleural mass or thickening. AXILLA: No lymphadenopathy. UPPER ABDOMEN: The gallbladder surgically absent and there is associated mild intrahepatic bile duct dilation.. There are clips in the gallbladder fossa. Bilateral simple renal cysts are present. There is renal cortical thinning. OSSEOUS STRUCTURES: Unremarkable. CT/CT angio chest aorta IMPRESSION: No thoracic aortic abnormality. There is bilateral renal cortical thinning. Fleischner guidelines were followed. Electronically signed by: Juan Kent MD 07/20/2025 02:02 PM EDT Dictated By: Juan Kent MD Signed By: <Electronically signed by Juan Kent MD in OV> 07/20/25 1402 DD/ 1322 TD/TT: 07/20/25 1338 [employer] History Professor: Procedure Note Donotuseinterpreter, Image - 07/20/[address] [address] [address] Scan Report Signed Patient: Martina Mead#: [id number] : 5Acct:[id number] Age/Sex: 80 / FADM Date: 07/20/25 Loc: .CT Attending Dr: Carmen Cadena MD Ordering Physician: Carmen Gong MD Date of Service: 07/20/25 Procedure(s): CT angio chest aorta Accession Number(s): [id number] cc: Carmen Gong MD Report Number: [id number]: Total DLP = 218.00 mGy-cm Reason for Exam: DISORDERS OF THE ARTERIES EXAMINATION: CT ANGIOGRAM CHEST CLINICAL INFORMATION: Disorders Of The Arteries, prominent aortic contour on chest x-ray COMPARISON: Chest x-ray from 06/01/2025 TECHNIQUE: Multiple axial images were obtained through the chest after the administration of 70 mL of Omnipaque 350 intravenous contrast. Extensive vascular post-processing including two-dimensional and three-dimensional reformatted images were created and reviewed on an independent workstation. This CT examination was performed using dose optimization techniques as appropriate, variously including the following: *Automated exposure control *Adjustment of mA and/or kV according to patient size (this includes techniques or standardized protocols for targeted exams where dose is matched to indication/reason for exam; i.e. extremities or head) *Use of iterative reconstruction technique FINDINGS: LUNGS: The lungs are clear with no evidence of inflammation or nodules. MEDIASTINUM: There is no aneurysm or dissection of the thoracic aorta. It is mildly tortuous. There is mild multifocal calcifications in the arch. The arch demonstrates a normal three-vessel branching pattern. PLEURA: There is no pleural effusion. No pleural mass or thickening. AXILLA: No lymphadenopathy. UPPER ABDOMEN: The gallbladder surgically absent and there is associated mild intrahepatic bile duct dilation.. There are clips in the gallbladder fossa. Bilateral simple renal cysts are present. There is renal cortical thinning. OSSEOUS STRUCTURES: Unremarkable. CT/CT angio chest aorta IMPRESSION: No thoracic aortic abnormality. There is bilateral renal cortical thinning. Fleischner guidelines were followed. Electronically signed by: Juan Kent MD 07/20/2025 02:02 PM EDT RP Dictated By: Juan Kent MD Signed By: <Electronically signed by Juan Kent MD in OV> 07/20/25 1402 DD/ 1322 TD/TT: 07/20/25 1338 Church History Professor: [facility] MD IMG CT PROCEDURES Final Result * XR Hip 2 or 3 Views Left (06/15/2025 11:50 AM EDT) Anatomical Region Laterality Modality Lower Extremities, Hip Left Radiograp hic Imaging 06/15/2025 11:5 0 AM EDT Narrative 06/15/2025 12:15 PM EDT [address] [address] XRay Report Signed Patient: Niesha Mead MR#: [id number] : 1945 Acct:[id number] Age/Sex: 80 / F ADM Date: 06/15/25 Loc: HO.HHCX Attending Dr: Alejandrina Bolanos DO Ordering Physician: Alejandrina Bolanos DO Date of Service: 06/15/25 Procedure(s): XR hip LT min 2V Accession Number(s): [id number] cc: Alejandrina Bolanos DO Reason for Exam: [...] 06/15/25 1204 DD/ 1150 TD/TT: 06/15/25 115 [employer] History Professor: Procedure Note Donotuseinterpreter, Image - 06/15/[address] [address] XRay Report Signed Patient: Niesha MeadMR#: [id number] : 5Acct:[id number] Age/Sex: 80 / FADM Date: 06/15/25 Loc: HO.HHCX Attending Dr: Alejandrina Bolanos DO Ordering Physician: Alejandrina Bolanos DO Date of Service: 06/15/25 Procedure(s): XR hip LT min 2V Accession Number(s): [id number] cc: Alejandrina Bolanos DO Reason for Exam: [...] 06/15/25 1204 DD/ 1150 TD/TT: 06/15/25 115 [employer] History Professor: Alejandrina Bolanos DO IMG XR PROCEDURES Final Resu lt * Vitamin D, 25-Hydroxy, Total, Immunoassay (06/04/2025 9:03 AM EDT) Vitamin D 25-OH Total 49.3 >30 ng/mL [facility] Comment: Health Based Reference Values*< 20 ng/mL Tzynrngeu36-22 ng/mL Insufficient> 30 ng/mL Sufficient*Laura CALLES. N [...] LAB BLOOD ORDERAB LES Final Result [facility] [address] [place] [phone] * (ABNORMAL) Vitamin B12 (Cobalamin) and Folate Panel, Serum (06/04/2025 9:03 AM EDT) Vitamin B12 1,876(H) 200 - 900 pg/mL [facility] Comment:NORMAL 200-900 PG/M L INDETERMINATE 160-199 PG/ML DEFICIENT < 160 PG/ML Folate 16.1 > or = 4.0 ng/mL [facility] Comment:Reference Values:> o r = 4.0 ng/mL< 4.0 ng/mL suggests folate deficiency Methotrexate, aminopterin and folinic acid(leucovorin) are chemotherapeutic agents whose molecularstructures are similar to folate; therefore, the Architectfolate assay cannot be used for patients using these drugs. Blood 06/04/2025 9:03 AM EDT 06/04/2025 11:04 AM EDT Carmen Cadena MD LAB BLOOD ORDERAB LES Final Result Performing Organization Address City/[facility] Co de Phone Number [facility] [address] [place] [phone] * TSH with Reflex to Free T4 (06/04/2025 9:03 AM EDT) TSH reflex Free T4 1.27 0.32 - 4.0 uIU/mL [facility] Blood 06/04/2025 9:03 AM EDT 06/04/2025 11:11 AM EDT Carmen Cadena MD LAB BLOOD ORDERAB LES Final Result Performing Organization Address [facility] de Phone Number [facility] [address] [place] [phone] * Albumin, Random Urine W/Creatinine (06/04/2025 9:03 AM EDT) Creatinine, Urine 254.22 mg/dL [facility] Microalbumin Urine 14.0 mg/L [facility] Microalbum Creatinine Ratio Ur 5.5 <30 ug/mg cr [facility] Comment:Albumin/Creatinine R atio Reference Ranges: Normal: < 30 ug/mg creatinine Microalbuminuria: 30 - 300 ug/mg creatinineClinical Albuminuria: > 300 ug/mg creatinine Urine (Urine, Random) 06/04/2025 9:03 AM EDT 06/04/2025 11:20 AM EDT Carmen Cadena MD LAB URINE ORDERAB LES Final Result Performing Organization Address [facility] Co de Phone Number [facility] [address] [place], [place] [phone] * (ABNORMAL) Urinalysis Complete (06/04/2025 9:03 AM EDT) Color Urine Yellow [facility] Appearance Urine Clear [facility] PH 7.0 5.0 - 9.0 [facility] Glucose Urine UA Negative Negative mg/dL [facility] Urine Blood Negative Negative [facility] Specific Hen[place] - Urine 1.020 1.005 - 1.025 [facility] Urine Protein Trace Neg-Trace mg/dL [facility] Urine Ketones Trace Negative mg/dL [facility] Nitrite Urine Negative Negative [facility] Leukocyte Esterase Urine Large (3+)(A) Negative [facility] RBC Urine 0-2 0 - 2 /HPF [facility] Urine WBC 0-5 0 - 5 /HPF [facility] Urine Squamous Epithelial Cell 6-10 0 - 2 /HPF [facility] Urine Bacteria Trace None Seen [facility] Hyaline Casts, Urine 0-2 0 - 2 /LPF [facility] Urine (Urine, Random) 06/04/2025 9:03 AM EDT 06/04/2025 11:20 AM EDT [facility] MD LAB URINE ORDERAB LES Final Result Performing Organization Address [facility]/ZIP Co de Phone Number [facility] [address] [place] [phone] * (ABNORMAL) CBC (06/04/2025 9:03 AM EDT) White Blood Count 5.0 4.8 - 10.8 X10*3/uL [facility] Red Blood Count 3.64(L) 4.20 - 5.50 X10*6/uL [facility] Hemoglobin 10.7(L) 12.0 - 16.0 g/dl [facility] Hematocrit 33.1(L) 37.0 - 47.0 % [facility] Mean Corpuscular Volume 90.9 80.0 - 98.0 fL [facility] Mean Corpuscular Hemoglobin 29.4 27.0 - 33.0 pg [facility] Mean Corpuscular HGB Conc 32.3 31.0 - 35.0 g/dl [facility] Red Cell Distribution Width 13.2 11.0 - 16.0 % [facility] Platelet Count 194 160 - 400 X10*3/uL [facility] Mean Platelet Volume 12.2 9.4 - 12.3 fL [facility] NRBC Pct Auto 0.0 0.0 - 0.2 /100WBC [facility] NRBC Abs Auto 0.000 0.0 - 0.012 X10*3/uL [facility] Blood Venous blood specimen / Unknown 06/04/2025 9:03 AM EDT 06/04/2025 11:11 AM EDT us Carmen Cadena MD LAB BLOOD ORDERAB LES Final Result Performing Organization Address City/[facility]/ZIP Co de Phone Number [facility] [address] [place] [phone] * (ABNORMAL) Uric acid (06/04/2025 9:03 AM EDT) Uric Acid 8.2(H) 2.4 - 5.7 mg/dL [facility] Blood Venous blood specimen / Unknown 06/04/2025 9:03 AM EDT 06/04/2025 11:11 AM EDT us Carmen Cadena MD LAB BLOOD ORDERAB LES Final Result Performing Organization Address City/[facility]/ZIP Co de Phone Number [facility] [address] [place] [phone] * Hemoglobin A1c (06/04/2025 9:03 AM EDT) Hemoglobin A1c 5.5 <6.0 % [facility] Comment:Hemoglobin A1C Refer ence Range Adults: 4.8 - 6.0 % Non diabetic: < 6.0 % Goal: < 7.0 %Additional Action Suggested: > 8.0 %Note: Hemoglobin A1c results are invalid for patients with abnormal amounts of HbF. Blood transfusions may impact the HbA1c concentration in the patient sample. Estimated Average Glucose 111 mg/dL [facility] Comment:eAG = Estimated ave rage glucose which is %A1C expressed asaverage glucose, using the formula of the O4A-UlzosutTqkmfzs Glucose study (ADAG), Diabetes Care, Vol.31,#8,Apr. 2007 Blood Venous blood specimen / Unknown 06/04/2025 9:03 AM EDT 06/04/2025 11:11 AM EDT Carmen Cadena MD LAB BLOOD ORDERAB LES Final Result [facility] [address] [place] [phone] * (ABNORMAL) Lipid Panel, Standard (06/04/2025 9:03 AM EDT) Triglycerides 173(H) <150 mg/dL [facility] Comment:Desirable Triglyceri de: less than 150 mg/dLBorderline High Triglyceride 150-199 mg/dLHigh Triglyceride: 200-499 mg/dLVery High Triglyceride: greater than or equal to 5OO mg/dL Cholesterol 227(H) <200 mg/dL [facility] Comment:Desirable Cholestero l: less than 200 mg/dLBorderline High Cholesterol: 200-239 mg/dLHigh Cholesterol: greater than 239 mg/dL LDL Cholesterol Calculated 154(H) <100 mg/dL [facility] Comment:Desirable LDL: less than 100 mg/dLNear Optimal/Above Optimal LDL: 110- 129 mg/dLBorderline High LDL: 130-159 mg/dLHigh LDL: 160-189 mg/dLVery High LDL: greater than or equal to 190 mg/dL HDL Cholesterol 39(L) >40 mg/dL [facility] Comment:Desirable HDL: great er than 40 mg/dL Note: This HDL assay may give artificially low results in patients with liver disease. Blood Venous blood specimen / Unknown 06/04/2025 9:03 AM EDT 06/04/2025 11:11 AM EDT Carmen Cadena MD LAB BLOOD ORDERAB LES Final Result [facility] [address] [place] [phone] * (ABNORMAL) Comprehensive Metabolic Panel (06/04/2025 9:03 AM EDT) Sodium 140 135 - 145 mmol/L [facility] Potassium 3.8 3.3 - 5.1 mmol/L [facility] Chloride 103 96 - 108 mmol/L [facility] Carbon Dioxide 31(H) 22 - 29 mmol/L [facility] Anion Gap 10(L) 12 - 20 [facility] Urea Nitrogen (BUN) 21(H) 9 - 16 mg/dL [facility] Creatinine, Serum 1.29 0.5 - 1.4 mg/dL [facility] Estimated Glomerular Filt Rate 40 [facility] Comment:Chronic Kidney Disea se: Estimated GFR < 60 mL/min/1.38l6[place] Kidney Disease: Estimated GFR < 15 mL/min/1.73m2 Glucose 86 60 - 115 mg/dL [facility] Calcium 9.4 8.4 - 10.2 mg/dL [facility] Bilirubin, Total 0.4 0.0 - 1.0 mg/dL [facility] Aspartate Amino Transferase 34(H) 5 - 31 U/L [facility] Alanine Aminotransferase 16 0 - 31 U/L [facility] Total Protein 7.6 6.5 - 8.0 g/dL [facility] Albumin Level 4.2 3.5 - 5.0 g/dL [facility] Alkaline Phosphatase 75 39 - 117 U/L [facility] Blood Venous blood specimen / Unknown 06/04/2025 9:03 AM EDT 06/04/2025 11:11 AM EDT Carmen Cadena MD LAB BLOOD ORDERAB LES Final Result Performing Organization Address City/State/[facility] Co de Phone Number [facility] [address] [place] [phone] * XR Chest 2 Views (06/01/2025 12:50 PM EDT) Anatomical Region Laterality Modality Chest Radiographic Jessy ging 06/01/2025 12:5 0 PM EDT Narrative 06/01/2025 1:04 PM EDT [address] [address] XRay Report Signed Patient: Niesha Mead MR#: [id number] : 1945 Acct:[id number] Age/Sex: 80 / F ADM Date: 06/01/25 Loc: HO.HHCX Attending Dr: Carmen Cadena MD Ordering Physician: Carmen Gong MD Date of Service: 06/01/25 Procedure(s): XR chest 2V Accession Number(s): [id number] cc: Carmen Gong MD Reason for Exam: [...] OV> 06/01/25 1301 DD/ 1250 TD/TT: 06/01/25 125 [employer] History Professor: Procedure Note Donotuseinterpreter, Image - 06/01/[address] [address] XRay Report Signed Patient: Niesha MeadMR#: [id number] : 5Acct:[id number] Age/Sex: 80 / FADM Date: 06/01/25 Loc: .HHCX Attending Dr: Carmen Cadena MD Ordering Physician: Carmen Gong MD Date of Service: 06/01/25 Procedure(s): XR chest 2V Accession Number(s): [id number] cc: Carmen Gong MD Reason for Exam: [...] MDin OV> 06/01/25 1301 DD/ 1250 TD/TT: 06/01/251254 [employer] History Professor: Carmen Cadena MD IMG XR PROCEDURES Final Result * XR Ankle 3+ Views Right (06/01/2025 11:14 AM EDT) Anatomical Region Laterality Modality Lower Extremities, Ankle Right Radiogr aphic Imaging 06/01/2025 11:1 4 AM EDT Narrative 06/01/2025 1:07 PM EDT [address] [address] XRay Report Signed Patient: Niesha Mead MR#: [id number] : 1945 Acct:[id number] Age/Sex: 80 / F ADM Date: 06/01/25 [facility]: Carmen Cadena MD Ordering Physician: Carmen Gong MD Date of Service: 06/01/25 Procedure(s): XR ankle RT min 3V Accession Number(s): [id number] cc: Carmen Gong MD Reason for Exam: [...] 06/01/25 1304 DD/ 1114 TD/TT: 06/01/25 1255 Church History Professor: Procedure Note Donotuseinterpreter, Image - 06/01/[address] [address] XRay Report Signed Patient: Niesha MeadMR#: [id number] : 5Acct:[id number] Age/Sex: 80 / FADM Date: 06/01/25 Loc: HO.HHCX Attending Dr: Carmen Cadena MD Ordering Physician: Carmen Gong MD Date of Service: 06/01/25 Procedure(s): XR ankle RT min 3V Accession Number(s): [id number] cc: Carmen Gong MD Reason for Exam: [...] 06/01/25 1304 DD/ 1114 TD/TT: 06/01/25 1255 Church History Professor: us Carmen Cadena MD IMG XR PROCEDURES Final Result * ECG 12 lead (04/24/2025 8:16 PM EDT) Narrative Carmen Gong MD - 04/24/2025 8:16 PM EDT -EKG today for baseline 02/2025 HR 63, QTc 475, NSR ,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
--- OUTSIDE RECORDS SUMMARY | 2025-07-20 14:14 | XMS_ITS | Encounter Summary ---
Author Organization [employer] Address 75 [facility] 7t [place] [address] Care Team Providers Care Port Engineer Name Role Phone [place] [facility] Primary Care Provider [phone] Carmen Gong MD Primary Care Pro vider Davis Simms Unavailable Reason for Visit * Reason Onset Date Comments Appointment Request 12/03/2022 Encounter Details Date Type Department Care Team (Late st Contact Info) Description 12/03/2022 Telephone [facility] [address] [place], [place] [phone] [facility], [facility] 230 [place], [place] [phone] Appointment Request Social History Tobacco Use Types [...] seen. Pt is irate. Please contact at [phone] Taiwanese * Telephone Encounter - Lino Carpio - 12/03/2022 1:07 PM EDT Tc from pt requesting a TP appt with her new provider. Pt is currently in a recall. Convention Services Manager tried booking but no slots were available please contact pt at [phone] Taiwanese Speaker documented in this encounter Plan of Treatment Not on file documented as of this encounter Visit Diagnoses Not on filedocumented in this encounter Additional Health Concerns Assessment Noted Time PHQ-9 Depression Total Score: 0 10/13/19 11:31 AM EST documented as of this encounter Care Teams Port Engineer Relationship Specialty Start Date End Date Emely Mclean FNP 230 [place] [address] PCP - General Family Medicine 05/19/22 05/09/23 Carmen Gong MD 230 [place] [address] PCP - General Internal Medicine 05/10/23 Davis Simms [address] [place] [address] 06/05/25 documented as of this encounter
--- OUTSIDE RECORDS SUMMARY | 2025-07-20 14:14 | XMS_ITS | Encounter Summary ---
Author Organization [employer] Address 75 [facility] 7t [place] [address] Care Team Providers Care Inpatient Care Manager Rn Name Role Phone Carmen Gong MD Primary Care Pro vider Davis Simms Unavailable Encounter Details Date Type Department Care Team (Late st Contact Info) Description 06/01/2025 Results Follow-Up [facility] MEDICINE 230 [place] [address] Carmen Gong MD 230 [place] [address] XR Chest 2 Views Social History Tobacco [...] documented as of this encounter Care Teams Inpatient Care Manager Rn Relationship Specialty Start Date End Date Carmen Gong MD 230 [place] [address] PCP - General Internal Medicine 05/10/23 Davis Simms [facility]7 [place], [place] 110[address] 06/05/25 documented as of this encounter
--- OUTSIDE RECORDS SUMMARY | 2025-07-20 14:14 | XMS_ITS | Encounter Summary ---
Author Organization [employer] Address 75 [facility] 7t [place] [address] Care Team Providers Care Compliance Field Technician Name Role Phone Carmen Gong MD Primary Care Pro vider Davis Simms Unavailable Reason for Visit * Reason Comments Med Refill Encounter Details Date Type Department Care Team ([facility] st Contact Info) Description 06/03/2025 Refill [facility] MEDICINE 230 [place], [place] [phone] Gricelda Lubin MD 230 [place], [place] [phone] Steatosis of liver Social History Tobacco Use [...] documented as of this encounter Care Teams Compliance Field Technician Relationship Specialty Start Date End Date Carmen Gong MD 230 [place] [address] PCP - General Internal Medicine 05/10/23 Davis Simms [facility]7 [place], [place] 7[address] 06/05/25 documented as of this encounter
--- OUTSIDE RECORDS SUMMARY | 2025-07-20 14:14 | XMS_ITS | Encounter Summary ---
Author Organization [facility] [place], Address [address] [place] [address] Phone Care Team Providers Care Professor Of German Name Role Phone Carmen Smith Primary Care Provid er Encounter Details Date Type Department Care Team (Late Contact Info) Description 10/01/2023 Documentation Only [facility] [address] Lenore LOPEZ [address] [place] [address] Rl Swenson PA [address] [facility] [facility] [facility] [place] [address] Social History Tobacco Use Types [...] Visit [facility] [address] [facility] [place] [address] Kamran Escobar MD [address] [facility] [place] [address] documented as of this encounter Visit Diagnoses Not on filedocumented in this encounter Care Teams Professor Of German Relationship Specialty Start Date End Date Carmen Smith [address] [place] [address] PCP - General 05/22/25 documented as of this encounter
--- OUTSIDE RECORDS SUMMARY | 2025-07-20 14:14 | XMS_ITS | Encounter Summary ---
Author Organization [facility] [place], Address PO [facility] [address] [place] [address] Phone Care Team Providers Care Home Improvement Installer Name Role Phone Carmen Smith Primary Care Provid er Encounter Details Date Type Department Care Team ([facility] Contact Info) Description 06/24/2022 Documentation Only [facility] [address] [place] [address] Rl Swenson PA [address] [place] [address] Social History Tobacco Use Types [...] [facility] [address] [place] [address] Kamran Escobar MD [address] [facility] [place] [address] documented as of this encounter Visit Diagnoses Not on filedocumented in this encounter Care Teams Home Improvement Installer Relationship Specialty Start Date End Date Carmen Smith [address] [place] [address] PCP - General 05/22/25 documented as of this encounter
--- OUTSIDE RECORDS SUMMARY | 2025-07-20 14:14 | XMS_ITS | Encounter Summary ---
Author Organization [employer] Address 75 [facility] 7t [place] [address] Care Team Providers Care Chucking And Sawing Machine Operator Name Role Phone Carmen Gong MD Primary Care Pro vider Davis Simms Unavailable Reason for Visit * Reason Comments Med Refill Encounter Details Date Type Department Care Team ([facility] st Contact Info) Description 06/14/2024 Refill [facility] MED & PEDS [address] [place] [address] Carmen Gong MD 230 [place] [address] Social History Tobacco Use Types Packs/Day Years [...] documented as of this encounter Care Teams Chucking And Sawing Machine Operator Relationship Specialty Start Date End Date Carmen Gong MD 230 [place] [address] PCP - General Internal Medicine 05/10/23 Davis Simms [address] [place] [address] 06/05/25 documented as of this encounter
--- OUTSIDE RECORDS SUMMARY | 2025-07-20 14:14 | XMS_ITS | Encounter Summary ---
Author Organization [employer] Address 75 [facility] 7t [place] [address] Care Team Providers Care Labor Relations Supervisor Name Role Phone Carmen Gong MD Primary Care Pro vider Davis Simms Unavailable Reason for Visit * Reason Comments Med Refill Encounter Details Date Type Department [facility] Description 05/10/2024 Refill [facility] CHC MED & PEDS [address] [place] [address] Ziggy Carson MD 505 [place] [address] Social History Tobacco Use Types Packs/Day Years [...] documented as of this encounter Care Teams Labor Relations Supervisor Relationship Specialty Start Date End Date Carmen Gong MD 230 [place] [address] PCP - General Internal Medicine 05/10/23 Davis Simms [facility]7 [place], [place] 110[address] 06/05/25 documented as of this encounter
--- OUTSIDE RECORDS SUMMARY | 2025-07-20 14:14 | XMS_ITS | Encounter Summary ---
Author Organization [facility] [place], Address PO [facility] [address] [place] [address] Phone Care Team Providers Care Fisher Scallop Name Role Phone Carmen Smith Primary Care Provid er Encounter Details Date Type Department Care Team ([facility] [place] Contact Info) Description 08/09/2023 Orders Only [facility] [address] [place] [address] Rl Swenson PA [address] [place] [address] [place] [address] Stage 3b chronic kidney disease [...] Visit [facility] [address] [place] [address] Kamran Escobar MD [address] [place] [address] [place] [address] documented as of this encounter Visit Diagnoses Diagnosis Stage 3b chronic kidney disease (HCC) Hypertensive disorder Acquired renal cystic disease documented in this encounter Care Teams Fisher Scallop Relationship Specialty Start Date End Date Carmen Smith [address] [place] [address] PCP - General 05/22/25 documented as of this encounter
[2025-07-20 15:55] LABS: Creatinine POC 1.2 mg/dL (0.5-1.4); GFR POC 44
== END 2025-07-20 13:08 | disposition home or self-care (01) ==
LOC: HO.CT 13:07
PROVIDERS: PCP Student in an Organized Health Care Education/Training Program; Visit Provider Student in an Organized Health Care Education/Training Program
DX: I77.89 Other specified disorders of arteries and arterioles (principal)
CPT/HCPCS: 71275; 82565; Q9967

== ENCOUNTER → 2025-07-20 13:22 | Outpatient (BNV) | payer OTHER, SELFPAY | PROVIDERS: PCP Student in an Organized Health Care Education/Training Program; Visit Provider Radiology Diagnostic Radiology | DX: I77.89 Other specified disorders of arteries and arterioles (principal) | CPT/HCPCS: 71275 ==

== ENCOUNTER → 2025-07-27 09:14 | Outpatient (REF) | payer OTHER, SELFPAY ==
--- OUTSIDE RECORDS SUMMARY | 2025-07-27 10:22 | XMS_ITS | Encounter Summary ---
Author Organization [facility] Address PO [facility] [address] [place] [address] Phone Care Team Providers Care Superintendent Tests Name Role Phone Carmen Smith Primary Care Provid er Encounter Details Date Type Department Care Team ([facility] Contact Info) Description 01/02/2022 Documentation Only [facility] [address] [place] [address] Issa Mishra MD 134 [facility] [place] [address] Social History Tobacco Use Types [...] Visit [facility] [address] [place] [address] Kamran Escobar MD [address] [facility] [place] [address] documented as of this encounter Visit Diagnoses Not on filedocumented in this encounter Care Teams Superintendent Tests Relationship Specialty Start Date End Date Carmen Smith [address] [place] [address] PCP - General 05/22/25 documented as of this encounter
--- OUTSIDE RECORDS SUMMARY | 2025-07-27 10:22 | XMS_ITS | Encounter Summary ---
Author Organization [employer] Address 75 [facility] 7t [place] [address] Care Team Providers Care Smeller Name Role Phone [place] [facility] Primary Care Provider [phone] Carmen Gong MD Primary Care Pro vider Davis Simms Unavailable Reason for Visit * Reason Onset Date Comments Appointment Request 12/03/2022 Encounter Details Date Type Department Care Team (Late st Contact Info) Description 12/03/2022 Telephone [facility] MEDICINE 230 [place], [place] [phone] [place], [facility] 230 [place], [place] [phone] Appointment Request Social History Tobacco Use Types [...] seen. Pt is irate. Please contact at [phone] [place] * Telephone Encounter - Lino Carpio - 12/03/2022 1:07 PM EDT Tc from pt requesting a TP appt with her new provider. Pt is currently in a recall. Account Information Clerk tried booking but no slots were available please contact pt at [phone] [place] Speaker documented in this encounter Plan of Treatment Not on file documented as of this encounter Visit Diagnoses Not on filedocumented in this encounter Additional Health Concerns Assessment Noted Time PHQ-9 Depression Total Score: 0 10/13/19 11:31 AM EST documented as of this encounter Care Teams Smeller Relationship Specialty Start Date End Date Emely Mclean FNP 230 [place] [address] PCP - General Family Medicine 05/19/22 05/09/23 Carmen Gong MD 230 [place] [address] PCP - General Internal Medicine 05/10/23 Davis Simms [address] [place] [address] 06/05/25 documented as of this encounter
--- OUTSIDE RECORDS SUMMARY | 2025-07-27 10:22 | XMS_ITS | Encounter Summary ---
Author Organization [facility] [place], Address PO [facility] [address] [place] [address] Phone Care Team Providers Care Meat Pumper Name Role Phone Carmen Smith Primary Care Provid er Encounter Details Date Type Department Care Team ([facility] Contact Info) Description 06/29/2022 Documentation Only [facility] [address] [place] [address] Rl Swenson PA [address] [facility] [address] [place] [address] Social History Tobacco Use Types [...] Visit [facility] [address] [facility] [place] [address] Kamran Escobar MD [address] [facility] [place] [address] documented as of this encounter Visit Diagnoses Not on filedocumented in this encounter Care Teams Meat Pumper Relationship Specialty Start Date End Date Carmen Smith [address] [place] [address] PCP - General 05/22/25 documented as of this encounter
--- OUTSIDE RECORDS SUMMARY | 2025-07-27 10:22 | XMS_ITS | Encounter Summary ---
Author Organization [employer] Address 75 [facility] 7t [place] [address] Care Team Providers Care Licensing Registration Examiner Name Role Phone Carmen Gong MD Primary Care Pro vider Davis Simms Unavailable Encounter Details Date Type Department Care Team (Late st Contact Info) Description 06/01/2025 Results Follow-Up [facility] MEDICINE 230 [place] [address] Carmen Gong MD [address] [place] [address] XR Chest 2 Views Social History Tobacco [...] documented as of this encounter Care Teams Licensing Registration Examiner Relationship Specialty Start Date End Date Carmen Gong MD [address] [place] [address] PCP - General Internal Medicine 05/10/23 Davis Simms [facility]7 [place], [place] 110[address] 06/05/25 documented as of this encounter
--- OUTSIDE RECORDS SUMMARY | 2025-07-27 10:22 | XMS_ITS | Encounter Summary ---
Author Organization [employer] Address 75 [facility] 7t [place] [address] Care Team Providers Care Sewing Machine Bobbin Winder Name Role Phone Carmen Gong MD Primary Care Pro vider Davis Simms Unavailable Reason for Visit * Reason Comments Med Refill Encounter Details Date Type Department Care Team ([facility] Contact Info) Description 05/10/2024 Refill [facility] CHC MED & PEDS 505 [place] [address] Ziggy Carson MD 505 [place] [address] Social History Tobacco Use Types Packs/Day Years [...] documented as of this encounter Care Teams Sewing Machine Bobbin Winder Relationship Specialty Start Date End Date Carmen Gong MD 230 [place] [address] PCP - General Internal Medicine 05/10/23 Davis Simms [facility]7 [place], [place] 110[address] 06/05/25 documented as of this encounter
--- OUTSIDE RECORDS SUMMARY | 2025-07-27 10:22 | XMS_ITS | Encounter Summary ---
Author Organization [employer] Address 75 [facility] 7t [place] [address] Care Team Providers Care Small Business Representative Name Role Phone Carmen Gong MD Primary Care Pro vider Davis Simms Unavailable Reason for Visit * Reason Comments Med Refill Encounter Details Date Type Department Care Team ([facility] st Contact Info) Description 06/14/2024 Refill [facility] CHC MED & PEDS 505 [place] [address] Carmen Gong MD 230 [place] [address] Social History Tobacco Use Types Packs/Day Years [...] documented as of this encounter Care Teams Small Business Representative Relationship Specialty Start Date End Date Carmen Gong MD 230 [place] [address] PCP - General Internal Medicine 05/10/23 Davis Simms [address] [place] [address] 06/05/25 documented as of this encounter
--- OUTSIDE RECORDS SUMMARY | 2025-07-27 10:22 | XMS_ITS | Encounter Summary ---
Author Organization [facility] [place], Address PO [facility] [address] [place] [address] Phone Care Team Providers Care Commercial Finance Analyst Name Role Phone Carmen Smith Primary Care Provid er Encounter Details Date Type Department Care Team ([facility] Contact Info) Description 08/07/2020 Orders Only [facility] [place] [address] [place] [phone] Cricket Mcghee MD Renal stone; Acquired renal [...] Upcoming Encounters Date Type Department Care Team ([facility] Contact Info) Description 09/11/2025 10:30 AM EST Office Visit [facility] [place], [address] [facility] [place] [address] Kamran Escobar MD [address] [facility] [place] [address] documented as of this encounter Visit Diagnoses Diagnosis Renal stone Acquired renal cystic disease documented in this encounter Care Teams Commercial Finance Analyst Relationship Specialty Start Date End Date Carmen Smith [address] [place] [phone] PCP - General 05/22/25 documented as of this encounter
--- OUTSIDE RECORDS SUMMARY | 2025-07-27 10:22 | XMS_ITS | Encounter Summary ---
Author Organization [facility] [place], Address PO [facility] [address] [place] [address] Phone Care Team Providers Care Submarine Operator Name Role Phone Carmen Smith Primary Care Provid er Encounter Details Date Type Department Care Team ([facility] Contact Info) Description 06/26/2022 Documentation Only [facility] [address] [facility] [place] [address] Rl Swenson PA [address] [facility] [place] [address] Social History Tobacco Use Types [...] Visit [facility] [address] [facility] [place] [address] Kamran Escobar MD [address] [facility] [place] [address] documented as of this encounter Visit Diagnoses Not on filedocumented in this encounter Care Teams Submarine Operator Relationship Specialty Start Date End Date Carmen Smith [address] [place] [address] PCP - General 05/22/25 documented as of this encounter
--- OUTSIDE RECORDS SUMMARY | 2025-07-27 10:22 | XMS_ITS ---
Author Name Papo RICHARDS, MRS. Moore Address [address] [place] [address] Phone [phone] Organization [facility] Care Team Providers Care Filtration Operator Name Role Phone Teresa Barros Unavailable [phone] Reason for Referral Not Available Allergies, adverse [...] organ damage (headache, vision changes, chest pain)/ Outcome Analyst on proper BP monitoring technique and reassess/ [...] Pain Assessment - NO pain present (1126F) [facility] [place] Pain Assessment - NO pain present (1126F) [facility] [place] Pain Assessment - NO pain present (1126F) [facility] [place] Pain Assessment - NO pain present (1126F) [facility] [place] Pain Assessment - NO pain present (1126F) [facility] [place] Pain Assessment - NO pain present (1126F) [facility] [place] Pain Assessment - NO pain present (1126F) [facility] [place] Anxiety disorder, unspecifiedChronic kidney disease, stage 3b Pain Assessment - NO pain present (1126F) [facility] [place] Pain Assessment - NO pain present (1126F) [facility] [place] Estab. patient 30-39min; chronic exacerbation, 2 stable chronic or 1 acute illness add add modifier 95 for video, (do not use for phone, instead use 28483-52) [facility] [place] Hypertensive chronic kidney disease w [...] (do not use for phone, instead use 03925-30) [facility] [place] Estab. patient 30-39min; chronic exacerbation, 2 stable chronic or 1 acute illness add add modifier 95 for video, (do not use for phone, instead use 73201-01) [facility] [place] Estab. patient 30-39min; chronic exacerbation, 2 stable chronic or 1 acute illness add add modifier 95 for video, (do not use for phone, instead use 24886-20) [facility] [place] Estab. patient 30-39min; chronic exacerbation, 2 stable chronic or 1 acute illness add add modifier 95 for video, (do not use for phone, instead use 32029-06) [facility] [place] Estab. patient 30-39min; chronic exacerbation, 2 stable chronic or 1 acute illness add add modifier 95 for video, (do not use for phone, instead use 71276-52) [facility] [place] Estab. patient 30-39min; chronic exacerbation, 2 stable chronic or 1 acute illness add add modifier 95 for video, (do not use for phone, instead use 41574-16) [facility] [place] Estab. patient 30-39min; chronic exacerbation, 2 stable chronic or 1 acute illness add add modifier 95 for video, (do not use for phone, instead use 46935-55) [facility] [place] Estab. patient 30-39min; chronic exacerbation, 2 stable chronic or 1 acute illness add add modifier 95 for video, (do not use for phone, instead use 54790-55) [facility] [place]23 Unlisted special service; to be used for medical record reviews and reporting CPTII codes (1111F, etc) [facility] [place] 02/11/2024 Other specified health statu s Unlisted special service; to be used for medical record reviews and reporting CPTII codes (1111F, etc) [facility] [place] Unlisted special service; to be used for medical record reviews and reporting CPTII codes (1111F, etc) [facility] [place] Estab. patient 30-39min; chronic exacerbation, 2 stable chronic or 1 acute illness add add modifier 95 for video, (do not use for phone, instead use 43064-29) [facility] [place] Anxiety disorder, unspecifiedSedative, hypnotic, or anxiolytic [...] (do not use for phone, instead use 05683-84) [facility] [place] Estab. patient 30-39min; chronic exacerbation, 2 stable chronic or 1 acute illness add add modifier 95 for video, (do not use for phone, instead use 60408-77) [facility] [place] Estab. patient 30-39min; chronic exacerbation, 2 stable chronic or 1 acute illness add add modifier 95 for video, (do not use for phone, instead use 70302-48) [facility] [place] Estab. patient 30-39min; chronic exacerbation, 2 stable chronic or 1 acute illness add add modifier 95 for video, (do not use for phone, instead use 28519-28) [facility] [place] Estab. patient 30-39min; chronic exacerbation, 2 stable chronic or 1 acute illness add add modifier 95 for video, (do not use for phone, instead use 94994-63) [facility] [place] Estab. patient 30-39min; chronic exacerbation, 2 stable chronic or 1 acute illness add add modifier 95 for video, (do not use for phone, instead use 25537-88) [facility] [place] Estab. patient 30-39min; chronic exacerbation, 2 stable chronic or 1 acute illness add add modifier 95 for video, (do not use for phone, instead use 21464-37) [facility] [place] Estab. patient 20-29min; 1 stable chronic or 2 minor; add add modifier 95 for video, modifier 93 for phone [facility] [place] 12/27/2024 Anxiety disorder, unspecifiedSedative, hypnotic, or anxiolytic [...] 95 for video, modifier 93 for phone [facility] [place] Estab. patient 20-29min; 1 stable chronic or 2 minor; add add modifier 95 for video, modifier 93 for phone [facility] [place] Estab. patient 20-29min; 1 stable chronic or 2 minor; add add modifier 95 for video, modifier 93 for phone [facility] [place] Estab. patient 20-29min; 1 stable chronic or 2 minor; add add modifier 95 for video, modifier 93 for phone [facility] [place] Estab. patient 20-29min; 1 stable chronic or 2 minor; add add modifier 95 for video, modifier 93 for phone [facility] [place] Estab. patient 20-29min; 1 stable chronic or 2 minor; add add modifier 95 for video, modifier 93 for phone [facility] [place]/20[place] Estab. patient 20-29min; 1 stable chronic or 2 minor; add add modifier 95 for video, modifier 93 for phone [facility] [place] 12/[place]/20[place] Estab. patient 20-29min; 1 stable chronic or 2 minor; add add modifier 95 for video, modifier 93 for phone [facility] [place] 12/27/2024 Vital Signs Date [...] (do not use for phone, instead use 30379-82) 99346 2022-07-15 No Data Available No Data Availa ble SBP < 130 (3074F) 3074F 2022-07-15 No Data Available No Data Available DBP <80 (3078F) 3078F 2022-07-15 No Data Available No Data Available Estab. patient 30-39min; chronic exacerbation, 2 stable chronic or 1 acute illness add add modifier 95 for video, (do not use for phone, instead use 42748-90) 02789 2023-07-08 No Data Available No Data Availa [...] reviews and reporting CPTII codes (1111F, etc) 25437 2024-02-11 No Data Available No Data Availa ble SBP < 130 (3074F) 3074F 2024-02-11 No Data Available No Data Available DBP <80 (3078F) 3078F 2024-02-11 No Data Available No Data Available Estab. patient 30-39min; chronic exacerbation, 2 stable chronic or 1 acute illness add add modifier 95 for video, (do not use for phone, instead use 64903-41) 55229 2024-04-07 No Data Available No Data Availa [...] 95 for video, modifier 93 for phone 83090 2024-12-27 No Data Available No Data Availa [...] Category Effective Dates Ambulates with cane. 2023-07-08 INVESTIGATION DIVISION LIEUTENANT coming in daily 2023-07-08 Cognition Status: Oriented [...] organ damage (headache, vision changes, chest pain)/ Outcome Analyst on proper BP monitoring technique and reassess/ [...] organ damage (headache, vision changes, chest pain)/ Outcome Analyst on proper BP monitoring technique and reassess/ [...] discussedDo you have a Durable Power of [employer] Sheets Supervisor for Healthcare, or Healthcare Proxy Or Guardianship? SELECTIf so, Who? Vic Gastelum you have a written Advance Directive? Has Advance DirectiveOther details of discussion:Today's plan: Advised patient to discuss wishes with [id number] : AD or surrogate was documented in the medical record.
--- OUTSIDE RECORDS SUMMARY | 2025-07-27 10:22 | XMS_ITS | Encounter Summary ---
Author Organization [facility] [place], Address [address] [facility] [address] [place] [address] Phone Care Team Providers Care Squeegee Finisher Name Role Phone Carmen Smith Primary Care Provid er Encounter Details Date Type Department Care Team ([facility] Contact Info) Description 06/24/2022 Documentation Only [facility] [address] [place] [place] [address] Rl Swenson PA [address] [place] [address] Social History Tobacco Use Types [...] Visit [facility] [address] [place] [address] Kamran Escobar MD [address] [facility] [place] [address] documented as of this encounter Visit Diagnoses Not on filedocumented in this encounter Care Teams Squeegee Finisher Relationship Specialty Start Date End Date Carmen Smith [address] [place] [address] PCP - General 05/22/25 documented as of this encounter
--- OUTSIDE RECORDS SUMMARY | 2025-07-27 10:22 | XMS_ITS | Encounter Summary ---
Author Organization [facility] [place], Address PO [facility] [address] [place] [address] Phone Care Team Providers Care Healthcare Management Consultant Name Role Phone Carmen Smith Primary Care Provid er Encounter Details Date Type Department Care Team ([facility] Contact Info) Description 07/11/2024 Documentation Only [facility] [place] [address] Lenore LOPEZ [address] [place] [phone] Emmanuelle Melendez [address] [place] [address] Social History Tobacco Use Types [...] Visit [facility] [address] [facility] [address] [place] [address] Kamran Escobar MD [address] [facility] [place] [address] documented as of this encounter Visit Diagnoses Not on filedocumented in this encounter Care Teams Healthcare Management Consultant Relationship Specialty Start Date End Date Carmen Smith [address] [place] [address] PCP - General 05/22/25 documented as of this encounter
--- OUTSIDE RECORDS SUMMARY | 2025-07-27 10:22 | XMS_ITS | Encounter Summary ---
Author Organization [employer] Address [address] [facility] 7t [place] [address] Care Team Providers Care Early Childhood Teacher Assistant Name Role Phone Carmen Gong MD Primary Care Pro vider Davis Simms Unavailable Reason for Visit * Reason Comments Med Refill Encounter Details Date Type Department Care Team ([facility] st Contact Info) Description 06/03/2025 Refill [facility] MEDICINE [address] [place], [place] [phone] Gricelda Lubin MD [address] [place], [place] [phone] Steatosis of liver Social History Tobacco Use [...] documented as of this encounter Care Teams Early Childhood Teacher Assistant Relationship Specialty Start Date End Date Carmen Gong MD [address] [place] [address] PCP - General Internal Medicine 05/10/23 Davis Simms [facility] [place], [place] [address] 06/05/25 documented as of this encounter
--- OUTSIDE RECORDS SUMMARY | 2025-07-27 10:23 | XMS_ITS | Encounter Summary ---
Author Organization [facility] [place], Address [address] [place] [address] Phone Care Team Providers Care Sail Repair Person Name Role Phone Carmen Smith Primary Care Provid er Encounter Details Date Type Department Care Team (Late Contact Info) Description 10/01/2023 Documentation Only [facility] [address] Lenore LOPEZ [address] [place] [address] Rl Swenson PA [address] [facility] [place] [address] Social History Tobacco Use Types [...] Visit [facility] [address] [facility] [place] [address] Kamran Escobar MD [address] [facility] [place] [address] documented as of this encounter Visit Diagnoses Not on filedocumented in this encounter Care Teams Sail Repair Person Relationship Specialty Start Date End Date Carmen Smith [address] [place] [address] PCP - General 05/22/25 documented as of this encounter
--- OUTSIDE RECORDS SUMMARY | 2025-07-27 10:23 | XMS_ITS | Encounter Summary ---
Author Organization [employer] Address [address] [facility] 7t [place] [address] Care Team Providers Care Industrial Waste Treatment Technician Name Role Phone Carmen Gong MD Primary Care Pro vider Davis Simms Unavailable Encounter Details Date Type Department Care Team ([facility] st Contact Info) Description 07/20/2025 Results Follow-Up [facility] MEDICINE [address] [place] [address] Carmen Gong MD [address] [place] [address] CTA Chest w/ and w/o Contrast Social History Tobacco Use Types Packs/Day Years [...] Encounter Note - Carmen Cadena MD - 07/20/2025 3:37 PM EDT -CTA chest : please inform pt there are No thoracic aortic abnormality. Thanks documented in this encounter Plan of Treatment Not on file documented as of this encounter Visit Diagnoses Not on filedocumented in this encounter Additional Health Concerns Assessment Noted Time PHQ-9 Depression Total Score: 6 06/01/20 25 9:40 AM EDT documented as of this encounter Care Teams Industrial Waste Treatment Technician Relationship Specialty Start Date End Date Carmen Gong MD [address] [place] [address] PCP - General Internal Medicine 05/10/23 Davis Simms [facility] [place], [place] [address] 06/05/25 documented as of this encounter
--- OUTSIDE RECORDS SUMMARY | 2025-07-27 10:23 | XMS_ITS | Encounter Summary ---
Author Organization [facility] [place], Address [address] [place] [address] Phone Care Team Providers Care Senior Net Developer Architect Name Role Phone Carmen Smith Primary Care Provid er Encounter Details Date Type Department Care Team ([facility] Contact Info) Description 10/06/2023 Documentation Only [facility] [place] [address] Lenore LOPEZ [address] [place] [phone] Issa Mishra MD [address] [facility] [place] [address] Social History Tobacco Use Types [...] Visit [facility] [address] [facility] [place] [address] Kamran Escobar MD [address] [facility] [place] [address] documented as of this encounter Visit Diagnoses Not on filedocumented in this encounter Care Teams Senior Net Developer Architect Relationship Specialty Start Date End Date Carmen Smith [address] [place] [address] PCP - General 05/22/25 documented as of this encounter
--- OUTSIDE RECORDS SUMMARY | 2025-07-27 10:23 | XMS_ITS | Encounter Summary ---
Author Organization [facility] [place], Address [address] [facility] [address] [place] [address] Phone Care Team Providers Care Machine Tracer Name Role Phone Carmen Smith Primary Care Provid er Encounter Details Date Type Department Care Team ([facility] Contact Info) Description 06/19/2024 Orders Only [facility] [address] [place] [address] Rl Swenson PA [address] [place] [address] [place] [address] Stage 3b chronic kidney disease [...] Visit [facility] [address] [place] [address] Kamran Escobar MD [address] [place] [address] [place] [address] documented as of this encounter Visit Diagnoses Diagnosis Stage 3b chronic kidney disease (HCC) Hypertensive disorder Acquired renal cystic disease documented in this encounter Care Teams Machine Tracer Relationship Specialty Start Date End Date Carmen Smith [address] [place] [address] PCP - General 05/22/25 documented as of this encounter
--- OUTSIDE RECORDS SUMMARY | 2025-07-27 10:23 | XMS_ITS | Encounter Summary ---
Author Organization [facility] [place], Address [address] [facility] [address] [place] [address] Phone Care Team Providers Care Government Service Executive Name Role Phone Carmen Smith Primary Care Provid er Encounter Details Date Type Department Care Team ([facility] Contact Info) Description 07/11/2024 Documentation Only [facility] [place] [address] Lenore LOPEZ [address] [place] [phone] Emmanuelle Melendez [address] [place] [address] Social History Tobacco Use Types [...] Visit [facility] [address] [facility] [place] [address] Kamran Escobar MD [address] [place] [address] documented as of this encounter Visit Diagnoses Not on filedocumented in this encounter Care Teams Government Service Executive Relationship Specialty Start Date End Date Carmen Smith [address] [place] [address] PCP - General 05/22/25 documented as of this encounter
--- OUTSIDE RECORDS SUMMARY | 2025-07-27 10:23 | XMS_ITS | Clinical Summary ---
Author Organization [employer] Address [address] [facility] 7[address] [place] [address] Care Team Providers Care Mandarin Chinese Teacher Name Role Phone Carmen Gong MD Primary [...] Hand pain 03/02/2024 GERD (gastroesophageal reflux disease) 4 Health care maintenance 03/02/2024 MGUS (monoclonal gammopathy [...] symptoms VS wnl I called today her measuring machine operator and last 12/2022 Cr 1.3 GFR 44 -supportive tx advised -Tamiflu 30 mg BID by last GFR -alarm signs and symptoms advised Mixed anxiety depressive disorder 09/17/2023 023 03/02/2024 Epigastric pain 07/30/2017 03/02/2024 Allergic rhinitis 08/30/2015 03/02/2024 Indigestion 08/30/2015 03/02/2024 Primary osteoarthritis invol ving multiple joints 08/30/2015 03/02/2024 Encounters Date Type Department Care Team Description 07/20/2025 Orders Only [facility] [address] [facility] [place] [address] Carmen Gong MD 07/20/2025 Results Follow-Up [facility] [address] [facility] [place] [address] Carmen Gong MD CTA Chest w/ and w/o Contrast 06/28/2025 Telephone [facility] MEDICINE [address] [place] [address] Carmen Gong MD Results 06/28/2025 Orders Only [facility] [address] [facility] [place] [address] Carmen Gong MD Dry cough (Primary Dx); Rheumatoid arthritis with positive rheumatoid factor, involving unspecified site (CMS/HCC) (HCC) 06/18/2025 Refill [facility] MEDICINE [address] [place] [address] Carmen Gong MD 06/15/2025 11:00 AM EDT Office Visit [facility] [address] [place] [address] Alejandrina Bolanos DO Acute hip pain, left (Primary Dx) 06/15/2025 Travel 06/04/2025 Orders Only [facility] MEDICINE [address] [place] [address] Carmen Gong MD Steatosis of liver 06/04/2025 Results Follow-Up [facility] [address] [place] [address] Carmen Gong MD Lipid Panel, Standard 06/03/2025 Refill [facility] [address] [place] [address] Gricelda Lubin MD Steatosis of liver 06/01/2025 9:45 AM EDT Office Visit [facility] [address] [facility] [place] [address] Carmen Gong MD Ankle pain, unspecified chronicity, unspecified laterality (Primary Dx); Chronic kidney disease, stage 3b (CMS/HCC); Essential hypertension; Obesity, morbid (CMS/HCC); Stage 3a chronic kidney disease (CMS/HCC); Health care maintenance 06/01/2025 Orders Only [facility] [address] [place] [address] Carmen Gong MD Enlarged thoracic aorta (CMS/HCC) (Primary Dx) 06/01/2025 Orders Only [facility] MEDICINE [address] [place] [address] Carmen Gong MD Enlarged thoracic aorta ([facility]/HCC) (Primary Dx) 06/01/2025 Results Follow-Up [facility] [address] [place] [address] Carmen Gong MD XR Chest 2 Views 06/01/2025 Travel 05/18/2025 Telephone [facility]ICINE [address] [place] [address] aCrmen Gong MD No Show 05/18/2025 Telephone [facility]ICINE [address] [place] [address] Carmen Gong MD Appointment Request 05/17/2025 Telephone [facility]ICINE [address] [place], [place] [phone] Carmen Gong MD chartprep from Last 3 [...] WO CONTRAST Routine 07/20/2025 1:22 PM EDT POCT CREATININE GFR Routine 07/20/2025 1 :20 PM EDT XR HIP 2 OR 3 [...] EDT Ankle pain, unspecified chronicity, unspecified laterality from Last 3 Months Results * CTA Chest w/ and w/o Contrast (07/20/2025 1:22 PM EDT) Anatomical Region Laterality Modality Body, Chest Computed Tomogra phy 07/20/2025 1:22 PM EDT Narrative 07/20/2025 2:05 PM EDT [address] [address] [address] Scan Report Signed Patient: Niesha Mead MR#: [id number] : 1945 Acct:[id number] Age/Sex: 80 / F ADM Date: 07/20/25 Loc: .CT Attending Dr: Carmen Cadena MD Ordering Physician: Carmen Gong MD Date of Service: 07/20/25 Procedure(s): CT angio chest aorta Accession Number(s): [id number] cc: Carmen Gong MD Report Number: [id number]: Total DLP = 218.00 mGy-cm Reason for [...] 07/20/25 1402 DD/ 1322 TD/TT: 07/20/25 1338 Link Machine Operator: Procedure Note Donotuseinterpreter, Image - 07/20/[address] [place] [address] [address] Scan Report Signed Patient: Niesha MeadMR#: [id number] : 5Acct:[id number] Age/Sex: 80 / FADM Date: 07/20/25 Loc: .CT Attending Dr: Carmen Cadena MD Ordering Physician: Carmen Gong MD Date of Service: 07/20/25 Procedure(s): CT angio chest aorta Accession Number(s): [id number] cc: Carmen Gong MD Report Number: [id number]: Total DLP = 218.00 mGy-cm Reason for [...] 07/20/25 1402 DD/ 1322 TD/TT: 07/20/25 1338 Link Machine Operator: us Carmen Cadena MD IMG CT PROCEDURES Final Result * POCT Creatinine GFR (07/20/2025 1:20 PM EDT) POCT Creatinine 1.2 0.5 - 1.4 mg/dL [facility] GFR POC 44 [facility] Comment:Chronic Kidney Disea se: Estimated GFR < 60 mL/min/1.07w3Zdhlbf Kidney Disease: Estimated GFR < 15 mL/min/1.73m2 07/20/2025 1:20 PM EDT 07/20/2025 3:53 PM EDT Narrative [facility] - 07/20/2025 3:55 PM EDT [phone] Carmen Cadena MD LAB POINT OF CARE TEST DOCKED DEVICE ORDERABLES Final Result [facility] [address] [place] [phone] * XR Hip 2 or 3 Views Left (06/15/2025 11:50 AM EDT) Anatomical Region Laterality Modality Lower Extremities, Hip Left Radiograp hic Imaging 06/15/2025 11:5 0 AM EDT Narrative 06/15/2025 12:15 PM EDT [address] [address] XRay Report Signed Patient: Niesha Mead MR#: [id number] : 1945 Acct:[id number] Age/Sex: 80 / F ADM Date: 06/15/25 Loc: HO.CX Attending Dr: Alejandrina Bolanos DO Ordering Physician: Alejandrina Bolanos DO Date of Service: 06/15/25 Procedure(s): XR hip LT min 2V Accession Number(s): [id number] cc: Alejandrina Bolanos DO Reason for Exam: [...] 06/15/25 1204 DD/ 1150 TD/TT: 06/15/25 1152 Link Machine Operator: Procedure Note Donotuseinterpreter, Image - 06/15/[address] [address] XRay Report Signed Patient: Niesha MeadMR#: [id number] : 5Acct:[id number] Age/Sex: 80 / FADM Date: 06/15/25 Loc: HO.HHCX Attending Dr: Alejandrina Bolanos DO Ordering Physician: Alejandrina Bolanos DO Date of Service: 06/15/25 Procedure(s): XR hip LT min 2V Accession Number(s): [id number] cc: Alejandrina Bolanos DO Reason for Exam: [...] 06/15/25 1204 DD/ 1150 TD/TT: 06/15/25 1152 Link Machine Operator: Alejandrina Bolanos DO IMG XR PROCEDURES Final Resu lt * Vitamin D, 25-Hydroxy, Total, Immunoassay (06/04/2025 9:03 AM EDT) Vitamin D 25-OH Total 49.3 >30 ng/mL [facility] Comment: Health Based Reference Values*< 20 ng/mL Pigqryvms29-16 ng/mL Insufficient> 30 ng/mL Sufficient*Laura CALLES. N [...] ORDERAB LES Final Result Performing Organization Address [facility]/ZIP Co de Phone Number [facility] [address] [place] [phone] * (ABNORMAL) Vitamin B12 (Cobalamin) and Folate Panel, Serum (06/04/2025 9:03 AM EDT) Pathologist [facility] Vitamin B12 1,876(H) 200 - 900 pg/mL [facility] Comment:NORMAL 200-900 PG/ML INDETERMINATE 160-199 PG/ML DEFICIENT < 160 PG/ML Folate 16.1 > or = 4.0 ng/mL [facility] Comment:Reference Values:> o r = 4.0 ng/mL< 4.0 ng/mL suggests folate deficiency Methotrexate, aminopterin and folinic acid(leucovorin) are chemotherapeutic agents whose molecularstructures are similar to folate; therefore, the Architectfolate assay cannot be used for patients using these drugs. Blood 06/04/2025 9:03 AM EDT 06/04/2025 11:04 AM EDT us Carmen Cadena MD LAB BLOOD ORDERAB LES Final Result Performing Organization Address [facility]/ZIP Co de Phone Number [facility] [address] [place] [phone] * TSH with Reflex to Free T4 (06/04/2025 9:03 AM EDT) TSH reflex Free T4 1.27 0.32 - 4.0 uIU/mL [facility] Blood 06/04/2025 9:03 AM EDT 06/04/2025 11:11 AM EDT Carmne Cadena MD LAB BLOOD ORDERAB LES Final Result Performing Organization Address [facility] Co de Phone Number [facility] [address] [place] [phone] * Albumin, Random Urine W/Creatinine (06/04/2025 9:03 AM EDT) Creatinine, Urine 254.22 mg/dL [facility] Microalbumin Urine 14.0 mg/L [facility] Microalbum Creatinine Ratio Ur 5.5 <30 ug/mg cr [facility] Comment:Albumin/Creatinine R atio Reference Ranges: Normal: < 30 ug/mg creatinine Microalbuminuria: 30 - 300 ug/mg creatinineClinical Albuminuria: > 300 ug/mg creatinine Urine (Urine, Random) 06/04/2025 9:03 AM EDT 06/04/2025 11:20 AM EDT us Carmen Cadena MD LAB URINE ORDERAB LES Final Result Performing Organization Address City/[facility] Co de Phone Number [facility] [address] [place] [phone] * (ABNORMAL) Urinalysis Complete (06/04/2025 9:03 AM EDT) Color Urine Yellow [facility] Appearance Urine Clear [facility] PH 7.0 5.0 - 9.0 [facility] Glucose Urine UA Negative Negative mg/dL [facility] Urine Blood Negative Negative [facility] Specific Gilchrist - Urine 1.020 1.005 - 1.025 [facility] Urine Protein Trace Neg-Trace mg/dL [facility] Urine Ketones Trace Negative mg/dL [facility] Nitrite Urine Negative Negative [facility] Leukocyte Esterase Urine Large (3+)(A) Negative [facility] RBC Urine 0-2 0 - 2 /HPF [facility] Urine WBC 0-5 0 - 5 /HPF [facility] Urine Squamous Epithelial Cell 6-10 0 - 2 /HPF [facility] Urine Bacteria Trace None Seen [facility] Hyaline Casts, Urine 0-2 0 - 2 /LPF [facility] Urine (Urine, Random) 06/04/2025 9:03 AM EDT 06/04/2025 11:20 AM EDT us Carmen Cadena MD LAB URINE ORDERAB LES Final Result [facility] [address] [place] [phone] [phone] * (ABNORMAL) CBC (06/04/2025 9:03 AM EDT) White Blood Count 5.0 4.8 - 10.8 X10*3/uL [facility] Red Blood Count 3.64(L) 4.20 - 5.50 X10*6/uL [facility] Hemoglobin 10.7(L) 12.0 - 16.0 g/dl [facility] Hematocrit 33.1(L) 37.0 - 47.0 % [facility] Mean Corpuscular Volume 90.9 80.0 - 98.0 fL [facility] Mean Corpuscular Hemoglobin 29.4 27.0 - 33.0 pg [facility] Mean Corpuscular HGB Conc 32.3 31.0 - 35.0 g/dl [facility] Red Cell Distribution Width 13.2 11.0 - 16.0 % [facility] Platelet Count 194 160 - 400 X10*3/uL [facility] Mean Platelet Volume 12.2 9.4 - 12.3 fL [facility] NRBC Pct Auto 0.0 0.0 - 0.2 /100WBC [facility] NRBC Abs Auto 0.000 0.0 - 0.012 X10*3/uL [facility] Blood Venous blood specimen / Unknown 06/04/2025 9:03 AM EDT 06/04/2025 11:11 AM EDT Carmen Cadena MD LAB BLOOD ORDERAB LES Final Result Performing Organization Address City/[facility] Co de Phone Number [facility] [address] [place] [phone] * (ABNORMAL) Uric acid (06/04/2025 9:03 AM EDT) Uric Acid 8.2(H) 2.4 - 5.7 mg/dL [facility] Blood Venous blood specimen / Unknown 06/04/2025 9:03 AM EDT 06/04/2025 11:11 AM EDT us Carmen Cadena MD LAB BLOOD ORDERAB LES Final Result Performing Organization Address [facility] de Phone Number [facility] [address] [place] [phone] * Hemoglobin A1c (06/04/2025 9:03 AM EDT) Hemoglobin A1c 5.5 <6.0 % [facility] Comment:Hemoglobin A1C Refer ence Range Adults: 4.8 - 6.0 % Non diabetic: < 6.0 % Goal: < 7.0 %Additional Action Suggested: > 8.0 %Note: Hemoglobin A1c results are invalid for patients with abnormal amounts of HbF. Blood transfusions may impact the HbA1c concentration in the patient sample. Estimated Average Glucose 111 mg/dL [facility] Comment:eAG = Estimated ave rage glucose which is %A1C expressed asaverage glucose, using the formula of the C0Z-EfhqpswOtkbtem Glucose study (ADAG), Diabetes Care, Vol.31,#8,2007 Blood Venous blood specimen / Unknown 06/04/2025 9:03 AM EDT 06/04/2025 11:11 AM EDT us Carmen Cadena MD LAB BLOOD ORDERAB LES Final Result Performing Organization Address City/[facility]/ZIP Co de Phone Number [facility] [address] [place] [phone] * (ABNORMAL) Lipid Panel, Standard (06/04/2025 9:03 AM EDT) Triglycerides 173(H) <150 mg/dL [facility] Comment:Desirable Triglyceri de: less than 150 mg/dLBorderline High Triglyceride 150-199 mg/dLHigh Triglyceride: 200-499 mg/dLVery High Triglyceride: greater than or equal to 5OO mg/dL Cholesterol 227(H) <200 mg/dL [facility] Comment:Desirable Cholestero l: less than 200 mg/dLBorderline High Cholesterol: 200-239 mg/dLHigh Cholesterol: greater than 239 mg/dL LDL Cholesterol Calculated 154(H) <100 mg/dL [facility] Comment:Desirable LDL: less than 100 mg/dLNear Optimal/Above Optimal LDL: 110- 129 mg/dLBorderline High LDL: 130-159 mg/dLHigh LDL: 160-189 mg/dLVery High LDL: greater than or equal to 190 mg/dL HDL Cholesterol 39(L) >40 mg/dL [facility] Comment:Desirable HDL: great er than 40 mg/dL Note: This HDL assay may give artificially low results in patients with liver disease. Blood Venous blood specimen / Unknown 06/04/2025 9:03 AM EDT 06/04/2025 11:11 AM EDT us Carmen Cadena MD LAB BLOOD ORDERAB LES Final Result [facility] [address] [place] [phone] * (ABNORMAL) Comprehensive Metabolic Panel (06/04/2025 9:03 AM EDT) Sodium 140 135 - 145 mmol/L [facility] Potassium 3.8 3.3 - 5.1 mmol/L [facility] Chloride 103 96 - 108 mmol/L [facility] Carbon Dioxide 31(H) 22 - 29 mmol/L [facility] Anion Gap 10(L) 12 - 20 [facility] Urea Nitrogen (BUN) 21(H) 9 - 16 mg/dL [facility] Creatinine, Serum 1.29 0.5 - 1.4 mg/dL [facility] Estimated Glomerular Filt Rate 40 [facility] Comment:Chronic Kidney Disea se: Estimated GFR < 60 mL/min/1.93a7Usoiaa Kidney Disease: Estimated GFR < 15 mL/min/1.73m2 Glucose 86 60 - 115 mg/dL [facility] Calcium 9.4 8.4 - 10.2 mg/dL [facility] Bilirubin, Total 0.4 0.0 - 1.0 mg/dL [facility] Aspartate Amino Transferase 34(H) 5 - 31 U/L [facility] Alanine Aminotransferase 16 0 - 31 U/L [facility] Total Protein 7.6 6.5 - 8.0 g/dL [facility] Albumin Level 4.2 3.5 - 5.0 g/dL [facility] Alkaline Phosphatase 75 39 - 117 U/L [facility] Blood Venous blood specimen / Unknown 06/04/2025 9:03 AM EDT 06/04/2025 11:11 AM EDT us Carmen Cadena MD LAB BLOOD ORDERAB LES Final Result [facility] [address] [place] [phone] * XR Chest 2 Views (06/01/2025 12:50 PM EDT) Anatomical Region Laterality Modality Chest Radiographic Jessy ging 06/01/2025 12:5 0 PM EDT Narrative 06/01/2025 1:04 PM EDT [facility] [address] [place] [address] XRay Report Signed Patient: Niesha Mead MR#: [id number] : 1945 Acct:[id number] Age/Sex: 80 / F ADM Date: 06/01/25 Loc: HO.CX Attending Dr: Carmen Cadena MD Ordering Physician: Carmen Gong MD Date of Service: 06/01/25 Procedure(s): XR chest 2V Accession Number(s): [id number] cc: Carmen Gong MD Reason for Exam: [...] 06/01/25 1301 DD/ 1250 TD/TT: 06/01/25 1255 Link Machine Operator: Procedure Note Donotuseinterpreter, Image - 06/01/2025 [facility] [address] [place] [address] XRay Report Signed Patient: Niesha MeadMR#: [id number] : 5Acct:[id number] Age/Sex: 80 / FADM Date: 06/01/25 [facility]: Carmen Cadena MD Ordering Physician: Carmen Gong MD Date of Service: 06/01/25 Procedure(s): XR chest 2V Accession Number(s): [id number] cc: Carmen Gong MD Reason for Exam: [...] 06/01/25 1301 DD/ 1250 TD/TT: 06/01/25 1255 Link Machine Operator: us Carmen Cadena MD IMG XR PROCEDURES Final Result * XR Ankle 3+ Views Right (06/01/2025 11:14 AM EDT) Anatomical Region Laterality Modality Lower Extremities, Ankle Right Radiogr aphic Imaging 06/01/2025 11:1 4 AM EDT Narrative 06/01/2025 1:07 PM EDT [address] [address] XRay Report Signed Patient: Niesha Mead MR#: [id number] : 1945 Acct:[id number] Age/Sex: 80 / F ADM Date: 06/01/25 Loc: HO.HHCX Attending Dr: Carmen Cadena MD Ordering Physician: Carmen Gong MD Date of Service: 06/01/25 Procedure(s): XR ankle RT min 3V Accession Number(s): [id number] cc: Carmen Gong MD Reason for Exam: [...] 06/01/25 1304 DD/ 1114 TD/TT: 06/01/25 1255 Link Machine Operator: Procedure Note Donotuseinterpreter, Image - 06/01/[address] [address] XRay Report Signed Patient: Niesha Mead#: [id number] : 5Acct:[id number] Age/Sex: 80 / FADM Date: 06/01/25 Loc: HO.HHCX Attending Dr: Carmen Cadena MD Ordering Physician: Carmen Gong MD Date of Service: 06/01/25 Procedure(s): XR ankle RT min 3V Accession Number(s): [id number] cc: Carmen Gong MD Reason for Exam: [...] 06/01/25 1304 DD/ 1114 TD/TT: 06/01/25 1255 Link Machine Operator: Carmen Cadena MD IMG XR PROCEDURES Final Result from Last 3 Months Insurance DUAL COMPLETE Care Teams Mandarin Chinese Teacher Relationship Specialty Start Date End Date Carmen Gong MD [address] [place] [phone] PCP - General Internal Medicine 05/10/23 Davis Simms [address] [place], [place] [address] 06/05/25
--- OUTSIDE RECORDS SUMMARY | 2025-07-27 10:23 | XMS_ITS | Clinical Summary ---
Author Organization [facility], Address [address] [place] [address] Phone Care Team Providers Care Account Collector Name Role Phone Carmen Smithela Primary Care [...] Encounter [facility] [address] [place] [address] Albino Schmidt MD Renal stone (Primary Dx) 05/25/2025 Orders Only [facility] [address] [place] [address] Nelly Casas [place] Acquired renal cystic disease (Primary Dx); Stage 3b chronic kidney disease (HCC); Hypertensive disorder 05/22/2025 1:30 PM EDT Office Visit [facility] [address] [place] [address] Kamran Escobar MD Stage 3a chronic kidney [...] Visit [facility] [address] [place] [phone] Kamran Escobar MD [address] [place] [address] [place] [phone] Health Maintenance Due Date Last Done Comments Hepatitis B Vaccine (1 of 3 - Risk 3-dose series) 2005 Influenza Vaccine (#1) 2025 , 09/07/2023, 06/27/2019, Additional history exists Pneumococcal Vaccine: 50+ Years Completed 03/02/2024, 05/15/2016, 08/30/2015, Additional history exists Pneumococcal Vaccine: Peds ( 0 to 5 Years) and At-Risk Patients (6 to 49 Years) Discontinued 03/02/2024, 05/15/2016, 08/30/2015, Additional history exists Insurance [facility] ([id number]) Medicaid [place] Care Teams Account Collector Relationship Specialty Start Date End Date Carmen Smith [address] [place] [phone] PCP - General 05/22/25
--- OUTSIDE RECORDS SUMMARY | 2025-07-27 10:23 | XMS_ITS | Encounter Summary ---
Author Organization [facility] [place], Address PO [facility] [address] [place] [address] Phone Care Team Providers Care Sanitor Name Role Phone Carmen Smith Primary Care Provid er Encounter Details Date Type Department Care Team ([facility] Contact Info) Description 08/09/2023 Orders Only [facility] [address] [place] [address] Rl Swenson PA [address] [place] [address] [place] [address] Stage 3b chronic kidney disease [...] Visit [facility] [address] [place] [address] Kamran Escobra MD [address] [place] [address] [place] [address] documented as of this encounter Visit Diagnoses Diagnosis Stage 3b chronic kidney disease (HCC) Hypertensive disorder Acquired renal cystic disease documented in this encounter Care Teams Sanitor Relationship Specialty Start Date End Date Carmen Smith [address] [place] [phone] PCP - General 05/22/25 documented as of this encounter
--- OUTSIDE RECORDS SUMMARY | 2025-07-27 10:23 | XMS_ITS | Encounter Summary ---
Author Organization [facility] [place], Address PO [facility] [address] [place] [address] Phone Care Team Providers Care Tribal Judge Name Role Phone Carmen Smith Primary Care Provid er Encounter Details Date Type Department Care Team ([facility] Contact Info) Description 07/11/2024 Documentation Only [facility] [address]ore [address] [place] [phone] Emmanuelle Melendez [address] [place] [address] Social History Tobacco Use Types [...] Visit [facility] [address] [place] [address] Kamran Escobar MD [address] [place] [address] documented as of this encounter Visit Diagnoses Not on filedocumented in this encounter Care Teams Tribal Judge Relationship Specialty Start Date End Date Carmen Smith [address] [place] [phone] PCP - General 05/22/25 documented as of this encounter
== END ==
LOC: HO.CARD 09:14
PROVIDERS: PCP Student in an Organized Health Care Education/Training Program; Visit Provider Internal Medicine
DX: Z13.89 Encounter for screening for other disorder (principal)